=== PATIENT | male | born 1960 | race Caucasian/White ===

== ENCOUNTER 2017-10-12 16:26 | Emergency (ER) | payer MEDICAID, SELFPAY | END 2017-10-12 19:03 | disposition home or self-care (01) | PROVIDERS: Emergency Provider Emergency Medicine; Visit Provider Emergency Medicine | DX: M25.551 Pain in right hip (principal); M54.31 Sciatica, right side; F17.210 Nicotine dependence, cigarettes, uncomplicated; Z95.1 Presence of aortocoronary bypass graft; Z95.5 Presence of coronary angioplasty implant and graft; I10 Essential (primary) hypertension; E78.5 Hyperlipidemia, unspecified; J44.9 Chronic obstructive pulmonary disease, unspecified; K21.9 Gastro-esophageal reflux disease without esophagitis; Z79.82 Long term (current) use of aspirin; Z79.899 Other long term (current) drug therapy; Z88.5 Allergy status to narcotic agent | CPT/HCPCS: 71020; 72131; 72170; 94640; 96372; 99282 ==

== ENCOUNTER 2017-12-03 10:30 | Outpatient (RCR) | payer MEDICAID, SELFPAY ==
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
== END 2017-12-03 10:31 | disposition home or self-care (01) ==
LOC: PT 10:30
PROVIDERS: PCP Emergency Medicine; Visit Provider Physician Assistant
DX: M54.9 Dorsalgia, unspecified (principal)
CPT/HCPCS: 97010; 97012; 97014; 97035; 97110; G0283

== ENCOUNTER → 2017-12-09 09:47 | Outpatient (REF) | payer MEDICAID, SELFPAY ==
[2017-12-09 13:57] LABS: Alanine Aminotransferase 43 U/L (12-78); Albumin Level 3.7 gm/dL (3.4-5.0); Albumin/Globulin Ratio 1.2 (1.1-1.8); Alkaline Phosphatase 94 U/L (46-116); Anion Gap 13.1 mEq/L (5-15); Aspartate Amino Transferase 14 U/L (15-37); Bilirubin,Total 0.5 mg/dL (0.2-1.0); Blood Urea Nitrogen 13 mg/dL (7-18); Calcium 8.6 mg/dL (8.5-10.1); Carbon Dioxide 27 mmol/L (21.0-32.0); Chloride 106 mmol/L (98-107); Chol/HDL Ratio 1.9 (1-3.5); Cholesterol 111 mg/dL (140-200); Creatinine,Serum 0.64 mg/dL (0.70-1.30); Estimated Glomerular Filt Rate 129 ml/min (>60); GFR (African American) 156 ML/MIN (>60); Glucose 157 mg/dL (74-106); HDL Cholesterol 58 mg/dL (27-67); LDL Cholesterol 38 mg/dL (0-130); Potassium 4.1 mmoL/L (3.5-5.1); Sodium 142 mmol/L (136-145); T4 (Thyroxine) 7.2 ug/dl (4.7-13.3); Thyroid Stimulating Hormone 1.91 uIU/ml (0.358-3.740); Total Protein,Serum 6.7 gm/dL (6.4-8.2); Triglycerides 73 mg/dL (30-200); VLDL Cholesterol 15 mg/dL (0-40)
[2017-12-09 14:06] LABS: Basophils % 0.3 % (0.1-2.0); Eosinophils # 0.2 K/mm3 (0.0-0.4); Eosinophils % 1.8 % (0.1-12.0); Hematocrit 45.1 % (42.0-52.0); Hemoglobin 15.4 g/dL (14.1-18.0); Lymphocytes # 2.7 K/mm3 (0.7-4.5); Lymphocytes % 28.2 K/mm3 (10-50); Mean Corpuscular HGB Conc 34.2 g/dL (31.8-35.4); Mean Corpuscular Hemoglobin 29.9 pg (27.0-31.2); Mean Corpuscular Volume 87.5 fl (80-94); Mean Platelet Volume 10.3 fl (7.4-10.4); Monocytes # 0.6 K/mm3 (0.1-1.0); Monocytes % 6.4 % (1.7-9.3); Neutrophils % 63.3 % (37.0-80.0); Platelet Count 192 K/mm3 (142-424); Red Blood Count 5.15 M/mm3 (4.60-6.20); Red Cell Distribution Width 13.3 % (11.5-17.5); White Blood Count 9.5 K/mm3 (4.8-10.8)
[2017-12-11 12:08] LABS: PSA, Free 0.27 ng/mL; Vitamin D 25 Hydroxy 19.1 ng/mL (30.0-100.0)
== END ==
LOC: LAB 09:47
PROVIDERS: Visit Provider Physician Assistant
DX: I11.9 Hypertensive heart disease without heart failure (principal); E78.5 Hyperlipidemia, unspecified
CPT/HCPCS: 80053; 80061; 82652; 84153; 84154; 84436; 84443; 85025

== ENCOUNTER → 2018-06-03 09:07 | Outpatient (CLI) | payer MEDICAID, SELFPAY ==
--- NOTE | 2018-06-03 09:09 | XR_ITS ---
XR foot wt bearing LT 3V HISTORY: ITS.REASON: pain ORDERING PHYSICIAN: Magaly Jaffe DPM PATIENT AGE: 58 years COMPARISON: None FINDINGS: It appears that the patient has had a prior bunionectomy at the first metatarsophalangeal joint. Please correlate with patient's history which is not made available. There is widening of the base of the first metatarsal suggesting an old fracture with mild osteoarthritic change of the first metatarsal tarsal junction. There are mild osteoarthritic changes of the first metatarsophalangeal joint. No acute fracture or dislocation or other significant anomalies. IMPRESSION: 1. Old fracture at the base of the first metatarsal 2. Suspect prior bunionectomy at the first metatarsophalangeal junction
--- NOTE | 2018-06-03 09:09 | XR_ITS ---
XR foot wt bearing RT 3V HISTORY: ITS.REASON: pain ORDERING PHYSICIAN: Magaly Jaffe DPM PATIENT AGE: 58 years COMPARISON: None FINDINGS: There is mild hallux valgus with first metatarsophalangeal angle of 32 degrees and mild osteoarthritic change of the first metatarsophalangeal joint along with bony hypertrophy of the distal aspect of the first metatarsal. No fracture or dislocation. No other significant anomalies. IMPRESSION: Hallux valgus with bunion formation and osteoarthritis of the first MTP joint
== END ==
PROVIDERS: Visit Provider Podiatrist
DX: M79.672 Pain in left foot (principal)
CPT/HCPCS: 73630

== ENCOUNTER 2018-06-06 02:23 | Inpatient (IN) ==
[2018-06-06 02:47] LABS: Basophils # 0.1 K/mm3 (0-0.2); Basophils % 0.3 % (0.1-2.0); Eosinophils # 0.3 K/mm3 (0.0-0.4); Eosinophils % 1.5 % (0.1-12.0); Hematocrit 46.5 % (42.0-52.0); Hemoglobin 15.9 g/dL (14.1-18.0); Lymphocytes # 5.7 K/mm3 (0.7-4.5); Lymphocytes % 27.8 K/mm3 (10-50); Mean Corpuscular HGB Conc 34.1 g/dL (31.8-35.4); Mean Platelet Volume 9.8 fl (7.4-10.4); Monocytes # 1.2 K/mm3 (0.1-1.0); Monocytes % 5.7 % (1.7-9.3); Neutrophils # 13.2 K/mm3 (1.8-7.8); Neutrophils % 64.8 % (37.0-80.0); Platelet Count 206 K/mm3 (142-424); Red Blood Count 5.29 M/mm3 (4.60-6.20); Red Cell Distribution Width 13.5 % (11.5-17.5)
[2018-06-06 02:48] LABS: White Blood Count 20.4 K/mm3 (4.8-10.8)
[2018-06-06 03:03] LABS: Anion Gap 19.7 mEq/L (5-15); Blood Urea Nitrogen 15 mg/dL (7-18); Calcium 9.3 mg/dL (8.5-10.1); Carbon Dioxide 24 mmol/L (21.0-32.0); Chloride 104 mmol/L (98-107); Glucose 162 mg/dL (74-106); Potassium 3.7 mmoL/L (3.5-5.1); Sodium 144 mmol/L (136-145)
[2018-06-06 03:08] LABS: ABG Base Excess -2.4 mmol/L (-2.4-2.3); ABG HCO3 22.7 mmhg (22.0-26.0); ABG Oxygen Saturation 89 % (90-100); ABG PCO2 39.6 mmhg (35.0-45.0); ABG PH 7.38 mmol/L (7.35-7.45); ABG PO2 56.7 mmhg (80-100)
[2018-06-06 03:09] LABS: Allen's Test Y; Oxygen 6 %
[2018-06-06 03:15] LABS: Eosinophils % 2 % (0-3); Lymphocytes % 19 % (10-50); Monocytes % 5 % (2-9); Neutrophils % 67 % (42-76); RBC Morphology Normal; Total Cells Counted 100
--- NOTE | 2018-06-06 03:42 | Emergency Department Note ---
ED Disposition Clinical Impression: Non-STEMI (non-ST elevated myocardial infarction), Tobacco dependence syndrome CHF (congestive heart failure) Qualifiers: Heart failure type: unspecified Heart failure chronicity: acute on chronic Qualified Code(s): I50.9 - Heart failure, unspecified COPD (chronic obstructive pulmonary disease) Qualifiers: COPD type: COPD with acute exacerbation Qualified Code(s): J44.1 - Chronic obstructive pulmonary disease with (acute) exacerbation CAP (community acquired pneumonia) Qualifiers: Laterality: unspecified laterality Qualified Code(s): J18.9 - Pneumonia, unspecified organism Disposition: Admitted As Inpatient Condition on Discharge: Serious Referrals: Alcides Oakley MD [Primary Care Provider] - - Critical Care Critical Care Time: No Attestation: On 06/06/18, the high probability of a clinically significant, sudden or life threatening deterioration of the following system(s) required my full and direct attention, intervention and personal management. The time I documented below is in addition to time spent performing reported procedures but includes the following listed in this critical care notation. Medical Decision Making - Medical Records Medical records reviewed: Yes: I reviewed the patient's medical records. - Denys Inquiry Pt receiving controlled substance: No Vital Signs: 06/06/18 02:23 06/06/18 02:28 06/06/18 02:35 Temperature 97.5 F L Temperature Source Temporal Artery Scan Pulse Rate [Right Radial] 113 H 112 H 109 H Respiratory Rate 26 H 22 22 Blood Pressure [Right Arm] 202/138 194/118 173/105 Blood Pressure Mean [Right Arm] 159 143 127 Blood Pressure Source [Right Arm] Automatic Cuff Automatic Cuff Automatic Cuff Blood Pressure Position [Right Arm] Sitting Sitting Sitting 02 Sat by Pulse Oximetry 75 L 95 95 Oxygen Delivery Method Room Air Non-Rebreather Non-Rebreather Oxygen Flow Rate (LPM) 15 15 06/06/18 02:42 06/06/18 02:56 06/06/18 03:01 Temperature Temperature Source Pulse Rate [Right Radial] 102 H 98 H 97 H Respiratory Rate 20 20 22 Blood Pressure [Right Arm] 173/105 172/111 162/73 Blood Pressure Mean [Right Arm] 127 131 102 Blood Pressure Source [Right Arm] Automatic Cuff Automatic Cuff Automatic Cuff Blood Pressure Position [Right Arm] Sitting Sitting Sitting 02 Sat by Pulse Oximetry 90 L 92 L 93 L Oxygen Delivery Method Nasal Cannula Nasal Cannula Oxygen Flow Rate (LPM) 6 5 06/06/18 03:23 06/06/18 04:07 06/06/18 04:28 Temperature Temperature Source Pulse Rate [Right Radial] 89 86 80 Respiratory Rate 22 15 15 Blood Pressure [Right Arm] 158/97 146/87 130/84 Blood Pressure Mean [Right Arm] 117 106 99 Blood Pressure Source [Right Arm] Automatic Cuff Automatic Cuff Automatic Cuff Blood Pressure Position [Right Arm] Sitting Sitting Sitting 02 Sat by Pulse Oximetry 93 L 93 L 95 Oxygen Delivery Method Nasal Cannula Nasal Cannula Nasal Cannula Oxygen Flow Rate (LPM) 4 4 4 - Lab Data Lab results reviewed: Yes: I reviewed the patient's lab results. Lab Results 06/06/18 02:30: WBC 20.4 H*, RBC 5.29, Hgb 15.9, Hct 46.5, MCV 88.0, MCH 30.0, MCHC 34.1, RDW 13.5, Plt Count 206, MPV 9.8, Neut % (Auto) 64.8, Lymph % (Auto) 27.8, Elbert % (Auto) 5.7, Eos % (Auto) 1.5, Baso % (Auto) 0.3, Neut # (Auto) 13.2 H, Lymph # (Auto) 5.7 H, Elbert # (Auto) 1.2 H, Eos # (Auto) 0.3, Baso # ( Auto) 0.1, Total Counted 100, Neutrophils % (Manual) 67, Band Neutrophils % 7.0 , Lymphocytes % (Manual) 19, Monocytes % (Manual) 5, Eosinophils % (Manual) 2, Platelet Estimate Normal, RBC Morphology Normal 06/06/18 02:30: Sodium 144, Potassium 3.7, Chloride 104, Carbon Dioxide 24, Anion Gap 19.7 H, BUN 15, Creatinine 1.03, Estimated Creat Clear 98, Estimated GFR 74, Est GFR ( Amer) 90, Glucose 162 H, Calcium 9.3, Troponin I < 0.02 06/06/18 03:07: Specimen Source R/r, O2 % 6, ABG pH 7.38, ABG pCO2 39.6, ABG pO2 56.7 L, ABG HCO3 22.7, ABG Total CO2 24.0, ABG O2 Saturation 89 L, ABG Base Excess -2.4, Samy Test Y 06/06/18 03:15: Lactate 1.3 06/06/18 03:15: B-Natriuretic Peptide 724 H 06/06/18 04:00: Troponin I 0.15 H Result diagrams: 06/06/18 02:30 06/06/18 02:30 Orders (Tests/Meds): ED MEDICATIONS Generic Name Dose Route Start Last Admin Trade Name María PRN Reason Stop Dose Admin Sodium Chloride 1,000 mls @ 125 mls/hr 06/06/18 03:15 06/06/18 03:07 Sod Chlor 0.9% 1000ml Bag IV 06/06/18 11:14 125 mls/hr .Q8H CHARLES Administration Azithromycin 500 mg/ Sodium 250 mls @ 250 mls/hr 06/06/18 04:00 06/06/18 04: 22 Chloride IV 06/20/18 03:59 250 mls/hr Q24H CHARLES Administration Protocol Ceftriaxone Sodium 1 gm/ 50 mls @ 100 mls/hr 06/06/18 04:00 06/06/18 03:49 Sodium Chloride IV 06/20/18 03:59 100 mls/hr Q24H CHARLES Administration Protocol Nitroglycerin 0.4 mg 06/06/18 02:23 06/06/18 02:30 Nitrostat 0.4mg Sl Tablet SL 07/06/18 02:22 0.4 mg Q5MINP PRN Administration Chest Pain Discontinued Medications Generic Name Dose Route Start Last Admin Trade Name María PRN Reason Stop Dose Admin Albuterol/Ipratropium 3 ml 06/06/18 02:52 06/06/18 03:02 Duoneb 3ml Neb IH 06/06/18 02:53 3 ml ONCE ONE Administration Aspirin 324 mg 06/06/18 02:23 06/06/18 02:23 Aspirin 81mg Chewable Tablet PO 06/06/18 02:24 324 mg ONCE ONE Administration Furosemide 40 mg 06/06/18 03:34 06/06/18 03:36 Lasix 40mg/4ml Vial IV 06/06/18 03:35 40 mg ONCE ONE Administration Methylprednisolone Sodium Succinate 125 mg 06/06/18 02:52 06/06/18 03:02 Solu-Medrol 125mg/2ml Vial IV 06/06/18 02:53 125 mg ONCE ONE Administration Nitroglycerin 1 gm 06/06/18 02:50 06/06/18 02:51 Nitroglycerin 1 Inch Oint Udp TD 06/06/18 02:51 1 gm ONCE ONE Administration ORDERS Category Date Time Status XR chest portable Stat Exams 06/06/18 02:35 Taken Blood Culture Stat Micro 06/06/18 03:15 Received ABG [Arterial Blood Gas] Stat RT 06/06/18 02:52 Ordered ECG Request by /Alon Stat Y 06/06/18 02:35 Ordered - Radiology Data #1 Image(s): Chest Image Reviewed: Yes I reviewed the patient's radiology image Preliminary Findings: Abnormal (bilat inflitrates ) - ECG Data Tracing #1 I reviewed this ECG and interpreted as documented below: Arrhythmias present: sinus tach Ischemic changes: non-specific ST-T wave changes Tracing #2 I reviewed this ECG and interpreted as documented below: Normal Sinus Rhythm: Yes Ischemic changes: non-specific ST-T wave changes Chest Pain HPI - General Chief Complaint: Chest Pain Stated Complaint: chest pain Time Seen by Provider: 06/06/18 02:40 Mode of Arrival: Ambulatory Source of Information: Patient, Medical Record Limitations: No Limitations Description of Symptoms (Recalled from ER Triage Doc. by RN): Pt reports difficulty breathing that started at 11pm tonight. She reports pt woke up in a sweat with trouble breathing complaining of chest pain and left arm pain. 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 with lt arm pain - has hx of cad and copd complaint: chest pain indicative of cardiac Onset (ago): day(s) Duration: now resolved Activity at onset: during rest Pain location: substernal Severity: moderate Quality: tightness Pain radiation: LUE Associated symptoms: diaphoresis, dyspnea Risk Factors for CAD: Hypertension, Family Hx of CAD, Smoking Treatments prior to or on arrival for Cardiac Chest Pain: none - TREY Score Non-Stemi Age of patient: Less than 65 yrs Number of risk factors for CAD: Presence of 3 or more Prior coronary artery stenosis(seen in coronary angiography): Less than 50% ST-Segment deviation on ECG (more than 1 min): Absent Prior aspirin intake: ASA intake in the last 7 days Severe anginal chest pain: Two or more episodes in last 24 hours Elevated cardiac markers(CK-MB or troponin): Absent Non-Stemi Risk Score: 3 - Related Data Prior Cardiac Testing/Procedures: CABG Home Medications Medication Instructions Recorded Confirmed aspirin 325 mg tablet,delayed 325 mg PO QDAY 11/03/17 06/06/18 release lisinopril 20 mg tablet 20 mg PO BID tab 11/03/17 06/06/18 nitroglycerin 0.4 mg sublingual 0.4 mg SUBLINGUAL Q5M PRN 11/03/17 06/06/18 tablet buprenorphine 8 mg-naloxone 2 mg 1 tab SUBLINGUAL BID tab 11/04/17 06/06/18 sublingual tablet Albuterol Sulfate [Proventil-HFA 2 puff INHALATION Q4H 06/06/18 06/06/18 90mcg/puff Inh] Amlodipine Besylate [Norvasc 5mg 5 mg PO QDAY 06/06/18 06/06/18 tablet] Atorvastatin Calcium [Lipitor 80mg 80 mg PO QHS 06/06/18 06/06/18 Tablet] Carvedilol [Carvedilol 12.5mg Tab] 12.5 mg PO BID 06/06/18 06/06/18 Cyclobenzaprine HCl 10 mg PO TID 06/06/18 06/06/18 [Cyclobenzaprine 10mg Tab] Ergocalciferol (Vitamin D2) 50,000 unit PO QWEEK 06/06/18 06/06/18 [Vitamin D2] Escitalopram Oxalate 10 mg PO DAILY 06/06/18 06/06/18 Gabapentin [Neurontin 600mg 600 mg PO TID 06/06/18 06/06/18 tablet] Isosorbide Dinitrate 30 mg PO DAILY 06/06/18 06/06/18 Omeprazole [Omeprazole 20mg 20 mg PO DAILY 06/06/18 06/06/18 Capsule] Ticagrelor [Brilinta 90mg Tablet] 90 mg PO BID 06/06/18 06/06/18 Previous Rx's Medication Instructions Recorded hydroxyzine pamoate 25 mg capsule 25 mg PO Q8H PRN #90 cap 04/21/18 ibuprofen 800 mg tablet 800 mg PO BID #60 tab 06/03/18 Allergies Allergy/AdvReac Type Severity Reaction Status Date / Time codeine [CODEINE] Allergy Mild Verified 06/06/18 02:33 [facility] History I have reviewed the patient's past medical history: Yes Medical History: Reports:: Chronic Obstructive Pulmonary Disease (COPD), Coronary Artery Disease, Hyperlipidemia, Hypertension Other Surgeries: Yes: Angioplasty Amputation: No Fractures: Yes Comment: lft foot,lft wrist - Social History Smoking Status: Current some day smoker Tobacco Type: cigarettes # Packs/Day (cigarettes): 1 Alcohol Intake: never Alcohol Intake Frequency:: other Substance Use Type: denies use - Psychiatric History Expresses thoughts of harming self/others: None Suicide Plan Description: No Plan Family Hx:: Heart Attack, Coronary Artery Disease, Hypertension ROS Obtained: Yes All systems reviewed & no additional complaints - Constitutional Constitutional: Denies fever(s) - Eyes Eyes: Denies change in vision - ENT Ears, Nose, Mouth, and Throat: Denies sore throat - Cardiovascular Cardiovascular: Reports chest pain, Reports dyspnea - Respiratory Respiratory: Yes cough, Yes dyspnea, No coughing up blood - Gastrointestinal Gastrointestingal: Denies: abdominal pain - Genitourinary Male Genitourinary: Denies hematuria - Musculoskeletal Musculoskeletal: Denies joint pain, Denies joint swelling - Integumentary/Breasts Skin/Breast: Denies rash - Neurologic Neurologic: Denies seizure-like activity Physical Exam - General General appearance: in no apparent distress - Head Head exam: normocephalic - Eye Eye exam: Present: PERRL, EOMI - ENT ENT exam: Present: mucous membranes dry - Neck Neck exam: Present: trachea midline - Respiratory Respiratory exam: Present: other (bilat rales ). Absent: respiratory distress - Cardiovascular Cardiovascular exam: Present: regular rate, systolic murmur, +S3 - Abdominal Exam Abdominal exam: Present: soft - Extremities Exam Extremities exam: Absent: pedal edema, calf tenderness - Neurological Exam Neurological exam: Present: alert, oriented X3, CN II-XII intact - Psychiatric Psychiatric exam: Present: normal affect - Skin Skin exam: Absent: rash
[2018-06-06 07:15] LABS: Eosinophils % 0.1 % (0.1-12.0); Hematocrit 40.4 % (42.0-52.0); Lymphocytes # 0.8 K/mm3 (0.7-4.5); Lymphocytes % 6.2 K/mm3 (10-50); Mean Corpuscular Hemoglobin 29.2 pg (27.0-31.2); Mean Corpuscular Volume 85.9 fl (80-94); Mean Platelet Volume 10.5 fl (7.4-10.4); Monocytes # 0.4 K/mm3 (0.1-1.0); Monocytes % 2.7 % (1.7-9.3); Neutrophils # 12.3 K/mm3 (1.8-7.8); Neutrophils % 90.9 % (37.0-80.0); Platelet Count 139 K/mm3 (142-424); Red Cell Distribution Width 13.4 % (11.5-17.5); White Blood Count 13.6 K/mm3 (4.8-10.8)
[2018-06-06 07:18] LABS: Hemoglobin 13.7 g/dL (14.1-18.0)
[2018-06-06 07:31] LABS: Calcium 8.8 mg/dL (8.5-10.1); Chol/HDL Ratio 2.1 (1-3.5)
--- NOTE | 2018-06-06 10:29 | History & Physical Report ---
*Admission Date: 06/05/18 *Chief complaint: chest pain *History of present illness: this wm with known heart disease with prev stents presents to ed with progressive sx and assoc sob - he has karina of 3-4 and has last stent about 18 months ago- he was sen in the ed with chf and possible pneummonia and abn ekg and card enz and was admitted for treatment and eval - has chronic pain issues - feels sl better this am and no pain at this time [facility] History I have reviewed the patient's past medical history: Yes Medical History: Reports:: Chronic Obstructive Pulmonary Disease (COPD), Coronary Artery Disease, Hyperlipidemia, Hypertension Denies:: Cancer, Diabetes Mellitus Type 1, Diabetes Mellitus Type 2, MRSA Other Medical History: Reports: Arthritis Other Surgeries: Yes: Angioplasty Amputation: No Fractures: Yes - *Social History Educational Level: Completed High School Smoking Status: Current every day smoker Tobacco Type: cigarettes # Packs/Day (cigarettes): 1 #Yrs smoked (if former smoker): 42 Alcohol Intake: never Alcohol Intake Frequency:: other Substance Use Type: denies use Occupational Status: retired, disabled Housing: house Household Members: spouse, family, children - Psychiatric History Expresses thoughts of harming self/others: None Suicide Plan Description: No Plan *Family Hx:: Heart Attack, Coronary Artery Disease, Hypertension Review of Systems - Review of Systems Review of systems:: pertinent systems reviewed and negative unless documented below - Constitutional Denies fever(s) - Eyes Denies change in vision - ENT Denies sore throat - *Cardiovascular Reports chest pain, Reports chest pain at rest, Reports shortness of breath - *Respiratory Reports cough, Denies coughing up blood - *Gastrointestinal Denies abdominal pain - *Genitourinary Denies blood in urine - *Musculoskeletal Denies joint pain, Denies joint swelling - Integumentary/Breasts Denies rash - *Neurologic Denies seizure-like activity - Psychiatric Reports other (chronic pain) Meds Home Medications Medication Instructions Recorded Confirmed Type aspirin 325 mg tablet,delayed 325 mg PO QDAY 11/03/17 06/06/18 History release lisinopril 20 mg tablet 20 mg PO BID tab 11/03/17 06/06/18 History nitroglycerin 0.4 mg sublingual 0.4 mg SUBLINGUAL Q5M PRN 11/03/17 06/06/18 History tablet buprenorphine 8 mg-naloxone 2 mg 1 tab SUBLINGUAL BID tab 11/04/17 06/06/18 History sublingual tablet Albuterol Sulfate [Proventil-HFA 2 puff INHALATION Q4H 06/06/18 06/06/18 History 90mcg/puff Inh] Amlodipine Besylate [Norvasc 5mg 5 mg PO QDAY 06/06/18 06/06/18 History tablet] Atorvastatin Calcium [Lipitor 80mg 80 mg PO QHS 06/06/18 06/06/18 History Tablet] Carvedilol [Carvedilol 12.5mg Tab] 12.5 mg PO BID 06/06/18 06/06/18 History Cyclobenzaprine HCl 10 mg PO TID 06/06/18 06/06/18 History [Cyclobenzaprine 10mg Tab] Ergocalciferol (Vitamin D2) 50,000 unit PO QWEEK 06/06/18 06/06/18 History [Vitamin D2] Escitalopram Oxalate 10 mg PO DAILY 06/06/18 06/06/18 History Gabapentin [Neurontin 600mg 600 mg PO TID 06/06/18 06/06/18 History tablet] Isosorbide Dinitrate 30 mg PO DAILY 06/06/18 06/06/18 History Omeprazole [Omeprazole 20mg 20 mg PO DAILY 06/06/18 06/06/18 History Capsule] Ticagrelor [Brilinta 90mg Tablet] 90 mg PO BID 06/06/18 06/06/18 History Allergies Allergy/AdvReac Type Severity Reaction Status Date / Time codeine [CODEINE] Allergy Mild Verified 06/06/18 02:33 Exam Vital signs and Labs for Last 24 Hours: Temp Pulse Resp BP Pulse Ox 98 F 73 16 130/91 95 06/06/18 10:00 06/06/18 10:00 06/06/18 10:00 06/06/18 10:00 06/06/18 10:00 Laboratory Results - last 24 hr 06/06/18 02:30: WBC 20.4 H*, RBC 5.29, Hgb 15.9, Hct 46.5, MCV 88.0, MCH 30.0, MCHC 34.1, RDW 13.5, Plt Count 206, MPV 9.8, Neut % (Auto) 64.8, Lymph % (Auto) 27.8, [place] % (Auto) 5.7, Eos % (Auto) 1.5, Baso % (Auto) 0.3, Neut # (Auto) 13.2 H, Lymph # (Auto) 5.7 H, [place] # (Auto) 1.2 H, Eos # (Auto) 0.3, Baso # ( Auto) 0.1, Total Counted 100, Neutrophils % (Manual) 67, Band Neutrophils % 7.0 , Lymphocytes % (Manual) 19, Monocytes % (Manual) 5, Eosinophils % (Manual) 2, Platelet Estimate Normal, RBC Morphology Normal 06/06/18 02:30: Sodium 144, Potassium 3.7, Chloride 104, Carbon Dioxide 24, Anion Gap 19.7 H, BUN 15, Creatinine 1.03, Estimated Creat Clear 98, Estimated GFR 74, Est GFR ( Amer) 90, Glucose 162 H, Calcium 9.3, Troponin I < 0.02 06/06/18 03:07: Specimen Source R/r, O2 % 6, ABG pH 7.38, ABG pCO2 39.6, ABG pO2 56.7 L, ABG HCO3 22.7, ABG Total CO2 24.0, ABG O2 Saturation 89 L, ABG Base Excess -2.4, Samy Test Y 06/06/18 03:15: Lactate 1.3 06/06/18 03:15: B-Natriuretic Peptide 724 H 06/06/18 04:00: Troponin I 0.15 H 06/06/18 07:05: WBC 13.6 H D, RBC 4.70, Hgb 13.7 L D, Hct 40.4 L, MCV 85.9, MCH 29.2, MCHC 34.0, RDW 13.4, Plt Count 139 L D, MPV 10.5 H, Neut % (Auto) 90.9 H, Lymph % (Auto) 6.2 L, [place] % (Auto) 2.7, Eos % (Auto) 0.1, Baso % (Auto) 0.0 L, Neut # (Auto) 12.3 H, Lymph # (Auto) 0.8, [place] # (Auto) 0.4, Eos # (Auto) 0.0, Baso # (Auto) 0.0 06/06/18 07:05: Sodium 142, Potassium 4.0, Chloride 103, Carbon Dioxide 33 H D, Anion Gap 10.0, BUN 15, Creatinine 0.93, Estimated Creat Clear 116, Estimated GFR 83, Est GFR ( Amer) 101, Glucose 139 H, Calcium 8.8, Troponin I 0.57 H, Triglycerides 55, Cholesterol 111 L, LDL Cholesterol 46, VLDL Cholesterol 11 , HDL Cholesterol 54, Cholesterol/HDL Ratio 2.1 I & O for Last 24 hours: Intake & Output 06/03/18 06/04/18 06/05/18 06/06/18 11:59 11:59 11:59 11:59 Output Total 1550 / 1550 Balance -1550 / -1550 Weight 208 lb 4 oz - Constitutional no acute distress - *Routine HEENT Exam Head: Present: normocephalic Eye: Present: EOMI, PERRL. Absent: conjunctival icterus ENT: Present: mucous membranes dry - *Routine Neck Exam Absent: JVD - *Routine Respiratory Exam Present: decreased breath sounds, rales, crackles - *Routine Cardiovascular Exam Present: RRR, murmur, S4 - *Routine Abdominal Exam Present: soft - *Routine Extremities Exam Absent: calf tenderness - *Routine Skin Exam Present: intact - *Routine Neurological Exam Present: alert, oriented X3, CN II-XII intact - Routine Psychiatric Exam Present: normal affect H&P: Result - Labs Labs: Short CBC 06/06/18 06/06/18 Range/Units 02:30 07:05 WBC 20.4 H* 13.6 H D (4.8-10.8) K/mm3 Hgb 15.9 13.7 L D (14.1-18.0) g/dL Hct 46.5 40.4 L (42.0-52.0) % Plt Count 206 139 L D (142-424) K/mm3 BMP 06/06/18 06/06/18 02:30 07:05 Sodium 144 142 Potassium 3.7 4.0 Chloride 104 103 Carbon Dioxide 24 33 H D BUN 15 15 Creatinine 1.03 0.93 Glucose 162 H 139 H Calcium 9.3 8.8 Cardiac Enzymes 06/06/18 06/06/18 06/06/18 Range/Units 02:30 04:00 07:05 Troponin I < 0.02 0.15 H 0.57 H (0.00-0.06) ng/ml Assessment and Plan (1) Non-STEMI (non-ST elevated myocardial infarction) Current visit: Yes Status: Acute Category: Medical Code(s): I21.4 - Non- ST elevation (NSTEMI) myocardial infarction (2) CHF (congestive heart failure) Current visit: Yes Status: Acute Qualifiers: Heart failure type: unspecified Heart failure chronicity: acute on chronic Qualified Code(s): I50.9 - Heart failure, unspecified Category: Medical Code(s): I50.9 - Heart failure, unspecified (3) CAP (community acquired pneumonia) Current visit: Yes Status: Acute Qualifiers: Laterality: unspecified laterality Qualified Code(s): J18.9 - Pneumonia, unspecified organism Category: Medical Code(s): J18.9 - Pneumonia, unspecified organism (4) COPD (chronic obstructive pulmonary disease) Current visit: Yes Status: Chronic Qualifiers: COPD type: COPD with acute exacerbation Qualified Code(s): J44.1 - Chronic obstructive pulmonary disease with (acute) exacerbation Category: Medical Code(s): J44.9 - Chronic obstructive pulmonary disease, unspecified (5) Lumbar disc disease with radiculopathy Current visit: No Status: Chronic Category: Medical
--- NOTE | 2018-06-06 13:25 | Pharmacy Consult Notes ---
[facility] Pharmacy VTE Monitoring - Patient Demographics Admission date: 06/06/18 Report Date: 06/06/18 Time: 13:25 Allergies/Adverse Reactions: Patient Allergies codeine [CODEINE] Allergy (Mild, Verified 06/06/18 02:33) Height: 1.78 m Weight: 94.461 kg Patient Problems: Current Active Problems (Last Updated 12/14/17 @ 10:15 by ALEK Aguirre) Non-STEMI (non-ST elevated myocardial infarction) (Acute) CHF (congestive heart failure) (Acute) CAP (community acquired pneumonia) (Acute) COPD (chronic obstructive pulmonary disease) (Chronic) Tobacco dependence syndrome (Chronic) - VTE Risk Labs: VTE Related Lab Results Hgb 13.7 g/dL (14.1-18.0) L D 06/06/18 07:05 Hct 40.4 % (42.0-52.0) L 06/06/18 07:05 Plt Count 139 K/mm3 (142-424) L D 06/06/18 07:05 BUN 15 mg/dL (7-18) 06/06/18 07:05 Creatinine 0.93 mg/dL (0.70-1.30) 06/06/18 07:05 Estimated Creat Clear 116 mL/min (0-300) 06/06/18 07:05 Was VTE Risk Assessment Performed: Yes VTE Score: 10 VTE Risk Level: Moderate Risk - Prophylaxis VTE Prophylaxis Ordered?: Yes Types of VTE Prophylaxis: TEDS Knee High Location of Applied Device: Bilateral Lower Extremeties
[2018-06-07 04:16] LABS: Basophils % 0.1 % (0.1-2.0); Eosinophils # 0.1 K/mm3 (0.0-0.4); Eosinophils % 0.5 % (0.1-12.0); Hematocrit 36.2 % (42.0-52.0); Lymphocytes # 1.9 K/mm3 (0.7-4.5); Lymphocytes % 11.9 K/mm3 (10-50); Mean Corpuscular HGB Conc 34.1 g/dL (31.8-35.4); Mean Corpuscular Hemoglobin 29.6 pg (27.0-31.2); Mean Corpuscular Volume 86.8 fl (80-94); Mean Platelet Volume 10.2 fl (7.4-10.4); Monocytes % 6.4 % (1.7-9.3); Neutrophils # 12.8 K/mm3 (1.8-7.8); Neutrophils % 81.1 % (37.0-80.0); Platelet Count 137 K/mm3 (142-424); Red Blood Count 4.17 M/mm3 (4.60-6.20); Red Cell Distribution Width 13.5 % (11.5-17.5); White Blood Count 15.8 K/mm3 (4.8-10.8)
[2018-06-07 04:20] LABS: Hemoglobin 12.3 g/dL (14.1-18.0)
[2018-06-07 04:34] LABS: Anion Gap 11.8 mEq/L (5-15); Calcium 8.8 mg/dL (8.5-10.1); Potassium 3.8 mmoL/L (3.5-5.1)
[2018-06-07 04:56] LABS: Lymphocytes % 12 % (10-50); Monocytes % 5 % (2-9); Neutrophils % 74 % (42-76); RBC Morphology Normal; Total Cells Counted 100
--- NOTE | 2018-06-07 07:33 | Consult Report ---
History of Present Illness Consult date: 06/07/18 Requesting physician: Alcides Oakley Consult reason: chest pain Chief complaint: NSTEMI Additional Medical History:: 1. Tobacco use since age 16, 1 pack per day A. COPD 2. Hypertension 3. Hyperlipidemia 4. Coronary artery disease A. Four-vessel coronary artery bypass grafting in 2006 B. Coronary artery stenting, January/2017, [place], dual antiplatelet therapy continued with aspirin and Brilinta History of present illness: 58-year-old white male with known coronary artery disease and previous bypass surgery in 2006 with recent coronary artery stenting in January 2017 in [place] presented to the hospital for chest discomfort and significant shortness of breath. Patient relates 3-4 day history of increasing shortness of breath despite use of nebulizer therapy. Patient used a nebulizer treatment prior to going bed Thursday night but was awakened shortly thereafter with significant shortness of breath and air hunger. He proceeded to come to the emergency department for further evaluation. In route patient did vomit twice. He does note some diaphoresis as well. Patient was treated with sublingual nitroglycerin and nitroglycerin paste along with IV Lasix due to elevated BNP and chest x-ray evidence of congestive heart failure. Initial troponins returned elevated with serial cardiac enzymes continuing to be elevated consistent with NV. EKG showed some ST segment depression with T-wave abnormalities in the inferior and lateral leads. There were no ST elevations noted. Patient was admitted for non-ST elevation NV with cardiology consult. Symptoms improved quickly and patient has felt better since admission yesterday. [facility] History Medical History: Reports:: Chronic Obstructive Pulmonary Disease (COPD), Coronary Artery Disease, Hyperlipidemia, Hypertension Denies:: Cancer, Diabetes Mellitus Type 1, Diabetes Mellitus Type 2, MRSA Other Medical History: Reports: Arthritis Other Surgeries: Yes: Angioplasty Amputation: No Fractures: Yes - *Social History Educational Level: Completed High School Smoking Status: Current every day smoker Tobacco Type: cigarettes # Packs/Day (cigarettes): 1 #Yrs smoked (if former smoker): 42 Alcohol Intake: never Alcohol Intake Frequency:: other Substance Use Type: denies use Occupational Status: retired, disabled Housing: house Household Members: spouse, family, children - Psychiatric History Expresses thoughts of harming self/others: None Suicide Plan Description: No Plan *Family Hx:: Heart Attack, Coronary Artery Disease, Hypertension Meds Home Medications Medication Instructions Recorded Confirmed Type aspirin 325 mg tablet,delayed 325 mg PO QDAY 11/03/17 06/06/18 History release lisinopril 20 mg tablet 20 mg PO BID tab 11/03/17 06/06/18 History nitroglycerin 0.4 mg sublingual 0.4 mg SUBLINGUAL Q5M PRN 11/03/17 06/06/18 History tablet buprenorphine 8 mg-naloxone 2 mg 1 tab SUBLINGUAL BID tab 11/04/17 06/06/18 History sublingual tablet Albuterol Sulfate [Proventil-HFA 2 puff INHALATION Q4H 06/06/18 06/06/18 History 90mcg/puff Inh] Amlodipine Besylate [Norvasc 5mg 5 mg PO DAILY 06/06/18 06/06/18 History tablet] Atorvastatin Calcium [Lipitor 80mg 80 mg PO QHS 06/06/18 06/06/18 History Tablet] Carvedilol [Carvedilol 12.5mg Tab] 12.5 mg PO BID 06/06/18 06/06/18 History Cyclobenzaprine HCl 10 mg PO TID 06/06/18 06/06/18 History [Cyclobenzaprine 10mg Tab] Ergocalciferol (Vitamin D2) 400 unit PO DAILY 06/06/18 06/06/18 History [Vitamin D] Escitalopram Oxalate 10 mg PO DAILY 06/06/18 06/06/18 History Fluticasone/Vilanterol [Breo 1 puff IH DAILY 06/06/18 06/06/18 History Ellipta 200-25 Mcg INH] Gabapentin [Neurontin 600mg 600 mg PO TID 06/06/18 06/06/18 History tablet] Isosorbide Dinitrate 30 mg PO DAILY 06/06/18 06/06/18 History Omeprazole [Omeprazole 20mg 20 mg PO DAILY 06/06/18 06/06/18 History Capsule] Ticagrelor [Brilinta 90mg Tablet] 90 mg PO BID 06/06/18 06/06/18 History Allergies Allergy/AdvReac Type Severity Reaction Status Date / Time codeine [CODEINE] Allergy Mild Verified 06/06/18 02:33 Review of Systems - *Cardiovascular Reports chest pain, Reports shortness of breath with activity - *Respiratory Reports shortness of breath with activity - *Gastrointestinal Denies abdominal pain - *Neurologic Denies behavioral changes, Denies seizure-like activity Exam Vital signs and Labs for Last 24 Hours: Temp Pulse Resp BP Pulse Ox 97.5 F L 71 17 113/77 96 06/07/18 06:00 06/07/18 06:00 06/07/18 06:00 06/07/18 06:00 06/07/18 06:00 Laboratory Results - last 24 hr 06/06/18 07:05: Sodium 142, Potassium 4.0, Chloride 103, Carbon Dioxide 33 H D, Anion Gap 10.0, BUN 15, Creatinine 0.93, Estimated Creat Clear 116, Estimated GFR 83, Est GFR ( Amer) 101, Glucose 139 H, Calcium 8.8, Troponin I 0.57 H, Triglycerides 55, Cholesterol 111 L, LDL Cholesterol 46, VLDL Cholesterol 11 , HDL Cholesterol 54, Cholesterol/HDL Ratio 2.1 06/06/18 09:55: Troponin I 0.58 H 06/06/18 13:15: Troponin I 0.57 H 06/07/18 04:00: WBC 15.8 H, RBC 4.17 L, Hgb 12.3 L D, Hct 36.2 L, MCV 86.8, MCH 29.6, MCHC 34.1, RDW 13.5, Plt Count 137 L, MPV 10.2, Neut % (Auto) 81.1 H, Lymph % (Auto) 11.9, [place] % (Auto) 6.4, Eos % (Auto) 0.5, Baso % (Auto) 0.1, Neut # (Auto) 12.8 H, Lymph # (Auto) 1.9, [place] # (Auto) 1.0, Eos # (Auto) 0.1, Baso # (Auto) 0.0, Total Counted 100, Neutrophils % (Manual) 74, Band Neutrophils % 9.0 H, Lymphocytes % (Manual) 12, Monocytes % (Manual) 5, Platelet Estimate Normal, RBC Morphology Normal 06/07/18 04:00: Sodium 139, Potassium 3.8, Chloride 104, Carbon Dioxide 27, Anion Gap 11.8, BUN 16, Creatinine 0.72 D, Estimated Creat Clear 149, Estimated GFR 112, Est GFR ( Amer) 136 D, Glucose 137 H, Calcium 8.8 I & O for Last 24 hours: Intake & Output 06/04/18 06/05/18 06/06/18 06/07/18 11:59 11:59 11:59 11:59 Intake Total 3157 / 3157 Output Total 1550 / 1550 1950 / 1950 Balance -1550 / -1550 1207 / 1207 Weight 208 lb 4 oz 209 lb 6 oz - *Routine Neck Exam Absent: JVD, carotid bruit - *Routine Respiratory Exam Present: decreased breath sounds, wheezes. Absent: rhonchi - *Routine Cardiovascular Exam Present: RRR. Absent: murmur, gallop, rubs - *Routine Abdominal Exam Present: soft. Absent: tenderness - *Routine Extremities Exam Absent: edema - *Routine Neurological Exam Present: alert, oriented X3, moving all extremities Assessment and Plan (1) Non-STEMI (non-ST elevated myocardial infarction) Current visit: Yes Status: Acute Category: Medical Code(s): I21.4 - Non- ST elevation (NSTEMI) myocardial infarction (2) CHF (congestive heart failure) Current visit: Yes Status: Acute Qualifiers: Heart failure type: unspecified Heart failure chronicity: acute on chronic Qualified Code(s): I50.9 - Heart failure, unspecified Category: Medical Code(s): I50.9 - Heart failure, unspecified (3) CAP (community acquired pneumonia) Current visit: Yes Status: Acute Qualifiers: Laterality: unspecified laterality Qualified Code(s): J18.9 - Pneumonia, unspecified organism Category: Medical Code(s): J18.9 - Pneumonia, unspecified organism (4) COPD (chronic obstructive pulmonary disease) Current visit: Yes Status: Chronic Qualifiers: COPD type: COPD with acute exacerbation Qualified Code(s): J44.1 - Chronic obstructive pulmonary disease with (acute) exacerbation Category: Medical Code(s): J44.9 - Chronic obstructive pulmonary disease, unspecified (5) Lumbar disc disease with radiculopathy Current visit: No Status: Chronic Category: Medical - Assessment and plan all Dx Assessment and Plan for all problems:: 1. In light of known coronary artery disease, continued tobacco use with risk factors of hypertension hyperlipidemia in setting of non-ST elevation NV, will proceed with left heart catheterization today. Risks, benefits and procedure discussed with patient and his . They agree to proceed. 2. Will obtain an echocardiogram if not already ordered.
--- NOTE | 2018-06-07 12:56 | Progress Note ---
Internal Medicine - PN: Subj *Date: 06/07/18 *Time: 12:53 Interval history: doing better and will be seen by card today and will have cath Exam Vital signs and Labs for Last 24 Hours: Temp Pulse Resp BP Pulse Ox 98.2 F 60 18 170/111 97 06/07/18 07:46 06/07/18 12:47 06/07/18 12:47 06/07/18 12:47 06/07/18 12:47 Laboratory Results - last 24 hr 06/06/18 13:15: Troponin I 0.57 H 06/07/18 04:00: WBC 15.8 H, RBC 4.17 L, Hgb 12.3 L D, Hct 36.2 L, MCV 86.8, MCH 29.6, MCHC 34.1, RDW 13.5, Plt Count 137 L, MPV 10.2, Neut % (Auto) 81.1 H, Lymph % (Auto) 11.9, [place] % (Auto) 6.4, Eos % (Auto) 0.5, Baso % (Auto) 0.1, Neut # (Auto) 12.8 H, Lymph # (Auto) 1.9, Major # (Auto) 1.0, Eos # (Auto) 0.1, Baso # (Auto) 0.0, Total Counted 100, Neutrophils % (Manual) 74, Band Neutrophils % 9.0 H, Lymphocytes % (Manual) 12, Monocytes % (Manual) 5, Platelet Estimate Normal, RBC Morphology Normal 06/07/18 04:00: Sodium 139, Potassium 3.8, Chloride 104, Carbon Dioxide 27, Anion Gap 11.8, BUN 16, Creatinine 0.72 D, Estimated Creat Clear 149, Estimated GFR 112, Est GFR ( Amer) 136 D, Glucose 137 H, Calcium 8.8 I & O for Last 24 hours: Intake & Output 06/05/18 06/06/18 06/07/18 06/08/18 11:59 11:59 11:59 11:59 Intake Total 3157 / 3157 Output Total 1550 / 1550 1950 / 1950 Balance -1550 / -1550 1207 / 1207 Weight 208 lb 4 oz 209 lb 6 oz - Constitutional no acute distress - *Routine HEENT Exam Head: Present: normocephalic Eye: Present: EOMI, PERRL ENT: Present: mucous membranes dry - *Routine Neck Exam Present: supple - *Routine Respiratory Exam Present: CTA bilaterally - *Routine Cardiovascular Exam Present: RRR, murmur - *Routine Abdominal Exam Present: soft - *Routine Extremities Exam Absent: calf tenderness - *Routine Skin Exam Present: intact - *Routine Neurological Exam Present: alert, oriented X3, CN II-XII intact - Routine Psychiatric Exam Present: normal affect Assessment and Plan (1) Non-STEMI (non-ST elevated myocardial infarction) Current visit: Yes Status: Acute Category: Medical Code(s): I21.4 - Non- ST elevation (NSTEMI) myocardial infarction (2) CHF (congestive heart failure) Current visit: Yes Status: Acute Qualifiers: Heart failure type: unspecified Heart failure chronicity: acute on chronic Qualified Code(s): I50.9 - Heart failure, unspecified Category: Medical Code(s): I50.9 - Heart failure, unspecified (3) CAP (community acquired pneumonia) Current visit: Yes Status: Acute Qualifiers: Laterality: unspecified laterality Qualified Code(s): J18.9 - Pneumonia, unspecified organism Category: Medical Code(s): J18.9 - Pneumonia, unspecified organism (4) COPD (chronic obstructive pulmonary disease) Current visit: Yes Status: Chronic Qualifiers: COPD type: COPD with acute exacerbation Qualified Code(s): J44.1 - Chronic obstructive pulmonary disease with (acute) exacerbation Category: Medical Code(s): J44.9 - Chronic obstructive pulmonary disease, unspecified (5) Lumbar disc disease with radiculopathy Current visit: No Status: Chronic Category: Medical
--- NOTE | 2018-06-07 21:37 | Cardiology Report ---
PROCEDURE: 2-D M-mode and color Doppler study INDICATIONS FOR THE TEST: Chest pain + COPD+ Heart Murmur Tobacco Smoking+ Palpitations Fatigue Syncope Edema Hypertension+Diabetes Mellitus Rheumatic Fever SOB+WILL Obesity Hyperlipidemia+ Family History HD Additional History PATIENT INFORMATION HEIGHT: 70 WEIGHT:195 GENDER: Male B/P:130/91 2-D/M-MODE INTERPRETATION: 2-D MEASUREMENTS OBSERVED VALUES IN CMS Right Ventricular Dimension (RVDd) 2.8 Interventricular Septum (Thickness)(IVsd) 1.6 Left Ventricular Internal Dimensions(LVIDd) 5.8 Left Ventricular Posterior Wall (Thickness)(LVPWd) 1.3 Aortic Root 3.9 Aortic Cusp Separation 2.2 Left Atrial Dimensions (LAD) 5.1 2D 1. Left atrium is moderately enlarged, left ventricle is normal size, mild concentric left ventricular hypertrophy, visually ejection fraction approximately 45%, with marked hypokinesis involving the inferolateral and inferobasal wall. 2. The right atrium and right ventricle are mildly enlarged with normal contractility. 3. The aortic valve is minimally thickened and fibrosed. 4. The mitral and tricuspid valve leaflets are minimally thickened. 5. The pulmonic valve is poorly visualized. 6. No significant pericardial effusion noted. DOPPLER INTERROGATION: Doppler interrogation of the aortic, mitral and tricuspid valvular presence of moderate to severe mitral and mild tricuspid regurgitation, tricuspid and jet velocity insufficient for calculation of the right ventricular systolic pressure. Diastolic parameters are inconclusive. CONCLUSION: 1. Moderately enlarged atrium, normal left ventricular size, mild concentric left ventricular hypertrophy, visually estimated ejection fraction approximately 45% with segmental wall motion abnormality described above, diastolic parameters are inconclusive. 2. Moderate to severe mitral and mild tricuspid regurgitation 3. No significant pericardial effusion noted.
--- NOTE | 2018-06-08 10:04 | Discharge Summary ---
General - General Admission date:: 06/06/18 Discharge date: 06/08/18 HPI HPI: this wm with known heart disease with prev stents presents to ed with progressive sx and assoc sob - he has karina of 3-4 and has last stent about 18 months ago- he was sen in the ed with chf and possible pneummonia and abn ekg and card enz and was admitted for treatment and eval - has chronic pain issues - feels sl better this am and no pain at this time Hospital Course Hospital Course: pt did better in hospital with no fever but had elevated card enz and was seen by card for nonstemi- 1. Tobacco use since age 16, 1 pack per day A. COPD 2. Hypertension 3. Hyperlipidemia 4. Coronary artery disease A. Four-vessel coronary artery bypass grafting in 2006 B. Coronary artery stenting, January/2017, [place], dual antiplatelet therapy continued with aspirin and Brilinta History of present illness: 58-year-old white male with known coronary artery disease and previous bypass surgery in 2006 with recent coronary artery stenting in January 2017 in [place] presented to the hospital for chest discomfort and significant shortness of breath. Patient relates 3-4 day history of increasing shortness of breath despite use of nebulizer therapy. Patient used a nebulizer treatment prior to going bed Thursday night but was awakened shortly thereafter with significant shortness of breath and air hunger. He proceeded to come to the emergency department for further evaluation. In route patient did vomit twice. He does note some diaphoresis as well. Patient was treated with sublingual nitroglycerin and nitroglycerin paste along with IV Lasix due to elevated BNP and chest x-ray evidence of congestive heart failure. Initial troponins returned elevated with serial cardiac enzymes continuing to be elevated consistent with MD. EKG showed some ST segment depression with T-wave abnormalities in the inferior and lateral leads. There were no ST elevations noted. Patient was admitted for non-ST elevation MD with cardiology consult. Symptoms improved quickly and patient has felt better since admission yesterday. In light of known coronary artery disease, continued tobacco use with risk factors of hypertension hyperlipidemia in setting of non-ST elevation MD, will proceed with left heart catheterization today. Risks, benefits and procedure discussed with patient and his . They agree to proceed. 2. Will obtain an echocardiogram if not already ordered. pt will be d/c and asked to see pcp and card and cease tob use pt had card cathAcute non-ST elevation myocardial infarction type B 2. Coronary artery disease 3. History of coronary bypass surgery COMPLICATIONS: None ESTIMATED BLOOD LOSS: Less than 10 ml. TECHNIQUE: One percent lidocaine was used to anesthetize the right groin. The right femoral artery was accessed via the Seldinger technique. A 4-[place]ib[place] sheath was placed in the right femoral artery. The JR-4 catheter was also used to perform left heart catheterization and left ventriculography. The JR4 catheter was used to selectively intubate the left internal mammary artery as well as the saphenous vein graft to the circumflex artery. At the end of the procedure 9000 units of heparin was administered with plans to perform intervention however after further review I decided patient had a type B myocardial infarction and intervention would be appropriate. At this point the apparatus was removed the groin is reprepped closure changed sheath was removed good hemostasis was achieved using Perclose device patient was transferred to the postop holding area in stable condition ANGIOGRAPHIC RESULTS: 1. The left main artery is ostially occluded 4. The right coronary artery is a dominant vessel and has proximal 30% stenoses mid vessel 30% stenoses. The large posterior lateral ventricular branch has a long concentric 70% stenosis. The posterior descending artery is ostially occluded and fills via left to right collaterals from the GRIJALVA graft supplying the LAD. 5. The CASON ventriculogram reveals severe left ventricular dilatation estimated ejection fraction 2025% 6. The left ventricular end-diastolic pressure 20 mmHg 7. The left internal mammary artery is a very large widely patent graft that anastomoses onto the mid LAD. Distally the LAD is a smaller caliber vessel and has 70-80% stenosis in an area probably less than 2 mm in diameter. The distal LAD supplies the distal posterior descending artery off the right coronary 8. The saphenous vein graft to the circumflex artery is ostially occluded RESSION: 1.Coronary artery disease as described above 2.Severe left ventricular dysfunction as described above PLAN: 1. Standard therapy for ischemic heart disease 2. Standard therapy for systolic congestive heart failure 3. Patient would benefit from a ICD a stent on poor ejection fraction 4. I recommend placing AICD tomorrow or prior to discharge home after echo was determined no pacemaker at this time Objective Vital signs: Temp Pulse Resp BP Pulse Ox 98.4 F 61 18 137/92 96 06/08/18 00:00 06/08/18 10:00 06/08/18 10:00 06/08/18 10:00 06/08/18 10:00 no acute distress - *Routine HEENT Exam Head: Present: normocephalic Eye: Present: EOMI, PERRL ENT: Present: mucous membranes dry - *Routine Neck Exam Present: supple - *Routine Respiratory Exam Present: CTA bilaterally - *Routine Cardiovascular Exam Present: RRR, murmur - *Routine Abdominal Exam Present: soft - *Routine Extremities Exam Absent: edema - *Routine Skin Exam Present: intact - *Routine Neurological Exam Present: alert, oriented X3, CN II-XII intact - Routine Psychiatric Exam Present: normal affect Results Labs on day of discharge: Preliminary micro results at discharge 06/06/18 03:15 Blood Culture - Preliminary Blood NO GROWTH AFTER 48 HOURS 06/06/18 03:15 Blood Culture - Preliminary Blood NO GROWTH AFTER 48 HOURS DS: Diagnosis - Discharge Diagnosis (1) Non-STEMI (non-ST elevated myocardial infarction) Status: Acute (2) CAP (community acquired pneumonia) Status: Acute (3) COPD (chronic obstructive pulmonary disease) Status: Chronic (4) Lumbar disc disease with radiculopathy Status: Chronic Discharge Plan - Patient Discharge Instructions ACTIVITY: Continue current activity DIET: continue same diet Patient Instructions: Pneumonia-Adult, Heart Attack, Chronic Obstructive Pulmonary Disease, Heart Failure, Cardiac Catheterization, Heart-Healthy Diet, Surgical Site Infection - Follow up Plan Disposition: Home, Self-[facility] Medications: Home Medications Medication Instructions Recorded Confirmed Type aspirin 325 mg tablet,delayed 325 mg PO QDAY 11/03/17 06/06/18 History release lisinopril 20 mg tablet 20 mg PO BID tab 11/03/17 06/06/18 History nitroglycerin 0.4 mg sublingual 0.4 mg SUBLINGUAL Q5M PRN 11/03/17 06/06/18 History tablet buprenorphine 8 mg-naloxone 2 mg 1 tab SUBLINGUAL BID tab 11/04/17 06/06/18 History sublingual tablet Albuterol Sulfate [Proventil-HFA 2 puff INHALATION Q4H 06/06/18 06/06/18 History 90mcg/puff Inh] Amlodipine Besylate [Norvasc 5mg 5 mg PO DAILY 06/06/18 06/06/18 History tablet] Atorvastatin Calcium [Lipitor 80mg 80 mg PO QHS 06/06/18 06/06/18 History Tablet] Carvedilol [Carvedilol 12.5mg Tab] 12.5 mg PO BID 06/06/18 06/06/18 History Cyclobenzaprine HCl 10 mg PO TID 06/06/18 06/06/18 History [Cyclobenzaprine 10mg Tab] Ergocalciferol (Vitamin D2) 400 unit PO DAILY 06/06/18 06/06/18 History [Vitamin D] Escitalopram Oxalate 10 mg PO DAILY 06/06/18 06/06/18 History Fluticasone/Vilanterol [Breo 1 puff IH DAILY 06/06/18 06/06/18 History Ellipta 200-25 Mcg INH] Gabapentin [Neurontin 600mg 600 mg PO TID 06/06/18 06/06/18 History tablet] Isosorbide Dinitrate 30 mg PO DAILY 06/06/18 06/06/18 History Omeprazole [Omeprazole 20mg 20 mg PO DAILY 06/06/18 06/06/18 History Capsule] Ticagrelor [Brilinta 90mg Tablet] 90 mg PO BID 06/06/18 06/06/18 History Prescriptions/Medication Reconciliation: New Nicotine [Nicoderm 21mg/24hr patch] 21 mg TD DAILYP PRN #30 patch.td24 PRN Reason: Nicotine Cravings Cyclobenzaprine HCl [Flexeril 10mg tablet] 10 mg PO TID tablet Azithromycin [Zithromax 250mg tab] 250 mg PO DIRECTED #6 tab Continue aspirin 325 mg tablet,delayed release 325 mg PO QDAY lisinopril 20 mg tablet 20 mg PO BID tab hydroxyzine pamoate 25 mg capsule 25 mg PO Q8H PRN #90 cap PRN Reason: anxiety nitroglycerin 0.4 mg sublingual tablet 0.4 mg SUBLINGUAL Q5M PRN PRN Reason: Chest Pain buprenorphine 8 mg-naloxone 2 mg sublingual tablet 1 tab SUBLINGUAL BID tab Ticagrelor [Brilinta 90mg Tablet] 90 mg PO BID Gabapentin [Neurontin 600mg tablet] 600 mg PO TID Escitalopram Oxalate 10 mg PO DAILY Cyclobenzaprine HCl [Cyclobenzaprine 10mg Tab] 10 mg PO TID Carvedilol [Carvedilol 12.5mg Tab] 12.5 mg PO BID Atorvastatin Calcium [Lipitor 80mg Tablet] 80 mg PO QHS Amlodipine Besylate [Norvasc 5mg tablet] 5 mg PO DAILY Albuterol Sulfate [Proventil-HFA 90mcg/puff Inh] 2 puff INHALATION Q4H Ergocalciferol (Vitamin D2) [Vitamin D] 400 unit PO DAILY Fluticasone/Vilanterol [Breo Ellipta 200-25 Mcg INH] 1 puff IH DAILY Isosorbide Dinitrate 30 mg PO DAILY Discontinued ibuprofen 800 mg tablet 800 mg PO BID #60 tab No Action Omeprazole [Omeprazole 20mg Capsule] 20 mg PO DAILY
--- NOTE | 2018-06-08 11:16 | Progress Note ---
Subjective Date: 06/08/18 Time: 09:00 Principal diagnosis: NSTEMI Interval history: 58 yo WM in bed in NAD. No chest pains and is breathing better. Results of echo reviewed and patient does not meet criteria for AICD at this time. LVEF 45% and no arrhythmias on telemetry. Exam Vital signs and Labs for Last 24 Hours: Temp Pulse Resp BP Pulse Ox 98.4 F 61 18 137/92 96 06/08/18 00:00 06/08/18 10:00 06/08/18 10:00 06/08/18 10:00 06/08/18 10:00 I & O for Last 24 hours: Intake & Output 06/05/18 06/06/18 06/07/18 06/08/18 11:59 11:59 11:59 11:59 Intake Total 3157 / 3157 1070 / 1070 Output Total 1550 / 1550 1950 / 1950 3250 / 3250 Balance -1550 / -1550 1207 / 1207 -2180 / -2180 Weight 208 lb 4 oz 209 lb 6 oz 207 lb 9.6 oz Microbiology Reports for the Last 24 Hours: Microbiology 06/06/18 03:15 Blood Blood Culture - Preliminary NO GROWTH AFTER 48 HOURS 06/06/18 03:15 Blood Blood Culture - Preliminary NO GROWTH AFTER 48 HOURS - *Routine Neck Exam Absent: JVD, carotid bruit - *Routine Respiratory Exam Comments: Improved breath sounds without rales or wheezing. - *Routine Cardiovascular Exam Present: RRR - *Routine Extremities Exam Absent: edema Progress Note: A&P (1) Non-STEMI (non-ST elevated myocardial infarction) Status: Acute Current Visit: Yes (2) CAP (community acquired pneumonia) Status: Acute Current Visit: Yes (3) COPD (chronic obstructive pulmonary disease) Status: Chronic Current Visit: Yes (4) Lumbar disc disease with radiculopathy Status: Chronic Current Visit: No Assessment and Plan for All Diagnoses:: OK from cardiology standpoint for discharge home on current meds including RIGO, BB, statin, diuretics. Follow up in our office in 1-2 wks.
== END 2018-06-08 11:41 | disposition home or self-care (01) ==
LOC: ER 02:23 → 2ND 02:23 → OBSVTOIN 05:40 → 2ND 05:44
PROVIDERS: ADMIT Emergency Medicine; ATTEND Emergency Medicine

== ENCOUNTER → 2018-06-14 13:27 | Outpatient (CLI) | payer MEDICAID, SELFPAY | PROVIDERS: PCP Emergency Medicine; Visit Provider Emergency Medicine | DX: R19.09 Other intra-abdominal and pelvic swelling, mass and lump (principal) | CPT/HCPCS: 93926 ==

== ENCOUNTER → 2018-06-22 10:23 | Outpatient (CLI) | payer MEDICAID, SELFPAY ==
[2018-06-22 11:11] LABS: Anion Gap 10.3 mEq/L (5-15); Blood Urea Nitrogen 14 mg/dL (7-18); Calcium 9.3 mg/dL (8.5-10.1); Carbon Dioxide 33 mmol/L (21.0-32.0); Chloride 103 mmol/L (98-107); Creatinine,Serum 0.83 mg/dL (0.70-1.30); Estimated Glomerular Filt Rate 95 ml/min (>60); GFR (African American) 115 ML/MIN (>60); Glucose 104 mg/dL (74-106); Potassium 4.3 mmoL/L (3.5-5.1); Sodium 142 mmol/L (136-145)
[2018-06-22 13:58] LABS: Amphetamine/Metha Screen,Urine Negative ng/mL (<1000); Barbiturates Screen,Urine Negative ng/mL (<200); Benzodiazepines Screen,Urine Positive ng/mL (<200); Cannabinoid Screen,Urine Negative ng/mL (<50); Cocaine Screen,Urine Negative ng/mL (<300); Methadone Screen,Urine Negative ng/mL (<300); Opiate Screen,Urine Negative ng/mL (<300); Phencyclidine Screen,Urine Negative ng/mL (<25)
== END ==
PROVIDERS: Internal Medicine; PCP Emergency Medicine; Visit Provider Physician Assistant
DX: I25.10 Atherosclerotic heart disease of native coronary artery without angina pectoris (principal); I50.22 Chronic systolic (congestive) heart failure; R06.00 Dyspnea, unspecified
CPT/HCPCS: 36415; 80048; 80305

== ENCOUNTER 2018-07-31 07:55 | Inpatient (IN) ==
[2018-07-31 08:13] LABS: Basophils % 0.1 % (0.1-2.0); Eosinophils # 0.2 K/mm3 (0.0-0.4); Eosinophils % 0.8 % (0.1-12.0); Hematocrit 48.7 % (42.0-52.0); Hemoglobin 16.1 g/dL (14.1-18.0); Lymphocytes # 2.7 K/mm3 (0.7-4.5); Lymphocytes % 12.3 K/mm3 (10-50); Mean Corpuscular HGB Conc 33.1 g/dL (31.8-35.4); Mean Corpuscular Hemoglobin 29.6 pg (27.0-31.2); Mean Corpuscular Volume 89.5 fl (80-94); Mean Platelet Volume 9.3 fl (7.4-10.4); Monocytes # 1.2 K/mm3 (0.1-1.0); Monocytes % 5.3 % (1.7-9.3); Neutrophils # 17.6 K/mm3 (1.8-7.8); Neutrophils % 81.4 % (37.0-80.0); Platelet Count 220 K/mm3 (142-424); Red Blood Count 5.45 M/mm3 (4.60-6.20); Red Cell Distribution Width 14.5 % (11.5-17.5); White Blood Count 21.6 K/mm3 (4.8-10.8)
[2018-07-31 08:19] LABS: Anion Gap 12.2 mEq/L (5-15); Calcium 9.3 mg/dL (8.5-10.1); Potassium 4.2 mmoL/L (3.5-5.1)
[2018-07-31 08:21] LABS: INR 0.99 (0.9-1.1); Prothrombin Time 10.2 seconds (9.4-11.8)
[2018-07-31 08:26] LABS: ABG Base Excess 1.9 mmol/L (-2.4-2.3); ABG HCO3 26.8 mmhg (22.0-26.0); ABG Oxygen Saturation 99 % (90-100); ABG PCO2 44.6 mmhg (35.0-45.0); ABG PO2 247.2 mmhg (80-100); ABG TCO2 28.1 mmhg (23-27)
[2018-07-31 08:28] LABS: Allen's Test Non Applicable
[2018-07-31 08:30] LABS: Lymphocytes % 10 % (10-50); Neutrophils % 85 % (42-76); Total Cells Counted 100
[2018-07-31 08:31] LABS: RBC Morphology Normal
--- NOTE | 2018-07-31 08:48 | Emergency Department Note ---
ED Disposition Clinical Impression: COPD exacerbation, Tobacco use disorder, CAD (coronary artery disease) of artery bypass graft, CHF (congestive heart failure), Non-STEMI (non-ST elevated myocardial infarction) Disposition: Still a Patient Condition on Discharge: Fair Referrals: Alcides Oakley MD [Primary Care Provider] - - Critical Care Critical Care Time: No Attestation: On 07/31/18, the high probability of a clinically significant, sudden or life threatening deterioration of the following system(s) required my full and direct attention, intervention and personal management. The time I documented below is in addition to time spent performing reported procedures but includes the following listed in this critical care notation. Vital system(s) involved:: Circulatory Failure, Respiratory Failure My critical care processes included: Assessment & monitoring of V/S, Initial and Re-exams, Data Review/Interpretation, Coordinating Care, Medication Orders and management, Documentation Medical Decision Making - Medical Records Medical records reviewed: Yes: I reviewed the patient's medical records. - Denys Inquiry Pt receiving controlled substance: No Denys was queried for this patient: No Vital Signs: 07/31/18 07:59 07/31/18 08:07 07/31/18 08:10 Temperature 99.0 F Temperature Source Temporal Artery Scan Pulse Rate [Right Brachial] 102 H 102 H 97 H Respiratory Rate 28 H 24 24 Blood Pressure Blood Pressure [Right Arm] 188/123 H 162/103 H 161/77 H Blood Pressure Mean [Right Arm] 144 122 105 Blood Pressure Source [Right Arm] Automatic Cuff Automatic Cuff Automatic Cuff Blood Pressure Position [Right Arm] Sitting Supine Sitting 02 Sat by Pulse Oximetry 100 98 98 Oxygen Delivery Method Non-Rebreather Nasal Cannula Non-Rebreather Oxygen Flow Rate (LPM) 3 07/31/18 08:19 07/31/18 08:22 07/31/18 08:26 Temperature Temperature Source Pulse Rate [Right Brachial] 95 H 94 H 95 H Respiratory Rate 22 16 Blood Pressure Blood Pressure [Right Arm] 148/93 H 148/93 H 144/95 H Blood Pressure Mean [Right Arm] 111 111 111 Blood Pressure Source [Right Arm] Automatic Cuff Automatic Cuff Automatic Cuff Blood Pressure Position [Right Arm] Sitting Sitting Sitting 02 Sat by Pulse Oximetry 96 Oxygen Delivery Method Non-Rebreather Oxygen Flow Rate (LPM) 07/31/18 08:29 07/31/18 08:34 07/31/18 08:38 Temperature 99.9 F H Temperature Source Temporal Artery Scan Pulse Rate [Right Brachial] 86 86 109 H Respiratory Rate 36 H Blood Pressure Blood Pressure [Right Arm] 144/95 H 121/71 206/127 H Blood Pressure Mean [Right Arm] 111 87 153 Blood Pressure Source [Right Arm] Automatic Cuff Automatic Cuff Automatic Cuff Blood Pressure Position [Right Arm] Sitting Sitting 02 Sat by Pulse Oximetry 100 95 84 L Oxygen Delivery Method Room Air Oxygen Flow Rate (LPM) 07/31/18 08:58 07/31/18 09:15 07/31/18 09:21 Temperature Temperature Source Pulse Rate [Right Brachial] 80 75 Respiratory Rate 22 Blood Pressure 121/77 Blood Pressure [Right Arm] 128/76 106/72 L Blood Pressure Mean [Right Arm] 93 83 Blood Pressure Source [Right Arm] Automatic Cuff Automatic Cuff Blood Pressure Position [Right Arm] Sitting Supine 02 Sat by Pulse Oximetry 98 97 Oxygen Delivery Method Nasal Cannula Nasal Cannula Oxygen Flow Rate (LPM) 07/31/18 09:34 Temperature Temperature Source Pulse Rate [Right Brachial] 73 Respiratory Rate Blood Pressure Blood Pressure [Right Arm] 108/66 L Blood Pressure Mean [Right Arm] 80 Blood Pressure Source [Right Arm] Automatic Cuff Blood Pressure Position [Right Arm] Supine 02 Sat by Pulse Oximetry 98 Oxygen Delivery Method Nasal Cannula Oxygen Flow Rate (LPM) - Lab Data Lab Results 07/31/18 07:58: Troponin I 0.12 H 07/31/18 07:58: WBC 21.6 H*, RBC 5.45, Hgb 16.1, Hct 48.7, MCV 89.5, MCH 29.6, MCHC 33.1, RDW 14.5, Plt Count 220, MPV 9.3, Neut % (Auto) 81.4 H, Lymph % (Auto) 12.3, [place] % (Auto) 5.3, Eos % (Auto) 0.8, Baso % (Auto) 0.1, Neut # (Auto) 17.6 H, Lymph # (Auto) 2.7, [place] # (Auto) 1.2 H, Eos # (Auto) 0.2, Baso # (Auto) 0.0, Total Counted 100, Neutrophils % (Manual) 85 H, Band Neutrophils % 1.0, Lymphocytes % (Manual) 10, Atypical Lymphs % 4.0, Platelet Estimate Normal, RBC Morphology Normal 07/31/18 07:58: PT 10.2, INR 0.99, APTT 26.0 07/31/18 07:58: Sodium 142, Potassium 4.2, Chloride 105, Carbon Dioxide 29, Anion Gap 12.2, BUN 18, Creatinine 0.96, Estimated Creat Clear 113, Estimated GFR 80, Est GFR ( Amer) 97, Glucose 155 H, Calcium 9.3 07/31/18 08:01: Specimen Source Right brachial, O2 % 100% nrb, ABG pH 7.40, ABG pCO2 44.6, ABG pO2 247.2 H, ABG HCO3 26.8 H, ABG Total CO2 28.1 H, ABG O2 Saturation 99, ABG Base Excess 1.9, Samy Test Non applicable 07/31/18 08:45: Lactate 1.3 Result diagrams: 07/31/18 07:58 07/31/18 07:58 Orders (Tests/Meds): ED MEDICATIONS Generic Name Dose Route Start Last Admin Trade Name Freq PRN Reason Stop Dose Admin Nitroglycerin/Dextrose 250 mls @ 1.5 mls/hr 07/31/18 09:15 07/31/18 09:06 Nitroglycerin 50mg/250ml D5w IV 08/30/18 09:14 5 mcg/min .Q24H CHARLES 1.5 mls/hr Administration Protocol 5 MCG/MIN Nitroglycerin 0.4 mg 07/31/18 08:07 07/31/18 09:05 Nitrostat 0.4mg Sl Tablet SL 08/30/18 08:06 1 tab Q5MINP PRN Administration Chest Pain Discontinued Medications Generic Name Dose Route Start Last Admin Trade Name Freq PRN Reason Stop Dose Admin Aspirin 324 mg 07/31/18 08:07 07/31/18 09:05 Aspirin 81mg Chewable Tablet PO 07/31/18 08:08 324 mg ONCE ONE Administration Enoxaparin Sodium 100 mg 07/31/18 09:01 07/31/18 09:07 Lovenox 100mg/Ml Syringe SQ 07/31/18 09:02 100 mg ONCE ONE Administration Sodium Chloride 500 mls @ 999 mls/hr 07/31/18 09:15 07/31/18 09:06 Sod Chlor 0.9% 1000ml Bag IV 07/31/18 09:45 999 mls/hr .Q31M CHARLES Administration Labetalol HCl 5 mg 07/31/18 09:14 07/31/18 09:15 Labetalol 5mg/Ml 20ml Mdv IV 07/31/18 09:15 5 mg ONCE ONE Administration Lorazepam 1 mg 07/31/18 09:01 07/31/18 09:07 Ativan 2mg/Ml Vial IV 07/31/18 09:02 1 mg ONCE ONE Administration Morphine Sulfate 4 mg 07/31/18 09:01 07/31/18 09:06 Morphine 4mg/Ml Syringe IV 07/31/18 09:02 4 mg ONCE ONE Administration Ondansetron HCl 4 mg 07/31/18 09:01 07/31/18 09:07 Zofran 4mg/2ml Vial IV 07/31/18 09:02 4 mg ONCE ONE Administration Pantoprazole Sodium 40 mg 07/31/18 08:59 07/31/18 09:05 Protonix 40mg Vial IV 07/31/18 09:00 40 mg ONCE ONE Administration Sodium Chloride 8 ml 07/31/18 08:59 07/31/18 09:05 Saline Flush 10ml Syringe IV 07/31/18 09:00 8 ml ONCE ONE Administration ORDERS Category Date Time Status Blood Culture Stat Micro 07/31/18 09:00 Received ABG [Arterial Blood Gas] Stat RT 07/31/18 08:01 Ordered - Radiology Data #1 Image(s): Chest Image Reviewed: Yes I have reviewed radiologist's interpretation Preliminary Findings: Normal/NAD, Abnormal MPRESSION: Congestive heart failure with interstitial edema - ECG Data Tracing #1 An EKG after Lopressor IV nitroglycerin IV Lovenox normal sinus rhythm 75/min left atrial enlargement T wave inversions in the lateral leads with correction of the ST segment. ECG initial impression date: 07/31/18 ECG initial impression time: 09:12 Tracing #2 An EKG after Lopressor IV nitroglycerin IV Lovenox normal sinus rhythm 75/min left atrial enlargement T wave inversions in the lateral leads with correction of the ST segment. ECG initial impression date: 07/31/18 ECG initial impression time: 09:12 Medical Decision Narrative: Patient was assessed initially by his primary care physician Dr. Oakley. I discussed with him Dr. Rand's initial impression and recommendation. IMPRESSION: Congestive heart failure with interstitial edema I found that the patient's INR 0.99. (His son told me that he has dementia), his white count was elevated 21K and he denied denies use of a steroids. His chest x-ray was positive for congestive heart failure. He has no fever no productive yellow sputum. His troponin was elevated. 0853 I reported clinical changes and troponin level to Dr. Lyons the ardiologist accreditation specialist. 0950 I discussed his most recent updates with Dr. Oakley who accepted him for admission for medical management. Chest Pain HPI - General Chief Complaint: Chest Pain Stated Complaint: chest pain,soa Time Seen by Provider: 07/31/18 08:00 - History of Present Illness HPI narrative: 58 years old white male smoker with past medical history of congestive heart failure COPD and extensive coronary artery disease history and the most recent cardiac catheterization on June 06, 2018 (please see the report for more details). For the past 2 days has been experiencing chest tightness wheezes and difficulty breathing. He has been using his inhaler and nitroglycerin with some relief. This morning he had worse chest tightness and was brought to the ED with shortness of breath diaphoresis and chest pain. His systolic blood pressure was 206/127 mmhg heart rate is 10/min and oxygen saturation of 84%. He received oxygen nitroglycerin sublingual with some relief of the pain from 8/10- 4/10. But he continued to be symptomatic and tachycardia. He was normal saline 500 mL bolus, started IV nitroglycerin and Lopressor 5 mg IV over 5 minutes. His hemodynamics improved to 121/70mmhg rate of 83/min, 98% oxygen saturation on 3 L nasal canual. He feels more comfortable and was able to provide me with the detailed history above. I obtained an initial 12-lead EKG with baseline artifact which was sinus tachycardia 111/min left atrial enlargement accentuated ST segment depression in the lateral leads. I compared to his prior EKG from May 2018. 08:[address] Blanco was accreditation specialist for STEMI lab who did not see an indication to go to the [employer] emergently recommended medical managment as it previously recommended by Dr. Leos is television program director on his June 06, 2018 catheterization report. Patient to be compliant with medication including Coumadin later on I found that his INR is 0.99. MD complaint: chest pain indicative of cardiac Onset (ago): day(s) (Intermittently for 2 days.) Duration: intermittent Activity at onset: during rest Pain location: substernal Severity: moderate Severity scale (1-10): 8 Quality: tightness Relieving factors: nitroglycerin, medication-other, remaining still Exacerbating factors: exertion Associated symptoms: diaphoresis, dyspnea Risk Factors for CAD: Hypertension, Hypercholesterolemia, Smoking Treatments prior to or on arrival for Cardiac Chest Pain: aspirin - Related Data Home Medications Medication Instructions Recorded Confirmed lisinopril 20 mg tablet 20 mg PO BID tab 11/03/17 07/31/18 Atorvastatin Calcium [Lipitor 80mg 80 mg PO QHS 06/06/18 07/31/18 Tablet] Cyclobenzaprine HCl 10 mg PO TID 06/06/18 07/31/18 [Cyclobenzaprine 10mg Tab] Ergocalciferol (Vitamin D2) 400 unit PO DAILY 06/06/18 07/31/18 [Vitamin D] Escitalopram Oxalate 10 mg PO DAILY 06/06/18 07/31/18 Fluticasone/Vilanterol [Breo 1 puff IH DAILY 06/06/18 07/31/18 Ellipta 200-25 Mcg INH] Isosorbide Dinitrate 30 mg PO DAILY 06/06/18 07/31/18 Omeprazole [Omeprazole 20mg 20 mg PO DAILY 06/06/18 07/31/18 Capsule] Ticagrelor [Brilinta 90mg Tablet] 90 mg PO BID 06/06/18 07/31/18 Amlodipine Besylate [Norvasc 2.5mg 2.5 mg PO DAILY 07/31/18 07/31/18 Tab] Aspirin [Low Dose Aspirin EC] 81 mg PO DAILY 07/31/18 07/31/18 Azithromycin [Z-Norm 250mg Tab] 250 mg PO UD DOSE PK 07/31/18 07/31/18 Fluticasone Propionate [Flonase 2 spr NS DAILY 07/31/18 07/31/18 50mcg nasal spray 16gm] Furosemide [Furosemide 20mg Tab] 20 mg PO DAILY 07/31/18 07/31/18 Spironolactone 25 mg PO DAILY 07/31/18 07/31/18 clonazePAM [Clonazepam] 0.5 mg PO BID 07/31/18 07/31/18 Previous Rx's Medication Instructions Recorded ibuprofen 800 mg tablet 800 mg PO BID #60 tab 06/03/18 Nicotine [Nicoderm 21mg/24hr 21 mg TD DAILYP PRN #30 patch.td24 06/08/18 patch] Albuterol Sulfate [Albuterol HFA 2 puffs IH Q6HP PRN #1 inh 07/09/18 Inhaler] gabapentin 600 mg tablet 600 mg PO TID #90 tab 07/12/18 carvedilol 12.5 mg tablet 12.5 mg PO BID #60 tab 07/14/18 nitroglycerin 0.4 mg sublingual 0.4 mg SUBLINGUAL Q5M PRN #30 tab 07/14/18 tablet hydroxyzine pamoate 25 mg capsule 25 mg PO Q8H PRN #90 cap 07/29/18 Allergies Allergy/AdvReac Type Severity Reaction Status Date / Time codeine [CODEINE] Allergy Mild Verified 07/12/18 15:07 [facility] History I have reviewed the patient's past medical history: Yes (I reviewed his cardiac cath report from June 06, 2018 and his cardiology ) Medical History: Reports:: Chronic Obstructive Pulmonary Disease (COPD), Coronary Artery Disease, Hyperlipidemia, Hypertension, Myocardial Infarction Denies:: Cancer, Diabetes Mellitus Type 1, Diabetes Mellitus Type 2, MRSA Other Medical History: Reports: Arthritis Other Surgeries: Yes: Angioplasty, Cardiac Catheterization Amputation: No Fractures: Yes Comment: lft foot,lft wrist - Social History Smoking Status: Current some day smoker Tobacco Type: cigarettes # Packs/Day (cigarettes): 1 #Yrs smoked (if former smoker): 42 Alcohol Intake: never Alcohol Intake Frequency:: other Substance Use Type: denies use Occupational Status: retired, disabled Housing: house Household Members: spouse, family, children Family Hx:: Heart Attack, Coronary Artery Disease, Hypertension ROS Obtained: Yes All systems reviewed & no additional complaints Physical Exam - General General appearance: alert, anxious, in distress, obese - Head Head exam: atraumatic, normocephalic, normal inspection - Eye Eye exam: Present: normal appearance, PERRL, EOMI. Absent: scleral icterus, nystagmus - ENT ENT exam: Present: normal exam, normal oropharynx, mucous membranes moist, TM's normal bilaterally, normal external ear exam - Neck Neck exam: Present: normal inspection, full ROM, trachea midline. Absent: tenderness, meningismus, lymphadenopathy - Chest Chest inspection: Present: normal inspection, symmetric chest wall rise. Absent: tenderness - Respiratory Respiratory exam: Present: respiratory distress, other (Decreased air entry bilaterally.) - Cardiovascular Cardiovascular exam: Present: normal rhythm, tachycardia. Absent: JVD - Abdominal Exam Abdominal exam: Present: soft, normal bowel sounds. Absent: distention, tenderness, guarding, rebound, rigidity - Extremities Exam Extremities exam: Present: normal inspection, full ROM, normal capillary refill, pedal edema, other (Trace edema of the lower extreme). Absent: tenderness, joint swelling, calf tenderness - Back Exam Back exam: Present: normal inspection. Absent: tenderness, CVA tenderness (R), CVA tenderness (L), paraspinal tenderness, vertebral tenderness - Neurological Exam Neurological exam: Present: alert, oriented X3, CN II-XII intact, motor sensory deficit, reflexes normal - Psychiatric Psychiatric exam: Present: normal mood, anxious - Skin Skin exam: Present: warm, dry, intact, normal color - Lymphatic Lymphatic Findings: no adenopathy
--- NOTE | 2018-07-31 10:07 | History & Physical Report ---
*Admission Date: 07/31/18 *Chief complaint: chest pain *History of present illness: wm with ongoing chest pain for the last 3 days with progressive sob - pt has known cad with cabg 2006 and stent last month - he has continued to smoke and some element of noncompliance -8 years old white male smoker with past medical history of congestive heart failure COPD and extensive coronary artery disease history and the most recent cardiac catheterization on June 06, 2018 (please see the report for more details). For the past 2 days has been experiencing chest tightness wheezes and difficulty breathing. He has been using his inhaler and nitroglycerin with some relief. This morning he had worse chest tightness and was brought to the ED with shortness of breath diaphoresis and chest pain. His systolic blood pressure was 206/127 mmhg heart rate is 10/min and oxygen saturation of 84%. He received oxygen nitroglycerin sublingual with some relief of the pain from 06/04-02/02. But he continued to be symptomatic and tachycardia. He was normal saline 500 mL bolus, started IV nitroglycerin and Lopressor 5 mg IV over 5 minutes. His hemodynamics improved to 121/70mmhg rate of 83/min, 98% oxygen saturation on 3 L nasal canual. He feels more comfortable and was able to provide me with the detailed history above. I obtained an initial 12-lead EKG with baseline artifact which was sinus tachycardia 111/min left atrial enlargement accentuated ST segment depression in the lateral leads. I compared to his prior EKG from May 2018. 08:[address] Blanco was communication clerk for STEMI lab who did not see an indication to go to the [employer] emergently recommended medical managment as it previously recommended by Dr. Leos is business analyst sales operations on his June 06, 2018 catheterization report. Patient to be compliant with medication including Coumadin later on I found that his INR is 0.99. pt will be admitted for eval and treatment [facility] History I have reviewed the patient's past medical history: Yes Medical History: Reports:: Chronic Obstructive Pulmonary Disease (COPD), Coronary Artery Disease, Hyperlipidemia, Hypertension, Myocardial Infarction Denies:: Cancer, Diabetes Mellitus Type 1, Diabetes Mellitus Type 2, Internal Pacemaker, MRSA Other Medical History: Reports: Arthritis Other Surgeries: Yes: Angioplasty, Cardiac Catheterization. No: Pacemaker Amputation: No Fractures: Yes - *Social History Educational Level: Completed High School Smoking Status: Current some day smoker Tobacco Type: cigarettes # Packs/Day (cigarettes): 1 #Yrs smoked (if former smoker): 42 Alcohol Intake: never Alcohol Intake Frequency:: other Substance Use Type: denies use Occupational Status: retired, disabled Housing: house Household Members: spouse, family, children - Psychiatric History Expresses thoughts of harming self/others: None Suicide Plan Description: No Plan *Family Hx:: Heart Attack, Coronary Artery Disease, Hypertension Review of Systems - Review of Systems Review of systems:: pertinent systems reviewed and negative unless documented below - Constitutional Denies fever(s) - Eyes Denies change in vision - ENT Denies sore throat - *Cardiovascular Reports chest pain, Reports shortness of breath - *Respiratory Reports cough, Reports shortness of breath - *Gastrointestinal Denies abdominal pain - *Genitourinary Denies blood in urine - *Musculoskeletal Denies joint pain - Integumentary/Breasts Denies rash - *Neurologic Denies headache(s) - Psychiatric Reports anxiety Meds Home Medications Medication Instructions Recorded Confirmed Type lisinopril 20 mg tablet 20 mg PO BID tab 11/03/17 07/31/18 History Atorvastatin Calcium [Lipitor 80mg 80 mg PO QHS 06/06/18 07/31/18 History Tablet] Cyclobenzaprine HCl 10 mg PO TID 06/06/18 07/31/18 History [Cyclobenzaprine 10mg Tab] Ergocalciferol (Vitamin D2) 400 unit PO DAILY 06/06/18 07/31/18 History [Vitamin D] Escitalopram Oxalate 10 mg PO DAILY 06/06/18 07/31/18 History Fluticasone/Vilanterol [Breo 1 puff IH DAILY 06/06/18 07/31/18 History Ellipta 200-25 Mcg INH] Isosorbide Dinitrate 30 mg PO DAILY 06/06/18 07/31/18 History Omeprazole [Omeprazole 20mg 20 mg PO DAILY 06/06/18 07/31/18 History Capsule] Ticagrelor [Brilinta 90mg Tablet] 90 mg PO BID 06/06/18 07/31/18 History Amlodipine Besylate [Norvasc 2.5mg 2.5 mg PO DAILY 07/31/18 07/31/18 History Tab] Aspirin [Low Dose Aspirin EC] 81 mg PO DAILY 07/31/18 07/31/18 History Azithromycin [Z-Norm 250mg Tab] 250 mg PO UD DOSE PK 07/31/18 07/31/18 History Fluticasone Propionate [Flonase 2 spr NS DAILY 07/31/18 07/31/18 History 50mcg nasal spray 16gm] Furosemide [Furosemide 20mg Tab] 20 mg PO DAILY 07/31/18 07/31/18 History Spironolactone 25 mg PO DAILY 07/31/18 07/31/18 History clonazePAM [Clonazepam] 0.5 mg PO BID 07/31/18 07/31/18 History Allergies Allergy/AdvReac Type Severity Reaction Status Date / Time codeine [CODEINE] Allergy Mild Verified 07/12/18 15:07 Exam Vital signs and Labs for Last 24 Hours: Temp Pulse Resp BP Pulse Ox 99.9 F H 73 22 108/66 L 98 07/31/18 08:38 07/31/18 09:34 07/31/18 08:58 07/31/18 09:34 07/31/18 09:34 Laboratory Results - last 24 hr 07/31/18 07:58: Troponin I 0.12 H 07/31/18 07:58: WBC 21.6 H*, RBC 5.45, Hgb 16.1, Hct 48.7, MCV 89.5, MCH 29.6, MCHC 33.1, RDW 14.5, Plt Count 220, MPV 9.3, Neut % (Auto) 81.4 H, Lymph % (Auto) 12.3, [place] % (Auto) 5.3, Eos % (Auto) 0.8, Baso % (Auto) 0.1, Neut # (Auto) 17.6 H, Lymph # (Auto) 2.7, [place] # (Auto) 1.2 H, Eos # (Auto) 0.2, Baso # (Auto) 0.0, Total Counted 100, Neutrophils % (Manual) 85 H, Band Neutrophils % 1.0, Lymphocytes % (Manual) 10, Atypical Lymphs % 4.0, Platelet Estimate Normal, RBC Morphology Normal 07/31/18 07:58: PT 10.2, INR 0.99, APTT 26.0 07/31/18 07:58: Sodium 142, Potassium 4.2, Chloride 105, Carbon Dioxide 29, Anion Gap 12.2, BUN 18, Creatinine 0.96, Estimated Creat Clear 113, Estimated GFR 80, Est GFR ( Amer) 97, Glucose 155 H, Calcium 9.3 07/31/18 08:01: Specimen Source Right brachial, O2 % 100% nrb, ABG pH 7.40, ABG pCO2 44.6, ABG pO2 247.2 H, ABG HCO3 26.8 H, ABG Total CO2 28.1 H, ABG O2 Sa turation 99, ABG Base Excess 1.9, Samy Test Non applicable 07/31/18 08:45: Lactate 1.3 I & O for Last 24 hours: Intake & Output 07/28/18 07/29/18 07/30/18 07/31/18 11:59 11:59 11:59 11:59 Weight 210 lb - Constitutional no acute distress - *Routine HEENT Exam Head: Present: normocephalic Eye: Present: EOMI, PERRL ENT: Present: mucous membranes dry - *Routine Neck Exam Absent: JVD - *Routine Respiratory Exam Present: rales - *Routine Cardiovascular Exam Present: murmur, S3 - *Routine Extremities Exam Absent: calf tenderness - *Routine Skin Exam Present: intact - *Routine Neurological Exam Present: alert, oriented X3, CN II-XII intact - Routine Psychiatric Exam Present: normal affect Assessment and Plan (1) CHF (congestive heart failure) Current visit: Yes Status: Acute Category: Medical Code(s): I50.9 - Heart failure, unspecified (2) Tobacco use disorder Current visit: Yes Status: Acute Category: Medical Code(s): F17.200 - Nicotine dependence, unspecified, uncomplicated (3) Angina pectoris Current visit: No Status: Acute Category: Medical Code(s): I20.9 - Angina pectoris, unspecified
--- NOTE | 2018-07-31 10:45 | Pharmacy Consult Notes ---
[facility] Pharmacy VTE Monitoring - Patient Demographics Admission date: 07/31/18 Report Date: 07/31/18 Time: 10:45 Allergies/Adverse Reactions: Patient Allergies codeine [CODEINE] Allergy (Mild, Verified 07/12/18 15:07) Height: 1.83 m Weight: 95.254 kg Patient Problems: Current Active Problems (Last Updated 12/14/17 @ 10:15 by ALEK Aguirre) Non-STEMI (non-ST elevated myocardial infarction) (Acute) COPD exacerbation (Acute) Tobacco use disorder (Acute) CAD (coronary artery disease) of artery bypass graft (Acute) CHF (congestive heart failure) (Acute) - VTE Risk Labs: VTE Related Lab Results Hgb 16.1 g/dL (14.1-18.0) 07/31/18 07:58 Hct 48.7 % (42.0-52.0) 07/31/18 07:58 Plt Count 220 K/mm3 (142-424) 07/31/18 07:58 PT 10.2 seconds (9.4-11.8) 07/31/18 07:58 INR 0.99 (0.9-1.1) 07/31/18 07:58 APTT 26.0 seconds (23.6-34.0) 07/31/18 07:58 BUN 18 mg/dL (7-18) 07/31/18 07:58 Creatinine 0.96 mg/dL (0.70-1.30) 07/31/18 07:58 Estimated Creat Clear 113 mL/min (0-300) 07/31/18 07:58 - Prophylaxis VTE Prophylaxis Ordered?: Yes Types of VTE Prophylaxis: Pharmacological Pharmacologic Type: Enoxaparin - VTE Diagnosis Confirmed Treatment or plan recommended: Continue Current Treatment
[2018-08-01 06:17] LABS: Basophils % 0.2 % (0.1-2.0); Eosinophils # 0.1 K/mm3 (0.0-0.4); Eosinophils % 0.9 % (0.1-12.0); Hematocrit 39.3 % (42.0-52.0); Lymphocytes # 2.3 K/mm3 (0.7-4.5); Lymphocytes % 21.9 K/mm3 (10-50); Mean Corpuscular HGB Conc 34.3 g/dL (31.8-35.4); Mean Corpuscular Hemoglobin 30.4 pg (27.0-31.2); Mean Corpuscular Volume 88.8 fl (80-94); Mean Platelet Volume 9.3 fl (7.4-10.4); Monocytes # 0.6 K/mm3 (0.1-1.0); Monocytes % 5.8 % (1.7-9.3); Neutrophils # 7.6 K/mm3 (1.8-7.8); Neutrophils % 71.2 % (37.0-80.0); Platelet Count 122 K/mm3 (142-424); Red Blood Count 4.43 M/mm3 (4.60-6.20); Red Cell Distribution Width 14.3 % (11.5-17.5); White Blood Count 10.7 K/mm3 (4.8-10.8)
[2018-08-01 06:23] LABS: INR 1.06 (0.9-1.1); Prothrombin Time 10.9 seconds (9.4-11.8)
[2018-08-01 06:31] LABS: Anion Gap 7.6 mEq/L (5-15); Chol/HDL Ratio 1.8 (1-3.5); Potassium 3.6 mmoL/L (3.5-5.1)
[2018-08-01 06:42] LABS: Calcium 8.3 mg/dL (8.5-10.1)
[2018-08-01 06:45] LABS: Hemoglobin 13.5 g/dL (14.1-18.0)
--- NOTE | 2018-08-01 19:51 | Progress Note ---
Internal Medicine - PN: Subj *Date: 08/01/18 *Time: 12:00 Interval history: pt doing better with no chest pain but has sob Exam Vital signs and Labs for Last 24 Hours: Temp Pulse Resp BP Pulse Ox 99.3 F 70 18 156/89 H 93 L 08/01/18 15:39 08/01/18 16:00 08/01/18 15:39 08/01/18 15:39 08/01/18 15:39 Laboratory Results - last 24 hr 08/01/18 05:55: WBC 10.7 D, RBC 4.43 L, Hgb 13.5 L D, Hct 39.3 L, MCV 88.8, MCH 30.4, MCHC 34.3, RDW 14.3, Plt Count 122 L D, MPV 9.3, Neut % (Auto) 71.2, Lymph % (Auto) 21.9, [place] % (Auto) 5.8, Eos % (Auto) 0.9, Baso % (Auto) 0.2, Neut # (Auto) 7.6, Lymph # (Auto) 2.3, [place] # (Auto) 0.6, Eos # (Auto) 0.1, Baso # (Auto) 0.0 08/01/18 05:55: PT 10.9, INR 1.06 08/01/18 05:55: Sodium 141, Potassium 3.6, Chloride 107, Carbon Dioxide 30, Anion Gap 7.6, BUN 13 D, Creatinine 0.65 L D, Estimated Creat Clear 175, Estimated GFR 126, Est GFR ( Amer) 153 D, Glucose 103 D, Calcium 8.3 L D, Magnesium 1.8, Triglycerides 75, Cholesterol 110 L, LDL Cholesterol 35, VLDL Cholesterol 15, HDL Cholesterol 60, Cholesterol/HDL Ratio 1.8 I & O for Last 24 hours: Intake & Output 07/30/18 07/31/18 08/01/18 08/02/18 11:59 11:59 11:59 11:59 Intake Total 1200 / 1200 2313 / 2313 600 / 600 Output Total 1850 / 1850 400 / 400 Balance 1200 / 1200 463 / 463 200 / 200 Weight 220 lb 5 oz 220 lb 9 oz - Constitutional no acute distress - *Routine HEENT Exam Head: Present: normocephalic Eye: Present: EOMI, PERRL ENT: Present: mucous membranes dry - *Routine Neck Exam Absent: JVD - *Routine Respiratory Exam Present: CTA bilaterally - *Routine Cardiovascular Exam Present: RRR, murmur. Absent: rubs - *Routine Abdominal Exam Present: soft - *Routine Extremities Exam Absent: Ascencion's sign - *Routine Skin Exam Present: intact - *Routine Neurological Exam Present: alert, oriented X3, CN II-XII intact - Routine Psychiatric Exam Present: normal affect Assessment and Plan (1) CHF (congestive heart failure) Current visit: Yes Status: Acute Category: Medical Code(s): I50.9 - Heart failure, unspecified (2) Tobacco use disorder Current visit: Yes Status: Acute Category: Medical Code(s): F17.200 - Nicotine dependence, unspecified, uncomplicated (3) Angina pectoris Current visit: No Status: Acute Category: Medical Code(s): I20.9 - Angina pectoris, unspecified
--- NOTE | 2018-08-02 08:56 | Progress Note ---
Internal Medicine - PN: Subj Interval history: feels some better and chest pain Exam Vital signs and Labs for Last 24 Hours: Temp Pulse Resp BP Pulse Ox 98.2 F 66 18 152/76 H 93 L 08/02/18 08:00 08/02/18 08:00 08/02/18 08:00 08/02/18 08:00 08/02/18 08:00 I & O for Last 24 hours: Intake & Output 07/30/18 07/31/18 08/01/18 08/02/18 11:59 11:59 11:59 11:59 Intake Total 1200 / 1200 2313 / 2313 1022 / 1022 Output Total 1850 / 1850 1250 / 1250 Balance 1200 / 1200 463 / 463 -228 / -228 Weight 220 lb 5 oz 220 lb 9 oz 214 lb 2 oz - Constitutional no acute distress - *Routine HEENT Exam Head: Present: normocephalic Eye: Present: EOMI, PERRL ENT: Present: mucous membranes dry - *Routine Neck Exam Present: supple - *Routine Respiratory Exam Present: CTA bilaterally - *Routine Cardiovascular Exam Present: RRR, murmur - *Routine Abdominal Exam Present: soft - *Routine Extremities Exam Absent: Ascencion's sign - *Routine Skin Exam Present: intact - *Routine Neurological Exam Present: alert, oriented X3, CN II-XII intact - Routine Psychiatric Exam Present: normal affect Assessment and Plan (1) CHF (congestive heart failure) Current visit: Yes Status: Acute Category: Medical Code(s): I50.9 - Heart failure, unspecified (2) Tobacco use disorder Current visit: Yes Status: Acute Category: Medical Code(s): F17.200 - Nicotine dependence, unspecified, uncomplicated (3) Angina pectoris Current visit: No Status: Acute Category: Medical Code(s): I20.9 - Angina pectoris, unspecified
--- NOTE | 2018-08-02 08:58 | Consult Report ---
History of Present Illness Consult date: 08/02/18 Requesting physician: Alcides Oakley Consult reason: chest pain Chief complaint: chest pain, SOA Additional Medical History:: 1. Tobacco use since age 16, 1 pack per day A. COPD 2. Hypertension A. Echo, 05/2018, 1. Left atrium is moderately enlarged, left ventricle is normal size, mild concentric left ventricular hypertrophy, visually ejection fraction approximately 45%, with marked hypokinesis involving the inferolateral and inferobasal wall. 2. The right atrium and right ventricle are mildly enlarged with normal contractility. 3. The aortic valve is minimally thickened and fibrosed. 4. The mitral and tricuspid valve leaflets are minimally thickened. 5. The pulmonic valve is poorly visualized. 6. No significant pericardial effusion noted. DOPPLER INTERROGATION: Doppler interrogation of the aortic, mitral and tricuspid valvular presence of moderate to severe mitral and mild tricuspid regurgitation, tricuspid and jet velocity insufficient for calculation of the right ventricular systolic pressure. Diastolic parameters are inconclusive. CONCLUSION: 1. Moderately enlarged atrium, normal left ventricular size, mild concentric left ventricular hypertrophy, visually estimated ejection fraction approximately 45% with segmental wall motion abnormality described above, diastolic parameters are inconclusive. 2. Moderate to severe mitral and mild tricuspid regurgitation 3. No significant pericardial effusion noted. 3. Hyperlipidemia 4. Coronary artery disease A. Four-vessel coronary artery bypass grafting in 2006 B. Coronary artery stenting, January/2017, [place], dual antiplatelet therapy continued with aspirin and Brilinta C. Cardiac cath, 06/07/2018, ANGIOGRAPHIC RESULTS: 1. The left main artery is ostially occluded 4. The right coronary artery is a dominant vessel and has proximal 30% stenoses mid vessel 30% stenoses. The large posterior lateral ventricular branch has a long concentric 70% stenosis. The posterior descending artery is ostially occluded and fills via left to right collaterals from the GRIJALVA graft supplying the LAD. 5. The CASON ventriculogram reveals severe left ventricular dilatation estimated ejection fraction 2025% 6. The left ventricular end-diastolic pressure 20 mmHg 7. The left internal mammary artery is a very large widely patent graft that anastomoses onto the mid LAD. Distally the LAD is a smaller caliber vessel and has 70-80% stenosis in an area probably less than 2 mm in diameter. The distal LAD supplies the distal posterior descending artery off the right coronary 8. The saphenous vein graft to the circumflex artery is ostially occluded 5. Cardiomyopathy, ischemic 6. Mitral Regurgitation, moderate to severe by echo, 05/2018 History of present illness: wm with ongoing chest pain for the last 3 days with progressive sob - pt has known cad with cabg 2006 and stent last month - he has continued to smoke and some element of noncompliance -58 years old white male smoker with past medical history of congestive heart failure, COPD and extensive coronary artery disease history and the most recent cardiac catheterization on June 06, 2018 (please see the report for more details). For the past 2 days has been experiencing chest tightness wheezes and difficulty breathing. He has been using his inhaler and nitroglycerin with some relief. This morning he had worse chest tightness and was brought to the ED with shortness of breath diaphoresis and chest pain. His systolic blood pressure was 206/127 mmhg heart rate is 10/min and oxygen saturation of 84%. He received oxygen nitroglycerin sublingual with some relief of the pain from 06/04-02/02. But he continued to be symptomatic and tachycardia. He was normal saline 500 mL bolus, started IV nitroglycerin and Lopressor 5 mg IV over 5 minutes. His hemodynamics improved to 121/70mmhg rate of 83/min, 98% oxygen saturation on 3 L nasal canual. He feels more comfortable and was able to provide me with the detailed history above. I obtained an initial 12-lead EKG with baseline artifact which was sinus tachycardia 111/min left atrial enlargement accentuated ST segment depression in the lateral leads. I compared to his prior EKG from May 2018. 08:[address] 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 Leos is pinsetter mechanic automatic on his June 06, 2018 catheterization report. Patient to be compliant with medication including Coumadin later on I found that his INR is 0.99. The above per ER MD. Pt is seen on the morning of 08/02/2018 and is back to his baseline without chest pain and breathing much better. He relates a lot of stress at home and states he has a tough time dealing with it. He drinks at least 6 Mtn Dew daily and is not compliant with diet but is aware that he needs to cut back on salt. He has chronic pain syndrome and admits he does not tolerate pain well. [facility] History Medical History: Reports:: Congestive Heart Failure, Chronic Obstructive Pulmonary Disease (COPD), Coronary Artery Disease, Hyperlipidemia, Hypertension, Myocardial Infarction Denies:: Cancer, Diabetes Mellitus Type 1, Diabetes Mellitus Type 2, Internal Pacemaker, MRSA Other Medical History: Reports: Arthritis Other Surgeries: Yes: Angioplasty, CABG, Cardiac Catheterization, Colonoscopy. No: Pacemaker Amputation: No Fractures: Yes ((L) foot,) - *Social History Educational Level: Attended High School Smoking Status: Current every day smoker Tobacco Type: cigarettes # Packs/Day (cigarettes): 1 #Yrs smoked (if former smoker): 42 Smoking End Date: 07/26/2018 Alcohol Intake: never Alcohol Intake Frequency:: other Substance Use Type: denies use Occupational Status: retired, disabled Housing: house Household Members: spouse, family, children - Psychiatric History Expresses thoughts of harming self/others: None Suicide Plan Description: No Plan *Family Hx:: Heart Attack, Coronary Artery Disease, Hypertension Meds Home Medications Medication Instructions Recorded Confirmed Type lisinopril 20 mg tablet 20 mg PO BID tab 11/03/17 07/31/18 History Atorvastatin Calcium [Lipitor 80mg 80 mg PO QHS 06/06/18 07/31/18 History Tablet] Cyclobenzaprine HCl 10 mg PO TID PRN 06/06/18 07/31/18 History [Cyclobenzaprine 10mg Tab] Escitalopram Oxalate 10 mg PO DAILY 06/06/18 07/31/18 History Fluticasone/Vilanterol [Breo 1 puff IH DAILY 06/06/18 07/31/18 History Ellipta 200-25 Mcg INH] Isosorbide Dinitrate 30 mg PO DAILY 06/06/18 07/31/18 History Omeprazole [Omeprazole 20mg 20 mg PO DAILY 06/06/18 07/31/18 History Capsule] Ticagrelor [Brilinta 90mg Tablet] 90 mg PO BID 06/06/18 07/31/18 History Albuterol Sulfate [Albuterol HFA 2 puffs INHALATION DAILY 07/31/18 07/31/18 History Inhaler] Aspirin [Low Dose Aspirin EC] 81 mg PO DAILY 07/31/18 07/31/18 History Furosemide [Furosemide 20mg Tab] 20 mg PO DAILY 07/31/18 07/31/18 History Spironolactone 25 mg PO DAILY 07/31/18 07/31/18 History clonazePAM [Clonazepam] 0.5 mg PO BID 07/31/18 07/31/18 History Allergies Allergy/AdvReac Type Severity Reaction Status Date / Time codeine [CODEINE] Allergy Mild Verified 07/12/18 15:07 Review of Systems - *Cardiovascular Reports chest pain, Reports shortness of breath, Reports shortness of breath with activity - *Respiratory Reports shortness of breath, Reports shortness of breath with activity - *Gastrointestinal Denies abdominal pain, Denies loose stools - *Genitourinary Denies blood in urine - *Musculoskeletal Reports joint pain, Reports back pain - *Neurologic Denies headache(s) Exam Vital signs and Labs for Last 24 Hours: Temp Pulse Resp BP Pulse Ox 98.2 F 66 18 152/76 H 93 L 08/02/18 08:00 08/02/18 08:00 08/02/18 08:00 08/02/18 08:00 08/02/18 08:00 I & O for Last 24 hours: Intake & Output 07/30/18 07/31/18 08/01/18 08/02/18 11:59 11:59 11:59 11:59 Intake Total 1200 / 1200 2313 / 2313 1022 / 1022 Output Total 1850 / 1850 1250 / 1250 Balance 1200 / 1200 463 / 463 -228 / -228 Weight 220 lb 5 oz 220 lb 9 oz 214 lb 2 oz - *Routine Neck Exam Present: supple. Absent: JVD, carotid bruit - *Routine Respiratory Exam Present: CTA bilaterally. Absent: accessory muscle use, rales, rhonchi, wheezes - *Routine Cardiovascular Exam Present: RRR, murmur. Absent: gallop, rubs - *Routine Abdominal Exam Present: soft. Absent: tenderness, distended, guarding - *Routine Extremities Exam Absent: edema, calf tenderness - *Routine Neurological Exam Present: alert, oriented X3, moving all extremities Assessment and Plan (1) CHF (congestive heart failure) Current visit: Yes Status: Acute Category: Medical Code(s): I50.9 - Heart failure, unspecified (2) Tobacco use disorder Current visit: Yes Status: Acute Category: Medical Code(s): F17.200 - Nicotine dependence, unspecified, uncomplicated (3) Angina pectoris Current visit: No Status: Acute Category: Medical Code(s): I20.9 - Angina pectoris, unspecified (4) Type [address] elevation Current visit: Yes Status: Acute Category: Medical Code(s): I21.A1 - Myocardial infarction type 2 (5) CAD (coronary artery disease) of artery bypass graft Current visit: Yes Status: Acute Category: Medical Code(s): I25.810 - Atherosclerosis of coronary artery bypass graft(s) without angina pectoris (6) COPD exacerbation Current visit: Yes Status: Acute Category: Medical Code(s): J44.1 - Chronic obstructive pulmonary disease with (acute) exacerbation - Assessment and plan all Dx Assessment and Plan for all problems:: 1. Myocardial infarction type II secondary to blood pressure and supply demand mismatch. Clinically stable at this time on current medical therapy. No plans to repeat cardiac catheterization at this time. 2. Congestive heart failure,secondary to combination of systolic and diastolic dysfunction, improved with diuretic therapy. 3. Cardiomyopathy with ejection fraction in the 35-40% range on preliminary echo this admission. With recent echocardiogram, in 05/2018, showing ejection fraction of 40-45%. 4. Mitral regurgitation, moderate to severe. Continue diuretic therapy. Will consider further evaluation at outpatient visit in 1-2 weeks. 5. Okay to discharge from cardiology standpoint. Recommend BMP and BNP in 1 week with follow-up in 1-2 weeks. 6. Recommend home medications to include; Coreg 12.5 mg twice daily Lisinopril 20 mg twice daily Aspirin 81 mg daily Brilinta 90 mg twice daily Spironolactone 25 mg daily Furosemide 40 mg twice daily Atorvastatin 80 mg daily Norvasc 2.5 mg daily
--- NOTE | 2018-08-02 12:54 | Discharge Summary ---
General - General Admission date:: 07/31/18 Discharge date: 08/02/18 HPI HPI: wm with ongoing chest pain for the last 3 days with progressive sob - pt has known cad with cabg 2006 and stent last month - he has continued to smoke and some element of noncompliance -8 years old white male smoker with past medical history of congestive heart failure COPD and extensive coronary artery disease history and the most recent cardiac catheterization on June 06, 2018 (please see the report for more details). For the past 2 days has been experiencing chest tightness wheezes and difficulty breathing. He has been using his inhaler and nitroglycerin with some relief. This morning he had worse chest tightness and was brought to the ED with shortness of breath diaphoresis and chest pain. His systolic blood pressure was 206/127 mmhg heart rate is 10/min and oxygen saturation of 84%. He received oxygen nitroglycerin sublingual with some relief of the pain from 8/10-10. But he continued to be symptomatic and tachycardia. He was normal saline 500 mL bolus, started IV nitroglycerin and Lopressor 5 mg IV over 5 minutes. His hemodynamics improved to 121/70mmhg rate of 83/min, 98% oxygen saturation on 3 L nasal canual. He feels more comfortable and was able to provide me with the detailed history above. I obtained an initial 12-lead EKG with baseline artifact which was sinus tachycardia 111/min left atrial enlargement accentuated ST segment depression in the lateral leads. I compared to his prior EKG from May 2018. 08:[address] Blanco was economic historian for [facility] lab who did not see an indication to go to the [employer] emergently recommended medical managment as it previously recommended by Dr. Leos is polisher implant on his June 06, 2018 catheterization report. Patient to be compliant with medication including Coumadin later on I found that his INR is 0.99. pt will be admitted for eval and treatment Hospital Course Hospital Course: pt with good response with iv diuretics and had stabilize chest pain - pt with card consult-bacco use since age 16, 1 pack per day A. COPD 2. Hypertension A. Echo, 05/2018, 1. Left atrium is moderately enlarged, left ventricle is normal size, mild concentric left ventricular hypertrophy, visually ejection fraction approximately 45%, with marked hypokinesis involving the inferolateral and inferobasal wall. 2. The right atrium and right ventricle are mildly enlarged with normal contractility. 3. The aortic valve is minimally thickened and fibrosed. 4. The mitral and tricuspid valve leaflets are minimally thickened. 5. The pulmonic valve is poorly visualized. 6. No significant pericardial effusion noted. DOPPLER INTERROGATION: Doppler interrogation of the aortic, mitral and tricuspid valvular presence of moderate to severe mitral and mild tricuspid regurgitation, tricuspid and jet velocity insufficient for calculation of the right ventricular systolic pressure. Diastolic parameters are inconclusive. CONCLUSION: 1. Moderately enlarged atrium, normal left ventricular size, mild concentric left ventricular hypertrophy, visually estimated ejection fraction approximately 45% with segmental wall motion abnormality described above, diastolic parameters are inconclusive. 2. Moderate to severe mitral and mild tricuspid regurgitation 3. No significant pericardial effusion noted. 3. Hyperlipidemia 4. Coronary artery disease A. Four-vessel coronary artery bypass grafting in 2006 with ongoing chest pain for the last 3 days with progressive sob - pt has known cad with cabg 2006 and stent last month - he has continued to smoke and some element of noncompliance -58 years old white male smoker with past medical history of congestive heart failure, COPD and extensive coronary artery disease history and the most recent cardiac catheterization on June 06, 2018 (please see the report for more details). For the past 2 days has been experiencing chest tightness wheezes and difficulty breathing. He has been using his inhaler and nitroglycerin with some relief. This morning he had worse chest tightness and was brought to the ED with shortness of breath diaphoresis and chest pain. His systolic blood pressure was 206/127 mmhg heart rate is 10/min and oxygen saturation of 84%. He received oxygen nitroglycerin sublingual with some relief of the pain from 06/04-02/02. But he continued to be symptomatic and tachycardia. He was normal saline 500 mL bolus, started IV nitroglycerin and Lopressor 5 mg IV over 5 minutes. His hemodynamics improved to 121/70mmhg rate of 83/min, 98% oxygen saturation on 3 L nasal canual. He feels more comfortable and was able to provide me with the detailed history above. I obtained an initial 12-lead EKG with baseline artifact which was sinus tachycardia 111/min left atrial enlargement accentuated ST segment depression in the lateral leads. I compared to his prior EKG from May 2018. 08:[address] Blanco was economic historian for [facility] lab who did not see an indication to go to the [employer] emergently recommended medical managment as it previously recommended by Dr. Leos is polisher implant on his June 06, 2018 catheterization report. Patient to be compliant with medication including Coumadin later on I found that his INR is 0.99. The above per ER MD. Pt is seen on the morning of 08/02/2018 and is back to his baseline without chest pain and breathing much better. He relates a lot of stress at home and states he has a tough time dealing with it. He drinks at least 6 Mtn Dew daily and is not compliant with diet but is aware that he needs to cut back on salt. He has chronic pain syndrome and admits he does not tolerate pain well. Myocardial infarction type II secondary to blood pressure and supply demand mismatch. Clinically stable at this time on current medical therapy. No plans to repeat cardiac catheterization at this time. 2. Congestive heart failure,secondary to combination of systolic and diastolic dysfunction, improved with diuretic therapy. 3. Cardiomyopathy with ejection fraction in the 35-40% range on preliminary echo this admission. With recent echocardiogram, in 05/2018, showing ejection fraction of 40-45%. 4. Mitral regurgitation, moderate to severe. Continue diuretic therapy. Will consider further evaluation at outpatient visit in 1-2 weeks. 5. Okay to discharge from cardiology standpoint. Recommend BMP and BNP in 1 week with follow-up in 1-2 weeks. 6. Recommend home medications to include; Coreg 12.5 mg twice daily Lisinopril 20 mg twice daily Aspirin 81 mg daily Brilinta 90 mg twice daily Spironolactone 25 mg daily Furosemide 40 mg twice daily Atorvastatin 80 mg daily Norvasc 2.5 mg daily pt seen by dietary prior to d/c Objective Vital signs: Temp Pulse Resp BP Pulse Ox 98.3 F 66 20 110/65 94 L 08/02/18 12:00 08/02/18 12:00 08/02/18 12:00 08/02/18 12:00 08/02/18 12:00 no acute distress - *Routine HEENT Exam Head: Present: normocephalic Eye: Present: EOMI, PERRL ENT: Present: mucous membranes dry - *Routine Neck Exam Present: supple. Absent: JVD - *Routine Respiratory Exam Present: CTA bilaterally - *Routine Cardiovascular Exam Present: RRR, murmur - *Routine Abdominal Exam Present: soft - *Routine Extremities Exam Absent: Ascencion's sign - *Routine Skin Exam Present: intact - *Routine Neurological Exam Present: alert, oriented X3, CN II-XII intact - Routine Psychiatric Exam Present: normal affect Results Labs on day of discharge: Preliminary micro results at discharge 07/31/18 08:45 Blood Culture - Preliminary Blood NO GROWTH AFTER 48 HOURS 07/31/18 09:00 Blood Culture - Preliminary Blood NO GROWTH AFTER 48 HOURS DS: Diagnosis - Discharge Diagnosis (1) CHF (congestive heart failure) Status: Acute (2) Tobacco use disorder Status: Acute (3) Angina pectoris Status: Acute Discharge Plan - Patient Discharge Instructions ACTIVITY: Continue current activity DIET: continue same diet Patient Instructions: Heart Failure, Heart-Healthy Diet, Two Gram Sodium Diet - Follow up Plan Disposition: Home, Self-Custodial Medications: Home Medications Medication Instructions Recorded Confirmed Type lisinopril 20 mg tablet 20 mg PO BID tab 11/03/17 07/31/18 History Atorvastatin Calcium [Lipitor 80mg 80 mg PO QHS 06/06/18 07/31/18 History Tablet] Cyclobenzaprine HCl 10 mg PO TID PRN 06/06/18 07/31/18 History [Cyclobenzaprine 10mg Tab] Escitalopram Oxalate 10 mg PO DAILY 06/06/18 07/31/18 History Fluticasone/Vilanterol [Breo 1 puff IH DAILY 06/06/18 07/31/18 History Ellipta 200-25 Mcg INH] Isosorbide Dinitrate 30 mg PO DAILY 06/06/18 07/31/18 History Omeprazole [Omeprazole 20mg 20 mg PO DAILY 06/06/18 07/31/18 History Capsule] Ticagrelor [Brilinta 90mg Tablet] 90 mg PO BID 06/06/18 07/31/18 History Albuterol Sulfate [Albuterol HFA 2 puffs INHALATION DAILY 07/31/18 07/31/18 History Inhaler] Aspirin [Low Dose Aspirin EC] 81 mg PO DAILY 07/31/18 07/31/18 History Furosemide [Furosemide 20mg Tab] 20 mg PO DAILY 07/31/18 07/31/18 History Spironolactone 25 mg PO DAILY 07/31/18 07/31/18 History clonazePAM [Clonazepam] 0.5 mg PO BID 07/31/18 07/31/18 History Prescriptions/Medication Reconciliation: New Furosemide [Lasix 40mg tablet] 40 mg PO BIDL #60 tablet Nicotine [Nicoderm 14mg/24hrs patch] 14 mg TD DAILYP PRN #30 patch.td24 PRN Reason: Nicotine Cravings Amlodipine Besylate [Norvasc 2.5mg tablet] 2.5 mg PO DAILY #30 tablet Continue lisinopril 20 mg tablet 20 mg PO BID tab gabapentin 600 mg tablet 600 mg PO TID #90 tab carvedilol 12.5 mg tablet 12.5 mg PO BID #60 tab nitroglycerin 0.4 mg sublingual tablet 0.4 mg SUBLINGUAL Q5M PRN #30 tab PRN Reason: Chest Pain hydroxyzine pamoate 25 mg capsule 25 mg PO Q8H PRN #90 cap PRN Reason: anxiety Ticagrelor [Brilinta 90mg Tablet] 90 mg PO BID Escitalopram Oxalate 10 mg PO DAILY Cyclobenzaprine HCl [Cyclobenzaprine 10mg Tab] 10 mg PO TID PRN PRN Reason: Moderate To Severe Pain Atorvastatin Calcium [Lipitor 80mg Tablet] 80 mg PO QHS Fluticasone/Vilanterol [Breo Ellipta 200-25 Mcg INH] 1 puff IH DAILY Nicotine [Nicoderm 21mg/24hr patch] 21 mg TD DAILYP PRN #30 patch.td24 PRN Reason: Nicotine Cravings clonazePAM [Clonazepam] 0.5 mg PO BID Aspirin [Low Dose Aspirin EC] 81 mg PO DAILY Omeprazole [Omeprazole 20mg Capsule] 20 mg PO DAILY Isosorbide Dinitrate 30 mg PO DAILY Spironolactone 25 mg PO DAILY Albuterol Sulfate [Albuterol HFA Inhaler] 2 puffs INHALATION DAILY Discontinued ibuprofen 800 mg tablet 800 mg PO BID #60 tab Furosemide [Furosemide 20mg Tab] 20 mg PO DAILY
--- NOTE | 2018-08-02 20:21 | Cardiology Report ---
PROCEDURE: 2-D M-mode and color Doppler study INDICATIONS FOR THE TEST: Chest pain+ COPD+ Heart Murmur Tobacco Smoking+ Palpitations Fatigue Syncope Edema Hypertension+Diabetes Mellitus Rheumatic Fever SOB+WILL Obesity Hyperlipidemia+ Family History HD Additional History CABG, STENT, NM PATIENT INFORMATION HEIGHT: 70 WEIGHT:220 GENDER: Male B/P:108/66 2-D/M-MODE INTERPRETATION: 2-D MEASUREMENTS OBSERVED VALUES IN CMS Right Ventricular Dimension (RVDd) 2.3 Interventricular Septum (Thickness)(IVsd) 1.4 Left Ventricular Internal Dimensions(LVIDd) 5.6 Left Ventricular Posterior Wall (Thickness)(LVPWd) 1.2 Aortic Root 3.9 Aortic Cusp Separation 2.1 Left Atrial Dimensions (LAD) 4.5 2D 1. Left atrium is moderately enlarged, left ventricle is normal size, mild concentric left ventricular hypertrophy, visually estimated ejection fraction approximately 40-45%, there is marked hypokinesis involving the inferior, and inferobasal wall. 2. The right atrium and right ventricle are normal size and contractility. 3. The aortic valve is minimally thickened and fibrosed. 4. The mitral and tricuspid valve leaflets are minimally thickened. 5. The pulmonic valve is poorly visualized. 6. No significant pericardial effusion noted. DOPPLER INTERROGATION: Doppler interrogation of the aortic, mitral and tricuspid valvular presence of moderate to severe mitral and mild tricuspid regurgitation, tricuspid regurgitation jet velocity insufficient for acquisition of the right ventricular systolic pressure, grade 2 diastolic dysfunction seen with tissue Doppler evidence of raised left atrial pressure. CONCLUSION: 1. Moderately enlarged left atrium, normal left ventricular size, mild concentric left ventricular hypertrophy, visually estimated ejection fraction of 40-45% with segmental wall motion abnormality described above, grade 2 diastolic dysfunction seen with tissue Doppler evidence of raised left atrial pressure. 2. Moderate to severe mitral and mild tricuspid regurgitation 3. No significant pericardial effusion noted.
== END 2018-08-02 13:45 | disposition home or self-care (01) ==
LOC: ER 07:55 → 2ND 09:56
PROVIDERS: ADMIT Emergency Medicine; ATTEND Emergency Medicine
CPT/HCPCS: J2405

== ENCOUNTER → 2018-08-09 15:50 | Outpatient (REF) | payer MEDICAID, SELFPAY ==
[2018-08-09 19:06] LABS: Amphetamine/Metha Screen,Urine Negative ng/mL (<1000); Barbiturates Screen,Urine Negative ng/mL (<200); Benzodiazepines Screen,Urine Negative ng/mL (<200); Cannabinoid Screen,Urine Negative ng/mL (<50); Cocaine Screen,Urine Negative ng/mL (<300); Methadone Screen,Urine Negative ng/mL (<300); Opiate Screen,Urine Negative ng/mL (<300); Phencyclidine Screen,Urine Negative ng/mL (<25)
== END ==
LOC: LAB 15:50
PROVIDERS: Visit Provider Emergency Medicine
DX: Z79.899 Other long term (current) drug therapy (principal)
CPT/HCPCS: 80305

== ENCOUNTER → 2018-08-23 13:58 | Outpatient (POV) | payer MEDICAID, SELFPAY ==
[2018-08-23 14:08] VITALS: BP 106/63; PULSE 60; RESP 18; O2SAT 97
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
== END ==
PROVIDERS: PCP Emergency Medicine; Visit Provider Clinical Nurse Specialist Family Health
DX: M51.16 Intervertebral disc disorders with radiculopathy, lumbar region (principal)
CPT/HCPCS: 99202

== ENCOUNTER → 2018-10-08 17:36 | Outpatient (CLI) | payer MEDICAID, SELFPAY ==
[2018-10-08 20:29] LABS: Amphetamine/Metha Screen,Urine Negative ng/mL (<1000); Barbiturates Screen,Urine Negative ng/mL (<200); Benzodiazepines Screen,Urine Positive ng/mL (<200); Cannabinoid Screen,Urine Negative ng/mL (<50); Cocaine Screen,Urine Negative ng/mL (<300); Methadone Screen,Urine Negative ng/mL (<300); Opiate Screen,Urine Positive ng/mL (<300); Phencyclidine Screen,Urine Negative ng/mL (<25)
== END ==
PROVIDERS: Visit Provider Emergency Medicine
DX: Z79.899 Other long term (current) drug therapy (principal)
CPT/HCPCS: 80305

== ENCOUNTER → 2018-11-02 14:19 | Outpatient (POV) | payer MEDICAID, SELFPAY | PROVIDERS: Visit Provider Internal Medicine | DX: Z00.00 Encounter for general adult medical examination without abnormal findings (principal) ==

== ENCOUNTER → 2018-11-03 15:29 | Outpatient (POV) | payer BC, SELFPAY | PROVIDERS: Visit Provider Podiatrist | DX: Z00.00 Encounter for general adult medical examination without abnormal findings (principal) ==

== ENCOUNTER → 2018-11-22 13:11 | Outpatient (CLI) | payer BC, SELFPAY ==
--- NOTE | 2018-11-22 13:14 | MR_ITS ---
MR lumbar spine wo con, MR 3-d myelogram/MRCP HISTORY: PT states low back pain [id number]. RT leg weakness and pain. RT leg numbness and tingling. ITS.REASON: LUMBAR RADICULOPATHY ORDERING PHYSICIAN: Carlos Tsai MD PATIENT AGE: 58 years Comparison: CT lumbar 10/12/17 TECHNIQUE: Standard multiplanar multiecho sequences are performed without contrast. 3-D MIP and myelographic images are also rendered and reviewed FINDINGS: The spinal cord ends at the L1 level. T12-L1, L1-L2 have an unremarkable appearance. L2-L3: Mild facet and ligamentum flavum hypertrophy. L3-L4: Sahv-dj-xowiceit facet ligamentous hypertrophy with mild bilateral lateral recess and foraminal narrowing. L4-5: Mild anterolisthesis of L4 of approximately 5 mm with bulging disc and small central disc extrusion slightly eccentric toward the right with minimal superior extrusion. This disc abuts the anteromedial aspect of the right L5 nerve root. There is moderate facet and ligamentum flavum hypertrophy. There is narrowing of the canal at 8 mm with moderate bilateral lateral recess and foraminal narrowing greater on the right. L5-S1: Bulging disc slightly eccentric toward the left and abuts the left S1 nerve root. There is facet ligamentum flavum hypertrophy with mild left-sided foraminal narrowing. IMPRESSION: 1. Multilevel lumbar spondylosis with bulging discs and facet and ligamentum hypertrophy with foraminal and lateral recess narrowing. Please see above for detailed description at each level 2. L4-5: Mild anterolisthesis of L4 on L5 of approximately 5 mm with bulging disc and small central disc extrusion slightly eccentric toward the right with minimal superior extrusion. This disc abuts the anteromedial aspect of the right L5 nerve root. There is moderate facet and ligamentum flavum hypertrophy. There is narrowing of the canal at 8 mm with moderate bilateral lateral recess and foraminal narrowing greater on the right. 3. L5-S1: Bulging disc slightly eccentric toward the left and abuts the left S1 nerve root. There is facet ligamentum flavum hypertrophy with mild left-sided foraminal narrowing
== END ==
PROVIDERS: PCP Emergency Medicine; Visit Provider Anesthesiology Pain Medicine
DX: M54.16 Radiculopathy, lumbar region (principal)
CPT/HCPCS: 72148; 76376

== ENCOUNTER → 2019-04-08 13:07 | Outpatient (CLI) | payer BC, SELFPAY ==
--- NOTE | 2019-04-08 14:56 | CT_ITS ---
CT lung screening EXAM: CT LUNG LOW DOSE WO CONTRAST HISTORY: 40+ pack year smoking history, asymptomatic for lung cancer ITS.REASON: NICOTINE DEPENDENCE ORDERING PHYSICIAN: Vipul Frederick MD PATIENT AGE: 59 years COMPARISON: None TECHNIQUE: The exam was performed on a GE Light Speed [address] scanner using 2.90 mGy CTDI. A low dose helical CT CHEST was performed on a multi-detector scanner. All CT scans at the time use one or more dose reduction, viz: automated exposure control, ma/kV adjustment per patient size (including targeted exams where dose is matched to indication, i.e. head), or iterative reconstruction technique. The LDCT was performed in a facility that meets the criteria for the screening program. Data regarding this exam was submitted to ACR which is an approved registry. The order for this exam indicates that it came as a result of a lung cancer screening counseling shard decision-making visit that included all the elements required of such a visit including smoking cessation. The radiologist interpreting this exam meets the [facility] criteria for the LDCT lung cancer screening program. The exam is reported using the Lung-RADS classification scale and reported to the ACR registry. NOTE: This study was performed for the specific purposes of lung cancer screening and is not an alternative to diagnostic chest CT. RADIATION DOSE: CTDI vol(CT dose Index-volume) = 2.90mG DLP (Dose Length Product) = 111.25 mGcm FINDINGS: Hyperinflation with attenuation of the peripheral pulmonary vessels and bronchial thickening consistent with COPD Prior CABG with coronary artery calcification. Atelectatic fibrotic change right upper lobe There are a few faint small nodular opacities including a 4 mm noncalcified nodule right upper lobe image #19, 4 mm nodular opacity right upper lobe image #22, 3 mm nodule left upper lobe laterally image #13. Patchy groundglass density noted in the superior aspect of the right lower lobe and in the superior segment of the left lower lobe as well as left upper lobe laterally. Upper abdominal images show a 2 cm left adrenal nodule with some central density measuring -10 Hounsfield units consistent with an adenoma IMPRESSION: 1. Lung RADS Category: 2, benign 2. Other findings: Patchy areas of infiltrate in both lower lobes, COPD RECOMMENDATIONS: 12 month LDCT follow-up
== END ==
PROVIDERS: PCP Emergency Medicine; Visit Provider Internal Medicine
DX: Z12.2 Encounter for screening for malignant neoplasm of respiratory organs (principal); Z87.891 Personal history of nicotine dependence; R06.02 Shortness of breath
CPT/HCPCS: 94060; 94618; 94640; 94726; 94729

== ENCOUNTER → 2019-04-26 08:51 | Outpatient (POV) | payer BC, SELFPAY | PROVIDERS: Visit Provider Dermatology | DX: Z00.00 Encounter for general adult medical examination without abnormal findings (principal) ==

== ENCOUNTER → 2019-05-04 11:34 | Outpatient (CLI) | payer BC, SELFPAY ==
--- NOTE | 2019-05-04 11:27 | CA_ITS ---
PROCEDURE: 2-D M-mode and color Doppler study INDICATIONS FOR THE TEST: Chest pain COPD+ Heart Murmur Tobacco Smoking+ Palpitations Fatigue Syncope Edema Hypertension+Diabetes Mellitus Rheumatic Fever SOB+WILL Obesity Hyperlipidemia+ Family History HD Additional History FL, CAD, CABG, STENT, REFUSED REECE Nov PATIENT INFORMATION HEIGHT: 73 WEIGHT:227 GENDER: Male B/P:162/87 2-D/M-MODE INTERPRETATION: 2-D MEASUREMENTS OBSERVED VALUES IN CMS Right Ventricular Dimension (RVDd) 2.3 Interventricular Septum (Thickness)(IVsd) 1.1 Left Ventricular Internal Dimensions(LVIDd) 5.7 Left Ventricular Posterior Wall (Thickness)(LVPWd) 0.7 Aortic Root 3.5 Aortic Cusp Separation 2.1 Left Atrial Dimensions (LAD) 4.5 2D 1. Left atrium is mildly enlarged, left ventricle is normal size, there is mild qualitative concentric left ventricular hypertrophy, visually estimated ejection fraction approximately 45-50%, there is moderate hypokinesis involving the basal septum, inferior basal and posterobasal wall. 2. The right atrium and right ventricle are normal size and contractility. 3. The aortic valve is thickened and calcified leaflet continue to display good mobility. 4. The mitral and tricuspid valve leaflets are grossly normal. 5. The pulmonic valve is poorly visualized. 6. No significant pericardial effusion noted. DOPPLER INTERROGATION: Doppler interrogation of the aortic, mitral and tricuspid valvular presence of moderate mitral and mild tricuspid regurgitation, tricuspid regurgitation jet velocity is inadequate for calculation of the right ventricular systolic pressure, grade 1 diastolic dysfunction seen with tissue Doppler evidence of raised left atrial pressure. CONCLUSION: 1. Mildly enlarged left atrium, normal left ventricular size, mild concentric left ventricular hypertrophy, visually estimated ejection fraction 45-50% with segmental wall motion abnormality described above, grade 1 diastolic dysfunction seen with tissue Doppler evidence of raised left atrial pressure. 2. Moderate mitral and mild tricuspid regurgitation 3. No significant pericardial effusion noted.
== END ==
PROVIDERS: PCP Emergency Medicine; Visit Provider Internal Medicine
DX: I25.10 Atherosclerotic heart disease of native coronary artery without angina pectoris (principal); I34.0 Nonrheumatic mitral (valve) insufficiency; E66.9 Obesity, unspecified; E78.2 Mixed hyperlipidemia; F17.200 Nicotine dependence, unspecified, uncomplicated; I11.0 Hypertensive heart disease with heart failure; I21.4 Non-ST elevation (NSTEMI) myocardial infarction; I25.5 Ischemic cardiomyopathy; I50.20 Unspecified systolic (congestive) heart failure; I50.22 Chronic systolic (congestive) heart failure; I95.9 Hypotension, unspecified; R06.09 Other forms of dyspnea; Z87.898 Personal history of other specified conditions; Z95.1 Presence of aortocoronary bypass graft
CPT/HCPCS: 93306

== ENCOUNTER → 2019-06-03 17:31 | Outpatient (CLI) | payer BC, SELFPAY ==
[2019-06-03 19:33] LABS: Amphetamine/Metha Screen,Urine Negative ng/mL (<1000); Barbiturates Screen,Urine Negative ng/mL (<200); Benzodiazepines Screen,Urine Positive ng/mL (<200); Cannabinoid Screen,Urine Positive ng/mL (<50); Cocaine Screen,Urine Negative ng/mL (<300); Methadone Screen,Urine Negative ng/mL (<300); Opiate Screen,Urine Negative ng/mL (<300); Phencyclidine Screen,Urine Negative ng/mL (<25)
== END ==
PROVIDERS: Visit Provider Emergency Medicine
DX: M99.83 Other biomechanical lesions of lumbar region (principal)
CPT/HCPCS: 80305

== ENCOUNTER → 2019-10-07 09:21 | Outpatient (CLI) | payer BC, SELFPAY ==
--- NOTE | 2019-10-07 09:22 | CA_ITS ---
APPROVED REPORT EXAM: Limited 2D Echocardiogram Laborer Heading: Ruth Ann Cancino CRT Ht: 5 ft 10 in Wt: 226lbs BSA: 2.20 BP: 129/64 mmHg Indications: COPD, HTN, HLD, MR, ANUPAM, CHF, EF CHECK FOR AICD PLACEMENT M-Mode Dimensions RVDd 2.51 cm (0.9-2.6) LVDd 6.72 cm (3.5-5.7) LVDs 5.34 cm (3.5-5.7) IVSd 1.52 cm (0.6-1.1) PWd 0.92 cm (0.6-1.1) EF (Teich) 40.90% FS 20.50% EDV (Teich) 232.90 mL ESV (Teich) 137.70 mL Left Ventricle Left atrium is mildly enlarged, the ventricle is normal size, mild concentric left ventricular hypertrophy, visually estimated ejection fraction 40 to 45%, there is marked hypokinesis involving the inferior basal, posterior basal, and posterolateral wall. Right Ventricle Right atrium and right ventricular normal size and contractility. Aortic Valve Aortic valve is thickened and calcified leaflet chordae display good mobility. Mitral Valve Mitral valve leaflets are minimally thickened, there is no mitral stenosis. Tricuspid Valve Tricuspid valve is grossly normal. Pulmonic Valve Pulmonic valve is poorly visualized. Great Vessels Aortic root is normal size. Pericardium No significant pericardial effusion noted. Conclusion 1. Limited 2D echo performed. 2. Normal left ventricular size, mild concentric left ventricular hypertrophy, visually estimated ejection fraction 40 to 45% with multiple segmental wall motion abnormality described above. 3. No significant pericardial effusion noted. Electronically signed by : Jamie Servin, 10/07/2019 13:47:21
== END ==
PROVIDERS: PCP Emergency Medicine; Visit Provider Urology
DX: I27.20 Pulmonary hypertension, unspecified (principal); I34.0 Nonrheumatic mitral (valve) insufficiency; R06.00 Dyspnea, unspecified
CPT/HCPCS: 93308

== ENCOUNTER → 2019-12-20 20:14 | Outpatient (CLI) | payer BC, SELFPAY | PROVIDERS: PCP Emergency Medicine; Visit Provider Nurse Practitioner Family | DX: G47.33 Obstructive sleep apnea (adult) (pediatric) (principal); I10 Essential (primary) hypertension; R40.0 Somnolence; R06.83 Snoring | CPT/HCPCS: 95810 ==

== ENCOUNTER → 2020-02-27 17:15 | Outpatient (CLI) | payer MEDICAID, SELFPAY ==
[2020-02-27 17:54] LABS: Chloride 103 mmol/L (98-107); Potassium 4.6 mmoL/L (3.5-5.1); Sodium 138 mmol/L (136-145)
[2020-02-27 17:56] LABS: Alanine Aminotransferase 41 U/L (12-78); Aspartate Amino Transferase 34 U/L (17-59); Blood Urea Nitrogen 17 mg/dl (9-20); Estimated Glomerular Filt Rate 99 ml/min (>60); GFR (African American) 119 ML/MIN (>60)
[2020-02-27 17:57] LABS: Albumin Level 4.3 g/dl (3.5-5.0); Albumin/Globulin Ratio 1.8 (1.1-1.8); Alkaline Phosphatase 43 U/L (38-126); Anion Gap 15.6 mEq/L (5-15); Bilirubin,Total 0.6 mg/dl (0.2-1.3); Calcium 9.2 mg/dl (8.4-10.2); Carbon Dioxide 24 mmol/L (22.0-30.0); Globulin 2.4 g/dL (1.3-3.2); Glucose 160 mg/dl (74-100); Total Protein,Serum 6.7 g/dl (6.3-8.2)
== END ==
PROVIDERS: Visit Provider Emergency Medicine
DX: I10 Essential (primary) hypertension (principal)
CPT/HCPCS: 80053

== ENCOUNTER 2020-03-06 20:01 | Inpatient (IN) | payer MEDICAID, SELFPAY ==
[2020-03-06] VITALS (12 sets, daily range): BP systolic 120–168; BP diastolic 70–117; PULSE 28–136; RESP 16–28; TEMP 36.6–37.1; O2SAT 96–100; BMI 36.1; BMI 34.4
--- NOTE | 2020-03-06 20:02 | XR_ITS ---
PROCEDURE: XR CHEST PORTABLE CLINICAL HISTORY: chest pain Chest pain with shortness of breath, heart disease COMPARISON: CXR2V XR chest 2V from 12/04/2018 XR CHEST 2V from 10/12/2019 XR CHEST 2V from 01/13/2020 FINDINGS: Mild cardiomegaly with mild prominence of the interstitial markings and some pulmonary venous congestion suggesting mild CHF. There has been a prior median sternotomy. No lobar consolidation or collapse. There is some hyperlucency in the right upper lobe which may be due to underlying COPD. IMPRESSION: Mild CHF Dictated by: Samy Rivero MD 03/07/2020 07:35 Electronically signed by Samy Rivero MD in [place] 03/07/2020 07:35
--- NOTE | 2020-03-06 20:02 | ECG_ITS ---
APPROVED REPORT Exam: Resting ECG HR:121 bpm ECG Measurements Heart Rate 121 AXES QRSd 90 QRS 33 QT 348 T 133 QTc 494 <Conclusion> Atrial fibrillation with rapid ventricular response ST & T wave abnormality, consider lateral ischemia or digitalis effect Abnormal ECG Electronically signed by : Yonas Barber, 03/07/2020 06:32:29
[2020-03-06 20:13] LABS: ABG Base Excess -3.4 mmol/L (-2.4-2.3); ABG HCO3 23.2 mmhg (22.0-26.0); ABG Oxygen Saturation 99 % (90-100); ABG PCO2 49.6 mmhg (35.0-45.0); ABG PH 7.29 mmol/L (7.35-7.45); ABG PO2 122.4 mmhg (80-100); ABG TCO2 24.7 mmhg (23-27); Allen's Test Y; Oxygen 100 %; Source R/R
--- NOTE | 2020-03-06 20:29 | HMH.EDCP ---
ED Disposition Clinical Impression: Unstable angina pectoris, Obesity (BMI 30-39.9) A-fib Qualifiers: Atrial fibrillation type: unspecified Qualified Code(s): I48.91 - Unspecified atrial fibrillation Disposition: Admitted As Inpatient Condition on Discharge: Serious - Critical Care Critical Care Time: Yes Attestation: On 03/06/20, the high probability of a clinically significant, sudden or life threatening deterioration of the following system(s) required my full and direct attention, intervention and personal management. The time I documented below is in addition to time spent performing reported procedures but includes the following listed in this critical care notation. Total Critical Care Time: 45 Vital system(s) involved:: Circulatory Failure My critical care processes included: Assessment & monitoring of V/S, Initial and Re-exams, Coordinating Care, Medication Orders and management Medical Decision Making - Medical Records Medical records reviewed: Yes: I reviewed the patient's medical records. - Denys Inquiry Pt receiving controlled substance: No Vital Signs: 03/06/20 20:06 03/06/20 20:16 03/06/20 20:40 Temperature 98.7 F Temperature Source Oral Pulse Rate [Right Brachial] 124 H 120 H 122 H Respiratory Rate 28 H 24 22 Blood Pressure [Right Arm] 168/117 H 159/110 H 144/95 H Blood Pressure Mean [Right Arm] 134 126 111 Blood Pressure Source [Right Arm] Automatic Cuff Blood Pressure Position [Right Arm] Sitting 02 Sat by Pulse Oximetry 100 100 96 Oxygen Delivery Method Non-Rebreather Non-Rebreather Nasal Cannula Oxygen Flow Rate (LPM) 10 6 4 03/06/20 21:04 03/06/20 21:21 Temperature Temperature Source Pulse Rate [Right Brachial] 131 H 136 H Respiratory Rate 16 18 Blood Pressure [Right Arm] 131/70 139/83 Blood Pressure Mean [Right Arm] 90 101 Blood Pressure Source [Right Arm] Blood Pressure Position [Right Arm] 02 Sat by Pulse Oximetry 99 98 Oxygen Delivery Method Nasal Cannula Nasal Cannula Oxygen Flow Rate (LPM) 3 3 - Lab Data Lab results reviewed: Yes: I reviewed the patient's lab results. Lab Results 03/06/20 20:05: WBC 11.6 H, RBC 5.08, Hgb 15.0, Hct 45.8, MCV 90.2, MCH 29.5, MCHC 32.8, RDW 15.0, Plt Count 214, MPV 10.1, Neut % (Auto) 63.7, Lymph % (Auto) 27.3, [place] % (Auto) 6.7, Eos % (Auto) 1.7, Baso % (Auto) 0.6, Neut # (Auto) 7.4, Lymph # (Auto) 3.2, Ventura # (Auto) 0.8, Eos # (Auto) 0.2, Baso # (Auto) 0.1 03/06/20 20:05: Sodium 136, Potassium 4.7, Chloride 106, Carbon Dioxide 26, Anion Gap 8.7, BUN 17, Creatinine 0.90, Estimated Creat Clear 137, Estimated GFR 86, Est GFR ( Amer) 104, Glucose 130 H, Calcium 9.1, Troponin I 0.02 03/06/20 20:05: NT-Pro-B Natriuret Pep 2260 H, TSH 0.86 03/06/20 20:05: Lactate 1.4 03/06/20 20:05: Free T4 0.90 03/06/20 20:12: Specimen Source R/r, O2 % 100, ABG pH 7.29 L, ABG pCO2 49.6 H, ABG pO2 122.4 H, ABG HCO3 23.2, ABG Total CO2 24.7, ABG O2 Saturation 99, ABG Base Excess -3.4 L, Samy Test Y Result diagrams: 03/06/20 20:05 03/06/20 20:05 Orders (Tests/Meds): ED MEDICATIONS Generic Name Dose Route Start Last Admin Trade Name Freq PRN Reason Stop Dose Admin Nitroglycerin/Dextrose 250 mls @ 3 mls/hr 03/06/20 20:45 03/06/20 20:42 Nitroglycerin 50mg/250ml D5w IV 04/05/20 20:44 10 mcg/min .Q24H CHARLES 3 mls/hr Administration Protocol 10 MCG/MIN Discontinued Medications Generic Name Dose Route Start Last Admin Trade Name Freq PRN Reason Stop Dose Admin Furosemide 60 mg 03/06/20 20:39 03/06/20 20:25 Lasix 100mg/10ml Vial IV 03/06/20 20:40 60 mg ONCE ONE Administration Metoprolol Tartrate 5 mg 03/06/20 20:49 03/06/20 20:52 Metoprolol Tartrate 5mg/5ml Vial IV 03/06/20 20:50 5 mg ONCE ONE Administration Morphine Sulfate 4 mg 03/06/20 20:39 03/06/20 20:25 Morphine 4mg/Ml Syringe IV 03/06/20 20:40 4 mg ONCE ONE Administration Morphine Sulfate 4 mg 03/06/20 21:32 05
[2020-03-06 20:33] LABS: Chloride 106 mmol/L (98-107); Potassium 4.7 mmoL/L (3.5-5.1); Sodium 136 mmol/L (136-145)
[2020-03-06 20:34] LABS: Basophils # 0.1 K/mm3 (0-0.2); Basophils % 0.6 % (0.1-2.0); Eosinophils # 0.2 K/mm3 (0.0-0.4); Eosinophils % 1.7 % (0.1-12.0); Hematocrit 45.8 % (42.0-52.0); Lymphocytes # 3.2 K/mm3 (0.7-4.5); Lymphocytes % 27.3 % (10-50); Mean Corpuscular HGB Conc 32.8 g/dL (31.8-35.4); Mean Corpuscular Hemoglobin 29.5 pg (27.0-31.2); Mean Corpuscular Volume 90.2 fl (80-94); Mean Platelet Volume 10.1 fl (7.4-10.4); Monocytes # 0.8 K/mm3 (0.1-1.0); Monocytes % 6.7 % (1.7-9.3); Neutrophils # 7.4 K/mm3 (1.8-7.8); Neutrophils % 63.7 % (37.0-80.0); Platelet Count 214 K/mm3 (142-424); Red Blood Count 5.08 M/mm3 (4.60-6.20); White Blood Count 11.6 K/mm3 (4.8-10.8)
[2020-03-06 20:36] LABS: Anion Gap 8.7 mEq/L (5-15); Blood Urea Nitrogen 17 mg/dl (9-20); Carbon Dioxide 26 mmol/L (22.0-30.0); Creatinine Clearance Estimated 137 mL/min (50-200); Estimated Glomerular Filt Rate 86 ml/min (>60); GFR (African American) 104 ML/MIN (>60)
[2020-03-06 20:37] LABS: Calcium 9.1 mg/dl (8.4-10.2); Glucose 130 mg/dl (74-100); Lactic Acid 1.4 mmol/L (0.7-2.1)
--- NOTE | 2020-03-06 20:43 | PC.NURSE ---
increased med to 20 mcg
[2020-03-06 20:47] LABS: NT Pro Brain Natriuretic Pep. 2260 pg/mL (0-125)
[2020-03-06 20:49] LABS: Troponin I 0.02 ng/ml (0.00-0.034)
--- NOTE | 2020-03-06 20:50 | PC.NURSE ---
Addendum entered by Tata Edward RN 03/06/20 20:51: Increased nitro to 30mcg Original Note: Increased nitro to 20mcg
--- NOTE | 2020-03-06 21:07 | PC.NURSE ---
pt alert,interactive. discussed updating family re: his continued care. states to allow them to know whatever they want. requesting more pain meds at this time.
[2020-03-06 21:08] LABS: Thyroid Stimulating Hormone 0.86 uIU/mL (0.465-4.68)
--- NOTE | 2020-03-06 21:27 | PC.NURSE ---
900 ML urine output
--- NOTE | 2020-03-06 21:29 | PC.NURSE ---
increased to 40mcg/hr
--- NOTE | 2020-03-06 21:34 | PC.NURSE ---
paged dr willard
--- NOTE | 2020-03-06 21:40 | PC.NURSE ---
pt to be admitted to [facility]
--- NOTE | 2020-03-06 22:51 | PC.NURSE ---
patient arrived to floor via stretcher kody cedeño RN.
[2020-03-06 23:28] LABS: Troponin I 0.09 ng/ml (0.00-0.034)
--- NOTE | 2020-03-06 23:37 | PC.NURSE ---
CARDIZEM TITRATED TO 5MG AT THIS TIME. HR 107. BP 126/86.
--- NOTE | 2020-03-06 23:39 | ECG_ITS ---
APPROVED REPORT Exam: Resting ECG HR:63 bpm ECG Measurements Heart Rate 63 AXES NV 172 P 40 QRSd 96 QRS 8 QT 422 T 162 QTc 431 <Conclusion> Normal sinus rhythm Left atrial abnormality ST & T wave changes unchanged from prior Abnormal ECG Electronically signed by : Yonas Barber, 03/08/2020 05:56:27
--- NOTE | 2020-03-06 23:40 | PC.NURSE ---
CARDIZEM GTT TURNED OFF AT THIS TIME, WILL NOTIFY MD CONVERTING FROM AFIB/AFLUTTER TO NSR.
[2020-03-07] VITALS (18 sets, daily range): BP systolic 116–162; BP diastolic 67–103; PULSE 60–80; RESP 16–20; TEMP 36.8; O2SAT 92–98; BMI 34.4
--- NOTE | 2020-03-07 03:45 | PC.NURSE ---
NITRO GTT TITRATED TO 20 MCG. NO C/O PAIN AT THIS TIME, BP 117/78, HR 64.
--- NOTE | 2020-03-07 05:00 | PC.NURSE ---
NITRO GTT TITRATE TO 10MCG AT THIS TIME, PT STATED I HAVE NO PAIN RIGHT NOW. BP 135/73, HR 72.
--- NOTE | 2020-03-07 05:20 | PC.NURSE ---
A&OX3. PERRLA, HUMANITIES INSTRUCTOR EQUAL BILAT AND STRONG. LUNGS NOTED CLEAR T/O AUSCULTATION. 2LNC TOLERATED WELL. WEANED TO RA AND TOLERATING WELL AT THIS TIME. RADIAL AND PEDAL PULSES +2, CAP REFILL <3SEC. +1 PITTING EDEMA NOTED TO RLE. UPON ARRIVAL TO STEP DOWN UNIT AFIB/AFLUTTER NOTED PER ESTHETICIAN/SKIN THERAPIST. BRADYCARDIA NOTED PER ESTHETICIAN/SKIN THERAPIST, THEN RHYTHM CONVERTED TO NSR WITH ST DEPRESSION. EKG WAS OBTAINED TO CONFIRM CONVERSION, CARDIZEM GTT TURNED OFF, MD DECONTAMINATION TECHNICIAN NOTIFIED. NITRO GTT HAS BEEN TITRATED AND PT HAS TOLERATED NITRO GTT WELL. ABDOMEN NOTED NONDISTENDED, ACTIVE BOWEL SOUNDS IN ALL QUADS, SOFT AND NONTENDER PER PALPATION. ADEQUATE UO NOTED. URINE NOTED CLEAR AND PALE YELLOW THIS SHIFT. RECEIVED A BED BATH AND CLIPPED FOR ANTICIPATION OF CARDIOLOGY CONSULT. VSS. WILL CONTINUE TO MONITOR.
[2020-03-07 06:12] LABS: Chloride 103 mmol/L (98-107); Potassium 3.9 mmoL/L (3.5-5.1); Sodium 137 mmol/L (136-145)
[2020-03-07 06:15] LABS: Anion Gap 6.9 mEq/L (5-15); Blood Urea Nitrogen 19 mg/dl (9-20); Calcium 9.6 mg/dl (8.4-10.2); Carbon Dioxide 31 mmol/L (22.0-30.0); Creatinine Clearance Estimated 121 mL/min (50-200); Estimated Glomerular Filt Rate 76 ml/min (>60); GFR (African American) 92 ML/MIN (>60); Glucose 113 mg/dl (74-100); Magnesium 1.9 mg/dl (1.6-2.3)
[2020-03-07 06:27] LABS: Troponin I 0.22 ng/ml (0.00-0.034)
[2020-03-07 06:41] LABS: Basophils % 0.4 % (0.1-2.0); Eosinophils # 0.2 K/mm3 (0.0-0.4); Hematocrit 42.8 % (42.0-52.0); Lymphocytes # 3.2 K/mm3 (0.7-4.5); Lymphocytes % 30.3 % (10-50); Mean Corpuscular HGB Conc 32.7 g/dL (31.8-35.4); Mean Corpuscular Hemoglobin 29.6 pg (27.0-31.2); Mean Corpuscular Volume 90.6 fl (80-94); Mean Platelet Volume 10.1 fl (7.4-10.4); Monocytes # 0.8 K/mm3 (0.1-1.0); Monocytes % 7.1 % (1.7-9.3); Neutrophils # 6.4 K/mm3 (1.8-7.8); Neutrophils % 60.2 % (37.0-80.0); Platelet Count 205 K/mm3 (142-424); Red Blood Count 4.73 M/mm3 (4.60-6.20); Red Cell Distribution Width 15.3 % (11.5-17.5); White Blood Count 10.6 K/mm3 (4.8-10.8)
--- NOTE | 2020-03-07 07:00 | PC.NURSE ---
PT REPORTS CP AT THIS TIME. BP 134/99. HR 72. NITRO TITRATED TO 20 MCG.
--- NOTE | 2020-03-07 07:30 | PC.NURSE ---
REASSESSED PT'S CP LEVEL FOLLOWING TITRATION OF NITRO 20 MCG, PT REPORTED I DO NOT HURT ANYMORE.
--- NOTE | 2020-03-07 07:40 | HMH.PHAVTE ---
[facility] Pharmacy VTE Monitoring - Patient Demographics Admission date: 03/06/20 Report Date: 03/07/20 Time: 07:40 Allergies/Adverse Reactions: Patient Allergies codeine [CODEINE] Allergy (Mild, Verified 02/27/20 15:38) Height: 1.78 m Weight: 108.862 kg Patient Problems: Current Active Problems (Last Updated 12/14/17 @ 10:15 by ALEK Aguirre) Unstable angina pectoris (Acute) A-fib (Acute) Obesity (BMI 30-39.9) (Acute) - VTE Risk Labs: VTE Related Lab Results Hgb 14.0 g/dL (14.1-18.0) L 03/07/20 05:50 Hct 42.8 % (42.0-52.0) 03/07/20 05:50 Plt Count 205 K/mm3 (142-424) 03/07/20 05:50 BUN 19 mg/dl (9-20) 03/07/20 05:50 Creatinine 1.00 mg/dl (0.66-1.25) 03/07/20 05:50 Estimated Creat Clear 121 mL/min (50-200) 03/07/20 05:50 Was VTE Risk Assessment Performed: Yes VTE Score: 8 VTE Risk Level: Moderate Risk Clinical Trial Participant: No - Prophylaxis VTE Prophylaxis Ordered?: Yes Types of VTE Prophylaxis: TEDS Knee High
--- NOTE | 2020-03-07 08:00 | CA_ITS ---
APPROVED REPORT EXAM: Comprehensive 2D, Doppler, and color-flow Echocardiogram Labor Relations Teacher: Ruth Ann Cancino CRT Ht: 5 ft 9 in Wt: 245lbs BSA: 2.25 BP: 139/83 mmHg Indications: CP, COPD, SMOKER, PALP, HTN, HLD, CHF, CAD, GERD, OLD MA, CABG, STENT, ECHO 40-45% 2D Dimensions LVOT 1.98 cm (M/F) 1.5-2.5 M-Mode Dimensions RVDd 2.28 cm (0.9-2.6) LVDd 5.77 cm (3.5-5.7) LVDs 4.48 cm (3.5-5.7) IVSd 2.35 cm (0.6-1.1) PWd 1.18 cm (0.6-1.1) EF (Teich) 44.40% FS 22.40% EDV (Teich) 164.60 mL ESV (Teich) 91.50 mL LV Diastology E/A Ratio 1.44 Mitral Valve MV A Velocity 76.00 (40-130 cm/s) Left Ventricle Left atrium is a mildly enlarged, left ventricle is normal size, mild concentric left ventricular hypertrophy, visually estimated ejection fraction approximately 40 to 45%, there is marked hypokinesis involving the basal septum, inferior basal, inferior and posterior lateral wall. Grade 2 diastolic dysfunction seen with tissue Doppler evidence of raise left atrial pressure. Right Ventricle Right atrium and right ventricle are mildly enlarged with normal contractility. Aortic Valve Aortic valve is minimally fibrosed, there is no aortic stenosis or aortic insufficiency. Mitral Valve Mitral valve leaflets are minimally thickened, there is moderate to severe mitral regurgitation, mitral regurgitation jet is eccentric early directed towards the posterior wall of the left atrium. Tricuspid Valve Tricuspid valve is grossly normal, there is mild tricuspid regurgitation. Pulmonic Valve Pulmonic valve is poorly visualized. Great Vessels Aortic root is normal size. Pericardium No significant pericardial effusion noted Conclusion 1. Biatrial enlargement, normal left ventricular size, mild concentric left ventricular hypertrophy, visually estimated ejection fraction 40 to 45% with multiple segmental wall motion abnormality described above, grade 2 diastolic dysfunction seen with tissue Doppler evidence of raise left atrial pressure, inferior vena cava is mildly dilated with normal inspiratory collapse. 2. Mildly enlarged right ventricle with normal contractility. 3. Moderate to severe mitral and mild tricuspid regurgitation. 4. No significant pericardial effusion noted. Electronically signed by : Jamie Servin, 03/08/2020 10:58:37
--- NOTE | 2020-03-07 09:35 | HMH.CNCARD ---
History of Present Illness Consult date: 03/07/20 Requesting physician: Alcides Oakley Consult reason: chest pain Chief complaint: chest pain Additional Medical History:: 1. Coronary artery disease status post stenting and coronary artery bypass grafting 2. Biventricular congestive heart failure 3. COPD 4. GERD 5. Hypertension 6. Hyperlipidemia 7. Myocardial infarction 8. Atrial fibrillation with RVR echo 09/2019 shows: 1. Limited 2D echo performed. 2. Normal left ventricular size, mild concentric left ventricular hypertrophy, visually estimated ejection fraction 40 to 45% with multiple segmental wall motion abnormality described above. 3. No significant pericardial effusion noted. [facility] 08/2019 shows: The left main artery Ostially occluded The right coronary artery Is a large dominant vessel and has proximal 20% stenosis mid vessel 30% stenosis distal 20% stenoses. A very large posterior descending artery reaches to the apex and has mid vessel long to centimeter 50% stenosis The [place] ventriculogram reveals Left ventricular dilatation with reduced ejection fraction estimated at 30-35% The left ventricular end-diastolic pressure 18 to 20 mmHg Left internal mammary artery is widely patent to the LAD The saphenous vein graft to the left coronary artery is ostially occluded Right atrial pressure 18 mmHg Right ventricular pressure 48/18 mmHg Pulmonary artery occlusion pressure 18 mmHg Right atrial saturation 77% Pulmonary artery saturation 77% IMPRESSION Coronary artery disease as described above Moderate pulmonary hypertension Biventricular congestive heart failure as described above with reduced ejection fraction Restrictive physiology hemodynamics PLAN 1. Patient requires additional diuretics. 2. Patient should also be evaluated for AICD placement due to LV dysfunction 3. Standard therapy for systolic congestive heart failure 4. Standard therapy for ischemic heart disease History of present illness: This is a 60-year-old gentleman who presented to the emergency department with complaints of chest pain. He states that yesterday he started having chest pain in the substernal aspect of his chest. He states that it is a heavy pressure sensation and describes it as someone standing on my chest . The patient reports that he took 2 nitroglycerin without improvement in his chest pain. He states that it lasted for a few hours and then resolved. He states a few hours later the chest pain recurred. He states that he took 2 additional nitroglycerin at that time without any improvement in his chest pain. He states that he is short of breath with the chest pain. He rates this an 8 out of 10 in intensity. He states that it radiates across to his bilateral shoulders. He denies any nausea or diaphoresis or clamminess. The patient states that he just did not feel well because the chest pain would not go away and decided to come into the emergency department. Once here at the emergency department the patient was found to be in atrial fibrillation with RVR. He did have an elevated troponin as well. The patient is currently on a diltiazem drip and has converted to normal sinus rhythm. He remains on a nitro drip and denies any chest pain or chest pressure at this time. He denies any fever, chills, nausea, vomiting, diarrhea. He does report having some orthopnea associated with his shortness of breath. He states that he just feels like he cannot get a good breath. The patient did undergo left cardiac catheterization in August. He had some moderate nonocclusive coronary artery disease with a patent GRIJALVA to his LAD. He did have biventricular congestive heart failure at that time. His ejection fraction was around 30 to 35%. His EF did improve to 40 to 45% following this in September. His echocardiogram is currently pending. The patient's BNP is 2260. The patient needs aggressive diuresis for his congestive heart failure.
--- NOTE | 2020-03-07 10:24 | HMH.PHAINT ---
HOME MEDICATION RECONICLIATION COMPLETED USING LIST FROM [facility], LISTS FROM PHYSICIAN OFFICE VISITS AND TALKING WITH PT'S .
--- NOTE | 2020-03-07 11:02 | HMH.HP ---
*Admission Date: 03/06/20 *Chief complaint: chest pain *History of present illness: 60-year-old male who presented to the emergency department with complaints of chest pain since the am. He states that yesterday he started having chest pain in the substernal aspect of his chest. He states that it is a heavy pressure sensation and describes it as someone standing on my chest . The patient reports that he took 2 nitroglycerin without improvement in his chest pain and the pain lasted for a few hours and then resolved on its own. He states a few hours later the chest pain recurred and he took 2 additional nitroglycerin at that time without any improvement in his chest pain. He states that he is short of breath with the chest pain. Patient states that the chest pain would not go away and decided to come into the emergency department later that day. In the emergency department the patient was found to be in atrial fibrillation with RVR and elevated troponin. The patient was placed on a diltiazem drip and has converted to normal sinus rhythm then converted to po diltiazem. Placed on nitro drip and states pain 3 out of 10. He denies any fever, chills, nausea, vomiting, diarrhea. Patient admitted for afib with RVR and cardiology consult obtained. [facility] History I have reviewed the patient's past medical history: Yes Medical History: Reports:: Anxiety, Congestive Heart Failure, Chronic Obstructive Pulmonary Disease (COPD), Coronary Artery Disease, Depression, Gastroesophageal Reflux Disease(GERD), Hyperlipidemia, Hypertension, Lung Disease, Myocardial Infarction, Palpitations Denies:: Cancer, Diabetes Mellitus Type 1, Diabetes Mellitus Type 2, Internal Pacemaker, MRSA, Seizures *Have you ever received a pneumonia vaccine?: No *Have you received a flu vaccine this season?: No Other Medical History: Reports: Arthritis, Sinus Problems. Denies: Blood Transfusion Reaction Other Surgeries: Yes: Angioplasty, CABG, Cardiac Catheterization, Cardiac Surgery, Colonoscopy, Coronary Stent, Open Heart Surgery (quadruple bypass 2006), Other (C-STENTS, CABG). No: Pacemaker Amputation: No Fractures: Yes ((L) WRIST/FINGERS) - *Social History Educational Level: Attended College Smoking Status: Current every day smoker Tobacco Type: cigarettes # Packs/Day (cigarettes): 1 #Yrs smoked (if former smoker): 42 Alcohol Intake: former Alcohol Intake Frequency:: holidays/special occasions only Substance Use Type: denies use, crack/cocaine, marijuana, prescription drug, painkillers *Occupational Status:: disabled Housing: house Household Members: spouse *Travel in the last 8 weeks: Inside the [place] - Psychiatric History Pschychiatric History:: Reports:: Anxiety, Depression Family Hx:: Asthma, Cancer, Coronary Artery Disease, Diabetes, Heart Attack, Hyperlipidemia, Hypertension, Stroke, Substance abuse, Alcoholism, Mental illness Review of Systems - Review of Systems Review of systems:: pertinent systems reviewed and negative unless documented below - Constitutional Reports fatigue, Reports weakness - Eyes Denies blurry vision - ENT Denies bleeding gums - *Cardiovascular Reports chest pain, Reports chest pain at rest, Reports chest pain with activity, Reports shortness of breath, Reports irregular heart rhythm - *Respiratory Reports shortness of breath - *Gastrointestinal Denies nausea, Denies vomiting - *Genitourinary Denies urinary frequency - *Musculoskeletal Denies muscle weakness - Integumentary/Breasts Denies stretch pugh - *Neurologic Denies localized weakness, Denies headache(s) - Psychiatric Denies lack of enjoyment - Endocrine Reports rapid, pounding, or irregular heartbeat, Denies excessive sweating - Hematologic/Lymphatic Denies easy bruising - Allergic/Immunologic Denies itchy eyes Meds Home Medications Medication Instructions Recorded Confirmed Type albuterol sulfate 90 mcg/actuation 2 puff INHALATION Q6H
--- NOTE | 2020-03-07 19:13 | PC.NURSE ---
report given to faustina
--- NOTE | 2020-03-07 20:39 | PC.NURSE ---
BP just given for elevated BP. Will continue to monitor.
[2020-03-08] VITALS (8 sets, daily range): BP systolic 123–179; BP diastolic 86–101; PULSE 60–70; RESP 16–17; TEMP 36.5–36.7; O2SAT 93–97; BMI 33.2
--- NOTE | 2020-03-08 03:08 | PC.NURSE ---
He is A&OX4. Has taylor resting in bed. Voiding per urinal. Urine is yellow, clear. Denies pain. Reported SOA, weakness, and dizziness. Reported his last BM was on 03/06/20. He wore his CPAP for a short period of time. Respiratory turned on his CPAP for him. Respiratory reported that the pt stated he had never worn his CPAP before. Lung sounds with scattered wheezes anteriorly. NSR on telemetry with inverted T waves.
[2020-03-08 06:04] LABS: Basophils % 0.4 % (0.1-2.0); Eosinophils # 0.3 K/mm3 (0.0-0.4); Eosinophils % 2.7 % (0.1-12.0); Hematocrit 42.7 % (42.0-52.0); Hemoglobin 14.3 g/dL (14.1-18.0); Lymphocytes # 3.2 K/mm3 (0.7-4.5); Lymphocytes % 32.6 % (10-50); Mean Corpuscular HGB Conc 33.5 g/dL (31.8-35.4); Mean Corpuscular Hemoglobin 29.6 pg (27.0-31.2); Mean Corpuscular Volume 88.4 fl (80-94); Mean Platelet Volume 9.6 fl (7.4-10.4); Monocytes # 0.8 K/mm3 (0.1-1.0); Monocytes % 8.4 % (1.7-9.3); Neutrophils # 5.4 K/mm3 (1.8-7.8); Neutrophils % 55.9 % (37.0-80.0); Platelet Count 186 K/mm3 (142-424); Red Blood Count 4.83 M/mm3 (4.60-6.20); Red Cell Distribution Width 15.1 % (11.5-17.5); White Blood Count 9.7 K/mm3 (4.8-10.8)
[2020-03-08 06:06] LABS: Chloride 98 mmol/L (98-107); Potassium 3.7 mmoL/L (3.5-5.1); Sodium 136 mmol/L (136-145)
[2020-03-08 06:09] LABS: Anion Gap 10.7 mEq/L (5-15); Blood Urea Nitrogen 25 mg/dl (9-20); Calcium 9.4 mg/dl (8.4-10.2); Carbon Dioxide 31 mmol/L (22.0-30.0); Cholesterol 186 mg/dl (140-200); Creatinine Clearance Estimated 121 mL/min (50-200); Estimated Glomerular Filt Rate 76 ml/min (>60); GFR (African American) 92 ML/MIN (>60); Glucose 127 mg/dl (74-100); HDL Cholesterol 47 mg/dl (40-60)
[2020-03-08 06:11] LABS: Bilirubin,Unconjugated 0.6 mg/dL (0.0-1.1)
[2020-03-08 06:12] LABS: Alanine Aminotransferase 48 U/L (12-78); Albumin Level 4.1 g/dl (3.5-5.0); Alkaline Phosphatase 44 U/L (38-126); Aspartate Amino Transferase 35 U/L (17-59); Bilirubin,Indirect 0.5 mg/dL (0.0-0.9); Bilirubin,Total 0.5 mg/dl (0.2-1.3); Total Protein,Serum 6.8 g/dl (6.3-8.2)
[2020-03-08 06:20] LABS: Direct LDL Cholesterol 103.83 mg/dL (100-129)
[2020-03-08 06:41] LABS: Triglycerides 408 mg/dl (30-150)
--- NOTE | 2020-03-08 07:41 | HMH.PNCARD ---
Subjective Date: 03/08/20 Time: 07:41 Principal diagnosis: A. jia with RVR, CHF, CM Interval history: 60-year-old white male in bed eating breakfast in no acute distress. States he is breathing much better. Upon discussion of his medical history patient relates he has been off of his lisinopril and both diuretics for about a month. Overnight patient was discontinued on diltiazem drip. He remains on IV nitroglycerin which is being weaned off at this time. Blood pressure is controlled. Patient diuresed 5 L overnight. Echocardiogram is pending Patient continues to smoke and states he has tried Chantix (had suicidal ideations) and has tried Nicorette gum and patches without success. He does take Wellbutrin daily. Exam Vital signs and Labs for Last 24 Hours: Temp Pulse Resp BP Pulse Ox 97.8 F 65 16 123/89 94 L 03/08/20 07:40 03/08/20 06:24 03/08/20 04:00 03/08/20 06:24 03/08/20 06:24 Laboratory Results - last 24 hr 03/08/20 05:35: WBC 9.7, RBC 4.83, Hgb 14.3, Hct 42.7, MCV 88.4, MCH 29.6, MCHC 33.5, RDW 15.1, Plt Count 186, MPV 9.6, Neut % (Auto) 55.9, Lymph % (Auto) 32.6, Mcminn % (Auto) 8.4, Eos % (Auto) 2.7, Baso % (Auto) 0.4, Neut # (Auto) 5.4, Lymph # (Auto) 3.2, Mcminn # (Auto) 0.8, Eos # (Auto) 0.3, Baso # (Auto) 0.0 03/08/20 05:35: Sodium 136, Potassium 3.7, Chloride 98, Carbon Dioxide 31 H, Anion Gap 10.7, BUN 25 H D, Creatinine 1.00, Estimated Creat Clear 121, Estimated GFR 76, Est GFR ( Amer) 92, Glucose 127 H, Calcium 9.4, Triglycerides 408 H, Cholesterol 186, LDL Cholesterol Direct 103.83, HDL Cholesterol 47, Cholesterol/HDL Ratio 4.0 H 03/08/20 05:35: Total Bilirubin 0.5, Direct Bilirubin 0.0, Conjugated Bilirubin 0.0, Indirect Bilirubin 0.5, Unconjugated Bilirubin 0.6, AST 35, ALT 48, Alkaline Phosphatase 44, Total Protein 6.8, Albumin 4.1 I & O for Last 24 hours: Intake & Output 03/05/20 03/06/20 03/07/20 03/08/20 11:59 11:59 11:59 11:59 Intake Total 1759 / 1759 1232 / 1232 Output Total 2975 / 3975 4480 / 4480 Balance -1216 / -2216 -3248 / -3248 Weight 240 lb 4.862 oz 238 lb 2 oz - *Routine HEENT Exam Head: Present: normocephalic Eye: Present: EOMI, PERRL ENT: Present: mucous membranes moist - *Routine Respiratory Exam Present: CTA bilaterally, wheezes. Absent: accessory muscle use, rales, rhonchi - *Routine Cardiovascular Exam Present: RRR. Absent: murmur, gallop, rubs - *Routine Extremities Exam Absent: edema, calf tenderness - *Routine Neurological Exam Present: alert, oriented X3, moving all extremities Progress Note: A&P (1) Elevated troponin Status: Acute Current Visit: Yes (2) Atrial fibrillation with RVR Status: Resolved Current Visit: Yes (3) Angina pectoris Status: Acute Current Visit: Yes (4) Cardiomyopathy Status: Chronic Current Visit: Yes (5) Non-STEMI (non-ST elevated myocardial infarction) Status: Acute Current Visit: No (6) CAD (coronary artery disease) Status: Chronic Current Visit: No (7) CHF (congestive heart failure) Status: Chronic Current Visit: No (8) COPD (chronic obstructive pulmonary disease) Status: Chronic Current Visit: No (9) Hyperlipidemia Status: Chronic Current Visit: No (10) Hypertension Status: Chronic Current Visit: No (11) Nicotine dependence Status: Acute Current Visit: Yes Assessment and Plan for All Diagnoses:: 1. Atrial fibrillation with a rapid ventricular response, converted to sinus rhythm with IV diltiazem. Now discontinued. Patient was given Lovenox yesterday but refused it last evening. With no plans to proceed with cardiac catheterization would recommend starting oral anticoagulation today. 2. Congestive heart failure secondary to medication noncompliance, improved on IV Lasix therapy. 3. Cardiomyopathy, patient is on carvedilol therapy with his lisinopril and diuretic therapy restarted this admission. Echocardiogram is pending. Patient ma
--- NOTE | 2020-03-08 08:44 | PC.NURSE ---
okayed with md to remove from stepdown
--- NOTE | 2020-03-08 08:54 | HMH.DCSUM ---
General - General Admission date:: 03/06/20 Discharge date: 03/08/20 HPI HPI: 60-year-old male who presented to the emergency department with complaints of chest pain since the am. He states that yesterday he started having chest pain in the substernal aspect of his chest. He states that it is a heavy pressure sensation and describes it as someone standing on my chest . The patient reports that he took 2 nitroglycerin without improvement in his chest pain and the pain lasted for a few hours and then resolved on its own. He states a few hours later the chest pain recurred and he took 2 additional nitroglycerin at that time without any improvement in his chest pain. He states that he is short of breath with the chest pain. Patient states that the chest pain would not go away and decided to come into the emergency department later that day. In the emergency department the patient was found to be in atrial fibrillation with RVR and elevated troponin. The patient was placed on a diltiazem drip and has converted to normal sinus rhythm then converted to po diltiazem. Placed on nitro drip and states pain 3 out of 10. He denies any fever, chills, nausea, vomiting, diarrhea. Patient admitted for afib with RVR and cardiology consult obtained. Hospital Course Hospital Course: pt has improved with dec chest pain and now in nsr with improvement in chf -. Coronary artery disease status post stenting and coronary artery bypass grafting 2. Biventricular congestive heart failure 3. COPD 4. GERD 5. Hypertension 6. Hyperlipidemia 7. Myocardial infarction 8. Atrial fibrillation with RVR echo 09/2019 shows: 1. Limited 2D echo performed. 2. Normal left ventricular size, mild concentric left ventricular hypertrophy, visually estimated ejection fraction 40 to 45% with multiple segmental wall motion abnormality described above. 3. No significant pericardial effusion noted. [facility] 08/2019 shows: The left main artery Ostially occluded The right coronary artery Is a large dominant vessel and has proximal 20% stenosis mid vessel 30% stenosis distal 20% stenoses. A very large posterior descending artery reaches to the apex and has mid vessel long to centimeter 50% stenosis The [place] ventriculogram reveals Left ventricular dilatation with reduced ejection fraction estimated at 30-35% The left ventricular end-diastolic pressure 18 to 20 mmHg Left internal mammary artery is widely patent to the LAD The saphenous vein graft to the left coronary artery is ostially occluded Right atrial pressure 18 mmHg Right ventricular pressure 48/18 mmHg Pulmonary artery occlusion pressure 18 mmHg Right atrial saturation 77% Pulmonary artery saturation 77% IMPRESSION Coronary artery disease as described above Moderate pulmonary hypertension Biventricular congestive heart failure as described above with reduced ejection fraction Restrictive physiology hemodynamics PLAN. Atrial fibrillation with a rapid ventricular response, converted to sinus rhythm with IV diltiazem. Now discontinued. Patient was given Lovenox yesterday but refused it last evening. With no plans to proceed with cardiac catheterization would recommend starting oral anticoagulation today. 2. Congestive heart failure secondary to medication noncompliance, improved on IV Lasix therapy. 3. Cardiomyopathy, patient is on carvedilol therapy with his lisinopril and diuretic therapy restarted this admission. Echocardiogram is pending. Patient may be a candidate for a biventricular pacemaker or defibrillator depending on echocardiogram results. 4. Type II non-ST elevation IA related to atrial fibrillation with RVR and congestive heart failure on top of cardiomyopathy with mild to moderate coronary artery disease. No plans for cardiac catheterization this admission. Continue aspirin and Brilinta for 30 days and then discontinue aspirin since patient will be starting Xarelto therapy. 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
--- NOTE | 2020-03-08 11:26 | PC.NURSE ---
patient education of meds done. patient state salready on brilinta. educated to stop aspirin after 30 days. samples of xarelto 10mg obtained from cardiology clinic. educated to take 2 to make 20mg every evening
== END 2020-03-08 11:24 | disposition home or self-care (01) | DRG 281 ==
LOC: ER 20:44 → 2ND 21:48
PROVIDERS: Nurse Practitioner Family; Admitting Provider Emergency Medicine; Emergency Provider Emergency Medicine; PCP Emergency Medicine; Visit Provider Emergency Medicine
DX: I48.91 Unspecified atrial fibrillation (principal); I21.A1 Myocardial infarction type 2; I50.42 Chronic combined systolic (congestive) and diastolic (congestive) heart failure; I25.118 Atherosclerotic heart disease of native coronary artery with other forms of angina pectoris; I27.20 Pulmonary hypertension, unspecified; I11.0 Hypertensive heart disease with heart failure; J44.9 Chronic obstructive pulmonary disease, unspecified; Z95.5 Presence of coronary angioplasty implant and graft; Z95.1 Presence of aortocoronary bypass graft; Z72.0 Tobacco use; Z88.5 Allergy status to narcotic agent; Z79.01 Long term (current) use of anticoagulants; Z79.51 Long term (current) use of inhaled steroids; Z79.82 Long term (current) use of aspirin; Z79.899 Other long term (current) drug therapy
CPT/HCPCS: 36415; 71045; 80048; 80061; 80076; 82803; 83605; 83735; 83880; 84439; 84443; 84484; 85025; 87040; 93005; 93306; 94760; 94761; 96365; 96366; 96367; 96375; 96376; 99285

== ENCOUNTER → 2020-04-06 11:25 | Outpatient (CLI) | payer MEDICAID, SELFPAY ==
[2020-04-06 11:43] LABS: Basophils % 0.2 % (0.1-2.0); Eosinophils # 0.3 K/mm3 (0.0-0.4); Hematocrit 40.2 % (42.0-52.0); Hemoglobin 13.9 g/dL (14.1-18.0); Lymphocytes # 2.3 K/mm3 (0.7-4.5); Lymphocytes % 26.1 % (10-50); Mean Corpuscular HGB Conc 34.5 g/dL (31.8-35.4); Mean Corpuscular Hemoglobin 31.1 pg (27.0-31.2); Mean Corpuscular Volume 90.1 fl (80-94); Mean Platelet Volume 10.5 fl (7.4-10.4); Monocytes # 0.4 K/mm3 (0.1-1.0); Monocytes % 4.8 % (1.7-9.3); Neutrophils # 5.8 K/mm3 (1.8-7.8); Platelet Count 178 K/mm3 (142-424); Red Blood Count 4.46 M/mm3 (4.60-6.20); Red Cell Distribution Width 14.3 % (11.5-17.5); White Blood Count 8.8 K/mm3 (4.8-10.8)
[2020-04-06 14:11] LABS: Anion Gap 11.6 mEq/L (5-15); Blood Urea Nitrogen 27 mg/dl (9-20); Calcium 9.8 mg/dl (8.4-10.2); Carbon Dioxide 34 mmol/L (22.0-30.0); Chloride 96 mmol/L (98-107); Estimated Glomerular Filt Rate 62 ml/min (>60); GFR (African American) 75 ML/MIN (>60); Glucose 150 mg/dl (74-100); Potassium 4.6 mmoL/L (3.5-5.1); Sodium 137 mmol/L (136-145)
[2020-04-06 14:19] LABS: NT Pro Brain Natriuretic Pep. 538 pg/mL (0-125)
== END ==
PROVIDERS: Visit Provider Internal Medicine Cardiovascular Disease
DX: I50.9 Heart failure, unspecified (principal); I25.10 Atherosclerotic heart disease of native coronary artery without angina pectoris; I25.2 Old myocardial infarction; I34.0 Nonrheumatic mitral (valve) insufficiency; I51.9 Heart disease, unspecified; J44.9 Chronic obstructive pulmonary disease, unspecified; G47.33 Obstructive sleep apnea (adult) (pediatric); Z95.1 Presence of aortocoronary bypass graft
CPT/HCPCS: 36415; 80048; 83880; 85025

== ENCOUNTER → 2020-04-12 11:10 | Outpatient (CLI) | payer MEDICAID, SELFPAY ==
[2020-04-12 13:34] LABS: Coronavirus 19 IgG Antibody Negative (Negative); Coronavirus 19 IgM Antibody Negative (Negative)
== END ==
PROVIDERS: Visit Provider Internal Medicine Gastroenterology
DX: Z01.818 Encounter for other preprocedural examination (principal)
CPT/HCPCS: 36415; 86328

== ENCOUNTER 2020-04-13 10:48 | Day surgery (SDC) | payer MEDICAID, SELFPAY ==
--- NOTE | 2020-04-11 10:34 | SUR.PREOP ---
04/11/2020 @ 1030--PHONE CALL MADE TO PATIENT. PATIENT UNDERSTANDS THAT LAB WORK AND COVID TESTING NEEDS TO BE COMPLETED @ 1100 ON 04/12/2020. PATIENT UNDERSTANDS IF LAB WORK AND COVID-19 TESTS ARE NOT COMPLETED BY 12PM ON THAT DATE, THE SURGERY SCHEDULED WILL BE CANCELLED AND RESCHEDULED FOR ANOTHER TIME.
[2020-04-11 13:48] VITALS: BMI 35.9
[2020-04-13 11:11] VITALS: BP 116/77; PULSE 76; RESP 18; TEMP 36.4; O2SAT 97
[2020-04-13 11:51] VITALS: O2SAT 97
--- NOTE | 2020-04-13 12:22 | HMH.PROC ---
[facility] Procedure Note Procedure Note:: Colonoscopy Procedure Report: Colonoscopy with cold snare polypectomy and monopolar ablation to destruction of internal hemorrhoids Endoscopist: Claude Avendaño II, MD Referring physician: Alcides Oakley MD/Jassi Leos MD Date of Procedure: April 13, 2020 Equipment: Olympus 180 variable stiffness pediatric colonoscope Sedation: MAC sedation Indication: Mr. nevarez is a 60-year-old gentleman with bright red rectal bleeding both on the toilet tissue but also in the toilet bowl. This is often mixed with his bowel movement. He is on Brilinta. He had a colonoscopy 6 years ago (in [place]) and he had a couple of benign colon polyps removed at that time. The patient sometimes will go back to the bathroom 1 hour after a bowel movement and have some itching/pruritus in the anal area and he will wipe again and there will be more blood. This has improved recently. He reports no abdominal pain, weight loss, change in his bowel habits or family history of colon cancer. Procedure: Prior to the procedure, a history and physical exam was performed, and patient's medications and allergies were reviewed. The risks, benefits and alternatives of the sedation and procedure were discussed with the patient. All questions were answered and informed consent was obtained. The patient was brought to the procedure room. Patient identification and proposed procedure were verified by the physician and the nurse. The patient was placed in a left lateral decubitus position and the scope was passed under direct vision. Throughout the procedure, the patient's blood pressure, pulse, and oxygen saturations were monitored continuously. The colonoscopy was accomplished without difficulty. The patient tolerated the procedure well. Findings: On digital rectal examination there was normal rectal tone. There were no external hemorrhoids. The colonoscope was introduced through the anal canal to the rectum and advanced to the cecum. The ileocecal valve and appendiceal orifice were identified. The scope was advanced a short distance into the ileum which appeared grossly normal. The scope was then withdrawn into the colon. The cecum was normal. There was 3 colon polyps (ascending x1 (5 mm), transverse x1 (4 mm) and descending colon (5 mm)) that were all removed via cold snare polypectomy. The remainder of the colonic mucosa was normal. Upon retroflexion within the rectum there were grade 2 internal hemorrhoids.These hemorrhoids were ablated using monopolar ablation to destruction. The preparation was excellent throughout with [place] Preparation Score of 9. The cecal time was 12 minutes. Impression: 1. Diminutive colonic polyps x3 2. Grade 2 internal hemorrhoids status post monopolar ablation to destruction Plan: I will discuss the findings with patient and family. I will recommend bulk fiber supplementation on a maintenance basis. I will follow-up the polyp histology and recommend repeat screening/surveillance colonoscopy again in 5 years if the polyps are adenomatous.
[2020-04-13 12:25] VITALS: BP 115/61; PULSE 72; RESP 18; TEMP 36.6; O2SAT 94
[2020-04-13 12:35] VITALS: BP 108/65; PULSE 67; RESP 18; O2SAT 95
[2020-04-13 12:45] VITALS: BP 127/78; PULSE 71; RESP 18; O2SAT 95
[2020-04-13 13:15] VITALS: BP 149/78; PULSE 70; RESP 18; O2SAT 95
== END 2020-04-13 13:15 | disposition home or self-care (01) ==
LOC: OUTP 10:50
PROVIDERS: PCP Emergency Medicine; Visit Provider Internal Medicine Gastroenterology
PROC: 0DJD8ZZ Inspection of Lower Intestinal Tract, Via Natural or Artificial Opening Endoscopic (ICD-10-PCS; CPT 45378; principal; 2020-04-13 12:00)
DX: K63.5 Polyp of colon; Z79.02 Long term (current) use of antithrombotics/antiplatelets; Z79.51 Long term (current) use of inhaled steroids; Z79.899 Other long term (current) drug therapy; Z86.010 Personal history of colon polyps; I25.10 Atherosclerotic heart disease of native coronary artery without angina pectoris; I10 Essential (primary) hypertension; E78.5 Hyperlipidemia, unspecified; G47.33 Obstructive sleep apnea (adult) (pediatric); F41.9 Anxiety disorder, unspecified; F32.9 Major depressive disorder, single episode, unspecified; K21.9 Gastro-esophageal reflux disease without esophagitis
CPT/HCPCS: 45385; 46930; J2704

== ENCOUNTER 2023-05-03 12:46 | Emergency (ER) | payer MEDICAID, SELFPAY ==
[2023-05-03 12:54] VITALS: BP 138/87; PULSE 65; RESP 18; TEMP 36.7; O2SAT 95; BMI 30.1
[2023-05-03 13:00] VITALS: BP 121/79; PULSE 66; O2SAT 98
--- NOTE | 2023-05-03 13:03 | ECG_ITS ---
APPROVED REPORT Exam: Resting ECG HR:65 bpm ECG Measurements Heart Rate 65 AXES MA 159 P 55 QRSd 114 QRS 53 QT 430 T 120 QTc 442 Conclusion SINUS RHYTHM POSSIBLE LEFT ATRIAL ENLARGEMENT [-0.1mV P-WAVE IN V1/V2] MODERATE INTRAVENTRICULAR CONDUCTION DELAY [110+ ms QRS DURATION] ST DEVIATION AND MODERATE T-WAVE ABNORMALITY, CONSIDER LATERAL ISCHEMIA [-0.1+ mV T-WAVE IN I/aVL/V5/V6] ABNORMAL ECG UNCONFIRMED REPORT Electronically signed by : Yonas Barber MD 05/04/2023 14:03:24
--- NOTE | 2023-05-03 13:06 | HMH.EDGENADL ---
Discharge Plan Disposition Patient Disposition: Home, Self-Care Condition: Fair Prescriptions Prescriptions: New prednisone 20 mg tablet 60 mg PO DAILY 5 Days Qty: 15 0RF No Action isosorbide mononitrate 30 mg tablet extended release 24 hr 30 mg PO DAILY aripiprazole 10 mg tablet 10 mg PO PM hydroxyzine HCl 50 mg tablet 50 mg PO DAILYP PRN (Reason: Anxiety) albuterol sulfate 90 mcg/actuation HFA aerosol inhaler 2 puff inhalation Q6H PRN (Reason: COPD) 90 Days Qty: 18 1RF nitroglycerin [Nitrostat] 0.4 mg tablet, sublingual 0.4 mg SUBLINGUAL Q5M PRN (Reason: Chest Pain) Qty: 30 5RF clopidogrel [Plavix] 75 mg tablet 75 mg PO DAILY Qty: 30 2RF furosemide 40 mg tablet 40 mg PO DIRECTED Qty: 30 2RF lisinopril 20 mg tablet 20 mg PO BID Qty: 60 2RF Xarelto 20 mg tablet 20 mg PO DAILY Qty: 30 2RF Rx Instructions: must administer with evening meal spironolactone 50 mg tablet 50 mg PO BID Qty: 60 2RF omeprazole 40 mg capsule,delayed release(DR/EC) 40 mg PO BID Qty: 60 2RF alprazolam 1 MG tablet 1 mg PO BID PRN (Reason: Anxiety) fluticasone furoate-vilanterol 1 EACH blister with device 1 puff IH DAILY atorvastatin 40 MG tablet See Rx Instructions .Route .COMPLEX Rx Instructions: TAKE 2 TABLETS BY MOUTH AT BEDTIME bupropion HCl 150 MG tablet 300 mg PO DAILY potassium chloride 10 MEQ capsule, extended release 10 meq PO DAILY bisoprolol fumarate 5 MG tablet See Rx Instructions .Route .COMPLEX Rx Instructions: Take 2 tablets by mouth once daily Referrals Follow up/Referrals: Alcides Oakley MD [Staff Physician] - 7-14 days Provider,MD Lisa [Primary Care Provider] - See instructions Clinical Impressions Clinical Impression: COPD exacerbation Instructions Patient Instructions: DI for Chronic Obstructive Pulmonary Disease Print Language Print Language: Kiswahili Discharge ED Provider: Nasir Hart Adult HPI General Chief complaint: Chest Pain Stated complaint: cough Time Seen by Provider: 05/03/23 13:06 Mode of Arrival: EMS Source of Information: Patient Limitations: No Limitations Description of Symptoms (Recalled from ER Triage Doc. by RN): Patient reports he developed a cough yesterday along with some chest tightness that persisted all night and he was unable to sleep. Patient reports he does not currently have any chest tightness but still feels short of breath. Patient report he does have hx of CHF and sees Dr. Leos for Cardiology. History of Present Illness HPI narrative: the patient reports difficulty breathing that started yesterday and became worse overnight. The patient reports chest tightness and non-productive cough MD complaint: dyspnea Onset (ago): day(s) (1) Location: chest Radiation: non-radiation Severity: mild Severity scale (1-10): 2 Quality: other (tightness) Consistency: constant Relieving factors: none Exacerbating factors: none Related Data Home Medications Medication Instructions Recorded Confirmed aripiprazole 10 mg tablet 10 mg PO PM mood 01/09/20 04/11/20 hydroxyzine HCl 50 mg tablet 50 mg PO DAILYP PRN Anxiety 01/09/20 04/11/20 isosorbide mononitrate 30 mg 30 mg PO DAILY HEART 01/09/20 04/11/20 tablet,extended release 24 hr alprazolam 1 mg tablet 1 mg PO BID PRN Anxiety 03/06/20 04/11/20 fluticasone furoate 200 1 puff IH DAILY COPD 03/06/20 04/11/20 mcg-vilanterol 25 mcg/dose inhalation powder atorvastatin 40 mg tablet See Rx Instructions .Route 04/11/20 04/11/20 .COMPLEX Cholesterol bisoprolol fumarate 5 mg tablet See Rx Instructions .Route 04/11/20 04/11/20 .COMPLEX High blood pressure bupropion HCl 150 mg tablet,12 hr 300 mg PO DAILY Depression 04/11/20 04/11/20 sustained-release potassium chloride 10 mEq 10 meq PO DAILY Supplement 04/11/20 04/11/20 capsule,extended release Previous Rx's Medication
--- NOTE | 2023-05-03 13:17 | XR_ITS ---
PROCEDURE INFORMATION: Exam: XR Chest Exam date and time: 05/03/2023 1:19 PM Age: 63 years old Clinical indication: Dyspnea TECHNIQUE: Imaging protocol: Radiologic exam of the chest. Views: 2 views. COMPARISON: CR XR CHEST PORTABLE 03/06/2020 8:31 PM FINDINGS: Lungs: Unremarkable. No consolidation. Pleural spaces: Unremarkable. No pleural effusion. No pneumothorax. Heart/Mediastinum: Unremarkable. No cardiomegaly. Bones/joints: Median sternotomy wires. IMPRESSION: No acute findings.
[2023-05-03 13:34] LABS: Basophils % 0.1 % (0.1-2.0); Eosinophils # 0.1 K/mm3 (0.0-0.4); Eosinophils % 0.4 % (0.1-12.0); Hematocrit 44.6 % (42.0-52.0); Hemoglobin 14.7 g/dL (14.1-18.0); Lymphocytes # 0.9 K/mm3 (0.7-4.5); Lymphocytes % 6.5 % (10-50); Mean Corpuscular Hemoglobin 29.1 pg (27.0-31.2); Mean Platelet Volume 10.4 fl (7.4-10.4); Monocytes # 0.6 K/mm3 (0.1-1.0); Monocytes % 4.6 % (1.7-9.3); Neutrophils # 11.8 K/mm3 (1.8-7.8); Neutrophils % 88.3 % (37.0-80.0); Platelet Count 125 K/mm3 (142-424); Red Blood Count 5.07 M/mm3 (4.60-6.20); Red Cell Distribution Width 14.1 % (11.5-17.5); White Blood Count 13.4 K/mm3 (4.8-10.8)
[2023-05-03 13:40] LABS: Blood Urea Nitrogen 13 mg/dl (9-20); Calcium 8.7 mg/dl (8.4-10.2); Carbon Dioxide 23 mmol/L (22.0-30.0); Chloride 105 mmol/L (98-107); Creatinine Clearance Estimated 102 mL/min (50-200); Estimated Glomerular Filt Rate 136 ml/min (>60); GFR (African American) 165 ML/MIN (>60); Glucose 137 mg/dl (74-100); Sodium 136 mmol/L (136-145)
[2023-05-03 13:49] LABS: NT Pro Brain Natriuretic Pep. 4360 pg/mL (0-125)
[2023-05-03 13:53] LABS: Troponin I 0.02 ng/ml (0.00-0.034)
[2023-05-03 13:57] VITALS: BP 115/77; PULSE 64; RESP 20; O2SAT 96
[2023-05-03 13:58] LABS: MANUAL DIFFERENTIAL MANUAL DIFFERENTIAL (MANUAL DIFF)
[2023-05-03 14:00] VITALS: BP 116/78; PULSE 58; RESP 18; O2SAT 92
[2023-05-03 14:23] LABS: Lymphocytes % 11 % (10-50); Monocytes % 4 % (2-9); Neutrophils % 85 % (42-76); Platelet Estimate Slight Decrease; RBC Morphology Normal; Total Cells Counted 100
[2023-05-03 14:31] VITALS: BP 122/91; PULSE 61; O2SAT 97
--- NOTE | 2023-05-03 14:33 | PC.NURSE ---
PLACED PT ON 2 LITERS OF OXYGEN JUST FOR PT TO FEEL COMFORTABLE, FAMILY AT BS
[2023-05-03 15:44] VITALS: BP 124/78; PULSE 64; RESP 18; TEMP 36.7; O2SAT 95
== END 2023-05-03 15:46 | disposition home or self-care (01) ==
PROVIDERS: Emergency Provider Emergency Medicine
DX: J44.1 Chronic obstructive pulmonary disease with (acute) exacerbation (principal); R07.9 Chest pain, unspecified; I20.9 Angina pectoris, unspecified; F41.9 Anxiety disorder, unspecified; F32.A Depression, unspecified; M51.16 Intervertebral disc disorders with radiculopathy, lumbar region; F17.210 Nicotine dependence, cigarettes, uncomplicated
CPT/HCPCS: 71046; 80048; 83880; 84484; 85007; 85025; 93005; 96374; 96375; 99285

== ENCOUNTER 2023-05-13 14:30 | Inpatient (IN) | payer MEDICAID, SELFPAY ==
[2023-05-13] VITALS (9 sets, daily range): BP systolic 131–183; BP diastolic 73–123; PULSE 82–101; RESP 18–27; TEMP 36.8; O2SAT 90–97; BMI 29.4
--- NOTE | 2023-05-13 14:34 | ECG_ITS ---
APPROVED REPORT Exam: Resting ECG HR:102 bpm ECG Measurements Heart Rate 102 AXES OH 150 P 61 QRSd 110 QRS 39 QT 371 T 121 QTc 430 Conclusion SINUS TACHYCARDIA LEFT ATRIAL ENLARGEMENT [-0.15mV P-WAVE IN V1/V2] PROBABLE LATERAL MYOCARDIAL INFARCTION , OF INDETERMINATE AGE [35 ms Q WAVE IN I/aVL/V5/V6] ABNORMAL ECG UNCONFIRMED REPORT Electronically signed by : Yonas Barber MD 05/13/2023 21:00:31
--- NOTE | 2023-05-13 15:00 | XR_ITS ---
FINAL REPORT CLINICAL HISTORY: SOA, hx of open heart, 4 bypasses, stents smoker FINDINGS: A portable view of the chest was obtained. The heart is enlarged. The patient is status post median sternotomy. There are new bilateral interstitial opacities most consistent with pulmonary edema.. There is no pleural effusion or pneumothorax. IMPRESSION: Cardiomegaly with new interstitial opacities, favor pulmonary edema. Reviewed, Interpreted and Dictated by Carolyn Sterling MD Transcribed by Scooter Yarbrough Authenticated and [facility]
--- NOTE | 2023-05-13 15:29 | CT_ITS ---
PROCEDURE INFORMATION: Exam: CTA Chest With Contrast Exam date and time: 05/13/2023 4:25 PM Age: 63 years old Clinical indication: Chest wall pain; Additional info: Chest pain, SOA TECHNIQUE: Imaging protocol: Computed tomographic angiography of the chest with contrast. Exam focused on the arteries. 3D rendering (Not supervised by radiologist): MIP and/or 3D reconstructed images were created by the technologist. Radiation optimization: All CT scans at this facility use at least one of these dose optimization techniques: automated exposure control; mA and/or kV adjustment per patient size (includes targeted exams where dose is matched to clinical indication); or iterative reconstruction. Contrast material: ISOVUE 370; Contrast volume: 70 ml; Contrast route: INTRAVENOUS (IV); REPORTING DATA: Count of CT and Cardiac NM exams in prior 12 months: This patient has received 0 known CTs and 0 known cardiac nuclear medicine studies in the 12 months prior to the current study. COMPARISON: CR XR CHEST PORTABLE 05/13/2023 3:02 PM FINDINGS: Pulmonary arteries: Normal. No pulmonary emboli. Aorta: Unremarkable. No aortic aneurysm. No aortic dissection. Lungs: Interseptal thickening with centrilobular ground-glass opacities and low volume bibasilar pleural effusions can be seen with cardiogenic versus noncardiogenic pulmonary edema, also multifocal pneumonia in the clinical presentation of infection. Right upper lobe 5.2 mm pulmonary nodule, unchanged from 2019. Pleural spaces: See Lungs finding. Heart: Unremarkable. No cardiomegaly. No pericardial effusion. Coronary arteries: Postsurgical changes compatible with CABG procedure. Lymph nodes: Prominent mediastinal and hilar lymph nodes are likely reactive. Bones/joints: Unremarkable. No acute fracture. Soft tissues: Unremarkable. Other findings: Moderate three-vessel calcific atherosclerotic disease of the coronary arteries. IMPRESSION: Interseptal thickening with centrilobular ground-glass opacities and low volume bibasilar pleural effusions can be seen with cardiogenic versus noncardiogenic pulmonary edema, also multifocal pneumonia in the clinical presentation of infection. No CT angiography evidence of pulmonary embolism.
--- NOTE | 2023-05-13 15:34 | PC.NURSE ---
Labs delayed due to several mis-attempts of starting an IV
--- NOTE | 2023-05-13 15:57 | PC.NURSE ---
Spoke with Paloma regarding VBG that was collected
[2023-05-13 16:05] LABS: Basophils % 0.1 % (0.1-2.0); Eosinophils % 0.2 % (0.1-12.0); Hematocrit 40.7 % (42.0-52.0); Hemoglobin 13.5 g/dL (14.1-18.0); Lymphocytes # 1.1 K/mm3 (0.7-4.5); Lymphocytes % 6.4 % (10-50); Mean Corpuscular HGB Conc 33.1 g/dL (31.8-35.4); Mean Corpuscular Volume 87.6 fl (80-94); Monocytes % 5.7 % (1.7-9.3); Neutrophils # 15.1 K/mm3 (1.8-7.8); Neutrophils % 87.6 % (37.0-80.0); Platelet Count 126 K/mm3 (142-424); Red Blood Count 4.65 M/mm3 (4.60-6.20); Red Cell Distribution Width 14.1 % (11.5-17.5); White Blood Count 17.3 K/mm3 (4.8-10.8)
[2023-05-13 16:07] LABS: VBG Base Excess 3.7 mmol/L (-2.4-2.3); VBG HCO3 27.6 mmol/L (23-30); VBG Oxygen Saturation 84.4 % (50-70); VBG PCO2 40.1 mmol/L (35-51); VBG PH 7.46 mmol/L (7.31-7.41); VBG PO2 44.9 mmol/L (28-40); VBG Total CO2 28.9 mmol/L (23-27)
[2023-05-13 16:07] LABS: MANUAL DIFFERENTIAL MANUAL DIFFERENTIAL (MANUAL DIFF)
--- NOTE | 2023-05-13 16:10 | HMH.EDGENADL ---
Discharge Plan Disposition Patient Disposition: Admitted Clinical Impressions Clinical Impression: Acute hypoxemic respiratory failure, Acute exacerbation of CHF (congestive heart failure), Bilateral pleural effusion, Pneumonia Discharge ED Provider: Marcella White General Adult HPI General Chief complaint: Shortness of Breath/Dyspnea Stated complaint: CP Time Seen by Provider: 05/13/23 15:21 Mode of Arrival: Ambulatory Source of Information: Patient Limitations: No Limitations Description of Symptoms (Recalled from ER Triage Doc. by RN): pt to ed c/o shortness of breath. 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 pt denies any chest pain or pressure. pt states his SOA is worse with exertion. pt reports an extensive cardiac hx. History of Present Illness HPI narrative: This patient is a 63-year-old male who reports past medical history of CAD with multiple MIs, type 2 diabetes, VARUN, obesity, atrial fibrillation, COPD, CHF, ANUPAM, and tobacco use disorder presented to the emergency department for evaluation with concern for shortness of breath. He states that this has been going on for over a week now but has progressively worsened. He states that he has also had cough with sputum production. On medical record review, he was evaluated here 05/03 for similar symptoms and diagnosed with a COPD exacerbation. He states that he was previously on home oxygen, around 2-1/2 L nasal cannula, but he has not been on it for a while because he moved here and has not been seeing a physician. He also states that he uses inhalers and breathing treatments at home with minimal improvement. He states that he is on a fluid pill because of CHF, which she has been hospitalized multiple times for in the past, and he has doubled up his fluid pill with no improvement. He denies fevers but notes chills. He also notes chest pressure earlier that he took nitro for with some improvement. He denies any leg swelling, abdominal pain, nausea, vomiting, changes in bowel movements, or other concerns. Related Data Home Medications Medication Instructions Recorded Confirmed aripiprazole 10 mg tablet 10 mg PO PM mood 01/09/20 04/11/20 hydroxyzine HCl 50 mg tablet 50 mg PO DAILYP PRN Anxiety 01/09/20 04/11/20 isosorbide mononitrate 30 mg 30 mg PO DAILY HEART 01/09/20 04/11/20 tablet,extended release 24 hr alprazolam 1 mg tablet 1 mg PO BID PRN Anxiety 03/06/20 04/11/20 fluticasone furoate 200 1 puff IH DAILY COPD 03/06/20 04/11/20 mcg-vilanterol 25 mcg/dose inhalation powder atorvastatin 40 mg tablet See Rx Instructions .Route 04/11/20 04/11/20 .COMPLEX Cholesterol bisoprolol fumarate 5 mg tablet See Rx Instructions .Route 04/11/20 04/11/20 .COMPLEX High blood pressure bupropion HCl 150 mg tablet,12 hr 300 mg PO DAILY Depression 04/11/20 04/11/20 sustained-release potassium chloride 10 mEq 10 meq PO DAILY Supplement 04/11/20 04/11/20 capsule,extended release Previous Rx's Medication Instructions Recorded albuterol sulfate 90 mcg/actuation 2 puff inhalation Q6H PRN COPD 90 10/11/18 aerosol inhaler days #18 grams nitroglycerin 0.4 mg sublingual 0.4 mg sublingual Q5M PRN Chest 08/01/19 tablet (Nitrostat) Pain #30 tabs clopidogrel 75 mg tablet (Plavix) 75 mg PO DAILY #30 tabs 08/16/20 furosemide 40 mg tablet 40 mg PO DIRECTED diuretic #30 08/16/20 tabs lisinopril 20 mg tablet 20 mg PO BID Hypertension #60 tabs 08/16/20 omeprazole 40 mg capsule,delayed 40 mg PO BID Heartburn #60 caps 08/16/20 release rivaroxaban 20 mg tablet (Xarelto) 20 mg PO DAILY #30 tabs 08/16/20 spironolactone 50 mg tablet 50 mg PO BID Edema #60 tabs 08/16/20 prednisone 20 mg tablet 60 mg PO DAILY 5 days #15 tabs 05/03/23 Allergies Allergy/AdvReac Type Severity Reaction Status Date / Time codeine [CODEINE] AdvReac Mild Headache Verified 05/03/23 13:33 [facility] Disclaimer: The information contained in this section may have b
[2023-05-13 16:12] LABS: Alanine Aminotransferase 33 U/L (12-78); Albumin Level 4.1 g/dl (3.5-5.0); Albumin/Globulin Ratio 1.6 (1.1-1.8); Alkaline Phosphatase 66 U/L (38-126); Anion Gap 7.4 mEq/L (5-15); Aspartate Amino Transferase 37 U/L (17-59); Bilirubin,Total 1.9 mg/dl (0.2-1.3); Blood Urea Nitrogen 19 mg/dl (9-20); Calcium 8.5 mg/dl (8.4-10.2); Carbon Dioxide 35 mmol/L (22.0-30.0); Chloride 100 mmol/L (98-107); Creatinine Clearance Estimated 99 mL/min (50-200); Estimated Glomerular Filt Rate 85 ml/min (>60); GFR (African American) 103 ML/MIN (>60); Globulin 2.6 g/dL (1.3-3.2); Glucose 203 mg/dl (74-100); Potassium 3.4 mmoL/L (3.5-5.1); Sodium 139 mmol/L (136-145); Total Protein,Serum 6.7 g/dl (6.3-8.2)
[2023-05-13 16:21] LABS: Lymphocytes % 6 % (10-50); Monocytes % 1 % (2-9); Neutrophils % 93 % (42-76); Platelet Estimate Slight Decrease; RBC Morphology Normal; Total Cells Counted 100
[2023-05-13 16:22] LABS: NT Pro Brain Natriuretic Pep. 4450 pg/mL (0-125)
[2023-05-13 16:24] LABS: Troponin I 0.09 ng/ml (0.00-0.034)
[2023-05-13 16:28] LABS: Lactic Acid 1.4 mmol/L (0.7-2.1)
--- NOTE | 2023-05-13 16:29 | PC.NURSE ---
CT came and took pt to radiology
--- NOTE | 2023-05-13 17:04 | ECG_ITS ---
APPROVED REPORT Exam: Resting ECG HR:92 bpm ECG Measurements Heart Rate 92 AXES MT 150 P 57 QRSd 115 QRS 53 QT 388 T 106 QTc 438 Conclusion SINUS RHYTHM POSSIBLE LEFT ATRIAL ENLARGEMENT [-0.1mV P-WAVE IN V1/V2] LATERAL MYOCARDIAL INFARCTION , OF INDETERMINATE AGE [40+ ms Q WAVE AND/OR ST/T ABNORMALITY IN I/aVL/V5/V6] ST DEPRESSION, CONSIDER SUBENDOCARDIAL INJURY [0.1+ mV ST DEPRESSION] ABNORMAL ECG UNCONFIRMED REPORT Electronically signed by : Yonas Barber MD 05/14/2023 21:26:22
--- NOTE | 2023-05-13 18:20 | PC.NURSE ---
Rounded on patient; patient requesting food. notified. Minal from dietary notified of cardiac diet.
--- NOTE | 2023-05-13 18:59 | PC.NURSE ---
Patient refusing additional lab draw to collect 2nd set of blood cultures. Established PIV utilized for 2nd set of Blood Cultures; aseptic technique maintained with chlorahexadine prep.
--- NOTE | 2023-05-13 19:07 | PC.NURSE ---
Gave report to operation shift supervisor.
--- NOTE | 2023-05-13 19:22 | PC.NURSE ---
notified hardboard supervisor of admission
--- NOTE | 2023-05-13 19:23 | PC.NURSE ---
OBSERVATION ADMISSION TO 200 WITH ADMITTING DX OF CHF TO SERVICE OF HOSPITALIST.
--- NOTE | 2023-05-13 19:59 | EXP.HP ---
History of Present Illness *Admission Date: 05/13/23 *Reason for visit:: SOB *History of present illness: This is a 63-year-old male with extensive past medical history of CAD with multiple MIs, type 2 diabetes, VARUN, obesity, atrial fibrillation, COPD, CHF, ANUPAM, and tobacco use disorder presented to the emergency department for evaluation with concern for shortness of breath. He states that this has been going on for over a week now but has progressively worsened. He states that he has also had cough with sputum production. On medical record review, he was evaluated here 05/03 for similar symptoms and diagnosed with a COPD exacerbation. He states that he was previously on home oxygen, around 2-1/2 L nasal cannula, but he has not been on it for a while because he moved here and has not been seeing a physician. He also states that he uses inhalers and breathing treatments at home with minimal improvement, also reported for chest pain at home. Patient admitted for treatment. [facility] Disclaimer: The information contained in this section may have been updated after the patient was seen, as this information can be updated by other users. Medical History (Updated 05/13/23 @ 23:46 by Jean Pierre Edward APRN) Angina pectoris Anxiety COPD (chronic obstructive pulmonary disease) Depression Diastolic dysfunction History of cardioversion Injury of left foot Left foot pain Lumbar disc disease with radiculopathy Lumbar disc disease with radiculopathy Lumbar disc disease with radiculopathy Myocardial infarct Vitamin D deficiency Surgical History (Updated 05/13/23 @ 21:02 by Inocencia Cortez RN) History of quadruple bypass Hx of heart artery stent Social History (Updated 05/13/23 @ 21:03 by Inocencia Cortez RN) Smoking Status: Current some day smoker tobacco type: cigarettes packs per day: 1 pack-years: 50 second hand exposure: No alcohol intake: never substance use type: marijuana, crack/cocaine, painkillers and prescription drug current occupational status: disabled Travel in the last 8 weeks: None household members: spouse housing: house number of children: 7 current occupational exposures/hazards: No caffeine: Yes Review of Systems Review of Systems Review of systems:: pertinent systems reviewed and negative unless documented below Meds Home Medications and Allergies Home Medications Medication Instructions Recorded Confirmed Type albuterol sulfate 90 mcg/actuation 2 puff inhalation Q6H PRN COPD 90 10/11/18 05/13/23 Rx aerosol inhaler days #18 grams nitroglycerin 0.4 mg sublingual 0.4 mg sublingual Q5M PRN Chest 08/01/19 05/13/23 Rx tablet (Nitrostat) Pain #30 tabs hydroxyzine HCl 50 mg tablet 50 mg PO DAILY PRN Anxiety 01/09/20 05/13/23 History isosorbide mononitrate 30 mg 30 mg PO DAILY Blood Pressure 01/09/20 05/13/23 History tablet,extended release 24 hr alprazolam 1 mg tablet 1 mg PO QID PRN Anxiety 03/06/20 05/13/23 History atorvastatin 40 mg tablet 40 mg PO HS Cholesterol 04/11/20 05/13/23 History carvedilol 25 mg tablet 25 mg PO BID Blood Pressure 05/13/23 05/13/23 History rivaroxaban 20 mg tablet (Xarelto) 20 mg PO DAILY Antiplatelet/CAD 05/13/23 05/13/23 History sacubitril 97 mg-valsartan 103 mg 1 tab PO BID Blood Pressure 05/13/23 05/13/23 History tablet (Entresto) ticagrelor 90 mg tablet (Brilinta) 90 mg PO BID Antiplatelet/CAD 05/13/23 05/13/23 History bupropion HCl 300 mg 24 hr tablet, 300 mg PO DAILY Mood 05/14/23 05/14/23 History extended release furosemide 20 mg tablet 20 mg PO BID PRN Diuretic 05/14/23 05/14/23 History gabapentin 800 mg tablet 800 mg PO Q6H Pain 05/14/23 05/14/23 History omeprazole 40 mg capsule,delayed 40 mg PO BID Nausea 05/14/23 05/14/23 History release New Prescriptions to Start Prescriptions: Allergies Allergy/AdvReac Type Severity Reaction Status Date / Time codeine [CODEINE] AdvReac Mild Headache Verified 05/03/23 13:33
--- NOTE | 2023-05-13 20:54 | PC.NURSE ---
pt arrived to the floor at 2051
--- NOTE | 2023-05-13 21:21 | PC.NURSE ---
home medications brought in to hospital sent home with at this time.
--- NOTE | 2023-05-13 21:46 | PC.NURSE ---
Pt notified of need for sputum sample, specimen cup left at bedside. Pt encouraged to call out when able to provide a sample. Pt verbalized understanding.
[2023-05-13 21:48] LABS: Troponin I 0.09 ng/ml (0.00-0.034)
[2023-05-14] VITALS (11 sets, daily range): BP systolic 101–145; BP diastolic 54–88; PULSE 45–137; RESP 18–20; TEMP 36.4–37.3; O2SAT 91–96; BMI 29.0
[2023-05-14 06:27] LABS: Alanine Aminotransferase 31 U/L (12-78); Albumin/Globulin Ratio 1.5 (1.1-1.8); Alkaline Phosphatase 61 U/L (38-126); Anion Gap 7.6 mEq/L (5-15); Aspartate Amino Transferase 29 U/L (17-59); Bilirubin,Total 1.3 mg/dl (0.2-1.3); Blood Urea Nitrogen 23 mg/dl (9-20); Calcium 9.1 mg/dl (8.4-10.2); Carbon Dioxide 34 mmol/L (22.0-30.0); Chloride 101 mmol/L (98-107); Chol/HDL Ratio 2.7 (1-3.5); Cholesterol 128 mg/dl (140-200); Creatinine Clearance Estimated 98 mL/min (50-200); Estimated Glomerular Filt Rate 114 ml/min (>60); GFR (African American) 138 ML/MIN (>60); Globulin 2.6 g/dL (1.3-3.2); Glucose 230 mg/dl (74-100); HDL Cholesterol 47 mg/dl (40-60); Magnesium 1.9 mg/dl (1.6-2.3); Potassium 3.6 mmoL/L (3.5-5.1); Sodium 139 mmol/L (136-145); Total Protein,Serum 6.6 g/dl (6.3-8.2); Triglycerides 61 mg/dl (30-150); VLDL Cholesterol 12 mg/dL (0-40)
--- NOTE | 2023-05-14 09:05 | HMH.PHAINT1 ---
Pharmacy Intervention Comments: Patient's home medications reviewed and verified with external pharmacy and patient's . -Howie Rosado, Pharm Student
[2023-05-14 09:10] LABS: Hemoglobin 13.7 g/dL (14.1-18.0); Red Blood Count 4.69 M/mm3 (4.60-6.20)
[2023-05-14 09:11] LABS: Basophils % 0.1 % (0.1-2.0); Hematocrit 39.3 % (42.0-52.0); Lymphocytes # 0.8 K/mm3 (0.7-4.5); Lymphocytes % 5.2 % (10-50); Mean Corpuscular HGB Conc 34.9 g/dL (31.8-35.4); Mean Corpuscular Hemoglobin 29.2 pg (27.0-31.2); Mean Corpuscular Volume 83.8 fl (80-94); Mean Platelet Volume 13.2 fl (7.4-10.4); Monocytes # 0.2 K/mm3 (0.1-1.0); Monocytes % 1.2 % (1.7-9.3); Neutrophils # 13.5 K/mm3 (1.8-7.8); Platelet Count 132 K/mm3 (142-424); Red Cell Distribution Width 13.2 % (11.5-17.5)
[2023-05-14 09:13] LABS: MANUAL DIFFERENTIAL MANUAL DIFFERENTIAL (MANUAL DIFF)
[2023-05-14 09:43] LABS: Lymphocytes % 4 % (10-50); Neutrophils % 96 % (42-76); Platelet Estimate Slight Decrease; RBC Morphology Normal; Total Cells Counted 100
--- NOTE | 2023-05-14 09:53 | EXP.PN ---
Subjective *Date: 05/14/23 *Time: 22:12 Interval history: WBC count decreased from 17K to 14K cr is 0.7, decreased from 0.9 troponin levels trended 0.09 - 0.1 - 0.09 bnp 4450 procal 0.07 Exam Data for Last 24 hours Vital signs and Labs for Last 24 Hours: Temp Pulse Resp BP Pulse Ox O2 Del Method O2 Flow Rate 98.1 F 79 18 145/76 H 96 Nasal Cannula 2 05/14/23 08:00 05/14/23 08:00 05/14/23 08:00 05/14/23 08:00 05/14/23 08:00 05/14/23 08:35 05/14/23 08:35 Laboratory Results - last 24 hr 05/13/23 15:45: WBC 17.3 H, RBC 4.65, Hgb 13.5 L, Hct 40.7 L, MCV 87.6, MCH 29.0, MCHC 33.1, RDW 14.1, Plt Count 126 L, MPV 10.0, Neut % (Auto) 87.6 H, Lymph % (Auto) 6.4 L, Carroll % (Auto) 5.7, Eos % (Auto) 0.2, Baso % (Auto) 0.1, Neut # (Auto) 15.1 H, Lymph # (Auto) 1.1, Carroll # (Auto) 1.0, Eos # (Auto) 0.0, Baso # (Auto) 0.0, Total Counted 100, Neutrophils % (Manual) 93 H, Lymphocytes % (Manual) 6 L, Monocytes % (Manual) 1 L, Platelet Estimate Slight decrease, RBC Morphology Normal, Sodium 139, Potassium 3.4 L, Chloride 100, Carbon Dioxide 35 H, Anion Gap 7.4, BUN 19, Creatinine 0.90, Estimated Creat Clear 99, Estimated GFR 85, Est GFR ( Amer) 103, Glucose 203 H, Calcium 8.5, Total Bilirubin 1.9 H, AST 37, ALT 33, Alkaline Phosphatase 66, Troponin I 0.09 H, NT-Pro-B Natriuret Pep 4450 H, Total Protein 6.7, Albumin 4.1, Globulin 2.6, Albumin/Globulin Ratio 1.6, Procalcitonin 0.070 05/13/23 16:06: VBG pH 7.46 H, VBG pCO2 40.1, VBG pO2 44.9 H, VBG HCO3 27.6, VBG Total CO2 28.9 H, VBG O2 Saturation 84.4 H, VBG Base Excess 3.7 H 05/13/23 16:12: Lactate 1.4 05/13/23 18:11: Troponin I 0.10 H 05/13/23 21:15: Troponin I 0.09 H 05/14/23 05:55: WBC 14.5 H, RBC 4.69, Hgb 13.7 L, Hct 39.3 L, MCV 83.8, MCH 29.2, MCHC 34.9, RDW 13.2, Plt Count 132 L, MPV 13.2 H, Neut % (Auto) 93.0 H, Lymph % (Auto) 5.2 L, Carroll % (Auto) 1.2 L, Eos % (Auto) 0.0 L, Baso % (Auto) 0.1, Neut # (Auto) 13.5 H, Lymph # (Auto) 0.8, Carroll # (Auto) 0.2, Eos # (Auto) 0.0, Baso # (Auto) 0.0, Total Counted 100, Neutrophils % (Manual) 96 H, Lymphocytes % (Manual) 4 L, Platelet Estimate Slight decrease, RBC Morphology Normal, Sodium 139, Potassium 3.6, Chloride 101, Carbon Dioxide 34 H, Anion Gap 7.6, BUN 23 H, Creatinine 0.70 D, Estimated Creat Clear 98, Estimated GFR 114, Est GFR ( Amer) 138 D, Glucose 230 H, Calcium 9.1, Magnesium 1.9, Total Bilirubin 1.3, AST 29, ALT 31, Alkaline Phosphatase 61, Total Protein 6.6, Albumin 4.0, Globulin 2.6, Albumin/Globulin Ratio 1.5, Triglycerides 61, Cholesterol 128 L, LDL Cholesterol Direct 62.60 L, VLDL Cholesterol 12, HDL Cholesterol 47, Cholesterol/HDL Ratio 2.7 I & O for Last 24 hours: Intake & Output 05/11/23 05/12/23 05/13/23 05/14/23 23:59 23:59 23:59 23:59 Intake Total 480 / 480 480 / 480 Output Total 2720 / 2920 400 / 400 Balance -2240 / -2440 80 / 80 Weight 92.986 kg 91.807 kg Constitutional Constitutional: no acute distress *Routine HEENT Exam Head: Present normocephalic Eye: Present EOMI and PERRL ENT: Present mucous membranes moist *Routine Neck Exam Neck: Present supple; Absent lymphadenopathy *Routine Respiratory Exam Respiratory: Present CTA bilaterally *Routine Cardiovascular Exam Cardiovascular: Present Normal S1 and Normal S2 *Routine Abdominal Exam Abdominal: Present soft and normoactive bowel sounds; Absent tenderness *Routine Extremities Exam Extremities: Absent cyanosis, clubbing or edema *Routine Skin Exam Skin: Present warm; Absent rash *Routine Neurological Exam Neurological: Present alert and oriented X3 Assessment and Plan *Assessment and plan (1) Dyspnea: Status: Chronic Qualifiers: Dyspnea type: dyspnea on exertion Qualified Code(s): R06.09 - Other forms of dyspnea Category: Medical Code(s): R06.00 - Dyspnea, unspecified (2) CAP (community acquired pneumonia): Status: Acute Qualifiers: Laterality: unspecified laterality Qu
--- NOTE | 2023-05-14 10:21 | PC.NURSE ---
Courtesy Round Patient awake laying in bed with visitor at bedside.Trash and linens emptied. Ice water refused at this time . patient voiced no other needs at this time.
[2023-05-14 10:41] LABS: White Blood Count 14.5 K/mm3 (4.8-10.8)
--- NOTE | 2023-05-14 11:40 | PC.NURSE ---
RESP CARE NOTE: Pt found with 1.5 lpm nc oxygen, SpO2 at 88%. Oxygen increased to 3 lpm, to keep SpO2 at 91%. Will continue to continuously monitor SPO2.
--- NOTE | 2023-05-14 13:29 | EXP.CARD.CON ---
History of Present Illness History of Present Illness Consult date: 05/14/23 Requesting physician: Dickson Hook Consult reason: congestive heart failure Chief complaint: CP, SOA Additional Medical History:: 1. Tobacco use since age 16, 1 pack per day A. COPD 2. Hypertension A. Echo, 05/2018, EF 45%, with marked hypokinesis involving the inferolateral and inferobasal wall. Mod to Severe MR 3. Hyperlipidemia A. Statin therapy 4. Coronary artery disease A. Four-vessel coronary artery bypass grafting in 2006 B. Coronary artery stenting, January/2017, [place] Cardiac cath, 06/07/2018, GRIJALVA to LAD patent, SVG to circumflex occluded, EF 20-25%, LVEDP 20 mmHg. No intervention. D. [facility], 09/21/2019, GRIJALVA to LAD patent, SVG to circumflex ostially occluded, EF 30-35%, LVEDP 18 to 20 mmHg. RA pressure 18 mmHg, PAOP 18 mmHg. RA and pulmonary artery saturation 77%. Moderate pulmonary hypertension with biventricular CHF with restrictive physiology hemodynamics. 5. Cardiomyopathy, ischemic A. Echocardiogram, 05/14/2023, EF 37% with grade 2 diastolic dysfunction. Moderate MR with restricted motion of the posterior leaflet 6. Mitral Regurgitation, moderate to severe by echo, 05/2018 A. Echocardiogram, 05/14/2023, EF 37% with grade 2 diastolic dysfunction. Moderate MR with restricted motion of the posterior leaflet 7. HFrEF History of present illness: 63-year-old white male previously seen in our office with last visit in 2019. Admitted this time for congestive heart failure. Patient relates increasing shortness of breath along with chest pain requiring sublingual nitroglycerin at times. He was recently seen in the ER on 05/03/2023 for similar symptoms and treated for upper respiratory infection with steroids and antibiotics. He states while taking the steroids symptoms seem to not getting any worse but as soon as the steroids stopped his symptoms became worse. He was admitted last evening for CHF requiring supplemental oxygen as well as IV diuretic therapy with significant improvement in his shortness of breath overnight. Patient normally lives in [place] but has been down to visit a sick sister in this area. He maintains compliance with his medications. Echocardiogram today shows ejection fraction of 37% with moderate mitral regurgitation. EKG is sinus rhythm with frequent PVCs. No acute ST segment changes. Troponins are mildly elevated this admission at 0.09-0.10 BNP elevated at 4450 with Chest x-ray showing evidence of pulmonary edema. CTA of the chest was negative for pulmonary embolus but did confirm pulmonary edema and possible pneumonia. Patient and his significant other confirm multiple admissions for congestive heart failure over the last couple years in [place]. He has even had to have cardioversion for atrial fibrillation. He has been taking Brilinta and Xarelto [facility] Disclaimer: The information contained in this section may have been updated after the patient was seen, as this information can be updated by other users. Medical History (Updated 05/14/23 @ 13:46 by ALEK Arboleda) Angina pectoris Anxiety COPD (chronic obstructive pulmonary disease) Depression Diastolic dysfunction History of cardioversion Injury of left foot Left foot pain Lumbar disc disease with radiculopathy Lumbar disc disease with radiculopathy Lumbar disc disease with radiculopathy Myocardial infarct Vitamin D deficiency Surgical History (Updated 05/13/23 @ 21:02 by Inocencia Cortez RN) History of quadruple bypass Hx of heart artery stent Social History (Updated 05/13/23 @ 21:03 by Inocencia Cortez RN) Smoking Status: Current some day smoker tobacco type: cigarettes packs per day: 1 pack-years: 50 second hand exposure: No alcohol intake: never substance use type: marijuana, crack/cocaine, painkillers and prescription drug current occupational status: disabled Travel in the last 8 weeks: None household members: spouse bhavana
--- NOTE | 2023-05-14 17:18 | ECG_ITS ---
APPROVED REPORT Exam: Resting ECG HR:129 bpm ECG Measurements Heart Rate 129 AXES QRSd 126 QRS 51 QT 287 T 119 QTc 363 Conclusion Sinus tachycardia with delta waves noted LEFT VENTRICULAR HYPERTROPHY AND ST-T CHANGE [VOLTAGE CRITERIA PLUS ST/T ABNORMALITY] ABNORMAL ECG UNCONFIRMED REPORT Electronically signed by : Yonas Barber MD 05/14/2023 21:19:54
--- NOTE | 2023-05-14 17:44 | PC.NURSE ---
Patient noted to have heart rate in the 130's. Assessed patient who was lying in bed with no signs of acute distress. Notified patient that we would obtain an ekg and patient stated he was having pain in his left shoulder that radiated down left arm. VS stable. Dr. Hook notified of ekg reading of atrial flutter/tachycardia with rvr. Dr. Hook requested to page cardiology. Dr. Leos paged and notified of ekg reading and patient status. Dr. Leos ordered diltiazem 15 mg iv push then initiate amiodarone bolus and drip as well as lovenox subq. Patient notified of Dr. Leos's orders and patient moved to stepdown.
--- NOTE | 2023-05-14 18:43 | PC.NURSE ---
pt moving to 218 from 213 for afib, pt to be placed on amio drip upon arrival, report taken from Leslie LUCERO
--- NOTE | 2023-05-14 18:45 | PC.NURSE ---
lovenox ordered by Dr. Leos. 1mg/kg subq. Order read back to Dr. Leos and verified verbally. Lovenox medication verified with Abena Valerio and given to patient in abdomen.
--- NOTE | 2023-05-14 19:02 | PC.NURSE ---
giving amio bolus, 150mg in 100mL D5 over 10 minutes
[2023-05-15] VITALS (24 sets, daily range): BP systolic 78–126; BP diastolic 44–83; PULSE 55–144; RESP 14–20; TEMP 35.8–36.9; O2SAT 93–98; BMI 30.3
[2023-05-15 06:23] LABS: Anion Gap 8.5 mEq/L (5-15); Blood Urea Nitrogen 23 mg/dl (9-20); Calcium 8.4 mg/dl (8.4-10.2); Carbon Dioxide 31 mmol/L (22.0-30.0); Chloride 101 mmol/L (98-107); Creatinine Clearance Estimated 103 mL/min (50-200); Estimated Glomerular Filt Rate 114 ml/min (>60); GFR (African American) 138 ML/MIN (>60); Glucose 322 mg/dl (74-100); Potassium 3.5 mmoL/L (3.5-5.1); Sodium 137 mmol/L (136-145)
--- NOTE | 2023-05-15 07:11 | IR_ITS ---
APPROVED REPORT Patient Location: Outpatient PROCEDURES Left heart catheterization Left ventriculogram Selective coronary angiogram Selective engage the left internal mammary artery Drug-eluting stent deployment to the ostial proximal dominant right coronary Drug-eluting stent deployment to the distal right coronary which extended into the proximal mid and distal posterior descending artery INDICATION Elevated troponin, New onset atrial fibrillation, Unstable angina, Known coronary artery disease, History of coronary bypass surgery Informed consent was obtained prior to the procedure. COMPLICATIONS None Estimated Blood Loss: Less than 10 mls TECHNIQUE One percent lidocaine used to anesthetize the right groin. The right femoral artery was accessed via the Seldinger technique and a 5 [place] sheath was placed in the right femoral artery. A JL 4, JR4 catheter were used to perform left heart catheterization, left ventriculogram selective coronary angiography as well as selective engagement of the left internal mammary artery. At the end of the procedure the patient was transferred to the postop holding area in stable condition for sheath removal. Patient spontaneously converted to sinus rhythm with catheter manipulation within the left ventricle. At this point the procedure was felt to be over therefore the apparatus was removed the sheath was removed and hemostasis was achieved using manual pressure. Upon review of the angiogram it was apparently missed a severe stenosis and a large posterior descending artery. Because the sheath was already removed 1% lidocaine was used to anesthetize the right anterior aspect of the right wrist after sterile prepping. A 6 [place] sheath was placed in the right radial artery and 9600 units of heparin was administered intra-arterially along with an arterial cocktail. A Poppa guide catheter was placed in the right coronary artery and a Choice PT extra-support wire was placed distally in the right coronary. Predilatation with a 2 mm balloon was used after primary stenting could not be performed. A 3 mm x 38 mm Antonio frontier stent was deployed at 18 stephen reducing the stenosis. 2 additional 3.5 x 38 mm Antonio frontier stents were placed proximal to this stent in overlapping manner as. An additional 3.5 x 38 mm Antonio frontier stent was placed in the ostial proximal segment reducing a catheter induced dissection. TREY-3 flow was present before and after the procedure. Intracoronary nitroglycerin was administered as well as 0.2 mg of intravenous epinephrine. After achieving excellent angiograph results TREY-3 flow was present in the right coronary artery therefore the apparatus was removed the sheath was removed and hemostasis achieved and TR banding patient was transferred to the postop putting in stable addition ANGIOGRAPHIC RESULTS The left main artery Distally occluded The circumflex artery The distal vessel fills scantly via right to left collaterals The right coronary artery Is a large dominant vessel which has proximal diffuse 40% stenoses with mid vessel 40% stenosis. A large posterior descending artery has proximal 80 and 90% stenosis. The CASON ventriculogram reveals Severe left ventricular dilatation global hypokinesis estimate ejection fraction 20% The left ventricular end-diastolic pressure 20 mmHg GRIJALVA to LAD is widely patent IMPRESSION Coronary disease as described above most notably severe disease in the posterior descending artery Severe left ventricular dilatation with severely reduced ejection fraction Patent GRIJALVA to LAD Chronically occluded circumflex artery Successful stenting of the ostial proximal right coronary catheter induced dissection reduced to 0% with 1 drug-eluting stent Successful reconstruction of the distal right
--- NOTE | 2023-05-15 07:31 | PC.NURSE ---
Amio dose decreased to 0.5mg/hr @0120.
[2023-05-15 08:03] LABS: Hematocrit 35.5 % (42.0-52.0); Hemoglobin 12.4 g/dL (14.1-18.0); Lymphocytes # 1.8 K/mm3 (0.7-4.5); Lymphocytes % 7.3 % (10-50); Mean Corpuscular HGB Conc 34.9 g/dL (31.8-35.4); Mean Corpuscular Hemoglobin 29.6 pg (27.0-31.2); Mean Corpuscular Volume 84.7 fl (80-94); Mean Platelet Volume 13.2 fl (7.4-10.4); Neutrophils # 21.4 K/mm3 (1.8-7.8); Neutrophils % 87.3 % (37.0-80.0); Platelet Count 143 K/mm3 (142-424); Red Blood Count 4.19 M/mm3 (4.60-6.20); Red Cell Distribution Width 13.6 % (11.5-17.5); White Blood Count 25.4 K/mm3 (4.8-10.8)
[2023-05-15 08:05] LABS: Lymphocytes % 7 % (10-50); MANUAL DIFFERENTIAL MANUAL DIFFERENTIAL (MANUAL DIFF); Monocytes % 4 % (2-9); Neutrophils % 89 % (42-76); Platelet Estimate Normal; RBC Morphology Normal; Total Cells Counted 100
--- NOTE | 2023-05-15 08:25 | PC.NURSE ---
Pt was ordered for NPO after 0800 this am. pt did not receive breakfast tray, npo order was clarified with Abdirashid Cabrales in cardiology, ok to give pt light breakfast at 0800. pt was offered eggs and toast for a light breakfast, pt cursed at staff to voice displeasure at the options offered. pt was again offered a breakfast tray, pt stated that he did not want anything anymore . 0815
--- NOTE | 2023-05-15 08:48 | PC.NURSE ---
Home Medications Onesimo Hinojosa Home Medications Medication Instructions Recorded Confirmed Type albuterol sulfate 90 mcg/actuation 2 puff inhalation Q6H PRN COPD 90 10/11/18 05/13/23 Rx aerosol inhaler days #18 grams nitroglycerin 0.4 mg sublingual 0.4 mg sublingual Q5M PRN Chest 08/01/19 05/13/23 Rx tablet (Nitrostat) Pain #30 tabs hydroxyzine HCl 50 mg tablet 50 mg PO DAILY PRN Anxiety 01/09/20 05/13/23 History isosorbide mononitrate 30 mg 30 mg PO DAILY Blood Pressure 01/09/20 05/13/23 History tablet,extended release 24 hr alprazolam 1 mg tablet 1 mg PO QID PRN Anxiety 03/06/20 05/13/23 History atorvastatin 40 mg tablet 40 mg PO HS Cholesterol 04/11/20 05/13/23 History carvedilol 25 mg tablet 25 mg PO BID Blood Pressure 05/13/23 05/13/23 History rivaroxaban 20 mg tablet (Xarelto) 20 mg PO DAILY Antiplatelet/CAD 05/13/23 05/13/23 History sacubitril 97 mg-valsartan 103 mg 1 tab PO BID Blood Pressure 05/13/23 05/13/23 History tablet (Entresto) ticagrelor 90 mg tablet (Brilinta) 90 mg PO BID Antiplatelet/CAD 05/13/23 05/13/23 History bupropion HCl 300 mg 24 hr tablet, 300 mg PO DAILY Mood 05/14/23 05/14/23 History extended release furosemide 20 mg tablet 20 mg PO BID PRN Diuretic 05/14/23 05/14/23 History gabapentin 800 mg tablet 800 mg PO Q6H Pain 05/14/23 05/14/23 History omeprazole 40 mg capsule,delayed 40 mg PO BID Nausea 05/14/23 05/14/23 History release New Prescriptions to Start Prescriptions: Medication Instructions Recorded Confirmed hydroxyzine HCl 50 mg tablet 50 mg PO DAILY PRN Anxiety 01/09/20 05/13/23 isosorbide mononitrate 30 mg 30 mg PO DAILY Blood Pressure 01/09/20 05/13/23 tablet,extended release 24 hr alprazolam 1 mg tablet 1 mg PO QID PRN Anxiety 03/06/20 05/13/23 atorvastatin 40 mg tablet 40 mg PO HS Cholesterol 04/11/20 05/13/23 carvedilol 25 mg tablet 25 mg PO BID Blood Pressure 05/13/23 05/13/23 rivaroxaban 20 mg tablet (Xarelto) 20 mg PO DAILY Antiplatelet/CAD 05/13/23 05/13/23 sacubitril 97 mg-valsartan 103 mg 1 tab PO BID Blood Pressure 05/13/23 05/13/23 tablet (Entresto) ticagrelor 90 mg tablet (Brilinta) 90 mg PO BID Antiplatelet/CAD 05/13/23 05/13/23 bupropion HCl 300 mg 24 hr tablet, 300 mg PO DAILY Mood 05/14/23 05/14/23 extended release furosemide 20 mg tablet 20 mg PO BID PRN Diuretic 05/14/23 05/14/23 gabapentin 800 mg tablet 800 mg PO Q6H Pain 05/14/23 05/14/23 omeprazole 40 mg capsule,delayed 40 mg PO BID Nausea 05/14/23 05/14/23 release Previous Rx's Medication Instructions Recorded albuterol sulfate 90 mcg/actuation 2 puff inhalation Q6H PRN COPD 90 10/11/18 aerosol inhaler days #18 grams nitroglycerin 0.4 mg sublingual 0.4 mg sublingual Q5M PRN Chest 08/01/19 tablet (Nitrostat) Pain #30 tabs
--- NOTE | 2023-05-15 10:47 | PC.NURSE ---
patient refused to let me shave his wrist for his heart cath.
--- NOTE | 2023-05-15 14:34 | EXP.CARD.PN ---
Subjective Subjective Date: 05/15/23 Time: 14:34 Interval history: 63-year-old white male in bed in no acute distress. Patient did go into atrial flutter with rapid ventricular response yesterday afternoon at which time he was started on amiodarone IV. He continues to be in atrial flutter with variable response. Patient has been compliant with his Xarelto up to the time of admission at which time it was held yesterday in anticipation of cardiac catheterization today but he did receive a dose of Lovenox yesterday. Exam Data for Last 24 hours Vital signs and Labs for Last 24 Hours: Temp Pulse Resp BP Pulse Ox O2 Del Method O2 Flow Rate 97.6 F 77 16 118/83 93 L Nasal Cannula 2 05/15/23 11:24 05/15/23 11:52 05/15/23 06:00 05/15/23 06:00 05/15/23 11:52 05/15/23 11:52 05/15/23 11:52 Laboratory Results - last 24 hr 05/15/23 05:14: WBC 25.4 H* D, RBC 4.19 L, Hgb 12.4 L, Hct 35.5 L, MCV 84.7, MCH 29.6, MCHC 34.9, RDW 13.6, Plt Count 143, MPV 13.2 H, Neut % (Auto) 87.3 H, Lymph % (Auto) 7.3 L, [place] % (Auto) 4.0, Eos % (Auto) 0.0 L, Baso % (Auto) 0.0 L, Neut # (Auto) 21.4 H, Lymph # (Auto) 1.8, [place] # (Auto) 1.0, Eos # (Auto) 0.0, Baso # (Auto) 0.0, Total Counted 100, Neutrophils % (Manual) 89 H, Lymphocytes % (Manual) 7 L, Monocytes % (Manual) 4, Platelet Estimate Normal, RBC Morphology Normal, Sodium 137, Potassium 3.5, Chloride 101, Carbon Dioxide 31 H, Anion Gap 8.5, BUN 23 H, Creatinine 0.70, Estimated Creat Clear 103, Estimated GFR 114, Est GFR ( Amer) 138, Glucose 322 H D, Calcium 8.4 I & O for Last 24 hours: Intake & Output 05/13/23 05/14/23 05/15/2305/16/23 11:59 11:59 11:59 11:59 Intake Total 960 / 960 1440 / 1440 Output Total 3120 / 3120 1400 / 1400 0 / 0 Balance -2160 / -2160 40 / 40 0 / 0 Weight 202 lb 6.4 oz 212 lb Microbiology Reports for the Last 24 Hours: Microbiology 05/14/23 07:04 Sputum - Expectorated Sputum Gram Stain - Final Constitutional Constitutional: no acute distress *Routine Respiratory Exam Respiratory: Present CTA bilaterally *Routine Cardiovascular Exam Cardiovascular: Present tachycardia *Routine Extremities Exam Extremities: Absent edema Progress Note: A&P Assessment and plan (1) Dyspnea: Status: Chronic (2) CAP (community acquired pneumonia): Status: Acute (3) Elevated troponin: Status: Acute (4) NYHA class 3 heart failure with reduced ejection fraction: Status: Chronic (5) History of coronary artery bypass graft: Status: Chronic (6) Mitral regurgitation: Status: Chronic (7) Hypertension: Status: Chronic (8) Nicotine dependence: Status: Acute (9) Obesity (BMI 30-39.9): Status: Acute (10) Atrial flutter with rapid ventricular response: Status: Acute Assessment and Plan Assessment and Plan for All Diagnoses:: 1. CAP on antibiotics per Dr. Hook 2. HFrEF Acute on chronic exacerbation of biventricular dysfunction possibly related to recent steroid use elevated troponins in known CAD/CABG patient with mod MR, [facility] for further evaluation. Continue IV lasix and spironolactone continue coreg and entresto 3. CAD/CABG continue brilinta, isosorbide and statin elevated troponins this admit [facility] today 4. Moderate mitral vegetation Consider outpatient REECE next week 5. History of atrial fibrillation A. flutter with RVR started 05/14/2023 Amiodarone loading with IV and will start oral (400 mg BID) Xarelto on hold for left heart cath Lovenox given last night 6. Tobacco use Cessation recommended Nicotine patch if needed 7. Hyperlipidemia Continue statin therapy LDL 62 this admission [facility] today Possible cardioversion at time of cath if needed. Pt has been anticoagulated.
--- NOTE | 2023-05-15 17:59 | EXP.PN ---
Subjective *Date: 05/15/23 *Time: 22:07 Interval history: The patient went into afib/flutter with RVR yesterday evening and was given a dose of diltiazem and was started on an amiodarone drip. Exam Data for Last 24 hours Vital signs and Labs for Last 24 Hours: Temp Pulse Resp BP Pulse Ox O2 Del Method O2 Flow Rate 98.5 F 90 16 118/83 95 Nasal Cannula 2 05/15/23 15:40 05/15/23 17:53 05/15/23 06:00 05/15/23 06:00 05/15/23 17:53 05/15/23 17:53 05/15/23 17:53 Laboratory Results - last 24 hr 05/15/23 05:14: WBC 25.4 H* D, RBC 4.19 L, Hgb 12.4 L, Hct 35.5 L, MCV 84.7, MCH 29.6, MCHC 34.9, RDW 13.6, Plt Count 143, MPV 13.2 H, Neut % (Auto) 87.3 H, Lymph % (Auto) 7.3 L, [place] % (Auto) 4.0, Eos % (Auto) 0.0 L, Baso % (Auto) 0.0 L, Neut # (Auto) 21.4 H, Lymph # (Auto) 1.8, [place] # (Auto) 1.0, Eos # (Auto) 0.0, Baso # (Auto) 0.0, Total Counted 100, Neutrophils % (Manual) 89 H, Lymphocytes % (Manual) 7 L, Monocytes % (Manual) 4, Platelet Estimate Normal, RBC Morphology Normal, Sodium 137, Potassium 3.5, Chloride 101, Carbon Dioxide 31 H, Anion Gap 8.5, BUN 23 H, Creatinine 0.70, Estimated Creat Clear 103, Estimated GFR 114, Est GFR ( Amer) 138, Glucose 322 H D, Calcium 8.4 I & O for Last 24 hours: Intake & Output 05/12/23 05/13/23 05/14/23 05/15/23 23:59 23:59 23:59 23:59 Intake Total 480 / 480 1920 / 1920 0 / 0 Output Total 2720 / 2920 1375 / 1700 825 / 825 Balance -2240 / -2440 545 / 220 -825 / -825 Weight 92.986 kg 91.807 kg 96.162 kg Constitutional Constitutional: no acute distress *Routine HEENT Exam Head: Present normocephalic Eye: Present EOMI and PERRL ENT: Present mucous membranes moist *Routine Neck Exam Neck: Present supple; Absent lymphadenopathy *Routine Respiratory Exam Respiratory: Present CTA bilaterally *Routine Cardiovascular Exam Cardiovascular: Present Normal S1 and Normal S2 *Routine Abdominal Exam Abdominal: Present soft and normoactive bowel sounds; Absent tenderness *Routine Extremities Exam Extremities: Absent cyanosis, clubbing or edema *Routine Skin Exam Skin: Present warm; Absent rash *Routine Neurological Exam Neurological: Present alert and oriented X3 Assessment and Plan *Assessment and plan (1) Dyspnea: Status: Chronic Qualifiers: Dyspnea type: dyspnea on exertion Qualified Code(s): R06.09 - Other forms of dyspnea Category: Medical Code(s): R06.00 - Dyspnea, unspecified (2) CAP (community acquired pneumonia): Status: Acute Qualifiers: Laterality: unspecified laterality Qualified Code(s): J18.9 - Pneumonia, unspecified organism Category: Medical Code(s): J18.9 - Pneumonia, unspecified organism (3) Elevated troponin: Status: Acute Category: Medical Code(s): R79.89 - Other specified abnormal findings of blood chemistry (4) NYHA class 3 heart failure with reduced ejection fraction: Status: Chronic Category: Medical Code(s): I50.20 - Unspecified systolic (congestive) heart failure (5) History of coronary artery bypass graft: Status: Chronic Category: Surgical Code(s): Z95.1 - Presence of aortocoronary bypass graft (6) Mitral regurgitation: Status: Chronic Qualifiers: Cardiac valve disease etiology: nonrheumatic Qualified Code(s): I34.0 - Nonrheumatic mitral (valve) insufficiency Category: Medical Code(s): I34.0 - Nonrheumatic mitral (valve) insufficiency (7) Hypertension: Status: Chronic Qualifiers: Hypertension type: essential hypertension Qualified Code(s): I10 - Essential (primary) hypertension Category: Medical Code(s): I10 - Essential (primary) hypertension (8) Nicotine dependence: Status: Acute Qualifiers: Nicotine product type: cigarettes Substance use status: uncomplicated Qualified Code(s): F17.210 - Nicotine dependence, cigarettes, unc
--- NOTE | 2023-05-15 18:49 | PC.NURSE ---
1805 pt due for Azithromycin at this time. pt has 20 in l fa that is ultrasound guided. no blood retun noted, unable to palpate instillation of ns when line flushed. asked pt if new iv can be started r/t concern for iv having infiltrated. pt adamantly refused to have new line started. pt wishes to wait until amiodarone infusion is completed then use that iv to infuse azithromycin.
[2023-05-15 20:40] LABS: CATHL Activated Clotting Time > 400 SEC (74-125)
--- NOTE | 2023-05-15 20:47 | PC.NURSE ---
Pt arrived to floor from medical laboratory assistant at this time
[2023-05-16] VITALS (20 sets, daily range): BP systolic 91–130; BP diastolic 54–91; PULSE 60–96; RESP 16–22; TEMP 36.2–36.8; O2SAT 93–97; BMI 22.4
--- NOTE | 2023-05-16 09:16 | EXP.PHA.PN ---
Subjective *Date: 05/16/23 *Time: 09:16 Medical Exam Vital signs and Labs for Last 24 Hours: Vital Signs Temp Pulse Pulse Resp BP Pulse Ox O2 Del Method 05/16/23 06:15 97 Room Air 05/16/23 06:15 67 05/16/23 06:15 66 05/16/23 07:47 98.0 F 05/16/23 07:00 Room Air 05/16/23 04:00 70 05/16/23 06:00 60 16 116/80 93 L Room Air 05/16/23 05:00 Room Air 05/16/23 04:00 70 22 99/67 L 94 L Room Air 05/16/23 03:45 64 16 101/66 L 93 L Room Air 05/16/23 03:00 Room Air 05/16/23 00:00 70 05/16/23 02:45 97.8 F 64 18 93/54 L 97 Room Air 05/16/23 02:00 96 H 18 100/63 L 95 Room Air 05/16/23 01:45 97.5 F L 72 16 109/74 L 95 Room Air 05/16/23 01:00 Room Air 05/16/23 00:45 68 18 91/57 L 97 Room Air 05/16/23 00:00 97.2 F L 70 16 96/59 L 96 Room Air 05/15/23 23:45 97.2 F L 75 16 96/67 L 97 Room Air 05/15/23 23:41 72 05/15/23 23:41 70 05/15/23 23:15 79 18 92/57 L 97 Room Air 05/15/23 23:00 Nasal Cannula 05/15/23 22:45 73 18 90/68 L 96 Room Air 05/15/23 22:00 68 16 126/72 95 Room Air 05/15/23 22:15 97 F L 75 14 99/71 L 98 Room Air 05/15/23 21:45 62 16 119/58 L 97 Room Air 05/15/23 21:30 55 L 16 86/55 L 95 Room Air 05/15/23 21:15 60 16 102/50 L 96 Room Air 05/15/23 21:00 96.5 F L 67 14 80/54 L 97 Room Air 05/15/23 21:00 Room Air 05/15/23 21:00 96.5 F L 59 L 14 80/54 L 97 Room Air 05/15/23 21:00 97 Room Air 05/15/23 12:00 128 H 18 106/76 L 97 Nasal Cannula 05/15/23 18:00 76 20 84/49 L 97 Nasal Cannula 05/15/23 16:00 92 H 18 84/47 L 96 Nasal Cannula 05/15/23 14:00 75 20 78/47 L 95 Nasal Cannula 05/15/23 10:00 144 H 20 82/44 L 97 Nasal Cannula 05/15/23 16:00 92 H 96 Nasal Cannula 05/15/23 19:00 Nasal Cannula 05/15/23 17:00 Nasal Cannula 05/15/23 17:53 95 Nasal Cannula 05/15/23 17:53 90 05/15/23 17:53 95 H 05/15/23 16:00 90 05/15/23 12:00 110 H 05/15/23 15:00 Nasal Cannula 05/15/23 13:00 Nasal Cannula 05/15/23 11:00 Nasal Cannula 05/15/23 15:40 98.5 F 05/15/23 11:52 77 05/15/23 11:52 80 05/15/23 11:52 93 L Nasal Cannula 05/15/23 11:24 97.6 F O2 Flow Rate 05/16/23 06:15 05/16/23 06:15 05/16/23 06:15 05/16/23 07:47 05/16/23 07:00 05/16/23 04:00 05/16/23 06:00 05/16/23 05:00 05/16/23 04:00 05/16/23 03:45 05/16/23 03:00 05/16/23 00:00 05/16/23 02:45 05/16/23 02:00 05/16/23 01:45 05/16/23 01:00 05/16/23 00:45 05/16/23 00:00 05/15/23 23:45 05/15/23 23:41 05/15/23 23:41 05/15/23 23:15 05/15/23 23:00 2 05/15/23 22:45 05/15/23 22:00 05/15/23 22:15 05/15/23 21:45 05/15/23 21:30 05/15/23 21:15 05/15/23 21:00 05/15/23 21:00 05/15/23 21:00 05/15/23 21:00 05/15/23 12:00 05/15/23 18:00 05/15/23 16:00 05/15/23 14:00 05/15/23 10:00 05/15/23 16:00 05/15/23 19:00 05/15/23 17:00 05/15/23 17:53 2 05/15/23 17:53 05/15/23 17:53 05/15/23 16:00 05/15/23 12:00 05/15/23 15:00 2 05/15/23 13:00 2 05/15/23 11:00 2 05/15/23 15:40 05/15/23 11:52 05/15/23 11:52 05/15/23 11:52 2 05/15/23 11:24 Intake and Output 05/15/23 05/16/23 05/16/23 23:59 07:59 15:59 Intake Total 200 / 200 360 / 360 Output Total 400 / 1225 250 / 250 Balance -200 / -1025 360 / 110 -250 / 110 Intake: Intake, Oral Amount 360 / 360 Intake, Total IV Amount 200 / 200 Amiodarone HCl 900 mg In 200 / 200 Dextrose 5 % in Water 500 ml @ 33.3 mls/hr IV .[id number] [facility] Rx# :[id number] Output: Output, Urine Amount 400 / 1225 250 / 250 Other: Number of Unmeasured Voids 1 Weight 70.896 kg Patient Weight 05/16/23 23:59 Weight 70.896 kg
--- NOTE | 2023-05-16 12:16 | PC.NURSE ---
courtesy tech note: pt is sitting up in bed with family at BS
--- NOTE | 2023-05-16 13:50 | PC.NURSE ---
[address] Blakely, pt will not be dc today but is ok to transfer out of stepdown to med surg status. pt to potentially remain patient until thursday for zaire carver.
--- NOTE | 2023-05-16 16:39 | XR_ITS ---
PROCEDURE INFORMATION: Exam: XR Chest Exam date and time: 05/16/2023 5:06 PM Age: 63 years old Clinical indication: Wheezing TECHNIQUE: Imaging protocol: Radiologic exam of the chest. Views: 1 view. COMPARISON: CR XR CHEST PORTABLE 05/13/2023 3:02 PM FINDINGS: Lungs: Slightly improved aeration of the bilateral lungs compared with 05/13/2023 chest radiograph. Some areas of patchy ground-glass airspace opacities remain. Pleural spaces: No large pleural effusion. No pneumothorax. Heart/Mediastinum: Cardiomediastinal silhouette is unchanged from prior exam. Bones/joints: No evidence of acute osseous abnormality. IMPRESSION: Slightly improved aeration of the bilateral lungs compared with 05/13/2023 chest radiograph. Some areas of patchy ground-glass airspace opacities remain.
--- NOTE | 2023-05-16 19:44 | PC.NURSE ---
pt refused bath this shift, states he will take bath in am. 184
--- NOTE | 2023-05-16 19:47 | EXP.ACUTE.PN ---
Subjective *Date: 05/16/23 *Time: 19:47 Interval history: SOb improving No chest pain havnt started ambulating fatigue+ Medical Exam Vital signs and Labs for Last 24 Hours: Vital Signs Temp Pulse Pulse Resp BP Pulse Ox O2 Del Method 05/16/23 19:00 Room Air 05/16/23 17:00 Room Air 05/16/23 19:09 70 05/16/23 19:08 67 05/16/23 16:00 69 05/16/23 16:20 130/91 H 05/16/23 12:00 60 05/16/23 08:00 70 05/16/23 15:00 Room Air 05/16/23 13:00 Room Air 05/16/23 15:24 97.7 F 66 19 111/68 97 Room Air 05/16/23 12:50 64 05/16/23 12:50 64 05/16/23 08:00 71 96 Room Air 05/16/23 11:00 Nasal Cannula 05/16/23 09:00 Nasal Cannula 05/16/23 11:13 97.8 F 05/16/23 06:15 97 Room Air 05/16/23 06:15 67 05/16/23 06:15 66 05/16/23 07:47 98.0 F 05/16/23 07:00 Room Air 05/16/23 04:00 70 05/16/23 06:00 60 16 116/80 93 L Room Air 05/16/23 05:00 Room Air 05/16/23 04:00 70 22 99/67 L 94 L Room Air 05/16/23 03:45 64 16 101/66 L 93 L Room Air 05/16/23 03:00 Room Air 05/16/23 00:00 70 05/16/23 02:45 97.8 F 64 18 93/54 L 97 Room Air 05/16/23 02:00 96 H 18 100/63 L 95 Room Air 05/16/23 01:45 97.5 F L 72 16 109/74 L 95 Room Air 05/16/23 01:00 Room Air 05/16/23 00:45 68 18 91/57 L 97 Room Air 05/16/23 00:00 97.2 F L 70 16 96/59 L 96 Room Air 05/15/23 23:45 97.2 F L 75 16 96/67 L 97 Room Air 05/15/23 23:41 72 05/15/23 23:41 70 05/15/23 23:15 79 18 92/57 L 97 Room Air 05/15/23 23:00 Nasal Cannula 05/15/23 22:45 73 18 90/68 L 96 Room Air 05/15/23 22:00 68 16 126/72 95 Room Air 05/15/23 22:15 97 F L 75 14 99/71 L 98 Room Air 05/15/23 21:45 62 16 119/58 L 97 Room Air 05/15/23 21:30 55 L 16 86/55 L 95 Room Air 05/15/23 21:15 60 16 102/50 L 96 Room Air 05/15/23 21:00 96.5 F L 67 14 80/54 L 97 Room Air 05/15/23 21:00 Room Air 05/15/23 21:00 96.5 F L 59 L 14 80/54 L 97 Room Air 05/15/23 21:00 97 Room Air O2 Flow Rate 05/16/23 19:00 05/16/23 17:00 05/16/23 19:09 05/16/23 19:08 05/16/23 16:00 05/16/23 16:20 05/16/23 12:00 05/16/23 08:00 05/16/23 15:00 05/16/23 13:00 05/16/23 15:24 05/16/23 12:50 05/16/23 12:50 05/16/23 08:00 05/16/23 11:00 05/16/23 09:00 05/16/23 11:13 05/16/23 06:15 05/16/23 06:15 05/16/23 06:15 05/16/23 07:47 05/16/23 07:00 05/16/23 04:00 05/16/23 06:00 05/16/23 05:00 05/16/23 04:00 05/16/23 03:45 05/16/23 03:00 05/16/23 00:00 05/16/23 02:45 05/16/23 02:00 05/16/23 01:45 05/16/23 01:00 05/16/23 00:45 05/16/23 00:00 05/15/23 23:45 05/15/23 23:41 05/15/23 23:41 05/15/23 23:15 05/15/23 23:00 2 05/15/23 22:45 05/15/23 22:00 05/15/23 22:15 05/15/23 21:45 05/15/23 21:30 05/15/23 21:15 05/15/23 21:00 05/15/23 21:00 05/15/23 21:00 05/15/23 21:00 Intake and Output 05/16/23 05/16/23 05/16/23 07:59 15:59 23:59 Intake Total 360 / 960 240 / 960 360 / 960 Output Total 1750 / 2250 500 / 2250 Balance 360 / -1290 -1510 / -1290 -140 / -1290 Intake: Intake, Oral Amount 360 / 960 240 / 960 360 / 960 Output: Output, Urine Amount 1750 / 2250 500 / 2250 Other: Number of Unmeasured Voids 0 Weight 70.896 kg 95.283 kg Patient Weight 05/16/23 23:59 Weight 95.283 kg Laboratory Results - last 24 hr 05/15/23 19:50: Activated Clotting Time > 400 H* I & O for Labs for Last 24 Hours: Intake & Output 05/13/23 05/14/23 05/15/23 05/16/23 23:59 23:59 23:59 23:59 Intake Total 480 / 480 1920 / 1920 200 / 200 960 / 960 Output Total 2720 / 2920 1375 / 1700 1225 / 1225 2250 / 2250 Balance -2240 / -2440 545 / 220 -1025 / -1025 -1290 / -1290 Weight 92.986
[2023-05-17] VITALS (10 sets, daily range): BP systolic 113–141; BP diastolic 73–93; PULSE 59–72; RESP 16–18; TEMP 36.6–36.7; O2SAT 97–99; BMI 31.1
[2023-05-17 06:58] LABS: Basophils % 0.1 % (0.1-2.0); Eosinophils # 0.2 K/mm3 (0.0-0.4); Eosinophils % 1.3 % (0.1-12.0); Hemoglobin 13.2 g/dL (14.1-18.0); Lymphocytes # 1.8 K/mm3 (0.7-4.5); Lymphocytes % 17.1 % (10-50); Mean Corpuscular Volume 87.7 fl (80-94); Mean Platelet Volume 10.9 fl (7.4-10.4); Monocytes # 0.8 K/mm3 (0.1-1.0); Monocytes % 7.1 % (1.7-9.3); Neutrophils # 8.1 K/mm3 (1.8-7.8); Neutrophils % 74.4 % (37.0-80.0); Platelet Count 127 K/mm3 (142-424); Red Blood Count 4.56 M/mm3 (4.60-6.20); Red Cell Distribution Width 14.6 % (11.5-17.5); White Blood Count 10.8 K/mm3 (4.8-10.8)
[2023-05-17 07:14] LABS: Anion Gap 7.4 mEq/L (5-15); Blood Urea Nitrogen 15 mg/dl (9-20); Calcium 8.4 mg/dl (8.4-10.2); Carbon Dioxide 34 mmol/L (22.0-30.0); Chloride 101 mmol/L (98-107); Creatinine Clearance Estimated 105 mL/min (50-200); Estimated Glomerular Filt Rate 98 ml/min (>60); GFR (African American) 118 ML/MIN (>60); Glucose 107 mg/dl (74-100); Potassium 3.4 mmoL/L (3.5-5.1); Sodium 139 mmol/L (136-145)
--- NOTE | 2023-05-17 10:57 | PC.NURSE ---
pt rang out requesting for the nurse to bring me my medicine at 1055, upon entering the room at 1057 pt was noted to be sleeping soundly. Medication not brought at this time, pt also not awakened. for the previous 2 day shifts following admin of both percocet and xanax, this nurse has noted that the pt becomes extremely drowsy and slightly hypotensive.
--- NOTE | 2023-05-17 12:32 | PC.NURSE ---
pt currently sitting up on side of bed eating lunch following a shower. pt was able to shave pierre during shower as well.
--- NOTE | 2023-05-17 16:34 | PC.NURSE ---
Pt has rested in bed this shift. he was able to get up and take a shower prior to lunch. pt was also able to shave. pt was encouraged to sit up to the chair and eat supper. pt refused at this time. lungs are clear throughout with scattered occ. wheeze. bowel sounds are active. pt reports bm on 05/16. pt stated that he wished he had enough energy to get up and do stretches and exercise . pt was offered help to ambulate around the unit, he stated that he did not have enough energy to do that. pt was encouraged to at least get up and sit in the chair for supper. nad noted. present at bedside.
--- NOTE | 2023-05-17 17:25 | EXP.ACUTE.PN ---
Subjective *Date: 05/17/23 *Time: 17:25 Interval history: Shortness of breath improving. No new chest pain. Medical Exam Vital signs and Labs for Last 24 Hours: Vital Signs Temp Pulse Pulse Resp BP Pulse Ox O2 Del Method 05/17/23 17:22 Room Air 05/17/23 16:00 60 05/17/23 15:16 98.1 F 59 L 18 120/80 99 Room Air 05/17/23 15:00 Room Air 05/17/23 12:00 69 05/17/23 13:00 Room Air 05/17/23 11:00 Room Air 05/17/23 11:15 98.1 F 71 18 141/92 H 97 Room Air 05/17/23 09:00 Room Air 05/17/23 08:00 60 05/17/23 08:00 60 98 Room Air 05/17/23 06:40 97 Room Air 05/17/23 06:40 68 05/17/23 06:40 68 05/17/23 07:32 98.0 F 72 18 130/88 98 Room Air 05/17/23 07:00 Nasal Cannula 05/17/23 04:00 65 05/17/23 05:00 Room Air 05/17/23 04:00 97.9 F 67 16 120/93 H 98 Room Air 05/17/23 03:00 Nasal Cannula 05/17/23 01:00 Nasal Cannula 05/17/23 00:00 70 05/17/23 00:00 97.8 F 70 16 113/73 97 Room Air 05/16/23 23:00 Nasal Cannula 05/16/23 21:00 Nasal Cannula 05/16/23 20:00 70 05/16/23 20:00 95 Room Air 05/16/23 20:00 98.2 F 66 16 123/87 96 Room Air 05/16/23 19:00 Room Air 05/16/23 19:09 70 05/16/23 19:08 67 O2 Flow Rate 05/17/23 17:22 05/17/23 16:00 05/17/23 15:16 05/17/23 15:00 05/17/23 12:00 05/17/23 13:00 05/17/23 11:00 05/17/23 11:15 05/17/23 09:00 05/17/23 08:00 05/17/23 08:00 05/17/23 06:40 2 05/17/23 06:40 05/17/23 06:40 05/17/23 07:32 05/17/23 07:00 2 05/17/23 04:00 05/17/23 05:00 05/17/23 04:00 05/17/23 03:00 2 05/17/23 01:00 2 05/17/23 00:00 05/17/23 00:00 05/16/23 23:00 2 05/16/23 21:00 2 05/16/23 20:00 05/16/23 20:00 05/16/23 20:00 05/16/23 19:00 05/16/23 19:09 05/16/23 19:08 Intake and Output 05/17/23 05/17/23 05/17/23 07:59 15:59 23:59 Intake Total 1090 / 1690 360 / 1690 240 / 1690 Output Total 500 / 2200 800 / 2200 900 / 2200 Balance 590 / -510 -440 / -510 -660 / -510 Intake: Intake, Oral Amount 840 / 1440 360 / 1440 240 / 1440 Intake, Total IV Amount 250 / 250 Azithromycin 500 mg In 0.9 % 250 / 250 Sodium Chloride 250 ml @ 250 mls/hr IV Q24H [facility] Rx#:[id number] Output: Output, Urine Amount 500 / 2200 800 / 2200 900 / 2200 Other: Number of Unmeasured Voids 0 Weight 98.52 kg Patient Weight 05/17/23 23:59 Weight 98.52 kg Laboratory Results - last 24 hr 05/17/23 06:45: WBC 10.8 D, RBC 4.56 L, Hgb 13.2 L, Hct 40.0 L, MCV 87.7, MCH 29.0, MCHC 33.0, RDW 14.6, Plt Count 127 L, MPV 10.9 H, Neut % (Auto) 74.4, Lymph % (Auto) 17.1, Burke % (Auto) 7.1, Eos % (Auto) 1.3, Baso % (Auto) 0.1, Neut # (Auto) 8.1 H, Lymph # (Auto) 1.8, Burke # (Auto) 0.8, Eos # (Auto) 0.2, Baso # (Auto) 0.0, Sodium 139, Potassium 3.4 L, Chloride 101, Carbon Dioxide 34 H, Anion Gap 7.4, BUN 15 D, Creatinine 0.80, Estimated Creat Clear 105, Estimated GFR 98, Est GFR ( Amer) 118, Glucose 107 H, Calcium 8.4 I & O for Labs for Last 24 Hours: Intake & Output 05/14/23 05/15/23 05/16/23 05/17/23 23:59 23:59 23:59 23:59 Intake Total 1920 / 1920 200 / 200 960 / 1810 1690 / 1690 Output Total 1375 / 1700 1225 / 1225 2550 / 2850 2200 / 2200 Balance 545 / 220 -1025 / -1025 -1590 / -1040 -510 / -510 Weight 91.807 kg 96.162 kg 95.283 kg 98.52 kg Microbiology Reports for the Last 24 Hours: Microbiology 05/14/23 07:04 Sputum - Expectorated Sputum Gram Stain - Final 05/14/23 07:04 Sputum - Expectorated Sputum Sputum Culture - Preliminary Additional Findings:: Head: Present atraumatic and normocephalic ENT: Present normal exam Neck: Present full ROM Respiratory: wheezing resolved, improvement in air entry bilaterally, able to speak in complete sentences and symmetric chest movement Cardiac: Present Re
[2023-05-18] VITALS (8 sets, daily range): BP systolic 120–172; BP diastolic 64–110; PULSE 58–79; RESP 16–24; TEMP 36.5–36.7; O2SAT 94–98; BMI 30.6
--- NOTE | 2023-05-18 06:30 | PC.NURSE ---
Pt has voiced multiple c/o of chronic back pain and anxiety- see mar for prn doctor of dental medicine. Pt has been awake t/o majority of night. NSR/sinus conor on tele. at bedside. Call light within reach.
--- NOTE | 2023-05-18 08:00 | PC.NURSE ---
clarified with pharmacy that pt can tolerate 4 tablets of entresto, pt is able to have that dose and okay to give per Jonh Avila
--- NOTE | 2023-05-18 08:29 | PC.NURSE ---
SRNA NOTE: nurse notified of high blood pressure @0800 vitals
--- NOTE | 2023-05-18 09:37 | PC.NURSE ---
Courtesy Tech Note: Rounded on pt. pt needed no further assitance while sitting on sob.
--- NOTE | 2023-05-18 12:34 | EXP.CARD.PN ---
Subjective Subjective Date: 05/18/23 Time: 10:00 Principal diagnosis: atrial flutter with RVR, CAD, systolic CHF Interval history: This is a 63-year-old gentleman who went into atrial flutter with RVR and was started on IV amiodarone. He has been converted over to oral amiodarone at this time and is in sinus rhythm. The patient is on long-term anticoagulation with Xarelto. He underwent left cardiac catheterization and had stenting to the right coronary artery/PDA. The patient tolerated the procedure well and will be on Brilinta and aspirin for dual antiplatelet therapy. The patient did have severe LV dysfunction on the LV gram which showed an ejection fraction of around 20%. While his echocardiogram showed an ejection fraction of 37%. This morning the patient states that he is feeling well. He denies any chest pain or pressure. He denies any shortness of breath or edema. He denies any fever, chills, nausea, vomiting, diarrhea, PND orthopnea. The patient states that he is ready to be discharged home today. Exam Data for Last 24 hours Vital signs and Labs for Last 24 Hours: Temp Pulse Resp BP Pulse Ox O2 Del Method O2 Flow Rate 97.7 F 74 24 156/110 H 94 L Room Air 2 05/18/23 11:54 05/18/23 11:54 05/18/23 11:54 05/18/23 11:54 05/18/23 11:54 05/18/23 11:54 05/18/23 09:00 I & O for Last 24 hours: Intake & Output 05/15/23 05/16/23 05/17/23 05/18/23 23:59 23:59 23:59 23:59 Intake Total 200 / 200 960 / 1810 1690 / 1690 360 / 360 Output Total 1225 / 1225 2550 / 2850 3240 / 3340 1200 / 1200 Balance -1025 / -1025 -1590 / -1040 -1550 / -1650 -840 / -840 Weight 212 lb 210 lb 1 oz 217 lb 3.2 oz 213 lb 11.2 oz Microbiology Reports for the Last 24 Hours: Microbiology 05/14/23 07:04 Sputum - Expectorated Sputum Gram Stain - Final 05/14/23 07:04 Sputum - Expectorated Sputum Sputum Culture - Final Normal Respiratory [place] Constitutional Constitutional: no acute distress and obese *Routine HEENT Exam Head: Present normocephalic and atraumatic ENT: Present mucous membranes moist *Routine Neck Exam Neck: Present supple, full ROM and normal carotid upstroke; Absent JVD, carotid bruit or lymphadenopathy *Routine Respiratory Exam Respiratory: Present CTA bilaterally, normal respiratory effort, able to speak in complete sentences and symmetric chest movement *Routine Cardiovascular Exam Cardiovascular: Present RRR, Normal S1, Normal S2 and murmur (2/6); Absent gallop *Routine Abdominal Exam Abdominal: Present soft and normoactive bowel sounds; Absent tenderness, distended or organomegaly *Routine Extremities Exam Extremities: Present full ROM, pulses intact and normal capillary refill; Absent cyanosis, clubbing or edema *Routine Skin Exam Skin: Present intact and warm; Absent erythema *Routine Neurological Exam Neurological: Present alert, oriented X3 and CN II-XII intact; Absent sensory deficit or motor deficit Routine Psychiatric Exam Psychiatric: Present normal affect Progress Note: A&P Assessment and plan (1) Non-STEMI (non-ST elevated myocardial infarction): Status: Acute (2) Acute respiratory failure with hypoxia: Status: Acute (3) Atrial flutter with rapid ventricular response: Status: Acute (4) HFrEF (heart failure with reduced ejection fraction): Status: Acute (5) Coronary arteriosclerosis: Status: Chronic (6) Hyperlipidemia: Status: Chronic (7) Tobacco dependence syndrome: Status: Chronic (8) Hypertension: Status: Chronic (9) CAD (coronary artery disease): Status: Chronic (10) A-fib: Status: Acute (11) ANUPAM (obstructive sleep apnea): Status: Chronic (12) LV dysfunction: Status: Chronic Assessment and Plan Assessment and Plan for All Diagnoses:: Plan: 1. The patient was admitted to the hospital and had atrial flutter with RVR. The patient was started on an amiodarone drip and has conv
--- NOTE | 2023-05-18 14:20 | EXP.DC.SUM ---
General Admission date:: 05/13/23 Discharge date: 05/18/23 HPI HPI HPI: This is a 63-year-old male with extensive past medical history of CAD with multiple MIs, type 2 diabetes, VARUN, obesity, atrial fibrillation, COPD, CHF, ANUPAM, and tobacco use disorder presented to the emergency department for evaluation with concern for shortness of breath. He states that this has been going on for over a week now but has progressively worsened. He states that he has also had cough with sputum production. On medical record review, he was evaluated here 05/03 for similar symptoms and diagnosed with a COPD exacerbation. He states that he was previously on home oxygen, around 2-1/2 L nasal cannula, but he has not been on it for a while because he moved here and has not been seeing a physician. He also states that he uses inhalers and breathing treatments at home with minimal improvement, also reported for chest pain at home. Patient admitted for treatment. ss Hospital Course Hospital Course Hospital Course: Mr. Hinojosa is a 63 year old male with a past medical history of CAD, atrial fibrillation, chf, copd, anupam, t2dm, obesity and tobacco use disorder who presented to the ed with shortness of breath x 1 week associated with productive cough. He was recently diagnosed with a copd exacerbation on 05/03. In the past he was on supplemental o2 2.5L NC but discontinued it on his own after moving; he has yet to establish care with a radiologic technician in this area. CTA chest pe protocol revealed interseptal thickening with centrilobular ground glass opacities and bibasilar pleural effusions. Found to be in A-fib with RVR on admission. Cardiology was consulted. Patient taken for left heart cath, PCI with drug-eluting stent x3 to PDA on 05/15. Echo obtained showing EF greater than 35%. Did not meet criteria for LifeVest. Stable for discharge home to continue outpatient treatment. Follow-up with cardiology in the coming weeks. Problems addressed as follows: #acute respiratory failure secondary to community acquired pneumonia and chf exacerbation #NSTEMI #Acute decompensated systolic heart failure #Ischemic cardiomyopathy #Pneumonia, sputum culture with gram-positive cocci #elevated bnp #leukocytosis Status post LHC, PCI with LB x3 to PDA on 05/15. echocardiogram on 05/15: LVEF 37%, grade 2 diastolic dysfunction, MRPola Patient had an NSTEMI which prompted his left heart cath. Continue Brilinta and aspirin for dual antiplatelet therapy. Currently on Xarelto for long-term anticoagulation. Continue triple therapy for 30 days, after 30 days can discontinue aspirin and remain on Brilinta and Xarelto. Treated with Rocephin and azithromycin during admission for pneumonia. Completed antibiotic course by day of discharge. Patient was started on amiodarone for his arrhythmia. Plan to continue oral amiodarone at time of discharge. Continue Lipitor for hyperlipidemia. Was started on Entresto and carvedilol for cardiomyopathy and heart failure with reduced ejection fraction. Also continue Lasix and spironolactone for his congestive heart failure. Recommended tobacco cessation. Stable on room air. Discharged home in stable condition Exam Data for Last 24 hours Vital signs and Labs for Last 24 Hours: Temp Pulse Resp BP Pulse Ox O2 Del Method O2 Flow Rate 97.7 F 74 24 156/110 H 94 L Room Air 2 05/18/23 11:54 05/18/23 11:54 05/18/23 11:54 05/18/23 11:54 05/18/23 11:54 05/18/23 12:34 05/18/23 09:00 I & O for Last 24 hours: Intake & Output 05/15/23 05/16/23 05/17/23 05/18/23 23:59 23:59 23:59 23:59 Intake Total 200 / 200 960 / 1810 1690 / 1690 360 / 360 Output Total 1225 / 1225 2550 / 2850 3240 / 3340 1200 / 1200 Balance -1025 / -1025 -1590 / -1040 -1550 / -1650 -840 / -840 Weight 96.162 kg 95.283 kg 98.52 kg 96.933 kg Microbiology Reports for the Last 24 Hours: Microbiology 05/14/23 07:04 Sputum - Expectorated Sputum Gram Stain - Final 05/14/23
--- NOTE | 2023-05-18 14:30 | HMH.PHAINT1 ---
Pharmacy Intervention Comments: Discharge medications were reviewed with patient and patient's brother. -Aspirin (watch for bleeding) -Pantoprazole (replacing the omeprazole) -nicotine patches Amor Medeiros, PharmD student
--- NOTE | 2023-05-20 12:26 | CARE MANAGER ---
Attempted to contact patient related to hospital discharge x2. Left VM. NIC Marino
== END 2023-05-18 14:39 | disposition home or self-care (01) | DRG 280 ==
LOC: ER 19:14 → 2ND 05-14 02:17
PROVIDERS: Internal Medicine; Nurse Practitioner Family; Student in an Organized Health Care Education/Training Program; Admitting Provider Internal Medicine; Emergency Provider Emergency Medicine; Visit Provider Internal Medicine
DX: I11.0 Hypertensive heart disease with heart failure (principal); I21.4 Non-ST elevation (NSTEMI) myocardial infarction; I50.23 Acute on chronic systolic (congestive) heart failure; J18.9 Pneumonia, unspecified organism; J96.01 Acute respiratory failure with hypoxia; J44.0 Chronic obstructive pulmonary disease with (acute) lower respiratory infection; I25.10 Atherosclerotic heart disease of native coronary artery without angina pectoris; I25.2 Old myocardial infarction; E11.9 Type 2 diabetes mellitus without complications; E66.9 Obesity, unspecified; Z68.30 Body mass index [BMI] 30.0-30.9, adult; I48.91 Unspecified atrial fibrillation; G47.33 Obstructive sleep apnea (adult) (pediatric); Z95.1 Presence of aortocoronary bypass graft; I34.0 Nonrheumatic mitral (valve) insufficiency; F17.210 Nicotine dependence, cigarettes, uncomplicated; E78.5 Hyperlipidemia, unspecified; Z71.6 Tobacco abuse counseling; I25.5 Ischemic cardiomyopathy
CPT/HCPCS: 36415; 71045; 71275; 80048; 80053; 80061; 82803; 83605; 83735; 83880; 84145; 84484; 85007; 85025; 85347; 87040; 87070; 87205; 93005; 93306; 93308; 94640; 94761; 99152; 99153; 99291; C1725; C1769; C1874; C1876; C1894; J0282; J0456; J0696; J1644; J7060; Q9967

== ENCOUNTER → 2023-05-27 14:54 | Outpatient (CLI) | payer MEDICAID, SELFPAY ==
[2023-05-27 15:23] LABS: Basophils % 0.2 % (0.1-2.0); Eosinophils # 0.2 K/mm3 (0.0-0.4); Eosinophils % 1.5 % (0.1-12.0); Hematocrit 49.2 % (42.0-52.0); Hemoglobin 15.5 g/dL (14.1-18.0); Lymphocytes # 1.9 K/mm3 (0.7-4.5); Lymphocytes % 18.8 % (10-50); Mean Corpuscular HGB Conc 31.5 g/dL (31.8-35.4); Mean Corpuscular Hemoglobin 28.3 pg (27.0-31.2); Mean Corpuscular Volume 89.9 fl (80-94); Monocytes # 0.6 K/mm3 (0.1-1.0); Monocytes % 6.1 % (1.7-9.3); Neutrophils # 7.6 K/mm3 (1.8-7.8); Neutrophils % 73.4 % (37.0-80.0); Platelet Count 253 K/mm3 (142-424); Red Blood Count 5.47 M/mm3 (4.60-6.20); Red Cell Distribution Width 14.6 % (11.5-17.5); White Blood Count 10.3 K/mm3 (4.8-10.8)
[2023-05-27 15:30] LABS: Activated Partial Thrombo Time 30.8 seconds (22.8-30.6); INR 1.11 (0.9-1.1); Prothrombin Time 11.9 seconds (10.1-12.5)
[2023-05-27 15:41] LABS: Chloride 104 mmol/L (98-107); Potassium 4.7 mmoL/L (3.5-5.1); Sodium 142 mmol/L (136-145)
[2023-05-27 15:44] LABS: Anion Gap 14.7 mEq/L (5-15); Blood Urea Nitrogen 15 mg/dl (9-20); Calcium 9.6 mg/dl (8.4-10.2); Carbon Dioxide 28 mmol/L (22.0-30.0); Estimated Glomerular Filt Rate 85 ml/min (>60); GFR (African American) 103 ML/MIN (>60); Glucose 127 mg/dl (74-100)
[2023-05-27 15:45] LABS: Magnesium 1.9 mg/dl (1.6-2.3)
[2023-05-27 16:02] LABS: Free T4 (Free Thyroxine) 1.12 ng/dl (0.78-2.19)
[2023-05-27 16:16] LABS: Thyroid Stimulating Hormone 1.29 uIU/mL (0.465-4.68)
== END ==
LOC: LAB 14:55
PROVIDERS: Visit Provider Nurse Practitioner Family
DX: I50.20 Unspecified systolic (congestive) heart failure (principal); I48.92 Unspecified atrial flutter; Z51.81 Encounter for therapeutic drug level monitoring; Z79.01 Long term (current) use of anticoagulants
CPT/HCPCS: 36415; 80048; 83735; 84439; 84443; 85025; 85610; 85730

== ENCOUNTER 2023-07-01 14:14 | Emergency (ER) | payer MEDICAID, SELFPAY ==
--- NOTE | 2023-07-01 14:14 | ECG_ITS ---
APPROVED REPORT Exam: Resting ECG HR:64 bpm ECG Measurements Heart Rate 64 AXES ID 158 P 67 QRSd 108 QRS 49 QT 415 T 124 QTc 425 Conclusion SINUS RHYTHM WITH FREQUENT VENTRICULAR PREMATURE COMPLEXES LAE noted MODERATE T-WAVE ABNORMALITY, CONSIDER ANTERIOR ISCHEMIA [-0.1+ mV T-WAVE IN V3/V4] ABNORMAL ECG UNCONFIRMED REPORT Electronically signed by : Yonas Barber MD 07/02/2023 20:00:03
[2023-07-01 14:18] VITALS: BP 102/56; PULSE 61; RESP 18; TEMP 37; O2SAT 96; BMI 29.0
--- NOTE | 2023-07-01 14:23 | PC.NURSE ---
DR YOUNG AT BEDSIDE
[2023-07-01 14:30] VITALS: BP 104/65; PULSE 57; RESP 12; O2SAT 95
--- NOTE | 2023-07-01 14:37 | XR_ITS ---
FINAL REPORT CLINICAL HISTORY: gen weakness FINDINGS: SINGLE-VIEW CHEST There is cardiomegaly. The patient is status post median sternotomy. There are right lung opacities, may represent atelectasis or pneumonia. There is no pneumothorax. IMPRESSION: Right lung atelectasis or pneumonia. Reviewed, Interpreted and Dictated by Edvin Berman III, MD Transcribed by Marilyn Smith Authenticated and [facility]
--- NOTE | 2023-07-01 14:40 | PC.NURSE ---
PT RESTING WITH EYES CLOSED, CALL LIGHT WITHIN REACH
[2023-07-01 14:43] LABS: Coronavirus 19, PCR Not Detected (NotDetected); Influenza A, PCR Not Detected (NotDetected); Influenza B, PCR Not Detected (NotDetected)
[2023-07-01 14:55] LABS: VBG Base Excess 0.8 mmol/L (-2.4-2.3); VBG HCO3 27.8 mmol/L (23-30); VBG PCO2 62.7 mmol/L (35-51); VBG PH 7.27 mmol/L (7.31-7.41); VBG PO2 27.2 mmol/L (28-40); VBG Total CO2 29.7 mmol/L (23-27)
[2023-07-01 14:56] LABS: Alanine Aminotransferase 23 U/L (12-78); Albumin Level 3.9 g/dl (3.5-5.0); Albumin/Globulin Ratio 1.4 (1.1-1.8); Alkaline Phosphatase 61 U/L (38-126); Anion Gap 10.7 mEq/L (5-15); Aspartate Amino Transferase 29 U/L (17-59); Bilirubin,Total 0.9 mg/dl (0.2-1.3); Blood Urea Nitrogen 10 mg/dl (9-20); Calcium 8.3 mg/dl (8.4-10.2); Carbon Dioxide 30 mmol/L (22.0-30.0); Chloride 102 mmol/L (98-107); Creatinine Clearance Estimated 104 mL/min (50-200); Estimated Glomerular Filt Rate 75 ml/min (>60); GFR (African American) 91 ML/MIN (>60); Globulin 2.8 g/dL (1.3-3.2); Glucose 113 mg/dl (74-100); Potassium 3.7 mmoL/L (3.5-5.1); Sodium 139 mmol/L (136-145); Total Protein,Serum 6.7 g/dl (6.3-8.2)
[2023-07-01 14:58] LABS: Lipase < 10 U/L (23-300)
[2023-07-01 15:00] VITALS: BP 104/71; PULSE 65; O2SAT 93
--- NOTE | 2023-07-01 15:04 | CT_ITS ---
FINAL REPORT CLINICAL HISTORY: AMS COMPARISON: None FINDINGS: Axial images of the head were obtained without contrast. Coronal reformatted images were also obtained.This study was performed with techniques to keep radiation doses as low as reasonably achievable (ALARA). Individualized dose reduction techniques using automated exposure control or adjustment of mA and/or kV according to the patient's size were employed. There is age-appropriate atrophy. There is no evidence of intracranial hemorrhage or mass. The ventricular size is within normal limits. There is no evidence of shift of the midline structures. No abnormal extra axial fluid collection is identified. Mucosal thickening in the right maxillary sinus. No skull abnormality is seen on the bone window images. There is a probable right occipital scalp hematoma. IMPRESSION: No acute intracranial abnormality. Right occipital scalp hematoma. Reviewed, Interpreted and Dictated by Edvin Berman III, MD Transcribed by Dayanna Gonzales Authenticated and [facility]
[2023-07-01 15:05] LABS: NT Pro Brain Natriuretic Pep. 1100 pg/mL (0-125)
[2023-07-01 15:13] LABS: Procalcitonin 0.045 ng/mL (0.0-2.0)
--- NOTE | 2023-07-01 15:13 | PC.NURSE ---
PT TO CT
--- NOTE | 2023-07-01 15:15 | HMH.EDGENADL ---
Discharge Plan Disposition Patient Disposition: Home, Self-Care Prescriptions Prescriptions: New azithromycin 250 mg tablet See Rx Instructions .ROUTE .COMPLEX Qty: 6 0RF Rx Instructions: For 250 mg dose pack: take 500 mg today (day 1), then 250 mg for 4 days (days 2-5) amoxicillin-pot clavulanate 875-125 mg tablet 1 tab PO BID 10 Days Qty: 20 0RF No Action isosorbide mononitrate 30 mg tablet extended release 24 hr 30 mg PO DAILY hydroxyzine HCl 50 mg tablet 50 mg PO DAILY PRN (Reason: Anxiety) clopidogrel [Plavix] 75 mg tablet 75 mg PO DAILY Qty: 90 3RF carvedilol 25 mg tablet 25 mg PO BID 90 Days Qty: 180 2RF Rx Instructions: must administer with a meal/food albuterol sulfate 90 mcg/actuation HFA aerosol inhaler 2 puff inhalation Q6H PRN (Reason: COPD) 90 Days Qty: 18 1RF nitroglycerin [Nitrostat] 0.4 mg tablet, sublingual 0.4 mg SUBLINGUAL Q5M PRN (Reason: Chest Pain) Qty: 30 5RF alprazolam 1 MG tablet 1 mg PO QID PRN (Reason: Anxiety) atorvastatin 40 MG tablet 40 mg PO HS Rx Instructions: TAKE 1 TABLETS BY MOUTH AT BEDTIME Entresto 97-103 mg tablet 1 tab PO BID Xarelto 20 mg tablet 20 mg PO DAILY Rx Instructions: must administer with evening meal furosemide 20 mg tablet 20 mg PO BID PRN (Reason: Diuretic) Patient Comments: TAKE ONE TABLET BY MOUTH TWICE DAILY NEEDED FOR swelling, shortness of breath, weight gain gabapentin 800 mg tablet 800 mg PO Q6H Patient Comments: TAKE ONE TABLET BY MOUTH THREE TIMES DAILY bupropion HCl 300 mg Tablet Extended Release 24 Hr 300 mg PO DAILY aspirin 81 mg Tablet,Delayed Release (Dr/Ec) 81 mg PO DAILY 30 Days Qty: 30 0RF pantoprazole 40 mg Tablet,Delayed Release (Dr/Ec) 40 mg PO DAILY 30 Days Qty: 30 0RF furosemide 40 mg Tablet 40 mg PO DAILY 30 Days Qty: 30 0RF spironolactone 25 mg Tablet 50 mg PO DAILY 30 Days Qty: 60 0RF amiodarone 200 mg Tablet 400 mg PO BID 30 Days Qty: 120 0RF Referrals Follow up/Referrals: Provider,Referral, MD [Primary Care Provider] - See instructions Activity Restrictions/Add. Instructions Additional Instructions/Restrictions: Your emergency evaluation did not yield any diagnosis other than a questionable atelectasis versus pneumonia in your right lung. Given the fact that you have had a new cough we will treat this with antibiotics. There remains diagnostic uncertainty but overall you are stable for outpatient follow-up with your primary care doctor please return with any worsening symptoms. Clinical Impressions Clinical Impression: Generalized weakness, CAP (community acquired pneumonia) Instructions Patient Instructions: DI for Altered Mental Status Discharge ED Provider: Marcella White General Adult HPI <Marcella White DO - Last Filed: 07/01/23 15:43> General Chief complaint: Altered Mental Status Stated complaint: weakness Time Seen by Provider: 07/01/23 14:18 Mode of Arrival: EMS Source of Information: Patient and EMS Limitations: No Limitations Description of Symptoms (Recalled from ER Triage Doc. by RN): PT BROUGHT IN VIA EMS, FAMILY REPORTS PT WITH AMS, PT ALERT AND ORIENTED. 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 EMS reports that the family had called because the patient was altered. On my assessment, he is alert and oriented x4. Patient reports that he has had body aches, nausea, joint pain, and felt tired since yesterd
--- NOTE | 2023-07-01 15:21 | PC.NURSE ---
SPOKE WITH GALINA IN LAB ABOUT CBC RESULTS, INFORMED THIS NURSE THAT CBC ANALYZER MACHINE IS DOWN CURRENTLY
[2023-07-01 15:28] LABS: Troponin I 0.17 ng/ml (0.00-0.034)
[2023-07-01 15:31] VITALS: BP 97/61; PULSE 61; O2SAT 95
--- NOTE | 2023-07-01 15:31 | PC.NURSE ---
pt given urinal for urine specimen
[2023-07-01 16:01] VITALS: BP 108/66; PULSE 68; O2SAT 94
--- NOTE | 2023-07-01 16:01 | PC.NURSE ---
PT AND FAMILY UPDATED ON POC, CALL LIGHT WITHIN REACH. PT REQUESTING TO EAT, WILL CHECK WITH MD. PT HAS PENDING LABS AND RADIOLOGY RESULTS.
[2023-07-01 16:07] LABS: Microscopic, Urine URINE MICROSCOPIC (MICROSCOPIC)
[2023-07-01 16:12] LABS: Appearance,Urine CLEAR (Clear); Bilirubin,Urine Negative (Negative); Blood, Urine TRACE-I (Negative); Color,Urine YELLOW (Yellow); Glucose,Urine (UA) Negative (Negative); Ketones,Urine Negative (Negative); Leukocyte Esterase,Urine Negative (Negative); Nitrate,Urine Negative (Negative); PH,Urine 5.5 (5.0-8.5); Protein,Urine Negative (Negative); Specific Gravity, Urine 1.025 (1.005-1.030)
[2023-07-01 16:25] LABS: Mucus,Urine 2+ /lpf; Squamous Epithelial Cell,Urine Occasional #/hpf (0-5)
[2023-07-01 16:29] LABS: Benzodiazepines Screen,Urine Positive ng/ml (<200)
[2023-07-01 16:30] LABS: Amphetamine/Metha Screen,Urine Negative ng/ml (<1000)
--- NOTE | 2023-07-01 16:30 | PC.NURSE ---
pt setting in bed chatting with visitors asked for something to eat told him i would ask and let him know,visitor at bs
[2023-07-01 16:31] LABS: Barbiturates Screen,Urine Negative ng/ml (<200); Methadone Screen,Urine Negative ng/ml (<300)
[2023-07-01 16:32] LABS: Cannabinoid Screen,Urine Negative ng/ml (<50); Cocaine Screen,Urine Negative ng/ml (<300)
[2023-07-01 16:33] LABS: Opiate Screen,Urine Negative ng/ml (<300)
[2023-07-01 16:34] LABS: Phencyclidine Screen,Urine Negative ng/ml (<25)
[2023-07-01 16:45] LABS: Hematocrit 38.8 % (42.0-52.0); Red Blood Count 4.47 M/mm3 (4.60-6.20); White Blood Count 9.7 K/mm3 (4.8-10.8)
[2023-07-01 16:46] LABS: Basophils % 0.2 % (0.1-2.0); Eosinophils % 1.4 % (0.1-12.0); Lymphocytes # 1.5 K/mm3 (0.7-4.5); Lymphocytes % 15.2 % (10-50); Mean Corpuscular HGB Conc 33.5 g/dL (31.8-35.4); Mean Corpuscular Hemoglobin 29.1 pg (27.0-31.2); Mean Corpuscular Volume 86.8 fl (80-94); Mean Platelet Volume 12.5 fl (7.4-10.4); Monocytes % 9.8 % (1.7-9.3); Neutrophils # 7.1 K/mm3 (1.8-7.8); Neutrophils % 73.3 % (37.0-80.0); Platelet Count 162 K/mm3 (142-424); Red Cell Distribution Width 13.8 % (11.5-17.5)
[2023-07-01 16:47] LABS: Eosinophils # 0.1 K/mm3 (0.0-0.4)
[2023-07-01 17:10] VITALS: BP 111/76; PULSE 66; RESP 17; TEMP 37; O2SAT 97
== END 2023-07-01 17:00 | disposition home or self-care (01) ==
PROVIDERS: Emergency Provider Emergency Medicine
DX: J18.9 Pneumonia, unspecified organism (principal); R41.82 Altered mental status, unspecified; R53.1 Weakness; I11.0 Hypertensive heart disease with heart failure; I50.20 Unspecified systolic (congestive) heart failure; I25.118 Atherosclerotic heart disease of native coronary artery with other forms of angina pectoris; I25.2 Old myocardial infarction; I48.92 Unspecified atrial flutter; E78.5 Hyperlipidemia, unspecified; I34.81 Nonrheumatic mitral (valve) annulus calcification; J44.9 Chronic obstructive pulmonary disease, unspecified; F41.9 Anxiety disorder, unspecified; F32.A Depression, unspecified; F17.210 Nicotine dependence, cigarettes, uncomplicated; I49.3 Ventricular premature depolarization
CPT/HCPCS: 70450; 71045; 80053; 80305; 81001; 82803; 83605; 83690; 83880; 84145; 84484; 85025; 87636; 93005; 96374; 99285; J2405

== ENCOUNTER 2023-07-06 08:25 | Day surgery (SDC) | payer MEDICAID, SELFPAY ==
[2023-07-03 12:10] VITALS: BMI 28.4
[2023-07-06 08:50] VITALS: BP 153/102; PULSE 61; RESP 18; TEMP 36.1; O2SAT 97
--- NOTE | 2023-07-06 09:13 | EXP.ANES.CKL ---
[facility] Disclaimer: The information contained in this section may have been updated after the patient was seen, as this information can be updated by other users. Medical History Angina pectoris Anxiety Benzocaine adverse reaction Congestive heart failure COPD (chronic obstructive pulmonary disease) Depression Diastolic dysfunction Edema Hemorrhoid History of cardioversion History of gastroesophageal reflux (GERD) Injury of left foot Left foot pain Lumbar disc disease with radiculopathy Lumbar disc disease with radiculopathy Lumbar disc disease with radiculopathy Myocardial infarct Sleep apnea Vitamin D deficiency Surgical History (Updated 07/06/23 @ 08:50 by Analia Choi RN) History of quadruple bypass History of surgery Hx of heart artery stent Family History Other Heart attack Heart disease Social History Smoking Status: Current every day smoker tobacco type: cigarettes packs per day: 1 pack-years: 50 second hand exposure: No alcohol intake: never substance use type: marijuana, crack/cocaine, painkillers and prescription drug current occupational status: retired and disabled Travel in the last 8 weeks: None household members: spouse housing: house number of children: 7 current occupational exposures/hazards: No caffeine: Yes [facility] Anesthesia Checklist Patient Identification Patient Identification: Verbal (Name & ) Structural Data Admitted From: Home Planned Operative Procedure/s: jose r Consent for Planned Operative Procedure(s) Verified: Yes Additional verifications Anesthesia Reactions: No Hx Blood Transfusions: No Blood Transfusion Reaction: No Airway Assessment Mallampati Score:: Class I C-Spine Mobility Assessed: Yes TMJ Mobility Assessed: Yes Dentition: Poor Dentition Neurological Assessment Level of Consciousness: Awake, Alert and Appropriate Anesthesia Plan Anesthesia Risk discussed: Yes Anesthesia Plan: Verified ASA Class: III Anesthesia Type: MAC
[2023-07-06 09:17] LABS: Basophils % 0.2 % (0.1-2.0); Chloride 108 mmol/L (98-107); Eosinophils # 0.1 K/mm3 (0.0-0.4); Hematocrit 44.8 % (42.0-52.0); Hemoglobin 14.6 g/dL (14.1-18.0); Lymphocytes % 23.2 % (10-50); Mean Corpuscular HGB Conc 32.5 g/dL (31.8-35.4); Mean Corpuscular Hemoglobin 28.6 pg (27.0-31.2); Mean Corpuscular Volume 87.8 fl (80-94); Mean Platelet Volume 10.2 fl (7.4-10.4); Monocytes # 0.5 K/mm3 (0.1-1.0); Monocytes % 5.5 % (1.7-9.3); Neutrophils # 6.1 K/mm3 (1.8-7.8); Platelet Count 179 K/mm3 (142-424); Potassium 3.7 mmoL/L (3.5-5.1); Red Cell Distribution Width 14.5 % (11.5-17.5); Sodium 142 mmol/L (136-145); White Blood Count 8.7 K/mm3 (4.8-10.8)
[2023-07-06 09:20] LABS: Anion Gap 9.7 mEq/L (5-15); Blood Urea Nitrogen 15 mg/dl (9-20); Carbon Dioxide 28 mmol/L (22.0-30.0); Creatinine Clearance Estimated 99 mL/min (50-200); Estimated Glomerular Filt Rate 85 ml/min (>60); GFR (African American) 103 ML/MIN (>60)
[2023-07-06 09:21] LABS: Calcium 9.3 mg/dl (8.4-10.2); Glucose 122 mg/dl (74-100)
[2023-07-06 09:23] LABS: INR 1.43 (0.9-1.1); Prothrombin Time 15.1 seconds (10.1-12.5)
--- NOTE | 2023-07-06 10:00 | ECG_ITS ---
APPROVED REPORT Exam: Resting ECG HR:79 bpm ECG Measurements Heart Rate 79 AXES DE 168 P 63 QRSd 110 QRS 31 QT 413 T 125 QTc 448 Conclusion SINUS RHYTHM WITH OCCASIONAL VENTRICULAR PREMATURE COMPLEXES LEFT ATRIALAbnormality NONSPECIFIC ST & T-WAVE ABNORMALITY ABNORMAL ECG UNCONFIRMED REPORT Electronically signed by : Yonas Barber MD 07/07/2023 17:18:05
--- NOTE | 2023-07-06 10:26 | SUR.OPER ---
0953- patient entered the procedure room and was hooked up to data scope. time out was performed at [address] Farah checked the rhythm and determined that the patient was in normal sinus rhythm and called for an EKG. EKG performed and patient was in normal sinus rhythm. Procedure was canceled per Dr. Farah. Patient was instructed to stop Aspirin and follow up with Dr. Farah in 2 weeks. Patient stated that he would make this follow up appointment himself. Patient was then transported to post op where his IV was removed and he was dressed to leave. Instructions for aspirin and follow up appointment were discussed with his before departure from facility.
== END 2023-07-06 10:10 | disposition home or self-care (01) ==
LOC: OUTP 08:26
PROVIDERS: Visit Provider Internal Medicine
DX: I48.91 Unspecified atrial fibrillation (principal)
CPT/HCPCS: 80048; 85025; 85610; 93005

== ENCOUNTER 2023-07-22 00:36 | Inpatient (IN) | payer MEDICAID, SELFPAY ==
[2023-07-22] VITALS (21 sets, daily range): BP systolic 100–137; BP diastolic 57–88; PULSE 54–110; RESP 18–28; TEMP 36.3–36.9; O2SAT 92–99; BMI 28.7; BMI 29.7
--- NOTE | 2023-07-22 00:46 | XR_ITS ---
PROCEDURE INFORMATION: Exam: XR Chest Exam date and time: 07/22/2023 1:16 AM Age: 63 years old Clinical indication: Shortness of breath; Additional info: SOA TECHNIQUE: Imaging protocol: Radiologic exam of the chest. Views: 1 view. Total images: 1 COMPARISON: CR XR CHEST PORTABLE 07/01/2023 2:40 PM FINDINGS: Tubes, catheters and devices: EKG leads are present. Lungs: Ground-glass and interstitial opacities of both lung bases concerning for pulmonary edema versus infiltrate. Findings have progressed from prior exam. No confluent airspace consolidation. No overt vascular congestion. Pleural spaces: Unremarkable. No pleural effusion. No pneumothorax. Heart/Mediastinum: Stable mild cardiomegaly. No mediastinal widening. Bones/joints: Status post median sternotomy. IMPRESSION: 1. Mildly progressive mixed interstitial and ground-glass opacity at both lung bases concerning for pulmonary edema versus infectious or inflammatory infiltrates. 2. Stable mild cardiomegaly without overt vascular congestion.
--- NOTE | 2023-07-22 00:50 | ECG_ITS ---
APPROVED REPORT Exam: Resting ECG HR:99 bpm ECG Measurements Heart Rate 99 AXES NC 161 P 64 QRSd 112 QRS 38 QT 390 T 82 QTc 446 Conclusion SINUS RHYTHM POSSIBLE LEFT ATRIAL ENLARGEMENT [-0.1mV P-WAVE IN V1/V2] POSSIBLE LATERAL MYOCARDIAL INFARCTION , OF INDETERMINATE AGE [30 ms Q WAVE IN I/aVL/V5/V6] ABNORMAL ECG UNCONFIRMED REPORT Electronically signed by : Yonas Barber MD 07/23/2023 17:21:01
[2023-07-22 01:00] LABS: VBG Base Excess -3.8 mmol/L (-2.4-2.3); VBG HCO3 25.3 mmol/L (23-30); VBG Oxygen Saturation 89.5 % (50-70); VBG PCO2 77.1 mmol/L (35-51); VBG PO2 72.5 mmol/L (28-40); VBG Total CO2 27.7 mmol/L (23-27)
[2023-07-22 01:08] LABS: VBG PH 7.13 mmol/L (7.31-7.41)
--- NOTE | 2023-07-22 01:11 | PC.NURSE ---
Report handed off to Kathy LUCERO
[2023-07-22 01:12] LABS: Basophils # 0.1 K/mm3 (0-0.2); Basophils % 0.3 % (0.1-2.0); Eosinophils # 0.2 K/mm3 (0.0-0.4); Eosinophils % 1.2 % (0.1-12.0); Hematocrit 47.1 % (42.0-52.0); Hemoglobin 14.6 g/dL (14.1-18.0); Lymphocytes # 3.4 K/mm3 (0.7-4.5); Lymphocytes % 24.6 % (10-50); Mean Corpuscular HGB Conc 30.9 g/dL (31.8-35.4); Mean Corpuscular Hemoglobin 29.1 pg (27.0-31.2); Mean Platelet Volume 9.5 fl (7.4-10.4); Monocytes # 0.7 K/mm3 (0.1-1.0); Monocytes % 5.4 % (1.7-9.3); Neutrophils # 9.3 K/mm3 (1.8-7.8); Neutrophils % 68.4 % (37.0-80.0); Platelet Count 295 K/mm3 (142-424); Red Blood Count 5.01 M/mm3 (4.60-6.20); Red Cell Distribution Width 15.1 % (11.5-17.5); White Blood Count 13.6 K/mm3 (4.8-10.8)
[2023-07-22 01:14] LABS: Chloride 99 mmol/L (98-107); Potassium 4.3 mmoL/L (3.5-5.1); Sodium 141 mmol/L (136-145)
[2023-07-22 01:16] LABS: Alanine Aminotransferase 33 U/L (12-78); Aspartate Amino Transferase 57 U/L (17-59); Blood Urea Nitrogen 22 mg/dl (9-20); Creatinine Clearance Estimated 75 mL/min (50-200); Estimated Glomerular Filt Rate 56 ml/min (>60); GFR (African American) 67 ML/MIN (>60)
[2023-07-22 01:17] LABS: Albumin Level 4.6 g/dl (3.5-5.0); Albumin/Globulin Ratio 1.4 (1.1-1.8); Alkaline Phosphatase 79 U/L (38-126); Anion Gap 15.3 mEq/L (5-15); Calcium 8.9 mg/dl (8.4-10.2); Carbon Dioxide 31 mmol/L (22.0-30.0); Globulin 3.3 g/dL (1.3-3.2); Glucose 294 mg/dl (74-100); Total Protein,Serum 7.9 g/dl (6.3-8.2)
--- NOTE | 2023-07-22 01:26 | HMH.EDGENADL ---
Discharge Plan Disposition Patient Disposition: Admitted Condition: Fair Chief Complaint: Shortness of Breath/Dyspnea Clinical Impressions Clinical Impression: Acute exacerbation of chronic obstructive pulmonary disease, Acute respiratory acidosis CHF (congestive heart failure) Qualifiers: Heart failure type: unspecified Heart failure chronicity: acute on chronic Qualified Code(s): I50.9 - Heart failure, unspecified Pneumonia Qualifiers: Pneumonia type: due to unspecified organism Laterality: bilateral Lung location: lower lobe of lung Qualified Code(s): J18.9 - Pneumonia, unspecified organism Discharge ED Provider: Milo Márquez Adult HPI General Chief complaint: Shortness of Breath/Dyspnea Stated complaint: Short of Breath Time Seen by Provider: 07/22/23 00:46 Mode of Arrival: EMS Source of Information: Patient and EMS Limitations: No Limitations Description of Symptoms (Recalled from ER Triage Doc. by RN): Presents to ED via EMS from home. EMS reports upon arrival to the home patient was in tripod position struggling to breath with Sat's in the 80's. EMS reports giving a duoneb and Sat's were still in the 80's; EMS placed patient on C-PAP and his sat's came up to 95%. Patient reports hx of COPD and CHF. Patient states he has PRN 2L NC at home but has not used it. Patient states he has been feeling SOA for a few days with complaints of chills and fever. History of Present Illness HPI narrative: This 63-year-old male presents to the emergency department with concerns of shortness of breath. Patient has a history of CAD, NSTEMI, hypertension, CHF, COPD. Patient reportedly is poorly compliant with his home oxygen and has not been using it. EMS was called and found patient in a tripod position with saturations in the 80s. They administered DuoNeb but patient did not improve so they placed him on CPAP for transport and his oxygen saturation improved to 95%. Patient states he has been having fevers and chills and his shortness of breath has been worsening over the last few days. Related Data Home Medications Medication Instructions Recorded Confirmed hydroxyzine HCl 50 mg tablet 50 mg PO DAILY PRN Anxiety 01/09/20 07/06/23 isosorbide mononitrate 30 mg 30 mg PO DAILY Blood Pressure 01/09/20 07/06/23 tablet,extended release 24 hr alprazolam 1 mg tablet 1 mg PO QID PRN Anxiety 03/06/20 07/06/23 atorvastatin 40 mg tablet 40 mg PO HS Cholesterol 04/11/20 07/06/23 rivaroxaban 20 mg tablet (Xarelto) 20 mg PO DAILY blood 05/13/23 07/06/23 thinner/atrial fib sacubitril 97 mg-valsartan 103 mg 1 tab PO BID Blood Pressure 05/13/23 07/06/23 tablet (Entresto) bupropion HCl 300 mg 24 hr tablet, 300 mg PO DAILY Mood 05/14/23 07/06/23 extended release gabapentin 800 mg tablet 800 mg PO Q6H Pain 05/14/23 07/06/23 amoxicillin 875 mg-potassium 1 tab PO BID Infection 07/06/23 07/06/23 clavulanate 125 mg tablet aspirin 81 mg tablet,delayed 81 mg PO DAILY HEART HEALTHY 07/06/23 07/06/23 release azithromycin 250 mg tablet See Rx Instructions .Route 07/06/23 07/06/23 .COMPLEX Infection carvedilol 25 mg tablet 25 mg PO BID . 07/06/23 07/06/23 clopidogrel 75 mg tablet (Plavix) 75 mg PO DAILY Blood Thinner 07/06/23 07/06/23 furosemide 40 mg tablet 40 mg PO BID Fluid 07/06/23 07/06/23 pantoprazole 40 mg tablet,delayed 40 mg PO DAILY REFLUX 07/06/23 07/06/23 release spironolactone 25 mg tablet 50 mg PO DAILY . 07/06/23 07/06/23 Previous Rx's Medication Instructions Recorded albuterol sulfate 90 mcg/actuation 2 puff inhalation Q6H PRN COPD 90 10/11/18 aerosol inhaler days #18 grams nitroglycerin 0.4 mg sublingual 0.4 mg sublingual Q5M PRN Chest 08/01/19 tablet (Nitrostat) Pain #30 tabs Allergies Allergy/AdvReac Type Severity Reaction Status Date / Time codeine [CODEINE] AdvReac Mild Headache Verified 07/06/23 08:[address] [facility] Disclaimer: The information contained in this section may have been updated
[2023-07-22 01:27] LABS: NT Pro Brain Natriuretic Pep. 2860 pg/mL (0-125)
[2023-07-22 01:29] LABS: Troponin I 0.02 ng/ml (0.00-0.034)
--- NOTE | 2023-07-22 01:34 | PC.NURSE ---
PRIOR: 124/80, POST: 114/72
--- NOTE | 2023-07-22 01:42 | PC.NURSE ---
CALL PLACED TO PARVEZ PER ORLY
--- NOTE | 2023-07-22 02:03 | EXP.HP ---
History of Present Illness *Admission Date: 07/22/23 *Reason for visit:: SOB *History of present illness: This is a 63-year-old male with PMHx of HFrEF, COPD CAD, NSTEMI, hypertension, presented to the emergency department with concerns of shortness of breath. Patient reportedly is poorly compliant with his home oxygen and has not been using it. EMS was called and found patient in a tripod position with saturations in the 80s. They administered DuoNeb but patient did not improve so they placed him on CPAP for transport and his oxygen saturation improved to 95%. Patient states he has been having fevers and chills and his shortness of breath has been worsening over the last few days. Admitted for treatment. [facility] Disclaimer: The information contained in this section may have been updated after the patient was seen, as this information can be updated by other users. Medical History (Updated 07/22/23 @ 11:07 by Reynaldo Cruz MD) Angina pectoris Anxiety Arrhythmia Benzocaine adverse reaction Congestive heart failure COPD (chronic obstructive pulmonary disease) Depression Diastolic dysfunction Edema Hemorrhoid History of cardioversion History of gastroesophageal reflux (GERD) History of heart attack Injury of left foot Left foot pain Lumbar disc disease with radiculopathy Lumbar disc disease with radiculopathy Lumbar disc disease with radiculopathy Myocardial infarct Sleep apnea Vitamin D deficiency Surgical History History of quadruple bypass History of surgery Hx of heart artery stent Family History Other Heart attack Heart disease Social History (Updated 07/22/23 @ 03:25 by Inocencia Cortez RN) Smoking Status: Current every day smoker tobacco type: cigarettes packs per day: 1 pack-years: 50 second hand exposure: No alcohol intake: never substance use type: marijuana, crack/cocaine, painkillers and prescription drug current occupational status: retired and disabled Travel in the last 8 weeks: None household members: spouse housing: house number of children: 7 current occupational exposures/hazards: No caffeine: Yes Review of Systems Constitutional Constitutional: Denies headache(s) and Denies weakness ENT Ears, Nose, Mouth, and Throat: Denies dizziness and Denies headache(s) *Musculoskeletal Musculoskeletal: Denies numbness and Denies tingling *Neurologic Neurologic: Denies dizziness, Denies headache(s), Denies numbness, Denies tingling and Denies weakness Meds Home Medications and Allergies Home Medications Medication Instructions Recorded Confirmed Type nitroglycerin 0.4 mg sublingual 0.4 mg sublingual Q5M PRN Chest 08/01/19 07/22/23 Rx tablet (Nitrostat) Pain #30 tabs hydroxyzine HCl 50 mg tablet 50 mg PO DAILYP PRN Anxiety 01/09/20 07/22/23 History alprazolam 1 mg tablet 1 mg PO QIDP PRN Anxiety 03/06/20 07/22/23 History atorvastatin 40 mg tablet 40 mg PO HS Cholesterol 04/11/20 07/22/23 History rivaroxaban 20 mg tablet (Xarelto) 20 mg PO QPMWITHMEAL blood 05/13/23 07/22/23 History thinner/atrial fib sacubitril 97 mg-valsartan 103 mg 1 tab PO BID Heart Failure 05/13/23 07/22/23 History tablet (Entresto) gabapentin 800 mg tablet 800 mg PO TID Pain 05/14/23 07/22/23 History carvedilol 25 mg tablet 25 mg PO BID High Blood Pressure 07/06/23 07/22/23 History clopidogrel 75 mg tablet (Plavix) 75 mg PO DAILY Platelet Inhibitor 07/06/23 07/22/23 History spironolactone 25 mg tablet 50 mg PO DAILY Fluid 07/06/23 07/22/23 History furosemide 20 mg tablet 20 mg PO BIDP PRN Swelling 07/22/23 07/22/23 History isosorbide mononitrate 30 mg 30 mg PO DAILY High Blood Pressure 07/22/23 07/22/23 History tablet,extended release 24 hr omeprazole 20 mg capsule,delayed 40 mg PO DAILY Acid Reflux 07/22/23 07/22/23 History release New Prescriptions to Start Pres
[2023-07-22 04:13] LABS: Coronavirus 19, PCR Not Detected (NotDetected); Influenza A, PCR Not Detected (NotDetected); Influenza B, PCR Not Detected (NotDetected)
[2023-07-22 04:53] LABS: Alanine Aminotransferase 29 U/L (12-78); Albumin Level 4.4 g/dl (3.5-5.0); Albumin/Globulin Ratio 1.5 (1.1-1.8); Alkaline Phosphatase 65 U/L (38-126); Anion Gap 14.7 mEq/L (5-15); Aspartate Amino Transferase 40 U/L (17-59); Bilirubin,Total 0.9 mg/dl (0.2-1.3); Blood Urea Nitrogen 21 mg/dl (9-20); Calcium 8.5 mg/dl (8.4-10.2); Carbon Dioxide 31 mmol/L (22.0-30.0); Chloride 100 mmol/L (98-107); Creatinine Clearance Estimated 92 mL/min (50-200); Estimated Glomerular Filt Rate 68 ml/min (>60); GFR (African American) 82 ML/MIN (>60); Globulin 2.9 g/dL (1.3-3.2); Glucose 135 mg/dl (74-100); Potassium 3.7 mmoL/L (3.5-5.1); Sodium 142 mmol/L (136-145); Total Protein,Serum 7.3 g/dl (6.3-8.2)
[2023-07-22 04:55] LABS: Basophils % 0.1 % (0.1-2.0); Eosinophils % 0.1 % (0.1-12.0); Hematocrit 41.3 % (42.0-52.0); Hemoglobin 13.3 g/dL (14.1-18.0); Lymphocytes # 1.2 K/mm3 (0.7-4.5); Lymphocytes % 9.2 % (10-50); Mean Corpuscular HGB Conc 32.2 g/dL (31.8-35.4); Mean Corpuscular Hemoglobin 29.4 pg (27.0-31.2); Mean Corpuscular Volume 91.4 fl (80-94); Mean Platelet Volume 9.2 fl (7.4-10.4); Monocytes # 0.6 K/mm3 (0.1-1.0); Monocytes % 4.3 % (1.7-9.3); Neutrophils # 11.2 K/mm3 (1.8-7.8); Neutrophils % 86.3 % (37.0-80.0); Platelet Count 196 K/mm3 (142-424); Red Blood Count 4.52 M/mm3 (4.60-6.20); Red Cell Distribution Width 15.2 % (11.5-17.5)
[2023-07-22 04:57] LABS: MANUAL DIFFERENTIAL MANUAL DIFFERENTIAL (MANUAL DIFF)
[2023-07-22 05:05] LABS: Troponin I 0.06 ng/ml (0.00-0.034)
[2023-07-22 07:15] LABS: Lymphocytes % 9 % (10-50); Neutrophils % 90 % (42-76); Total Cells Counted 100
[2023-07-22 07:18] LABS: Giant Platelets 1+; Platelet Estimate Slight Dec; RBC Morphology Normal
[2023-07-22 07:19] LABS: Hypochromasia 1+; Macrocytosis 2+; Poikilocytosis 1+
[2023-07-22 07:35] LABS: Troponin I 0.07 ng/ml (0.00-0.034)
--- NOTE | 2023-07-22 07:44 | PC.NURSE ---
pt admitted for pna. alert and oriented on arrival to room just drowsy but arousable to speech, pt responds to verbal command. pt alejandro cardiac diet, nsr on monitor. currently on vapotherm @ 50%, sent flu/covid pcr to lab.
--- NOTE | 2023-07-22 08:52 | HMH.PHAINT1 ---
Pharmacy Intervention Comments: MEDICATION RECONCILIATION COMPLETED ON PATIENT USING EXTERNAL FILL HISTORY FROM PHARMACY AND LIST FROM CARDIOLOGY OFFICE. -RAYMOND HAIR, NAVJOTD
--- NOTE | 2023-07-22 09:16 | EXP.PULM.CON ---
History of Present Illness History of present illness: Mr. Hinojosa is a 63-year-old male with documented history of heart failure with reduced action fraction, COPD, CAD, prior history of NSTEMI and hypertension presented to the ER with worsening respiratory distress. Upon admission patient was initiated on CPAP therapy with improvement in saturations. [facility] Disclaimer: The information contained in this section may have been updated after the patient was seen, as this information can be updated by other users. Medical History (Updated 07/22/23 @ 11:07 by Reynaldo Cruz MD) Angina pectoris Anxiety Arrhythmia Benzocaine adverse reaction Congestive heart failure COPD (chronic obstructive pulmonary disease) Depression Diastolic dysfunction Edema Hemorrhoid History of cardioversion History of gastroesophageal reflux (GERD) History of heart attack Injury of left foot Left foot pain Lumbar disc disease with radiculopathy Lumbar disc disease with radiculopathy Lumbar disc disease with radiculopathy Myocardial infarct Sleep apnea Vitamin D deficiency Surgical History History of quadruple bypass History of surgery Hx of heart artery stent Family History Other Heart attack Heart disease Social History (Updated 07/22/23 @ 03:25 by Inocencia Cortez RN) Smoking Status: Current every day smoker tobacco type: cigarettes packs per day: 1 pack-years: 50 second hand exposure: No alcohol intake: never substance use type: marijuana, crack/cocaine, painkillers and prescription drug current occupational status: retired and disabled Travel in the last 8 weeks: None household members: spouse housing: house number of children: 7 current occupational exposures/hazards: No caffeine: Yes Review of Systems Review of Systems Review of systems:: unable to obtain Review of systems (narrative): Subjective patient lethargic and not responding appropriately verbal commands Constitutional Constitutional: Denies headache(s) and Denies weakness ENT Ears, Nose, Mouth, and Throat: Denies dizziness and Denies headache(s) *Musculoskeletal Musculoskeletal: Denies numbness and Denies tingling *Neurologic Neurologic: Denies dizziness, Denies headache(s), Denies numbness, Denies tingling and Denies weakness Pulmonology Exam Inpatient Vital signs and Labs for Last 24 Hours: Temp Pulse Resp BP Pulse Ox O2 Del Method O2 Flow Rate 97.4 F L 69 18 133/83 99 Vapotherm 30 07/22/23 07:56 07/22/23 07:56 07/22/23 07:56 07/22/23 07:56 07/22/23 08:00 07/22/23 08:00 07/22/23 04:00 FiO2 50 07/22/23 03:33 Laboratory Results - last 24 hr 07/22/23 00:15: WBC 13.6 H, RBC 5.01, Hgb 14.6, Hct 47.1, MCV 94.0, MCH 29.1, MCHC 30.9 L, RDW 15.1, Plt Count 295, MPV 9.5, Neut % (Auto) 68.4, Lymph % (Auto) 24.6, Scurry % (Auto) 5.4, Eos % (Auto) 1.2, Baso % (Auto) 0.3, Neut # (Auto) 9.3 H, Lymph # (Auto) 3.4, Scurry # (Auto) 0.7, Eos # (Auto) 0.2, Baso # (Auto) 0.1, Sodium 141, Potassium 4.3, Chloride 99, Carbon Dioxide 31 H, Anion Gap 15.3 H, BUN 22 H, Creatinine 1.30 H, Estimated Creat Clear 75, Estimated GFR 56 L, Est GFR ( Amer) 67, Glucose 294 H, Calcium 8.9, Total Bilirubin 1.0, AST 57, ALT 33, Alkaline Phosphatase 79, Troponin I 0.02, NT-Pro-B Natriuret Pep 2860 H, Total Protein 7.9, Albumin 4.6, Globulin 3.3 H, Albumin/Globulin Ratio 1.4 07/22/23 00:47: VBG pH 7.13 L, VBG pCO2 77.1 H, VBG pO2 72.5 H, VBG HCO3 25.3, VBG Total CO2 27.7 H, VBG O2 Saturation 89.5 H, VBG Base Excess -3.8 L 07/22/23 04:00: SARS-CoV-2 (PCR) Not detected, Influenza A Untype (PCR) Not detected, Influenza Type B (PCR) Not detected 07/22/23 04:15: WBC 13.0 H, RBC 4.52 L, Hgb 13.3 L, Hct 41.3 L, MCV 91.4, MCH 29.4, MCHC 32.2, RDW 15.2, Plt Count 196 D, MPV 9.2, Neut % (Auto) 86.3 H, Lymph % (Auto) 9.2 L, Scurry % (Auto) 4.3, Eos % (Auto) 0.1,
[2023-07-22 10:37] LABS: ABG Base Excess 4.9 mmol/L (-2.4-2.3); ABG HCO3 29.4 mmhg (22.0-26.0); ABG Oxygen Saturation 94 % (90-100); ABG PCO2 46.8 mmhg (35.0-45.0); ABG PH 7.42 mmol/L (7.35-7.45); ABG TCO2 30.8 mmhg (23-27)
[2023-07-22 10:38] LABS: Allen's Test ACCEPTABLE; Source Right Radial
--- NOTE | 2023-07-22 10:45 | EXP.PN ---
Subjective *Date: 07/22/23 *Time: 10:45 Interval history: The patient is seen and examined. I am accompanied by nursing staff. The patient is accompanied by his spouse who is at bedside. He presented to the ED with dyspnea with an identified history of COPD, ongoing tobacco dependence, HFrEF, PAF/atrial flutter on chronic factor Xa inhibitor therapy, ANUPAM and coronary artery disease with previous stent and CABG. Medical noncompliance is noted in the record. His ED chest x-ray was concerning for pulmonary edema and his BNP was elevated. Nursing staff report that he remains afebrile with improved blood pressures, stable heart rates and requiring Vapotherm 30 L via nasal cannula to maintain appropriate oxygen saturations. Pulmonology is due to see the patient. Exam Data for Last 24 hours Vital signs and Labs for Last 24 Hours: Temp Pulse Resp BP Pulse Ox O2 Del Method O2 Flow Rate 97.4 F L 69 18 133/83 99 Vapotherm 30 07/22/23 07:56 07/22/23 07:56 07/22/23 07:56 07/22/23 07:56 07/22/23 08:00 07/22/23 08:00 07/22/23 04:00 FiO2 50 07/22/23 03:33 Laboratory Results - last 24 hr 07/22/23 00:15: WBC 13.6 H, RBC 5.01, Hgb 14.6, Hct 47.1, MCV 94.0, MCH 29.1, MCHC 30.9 L, RDW 15.1, Plt Count 295, MPV 9.5, Neut % (Auto) 68.4, Lymph % (Auto) 24.6, Miner % (Auto) 5.4, Eos % (Auto) 1.2, Baso % (Auto) 0.3, Neut # (Auto) 9.3 H, Lymph # (Auto) 3.4, Miner # (Auto) 0.7, Eos # (Auto) 0.2, Baso # (Auto) 0.1, Sodium 141, Potassium 4.3, Chloride 99, Carbon Dioxide 31 H, Anion Gap 15.3 H, BUN 22 H, Creatinine 1.30 H, Estimated Creat Clear 75, Estimated GFR 56 L, Est GFR ( Amer) 67, Glucose 294 H, Calcium 8.9, Total Bilirubin 1.0, AST 57, ALT 33, Alkaline Phosphatase 79, Troponin I 0.02, NT-Pro-B Natriuret Pep 2860 H, Total Protein 7.9, Albumin 4.6, Globulin 3.3 H, Albumin/Globulin Ratio 1.4 07/22/23 00:47: VBG pH 7.13 L, VBG pCO2 77.1 H, VBG pO2 72.5 H, VBG HCO3 25.3, VBG Total CO2 27.7 H, VBG O2 Saturation 89.5 H, VBG Base Excess -3.8 L 07/22/23 04:00: SARS-CoV-2 (PCR) Not detected, Influenza A Untype (PCR) Not detected, Influenza Type B (PCR) Not detected 07/22/23 04:15: WBC 13.0 H, RBC 4.52 L, Hgb 13.3 L, Hct 41.3 L, MCV 91.4, MCH 29.4, MCHC 32.2, RDW 15.2, Plt Count 196 D, MPV 9.2, Neut % (Auto) 86.3 H, Lymph % (Auto) 9.2 L, Miner % (Auto) 4.3, Eos % (Auto) 0.1, Baso % (Auto) 0.1, Neut # (Auto) 11.2 H, Lymph # (Auto) 1.2, Miner # (Auto) 0.6, Eos # (Auto) 0.0, Baso # (Auto) 0.0, Total Counted 100, Neutrophils % (Manual) 90 H, Band Neutrophils % 1.0, Lymphocytes % (Manual) 9 L, Platelet Estimate Slight dec, Giant Platelets 1+, RBC Morphology Normal, Hypochromasia 1+, Poikilocytosis 1+, Macrocytosis 2+, Sodium 142, Potassium 3.7, Chloride 100, Carbon Dioxide 31 H, Anion Gap 14.7, BUN 21 H, Creatinine 1.10, Estimated Creat Clear 92, Estimated GFR 68, Est GFR ( Amer) 82 D, Glucose 135 H D, Calcium 8.5, Magnesium 2.0, Total Bilirubin 0.9, AST 40 D, ALT 29, Alkaline Phosphatase 65, Troponin I 0.06 H, Total Protein 7.3, Albumin 4.4, Globulin 2.9, Albumin/Globulin Ratio 1.5 07/22/23 07:00: Troponin I 0.07 H 07/22/23 10:34: Specimen Source Right radial, O2 % 20l/40%, ABG pH 7.42, ABG pCO2 46.8 H, ABG pO2 67.0 L, ABG HCO3 29.4 H, ABG Total CO2 30.8 H, ABG O2 Saturation 94, ABG Base Excess 4.9 H, Samy Test Acceptable I & O for Last 24 hours: Intake & Output 07/19/23 07/20/23 07/21/23 07/22/23 23:59 23:59 23:59 23:59 Intake Total 60 / 60 Output Total 600 / 600 Balance -540 / -540 Weight 94.302 kg Constitutional Constitutional: no acute distress, obese, chronically ill appearing and cooperative *Routine HEENT Exam Head: Present normocephalic and atraumatic Eye: Present EOMI and PERRL ENT: Present mucous membranes moist *Routine Neck Exam Neck: Present supple, full ROM and trachea midline; Absent lymphadenopathy *Routine Respiratory Exam Respiratory: Present rhonchi, wheezes, diminished air movement, normal respiratory effort
--- NOTE | 2023-07-22 11:30 | PC.NURSE ---
urine sent to lab
[2023-07-22 11:49] LABS: Benzodiazepines Screen,Urine Positive ng/ml (<200)
[2023-07-22 11:50] LABS: Amphetamine/Metha Screen,Urine Negative ng/ml (<1000)
[2023-07-22 11:51] LABS: Barbiturates Screen,Urine Negative ng/ml (<200); Methadone Screen,Urine Negative ng/ml (<300)
[2023-07-22 11:52] LABS: Cannabinoid Screen,Urine Negative ng/ml (<50)
[2023-07-22 11:53] LABS: Cocaine Screen,Urine Negative ng/ml (<300); Opiate Screen,Urine Negative ng/ml (<300)
[2023-07-22 11:54] LABS: Phencyclidine Screen,Urine Negative ng/ml (<25)
--- NOTE | 2023-07-22 16:50 | PC.NURSE ---
pt has sleep intermittently this shift. pt ls scattered rhonci. pt on vapotherm 30 L 40%. pt confused at times. abdomen soft, nontender. pt voiding per urinal. pt has been more awake towards the end of shift and asked for a snack (pudding and ice cream) pt has had a visitor at bedside. bed alarm on, call light w/i reach.
--- NOTE | 2023-07-22 18:46 | PC.NURSE ---
pt has asked for Percocet x 3 times t/o this shift. notified.
[2023-07-23] VITALS (26 sets, daily range): BP systolic 89–135; BP diastolic 59–91; PULSE 83–141; RESP 15–28; TEMP 36.4–36.9; O2SAT 91–96; BMI 29.9
--- NOTE | 2023-07-23 00:30 | PC.NURSE ---
RN notified Jean Pierre, hospitalist that patient has had a rhythm change from NSR to A-Fib with RVR. EKG completed. Patient states he does have history. New orders received for Ativan 0.5mg PO at 01:04 and metoprolol 2.5mg IV at 01:50. Both administered per DEC. Patient is having no symptoms of distress at this time.
--- NOTE | 2023-07-23 01:41 | ECG_ITS ---
APPROVED REPORT Exam: Resting ECG HR:142 bpm ECG Measurements Heart Rate 142 AXES QRSd 112 QRS 5 QT 320 T 129 QTc 402 Conclusion ATRIAL FLUTTER/TACHYCARDIA WITH RAPID VENTRICULAR RESPONSE ST DEVIATION AND MODERATE T-WAVE ABNORMALITY, CONSIDER LATERAL ISCHEMIA [-0.1+ mV T-WAVE IN I/aVL/V5/V6] ABNORMAL ECG UNCONFIRMED REPORT Electronically signed by : Yonas Barber MD 07/23/2023 17:17:58
--- NOTE | 2023-07-23 02:30 | PC.NURSE ---
Jean Pierre, hospitalist aware of patient's HR remaining at 130-140's after medication. No new orders at this time.
--- NOTE | 2023-07-23 04:07 | PC.NURSE ---
Cardizem drip started at 04:05 at 5mls/hr per MAR. Patient remains asymptomatic. Patient will be Step-down and moved to room 219.
--- NOTE | 2023-07-23 04:24 | PC.NURSE ---
Report given to NIC Pro at this time.
--- NOTE | 2023-07-23 04:30 | PC.NURSE ---
Dilt titrated to 10 mg/hr
--- NOTE | 2023-07-23 05:16 | PC.NURSE ---
Dilt titrated to 15mg/hr
[2023-07-23 06:41] LABS: Anion Gap 13.1 mEq/L (5-15); Basophils % 0.1 % (0.1-2.0); Blood Urea Nitrogen 17 mg/dl (9-20); Calcium 9.2 mg/dl (8.4-10.2); Carbon Dioxide 26 mmol/L (22.0-30.0); Chloride 103 mmol/L (98-107); Creatinine Clearance Estimated 102 mL/min (50-200); Eosinophils % 0.2 % (0.1-12.0); Estimated Glomerular Filt Rate 98 ml/min (>60); GFR (African American) 118 ML/MIN (>60); Glucose 192 mg/dl (74-100); Hematocrit 41.8 % (42.0-52.0); Hemoglobin 13.8 g/dL (14.1-18.0); Lymphocytes # 1.1 K/mm3 (0.7-4.5); Lymphocytes % 9.3 % (10-50); Mean Corpuscular Hemoglobin 29.4 pg (27.0-31.2); Mean Corpuscular Volume 88.9 fl (80-94); Mean Platelet Volume 10.3 fl (7.4-10.4); Monocytes # 0.6 K/mm3 (0.1-1.0); Neutrophils # 10.3 K/mm3 (1.8-7.8); Neutrophils % 85.4 % (37.0-80.0); Platelet Count 202 K/mm3 (142-424); Potassium 4.1 mmoL/L (3.5-5.1); Sodium 138 mmol/L (136-145)
[2023-07-23 06:46] LABS: MANUAL DIFFERENTIAL MANUAL DIFFERENTIAL (MANUAL DIFF)
[2023-07-23 06:49] LABS: NT Pro Brain Natriuretic Pep. 2310 pg/mL (0-125)
--- NOTE | 2023-07-23 06:49 | PC.NURSE ---
dilt put on standby at this time due to hr dropping into 60s. pt continues to be afib on monitor.
[2023-07-23 08:29] LABS: Lymphocytes % 9 % (10-50); Monocytes % 3 % (2-9); Neutrophils % 88 % (42-76); Platelet Estimate Normal; RBC Morphology Normal; Total Cells Counted 100
--- NOTE | 2023-07-23 09:05 | CA_ITS ---
APPROVED REPORT EXAM: Comprehensive 2D, Doppler, and color-flow Echocardiogram Automatic Pattern Edger: SERG Mckeon, RVS Ht: 5 ft 10 in Wt: 209lbs BSA: 2.13 BP: 132/82 mmHg Rhythm: Atrial Fibrillation Indications: CHF, CAD, CM, CAD, COPD, HFrEF 2D Dimensions IVSd 1.09 cm M: 0.6-1.2 LVEF (Visual) 29.30 % PWd 1.02 cm M: 0.6 - 1.2 LA Volume 132.80 mL LVDd 7.06 cm M: 4.2 - 5.9 LA Volume Index 62.35 mL/m2 (M/F) 16-34 LVDs 6.06 cm M: 2.5 - 4.0 Aortic Root 3.30 cm M: 3.1 - 3.7 Left Atrium 5.83 cm M: 3.0 - 4.0 LVOT 2.01 cm (M/F) 1.5-2.5 M-Mode Dimensions RVDd 1.52 cm (0.9-2.6) LA Diam 5.34 cm (1.9-4.0) LVDd 7.64 cm (3.5-5.7) Ao Diam 3.45 cm (2.0-3.7) LVDs 5.77 cm (3.5-5.7) IVSd 1.12 cm (0.6-1.1) PWd 0.94 cm (0.6-1.1) EF (Teich) 47.10% EPSs 1.35 cm FS 24.50% EDV (Teich) 310.90 mL TAPSE 1.13 (<1.7) ESV (Teich) 164.60 mL LV Diastology E Decel Time 217.00 (160-240 msec) E/A Ratio 3.84 MED E' 5.80 (< 7 cm/sec) MED A' 5.40 cm/s E'/MED E' Ratio 22.66 (>14) LAT E' 8.60 (<10 cm/sec) LAT A' 3.10 cm/s E/LAT E' Ratio 15.28 (>14) Aortic Valve LVOT Max 89.00 (70-110 cm/s) LVOT VTI 14.06 cm AoV Peak Jeramy. 144.00 (50-130 cm/s) AO Peak GR. 8.30 mmHg AO Mean GR. 4.30 (<5 mmHg) AO VTI 24.52 (18-25 cm) AURELIO (VTI) 1.82 (2.5-4.5 cm2) Mitral Valve MV A Velocity 34.00 (40-130 cm/s) E/A Ratio 3.84 MV Decel. Time 217.00 (160-240 ms) MV Mean Gr. 2.30 (<2mmHg) Pulmonary Valve PV Peak Velocity 88.00 (50-150 cm/s) Tricuspid Valve TR P. Velocity 269.00 cm/s RAP Estimate 10.00 mmHg RVSP 38.90 mmHg Left Ventricle Left ventricle is moderately dilated (LVEDVi=94 ml/m2). There is moderate reduction in LV systolic function. There is increased LV wall thickness. There is severe hypokinesis of the inferior and inferolateral LV renae. Diastolic function is indeterminate due to atrial fibrillation. LVEF is 35-40%. Right Ventricle The right ventricle is normal size. The right ventricular systolic function is normal. Atria The left atrium is moderately dilated. The right atrium is mildly dilated. There is no Doppler evidence of interatrial shunt. Aortic Valve The aortic valve opens well. There is no aortic valvular stenosis. Trace aortic regurgitation. Mitral Valve The posterior MV leaflet appears tethered with restricted leaflet motion. No evidence of mitral valve stenosis. There is moderate mitral regurgitation. The MR jet is eccentric and is posteriorly directed. The most likely mechanism of MR is due to tethering of the posterior MV leaflet in the setting of LV dilation/dysfunction and inferior LV wall motion, i.e. 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 Tricuspid Valve The tricuspid valve leaflets are thin and pliable. Mild tricuspid regurgitation. RVSP is normal. Pulmonic Valve The pulmonary valve is normal in structure. Trace pulmonic regurgitation. Great Vessels The aortic root is normal in size. The ascending aorta is normal in size. IVC is normal in size and collapses >50% with inspiration. Pericardium There is no pericardial effusion. Other Information Study Quality: Fair Conclusion Moderate reduction moderately dilated LV with moderate reduction in LV systolic function. Severe hypokinesis of the inferior and inferolateral LV renae. Moderate mitral regurgitation due to tethering of posterior MV leaflet in the setting of LV dysfunction and inferior wall motion abnormalities (i.e ischemic MR). Mild tri
--- NOTE | 2023-07-23 09:14 | EXP.PULM.PN ---
Subjective *Date: 07/23/23 *Time: 11:27 Interval history: No acute respiratory vents overnight. Patient admits significant improvement in his respiratory status. Pulmonology Exam Inpatient Vital signs and Labs for Last 24 Hours: Temp Pulse Resp BP Pulse Ox O2 Del Method O2 Flow Rate 97.5 F L 92 H 18 93/63 L 94 L Nasal Cannula 2.5 07/23/23 08:27 07/23/23 08:00 07/23/23 08:00 07/23/23 08:00 07/23/23 08:00 07/23/23 08:00 07/23/23 08:00 FiO2 40 07/23/23 05:04 Laboratory Results - last 24 hr 07/22/23 10:34: Specimen Source Right radial, O2 % 20l/40%, ABG pH 7.42, ABG pCO2 46.8 H, ABG pO2 67.0 L, ABG HCO3 29.4 H, ABG Total CO2 30.8 H, ABG O2 Saturation 94, ABG Base Excess 4.9 H, Samy Test Acceptable 07/22/23 11:30: Urine Opiates Screen Negative, Urine Methadone Screen Negative, Ur Barbituates Screen Negative, Ur Phencyclidine Scrn Negative, Ur Amphetamines Screen Negative, U Benzodiazepines Scrn Positive H, Urine Cocaine Screen Negative, U Marijuana (THC) Screen Negative 07/23/23 06:03: WBC 12.0 H, RBC 4.70, Hgb 13.8 L, Hct 41.8 L, MCV 88.9, MCH 29.4, MCHC 33.0, RDW 15.0, Plt Count 202, MPV 10.3, Neut % (Auto) 85.4 H, Lymph % (Auto) 9.3 L, [place] % (Auto) 5.0, Eos % (Auto) 0.2, Baso % (Auto) 0.1, Neut # (Auto) 10.3 H, Lymph # (Auto) 1.1, [place] # (Auto) 0.6, Eos # (Auto) 0.0, Baso # (Auto) 0.0, Total Counted 100, Neutrophils % (Manual) 88 H, Lymphocytes % (Manual) 9 L, Monocytes % (Manual) 3, Platelet Estimate Normal, RBC Morphology Normal, Sodium 138, Potassium 4.1, Chloride 103, Carbon Dioxide 26, Anion Gap 13.1, BUN 17, Creatinine 0.80 D, Estimated Creat Clear 102, Estimated GFR 98, Est GFR ( Amer) 118 D, Glucose 192 H, Calcium 9.2, NT-Pro-B Natriuret Pep 2310 H I & O for Labs for Last 24 Hours: Intake & Output 07/20/23 07/21/23 07/22/23 07/23/23 23:59 23:59 23:59 23:59 Intake Total 690 / 690 680 / 680 Output Total 2950 / 3450 1300 / 1300 Balance -2260 / -2760 -620 / -620 Weight 207 lb 14.4 oz 209 lb 11.2 oz Constitutional: Present moderate distress Head: Present normocephalic and atraumatic ENT: Present normal exam, normal oropharynx and mucous membranes moist Neck: Present normal inspection and full ROM Respiratory: Present able to speak in complete sentences; Absent prolonged expiratory phase, respiratory distress or wheezes Cardiac: Present S1/S2, Tachycardia and radial pulses present GI: Present soft and distention; Absent tenderness or guarding Skin: Present intact; Absent cyanosis or jaundice Neuro: Present alert, awake and oriented x 3 Extremities: Present normal inspection; Absent clubbing or cyanosis Psychiatric: Present normal affect and cooperative Assessment and Plan *Assessment and plan (1) Acute respiratory failure with hypoxia: Status: Resolved Category: Medical Code(s): J96.01 - Acute respiratory failure with hypoxia (2) Pneumonia: Status: Acute Qualifiers: Laterality: bilateral Lung location: lower lobe of lung Pneumonia type: due to unspecified organism Qualified Code(s): J18.9 - Pneumonia, unspecified organism Category: Medical Code(s): J18.9 - Pneumonia, unspecified organism Plan Mr. Hinojosa is a 63-year-old male > 30 PPD with documented history of heart failure with reduced action fraction, COPD, CAD, prior history of NSTEMI and hypertension presented to the ER with worsening respiratory distress. Upon admission patient was initiated on CPAP therapy with improvement in saturations. Much of the history is obtained from patient's family. Patient not arousable and not responding appropriately verbal commands. Echo from April 2023 heart failure with reduced ejection fraction EF of 35 to 40%. BNP elevated at 2860. CTA from April 2023, no significant emphysematous change in bilateral diffuse groundglass opacities and interstitial septal thickening. No evidence of pulmonary embolism. Chest x-ray upon admission, bilateral lower lobe air
--- NOTE | 2023-07-23 10:44 | IR_ITS ---
APPROVED REPORT Patient Location: Inpatient Sales Record Clerk: TERESA Gillespie RT (R) PROCEDURES Selective coronary angiogram Selective engagement of the left internal mammary artery to the LAD Selective engagement of the saphenous vein graft to the circumflex artery Left heart catheterization Left ventriculogram Right heart catheterization INDICATION Acute non-ST elevation myocardial infarction, Coronary artery disease, History of coronary bypass surgery Informed consent was obtained prior to the procedure. COMPLICATIONS None Estimated Blood Loss: Less than 10 ml TECHNIQUE One percent lidocaine used to anesthetize the right groin. The right femoral artery was accessed via the Seldinger technique and a 5 [place] sheath was placed in the right femoral artery. A JR4 catheter were used to perform left heart catheterization, left ventriculogram selective coronary angiography as well as selective engagement of the saphenous vein graft to the circumflex artery as well as selective engagement of the left internal mammary artery graft to the LAD 1% lidocaine used anesthetize right groin the right femoral vein was accessed via the center technique and a 7 [place] sheath was placed in the right femoral vein. Under fluoroscopic and hemodynamic guidance a [place] catheter was floated to the pulmonary artery where right heart catheterization was performed. At the end the procedure the apparatus was removed the groin is reprepped closure change sheath was removed and hemostasis was achieved in the femoral artery out of the site using Perclose device patient was transferred to the postop holding in stable condition with plans to pull the right femoral venous sheath. ANGIOGRAPHIC RESULTS The left main artery Known to be ostially occluded The right coronary artery Massively large dominant vessel which has stents in the proximal segment which are widely patent free of in-stent restenosis. The mid right coronary artery then has diffuse 30% stenoses. Distally there are widely patent stents which extend into a large posterior descending artery. The stents are widely patent. Distal to the stent there is a 60 to 70% stenosis in a vessel less than 2 mm in diameter which then supplies the inferior portion of the apex The CASON ventriculogram reveals Dilated ventricle ejection fraction 25 to 30% The left ventricular end-diastolic pressure 25 mmHg Left internal mammary artery is a massively large graft widely patent to the proximal LAD Saphenous vein graft circumflex artery ostially occluded Right atrial pressure 8 mmHg Pulmonary artery pressure 40/25 mmHg Pulmonary artery occlusion pressure 22 mmHg Hemoglobin 13.8 Right atrial saturation 68% Pulmonary artery saturation 65% Aortic saturation 89% Cardiac output 6 L/min per Gabi formula Cardiac index 2.8 IMPRESSION Widely patent GRIJALVA to a large LAD Widely patent [place] dominant right coronary artery as described above Stenosis in a large posterior descending artery which is best treated medically given the small caliber of the vessel Atrial fibrillation with persistent rapid ventricular response Cardiomyopathy likely worsened by atrial fibrillation and poorly controlled ventricular response Moderate pulmonary hypertension with moderately elevated left-sided filling pressures PLAN 1. Standard medical management for systolic heart failure 2. Better rate control for atrial fibrillation rapid response 3. Restart Xarelto for atrial fibrillation 4. LDL less than 55 to be achieved with high intensity statin 5. Consideration for LifeVest 6. Diuresis 7. Continue with Plavix for fresh stents with discontinuation of aspirin Electronically signed by : Jassi Leos MD 07/23/2023 17:03:28
--- NOTE | 2023-07-23 12:16 | EXP.CARD.CON ---
History of Present Illness History of Present Illness Consult date: 07/23/23 Requesting physician: Reynaldo Cruz Consult reason: shortness of breath Chief complaint: SOA History of present illness: This is a 63-year-old white gentleman who presented to the emergency department complaints of shortness of breath. He has a known past medical history of HFrEF, coronary artery disease, hypertension, hyperlipidemia, paroxysmal atrial fibrillation and COPD. The patient states that he has not been feeling well for quite some time. He states that he had progressively worsening shortness of breath. He states that he was unable to lie flat. His shortness of breath was worse with exertion. It did improve with rest. He denies any chest pain or pressure. He denies any lower extremity edema. He was also having fever and chills at times. No documented fever here at our facility. The patient was found to have an acute exacerbation of his chronic HFrEF breath and was admitted to the hospital. Overnight last night the patient did go into atrial fibrillation/flutter with RVR. He was treated with a diltiazem drip and IV metoprolol. The patient has rate controlled. He this was not new onset atrial fibrillation/flutter as he has a history of paroxysmal atrial fibrillation on Xarelto. However, the patient does report that he has not been taking his Xarelto for the last several weeks because he thought he was supposed to stop taking the medication. [facility] Disclaimer: The information contained in this section may have been updated after the patient was seen, as this information can be updated by other users. Medical History (Updated 07/23/23 @ 12:47 by Irene Haas APRN) Angina pectoris Anxiety Arrhythmia Atypical angina Benzocaine adverse reaction Congestive heart failure COPD (chronic obstructive pulmonary disease) Depression Diastolic dysfunction Dyspnea on exertion Edema Hemorrhoid History of cardioversion History of gastroesophageal reflux (GERD) History of heart attack Injury of left foot Left foot pain Lumbar disc disease with radiculopathy Lumbar disc disease with radiculopathy Lumbar disc disease with radiculopathy Myocardial infarct Paroxysmal atrial fibrillation Sleep apnea Smoking greater than 30 pack years Vitamin D deficiency Surgical History History of quadruple bypass History of surgery Hx of heart artery stent Family History Other Heart attack Heart disease Social History (Updated 07/22/23 @ 03:25 by Inocencia Cortez RN) Smoking Status: Current every day smoker tobacco type: cigarettes packs per day: 1 pack-years: 50 second hand exposure: No alcohol intake: never substance use type: marijuana, crack/cocaine, painkillers and prescription drug current occupational status: retired and disabled Travel in the last 8 weeks: None household members: spouse housing: house number of children: 7 current occupational exposures/hazards: No caffeine: Yes Review of Systems Review of Systems Review of systems:: pertinent systems reviewed and negative unless documented below Constitutional Constitutional: Reports system reviewed and no additional complaints, except as documented, Reports fatigue, Denies headache(s), Reports lethargy and Denies weakness Eyes Eyes: Reports system reviewed and no additional complaints, except as documented ENT Ears, Nose, Mouth, and Throat: Reports system reviewed and no additional complaints, except as documented, Denies dizziness and Denies headache(s) *Cardiovascular Cardiovascular: Reports system reviewed and no additional complaints, except as documented, Denies chest pain, Reports dyspnea, Reports dyspnea on exertion, Reports orthopnea and Reports paroxysmal nocturnal dyspnea *Respiratory Respiratory: Reports system reviewed and no additional complaints, e
--- NOTE | 2023-07-23 15:50 | PC.NURSE ---
pt to laborer brush clearing at this time via stretcher
[2023-07-23 16:28] LABS: CATHL Activated Clotting Time 395 SEC (74-125)
[2023-07-23 17:01] LABS: CATHL Arterial O2 SAT 65.3 % (90-100)
[2023-07-23 17:02] LABS: CATHL Venous O2 SAT 68.6 % (75-80)
--- NOTE | 2023-07-23 17:15 | PC.NURSE ---
pt back from laboratory equipment cleaner, MD Leos went through right fenoral vein and artery and he perclosed the artery at 1655 so pt can sit up at 1855, no stents were placed, pt was given 7mg versed, 100mcg fentanyl, and 50mg benadryl for the procedure, pt's family back to room, call light within reach
--- NOTE | 2023-07-23 17:31 | EXP.PN ---
Subjective *Date: 07/23/23 *Time: 17:31 Interval history: Patient is seen and examined today. Patient reports improved dyspnea and is in better spirits today. I am accompanied by nursing staff. They report that he is afebrile with stable heart rates and improved blood pressures. He is saturating appropriately on 2 L of oxygen via nasal cannula. He is currently undergoing echocardiogram. He is due for heart cath today. Pulmonology continues to follow. Exam Data for Last 24 hours Vital signs and Labs for Last 24 Hours: Temp Pulse Resp BP Pulse Ox O2 Del Method O2 Flow Rate 98.2 F 99 H 16 110/85 94 L Room Air 2.5 07/23/23 17:15 07/23/23 17:15 07/23/23 17:15 07/23/23 17:15 07/23/23 17:15 07/23/23 17:15 07/23/23 10:00 FiO2 40 07/23/23 05:04 Laboratory Results - last 24 hr 07/23/23 06:03: WBC 12.0 H, RBC 4.70, Hgb 13.8 L, Hct 41.8 L, MCV 88.9, MCH 29.4, MCHC 33.0, RDW 15.0, Plt Count 202, MPV 10.3, Neut % (Auto) 85.4 H, Lymph % (Auto) 9.3 L, [place] % (Auto) 5.0, Eos % (Auto) 0.2, Baso % (Auto) 0.1, Neut # (Auto) 10.3 H, Lymph # (Auto) 1.1, [place] # (Auto) 0.6, Eos # (Auto) 0.0, Baso # (Auto) 0.0, Total Counted 100, Neutrophils % (Manual) 88 H, Lymphocytes % (Manual) 9 L, Monocytes % (Manual) 3, Platelet Estimate Normal, RBC Morphology Normal, Sodium 138, Potassium 4.1, Chloride 103, Carbon Dioxide 26, Anion Gap 13.1, BUN 17, Creatinine 0.80 D, Estimated Creat Clear 102, Estimated GFR 98, Est GFR ( Amer) 118 D, Glucose 192 H, Calcium 9.2, NT-Pro-B Natriuret Pep 2310 H 07/23/23 14:52: Activated Clotting Time 395 H* 07/23/23 16:55: ABG O2 Sat (Measured) 65.3 L, POC VBG O2 Sat (Juan Diego) 68.6 L I & O for Last 24 hours: Intake & Output 07/20/23 07/21/23 07/22/23 07/23/23 23:59 23:59 23:59 23:59 Intake Total 690 / 690 680 / 680 Output Total 2950 / 3450 1300 / 1300 Balance -2260 / -2760 -620 / -620 Weight 94.302 kg 95.118 kg Constitutional Constitutional: no acute distress, obese, chronically ill appearing and cooperative *Routine HEENT Exam Head: Present normocephalic and atraumatic Eye: Present EOMI and PERRL ENT: Present mucous membranes moist *Routine Neck Exam Neck: Present supple, full ROM and trachea midline; Absent lymphadenopathy *Routine Respiratory Exam Respiratory: Present rhonchi, wheezes, diminished air movement, normal respiratory effort and symmetric chest movement *Routine Cardiovascular Exam Cardiovascular: Present RRR, Normal S1 and Normal S2 *Routine Abdominal Exam Abdominal: Present soft and normoactive bowel sounds; Absent tenderness *Routine Extremities Exam Extremities: Present full ROM, pulses intact and normal capillary refill; Absent edema *Routine Skin Exam Skin: Present warm; Absent rash *Routine Neurological Exam Neurological: Present alert, oriented X3, moving all extremities, vision grossly intact, hearing grossly intact and normal speech; Absent sensory deficit or motor deficit Routine Psychiatric Exam Psychiatric: Present normal affect, normal thought process, cooperative, good insight and good judgment Assessment and Plan *Assessment and plan (1) Acute on chronic respiratory failure with hypoxia: Status: Acute Category: Medical Code(s): J96.21 - Acute and chronic respiratory failure with hypoxia (2) Tobacco dependence syndrome: Status: Chronic Category: Medical Code(s): F17.200 - Nicotine dependence, unspecified, uncomplicated (3) Acute on chronic HFrEF (heart failure with reduced ejection fraction): Status: Acute Category: Medical Code(s): I50.23 - Acute on chronic systolic (congestive) heart failure (4) Coronary arteriosclerosis: Status: Chronic Category: Medical Code(s): I25.10 - Atherosclerotic heart disease of [place] coronary artery without angina pectoris (5) CAP (community acquired pneumonia): Status: Acute Qualifiers: Laterality: unspecified laterality
[2023-07-24] VITALS (13 sets, daily range): BP systolic 96–149; BP diastolic 48–103; PULSE 76–119; RESP 13–20; TEMP 36.4–36.9; O2SAT 91–96; BMI 29.9
[2023-07-24 06:42] LABS: Basophils % 0.2 % (0.1-2.0); Eosinophils % 0.1 % (0.1-12.0); Hematocrit 46.7 % (42.0-52.0); Hemoglobin 14.9 g/dL (14.1-18.0); Lymphocytes # 2.3 K/mm3 (0.7-4.5); Lymphocytes % 14.7 % (10-50); Mean Corpuscular HGB Conc 31.8 g/dL (31.8-35.4); Mean Corpuscular Hemoglobin 28.8 pg (27.0-31.2); Mean Corpuscular Volume 90.7 fl (80-94); Mean Platelet Volume 9.9 fl (7.4-10.4); Monocytes # 0.9 K/mm3 (0.1-1.0); Monocytes % 5.5 % (1.7-9.3); Neutrophils # 12.7 K/mm3 (1.8-7.8); Neutrophils % 79.6 % (37.0-80.0); Platelet Count 227 K/mm3 (142-424); Red Blood Count 5.16 M/mm3 (4.60-6.20); Red Cell Distribution Width 15.2 % (11.5-17.5)
[2023-07-24 06:44] LABS: MANUAL DIFFERENTIAL MANUAL DIFFERENTIAL (MANUAL DIFF)
[2023-07-24 06:56] LABS: Anion Gap 12.5 mEq/L (5-15); Blood Urea Nitrogen 27 mg/dl (9-20); Calcium 9.7 mg/dl (8.4-10.2); Carbon Dioxide 35 mmol/L (22.0-30.0); Chloride 99 mmol/L (98-107); Creatinine Clearance Estimated 92 mL/min (50-200); Estimated Glomerular Filt Rate 68 ml/min (>60); GFR (African American) 82 ML/MIN (>60); Glucose 116 mg/dl (74-100); Potassium 4.5 mmoL/L (3.5-5.1); Sodium 142 mmol/L (136-145)
[2023-07-24 08:53] LABS: Chol/HDL Ratio 2.2 (1-3.5); Cholesterol 185 mg/dl (140-200); HDL Cholesterol 85 mg/dl (40-60); Triglycerides 114 mg/dl (30-150); VLDL Cholesterol 23 mg/dL (0-40)
[2023-07-24 09:04] LABS: Direct LDL Cholesterol 83.13 mg/dL (100-129)
[2023-07-24 10:47] LABS: Eosinophils % 1 % (0-3); Lymphocytes % 13 % (10-50); Monocytes % 4 % (2-9); Neutrophils % 82 % (42-76); Platelet Estimate Normal; RBC Morphology Normal; Total Cells Counted 100
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
--- NOTE | 2023-07-24 11:31 | EXP.PULM.PN ---
Subjective *Date: 07/24/23 *Time: 11:31 Interval history: No acute respiratory events overnight. Patient admits continued improvement in respiratory symptoms. Pulmonology Exam Inpatient Vital signs and Labs for Last 24 Hours: Temp Pulse Resp BP Pulse Ox O2 Del Method O2 Flow Rate 97.9 F 93 H 16 147/103 H 94 L Room Air 40 07/24/23 08:00 07/24/23 11:20 07/24/23 06:00 07/24/23 06:00 07/24/23 06:00 07/24/23 06:54 07/24/23 06:00 FiO2 100 07/24/23 06:00 Laboratory Results - last 24 hr 07/23/23 14:52: Activated Clotting Time 395 H* 07/23/23 16:55: ABG O2 Sat (Measured) 65.3 L, POC VBG O2 Sat (Juan Diego) 68.6 L 07/24/23 06:00: WBC 16.0 H D, RBC 5.16, Hgb 14.9, Hct 46.7, MCV 90.7, MCH 28.8, MCHC 31.8, RDW 15.2, Plt Count 227, MPV 9.9, Neut % (Auto) 79.6, Lymph % (Auto) 14.7, George % (Auto) 5.5, Eos % (Auto) 0.1, Baso % (Auto) 0.2, Neut # (Auto) 12.7 H, Lymph # (Auto) 2.3, George # (Auto) 0.9, Eos # (Auto) 0.0, Baso # (Auto) 0.0, Total Counted 100, Neutrophils % (Manual) 82 H, Lymphocytes % (Manual) 13, Monocytes % (Manual) 4, Eosinophils % (Manual) 1, Platelet Estimate Normal, RBC Morphology Normal, Sodium 142, Potassium 4.5, Chloride 99, Carbon Dioxide 35 H, Anion Gap 12.5, BUN 27 H D, Creatinine 1.10 D, Estimated Creat Clear 92, Estimated GFR 68, Est GFR ( Amer) 82 D, Glucose 116 H D, Calcium 9.7, Triglycerides 114, Cholesterol 185, LDL Cholesterol Direct 83.13 L, VLDL Cholesterol 23, HDL Cholesterol 85 H, Cholesterol/HDL Ratio 2.2 I & O for Labs for Last 24 Hours: Intake & Output 07/21/23 07/22/23 07/23/23 07/24/23 23:59 23:59 23:59 23:59 Intake Total 690 / 690 680 / 1040 360 / 360 Output Total 2950 / 3450 2300 / 2500 1875 / 1875 Balance -2260 / -2760 -1620 / -1460 -1515 / -1515 Weight 207 lb 14.4 oz 209 lb 11.2 oz 209 lb 10.906 oz Microbiology Reports for the Last 24 Hours: Microbiology 07/22/23 13:24 Nose - Nasal MRSA Culture - Final Negative Constitutional: Present moderate distress Head: Present normocephalic and atraumatic ENT: Present normal exam, normal oropharynx and mucous membranes moist Neck: Present normal inspection and full ROM Respiratory: Present able to speak in complete sentences; Absent prolonged expiratory phase, respiratory distress or wheezes Cardiac: Present S1/S2, Tachycardia and radial pulses present GI: Present soft and distention; Absent tenderness or guarding Skin: Present intact; Absent cyanosis or jaundice Neuro: Present alert, awake and oriented x 3 Extremities: Present normal inspection; Absent clubbing or cyanosis Psychiatric: Present normal affect and cooperative Assessment and Plan *Assessment and plan (1) Pneumonia: Status: Acute Qualifiers: Laterality: bilateral Lung location: lower lobe of lung Pneumonia type: due to unspecified organism Qualified Code(s): J18.9 - Pneumonia, unspecified organism Category: Medical Code(s): J18.9 - Pneumonia, unspecified organism Plan Mr. Hinojosa is a 63-year-old male > 30 PPD with documented history of heart failure with reduced action fraction, COPD, CAD, prior history of NSTEMI and hypertension presented to the ER with worsening respiratory distress. Upon admission patient was initiated on CPAP therapy with improvement in saturations. Much of the history is obtained from patient's family. Patient not arousable and not responding appropriately verbal commands. Echo from April 2023 heart failure with reduced ejection fraction EF of 35 to 40%. BNP elevated at 2860. CTA from April 2023, no significant emphysematous change in bilateral diffuse groundglass opacities and interstitial septal thickening. No evidence of pulmonary embolism. Chest x-ray upon admission, bilateral lower lobe airspace disease right greater than left. No effusions noted. Prior history of sternotomy. Interval update: No acute events overnight. Continue to remain on RA. Tolerating as needed nebs well
--- NOTE | 2023-07-24 13:35 | EXP.PN ---
Subjective *Date: 07/24/23 *Time: 13:35 Interval history: Patient is seen and examined at bedside. I am accompanied by nursing staff. The patient reports he is ready to leave the hospital. Nursing staff report that he remains afebrile and that he is back in A-fib with RVR. He is saturating appropriately on room air. Exam Data for Last 24 hours Vital signs and Labs for Last 24 Hours: Temp Pulse Resp BP Pulse Ox O2 Del Method O2 Flow Rate 97.9 F 94 H 20 142/86 H 95 Room Air 40 07/24/23 08:00 07/24/23 12:00 07/24/23 12:00 07/24/23 12:00 07/24/23 12:00 07/24/23 12:00 07/24/23 06:00 FiO2 100 07/24/23 06:00 Laboratory Results - last 24 hr 07/23/23 14:52: Activated Clotting Time 395 H* 07/23/23 16:55: ABG O2 Sat (Measured) 65.3 L, POC VBG O2 Sat (Juan Diego) 68.6 L 07/24/23 06:00: WBC 16.0 H D, RBC 5.16, Hgb 14.9, Hct 46.7, MCV 90.7, MCH 28.8, MCHC 31.8, RDW 15.2, Plt Count 227, MPV 9.9, Neut % (Auto) 79.6, Lymph % (Auto) 14.7, Moody % (Auto) 5.5, Eos % (Auto) 0.1, Baso % (Auto) 0.2, Neut # (Auto) 12.7 H, Lymph # (Auto) 2.3, Moody # (Auto) 0.9, Eos # (Auto) 0.0, Baso # (Auto) 0.0, Total Counted 100, Neutrophils % (Manual) 82 H, Lymphocytes % (Manual) 13, Monocytes % (Manual) 4, Eosinophils % (Manual) 1, Platelet Estimate Normal, RBC Morphology Normal, Sodium 142, Potassium 4.5, Chloride 99, Carbon Dioxide 35 H, Anion Gap 12.5, BUN 27 H D, Creatinine 1.10 D, Estimated Creat Clear 92, Estimated GFR 68, Est GFR ( Amer) 82 D, Glucose 116 H D, Calcium 9.7, Triglycerides 114, Cholesterol 185, LDL Cholesterol Direct 83.13 L, VLDL Cholesterol 23, HDL Cholesterol 85 H, Cholesterol/HDL Ratio 2.2 I & O for Last 24 hours: Intake & Output 07/21/23 07/22/23 07/23/23 07/24/23 23:59 23:59 23:59 23:59 Intake Total 690 / 690 680 / 1040 360 / 360 Output Total 2950 / 3450 2300 / 2500 1875 / 1875 Balance -2260 / -2760 -1620 / -1460 -1515 / -1515 Weight 94.302 kg 95.118 kg 95.11 kg Microbiology Reports for the Last 24 Hours: Microbiology 07/22/23 13:24 Nose - Nasal MRSA Culture - Final Negative Constitutional Constitutional: no acute distress, obese, chronically ill appearing and cooperative *Routine HEENT Exam Head: Present normocephalic and atraumatic Eye: Present EOMI and PERRL ENT: Present mucous membranes moist *Routine Neck Exam Neck: Present supple, full ROM and trachea midline; Absent lymphadenopathy *Routine Respiratory Exam Respiratory: Present rhonchi, wheezes, diminished air movement, normal respiratory effort and symmetric chest movement *Routine Cardiovascular Exam Cardiovascular: Present tachycardia and irregular rhythm *Routine Abdominal Exam Abdominal: Present soft and normoactive bowel sounds; Absent tenderness *Routine Extremities Exam Extremities: Present full ROM, pulses intact and normal capillary refill; Absent edema *Routine Skin Exam Skin: Present warm; Absent rash *Routine Neurological Exam Neurological: Present alert, oriented X3, moving all extremities, vision grossly intact, hearing grossly intact and normal speech; Absent sensory deficit or motor deficit Routine Psychiatric Exam Psychiatric: Present normal affect, normal thought process, cooperative, good insight and good judgment Assessment and Plan *Assessment and plan (1) Acute on chronic respiratory failure with hypoxia: Status: Acute Category: Medical Code(s): J96.21 - Acute and chronic respiratory failure with hypoxia (2) Tobacco dependence syndrome: Status: Chronic Category: Medical Code(s): F17.200 - Nicotine dependence, unspecified, uncomplicated (3) Acute on chronic HFrEF (heart failure with reduced ejection fraction): Status: Acute Category: Medical Code(s): I50.23 - Acute on chronic systolic (congestive) heart failure (4) Coronary arteriosclerosis: Status: Chronic Category: Medical Code(s): I25.10 - Ath
[2023-07-25] VITALS (7 sets, daily range): BP systolic 89–126; BP diastolic 61–85; PULSE 45–100; RESP 16–18; TEMP 36.4–36.9; O2SAT 93–96; BMI 29.6
[2023-07-25 06:54] LABS: Basophils # 0.1 K/mm3 (0-0.2); Basophils % 0.5 % (0.1-2.0); Eosinophils # 0.1 K/mm3 (0.0-0.4); Eosinophils % 1.3 % (0.1-12.0); Hemoglobin 15.4 g/dL (14.1-18.0); Lymphocytes # 3.3 K/mm3 (0.7-4.5); Lymphocytes % 31.6 % (10-50); Mean Corpuscular Hemoglobin 28.8 pg (27.0-31.2); Mean Platelet Volume 9.7 fl (7.4-10.4); Monocytes # 0.8 K/mm3 (0.1-1.0); Monocytes % 7.3 % (1.7-9.3); Neutrophils # 6.2 K/mm3 (1.8-7.8); Neutrophils % 59.3 % (37.0-80.0); Platelet Count 207 K/mm3 (142-424); Red Blood Count 5.33 M/mm3 (4.60-6.20); Red Cell Distribution Width 15.1 % (11.5-17.5); White Blood Count 10.4 K/mm3 (4.8-10.8)
[2023-07-25 06:56] LABS: Anion Gap 11.2 mEq/L (5-15); Blood Urea Nitrogen 36 mg/dl (9-20); Calcium 9.5 mg/dl (8.4-10.2); Carbon Dioxide 35 mmol/L (22.0-30.0); Chloride 96 mmol/L (98-107); Creatinine Clearance Estimated 100 mL/min (50-200); Estimated Glomerular Filt Rate 75 ml/min (>60); GFR (African American) 91 ML/MIN (>60); Glucose 148 mg/dl (74-100); Potassium 4.2 mmoL/L (3.5-5.1); Sodium 138 mmol/L (136-145)
--- NOTE | 2023-07-25 09:09 | PC.NURSE ---
pt is drowsy this am. He arouses but then falls back asleep. family is @ bedside. i have not given his meds yet. Will continue to monitor
--- NOTE | 2023-07-25 10:28 | PC.NURSE ---
pt is more alert @ this time and has ambulated in [place]. Gait was steady.
--- NOTE | 2023-07-25 11:22 | ECG_ITS ---
APPROVED REPORT Exam: Resting ECG HR:75 bpm ECG Measurements Heart Rate 75 AXES QRSd 106 QRS 31 QT 392 T 220 QTc 420 Conclusion Atrial fib/flutter LEFT VENTRICULAR HYPERTROPHY AND ST-T CHANGE [VOLTAGE CRITERIA PLUS ST/T ABNORMALITY] CRITICAL TEST RESULT UNCONFIRMED REPORT Electronically signed by : Yonas Barber MD 07/27/2023 17:14:46
--- NOTE | 2023-07-25 11:42 | EXP.DC.SUM ---
General Admission date:: 07/22/23 Discharge date: 07/25/23 HPI HPI HPI: This is a 63-year-old male with PMHx of HFrEF, COPD CAD, NSTEMI, hypertension, medical noncompliance, presented to the emergency department with concerns of shortness of breath. Patient reportedly is poorly compliant with his home oxygen and has not been using it. EMS was called and found patient in a tripod position with saturations in the 80s. They administered DuoNeb but patient did not improve so they placed him on CPAP for transport and his oxygen saturation improved to 95%. Patient states he has been having fevers and chills and his shortness of breath has been worsening over the last few days. Admitted for treatment. Hospital Course Hospital Course Hospital Course: Patient is a 63-year-old male with identified history of COPD, ongoing tobacco dependence, HFrEF, PAF/atrial flutter on chronic factor Xa inhibitor therapy, ANUPAM and coronary artery disease with previous stent and CABG. Medical noncompliance is noted in the record. He was assessed in the ED for dyspnea and oxygen requirements were noted. Problems addressed as follows: Acute on chronic respiratory failure with hypoxia and hypercapnia BMI 38/OHS/ANUPAM/COPD overlap Moderate pulmonary hypertension Tobacco dependence Pulse oximetry monitoring Oxygen therapy to maintain appropriate oxygen saturations Oxygenating appropriately on room air (baseline home oxygen 2 L) ABG reviewed with hypercapnia and hypoxia Right heart cath 07/23/2023 with elevated left-sided filling pressures and moderate pulmonary hypertension Thi/Rivera inhalation therapy ICS/LAMA/LABA inhalation therapy ED chest x-ray reviewed Tobacco cessation education Nicotine replacement therapy NIPPV therapy Pulmonology consult reviewed Acute on chronic HFrEF Coronary artery disease Ischemic cardiomyopathy Myocardial injury (type II) Left heart cath with stent deployment (05/18/2023) Left heart cath (07/23/2023) with with stent deployment Echocardiogram (April 2023) with EF 35% ED chest x-ray reviewed ED troponin noted P2Y12 inhibitor therapy Factor Xa inhibitor therapy Loop diuretic therapy Beta-lois therapy Long-acting nitrate therapy ARNI therapy SGLT2 inhibitor therapy Aldosterone antagonist therapy Atrial fibrillation with RVR Telemetry monitoring Cardiology following Beta-lois therapy Digoxin therapy Anticoagulation with factor Xa inhibitor Digoxin level evaluation Outpatient follow-up with cardiology this week to discuss & re-assess rhythm Medical noncompliance Patient education Routine nursing interaction Complicates all aspects of care The patient identified improvement and insisted on being discharged home. We discussed his rhythm disturbance, cardiology recommendations and ECG monitoring. He reports he will follow-up with cardiology this coming week as recommended. He understands the importance of medication compliance and complete tobacco cessation to improve his health. I spent 35 minutes in [id number] time with the patient, at bedside and nursing staff (Pricila LUCERO) concerning the discharge process. We discussed the admitting diagnoses and hospital course. We discussed identified improvement and the patient's desire to be discharged. We reviewed inpatient studies and imaging. 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 The patient plans to be compliant with the medication regimen prescribed and follow-up appointments. He understands that he can return to the emergency department with any sudden changes or concerns. Exam Data for Last 24 hours Vital signs and Labs for Last 24 Hours: Temp Pulse Resp BP Pulse Ox O2 Del Method O2 Flow Rate 98.5 F 91 H 18 121/85 96 Room Air 40 07/25/23 11:25 07/25/23 11:25 07/25/23 11:25 07/25/23 11:25 07/25/23 11:25 07/25/23 11:07/24/23 06:00 FiO2 100 07/24/23 06:00 Laborator
--- NOTE | 2023-07-25 13:10 | PC.NURSE ---
pt has been discahrged from the facility. i went over all discahrge education including after care and follow up appts. family @ bedside during education. saline lock removed.
--- NOTE | 2023-07-28 12:45 | CARE MANAGER ---
Attempted to contact patient x2 related to hospital discharge. Left voicemail message. NIC Marino
== END 2023-07-25 13:05 | disposition home or self-care (01) | DRG 280 ==
LOC: ER 01:48 → 2ND 02:11
PROVIDERS: Internal Medicine; Internal Medicine Pulmonary Disease; Nurse Practitioner Family; Admitting Provider Family Medicine; Emergency Provider Emergency Medicine; Visit Provider Family Medicine
PROC: 4A023N8 Measurement of Cardiac Sampling and Pressure, Bilateral, Percutaneous Approach (ICD-10-PCS; principal; 2023-07-23 14:30)
DX: I11.0 Hypertensive heart disease with heart failure (principal); I50.23 Acute on chronic systolic (congestive) heart failure; I21.A1 Myocardial infarction type 2; J96.21 Acute and chronic respiratory failure with hypoxia; J96.22 Acute and chronic respiratory failure with hypercapnia; I48.92 Unspecified atrial flutter; J44.1 Chronic obstructive pulmonary disease with (acute) exacerbation; J44.0 Chronic obstructive pulmonary disease with (acute) lower respiratory infection; I25.118 Atherosclerotic heart disease of native coronary artery with other forms of angina pectoris; Z79.01 Long term (current) use of anticoagulants; E78.2 Mixed hyperlipidemia; F17.210 Nicotine dependence, cigarettes, uncomplicated; I48.0 Paroxysmal atrial fibrillation; I27.20 Pulmonary hypertension, unspecified; I25.2 Old myocardial infarction; I25.5 Ischemic cardiomyopathy; Z91.199 Patient's noncompliance with other medical treatment and regimen due to unspecified reason; I34.0 Nonrheumatic mitral (valve) insufficiency
CPT/HCPCS: 36415; 71045; 80048; 80053; 80061; 80162; 80305; 82803; 82810; 83735; 83880; 84484; 85007; 85025; 85347; 87081; 87636; 93005; 93306; 93461; 94640; 94760; 94761; 99152; 99291; C1725; C1760; C1769; C1894; J0456; J0696; J1644; Q9967

== ENCOUNTER → 2023-08-21 10:14 | Outpatient (CLI) | payer MEDICAID, SELFPAY ==
[2023-08-21 10:55] VITALS: PULSE 55; PULSE 63
== END ==
LOC: RT 10:15
PROVIDERS: PCP Internal Medicine Pulmonary Disease; Visit Provider Internal Medicine Pulmonary Disease
DX: R06.09 Other forms of dyspnea (principal); F17.210 Nicotine dependence, cigarettes, uncomplicated
CPT/HCPCS: 94060; 94618; 94640; 94727; 94729

== ENCOUNTER 2023-10-15 14:24 | Inpatient (IN) | payer MEDICAID, SELFPAY ==
[2023-10-15] VITALS (19 sets, daily range): BP systolic 103–165; BP diastolic 76–128; PULSE 117–140; RESP 17–25; TEMP 36.8–37; O2SAT 92–98; BMI 30.9; BMI 30.7
--- NOTE | 2023-10-15 14:22 | ECG_ITS ---
APPROVED REPORT Exam: Resting ECG HR:133 bpm ECG Measurements Heart Rate 133 AXES QRSd 127 QRS 15 QT 243 T 163 QTc 321 Conclusion ATRIAL FLUTTER/TACHYCARDIA WITH RAPID VENTRICULAR RESPONSE LATERAL MYOCARDIAL INFARCTION , OF INDETERMINATE AGE [40+ ms Q WAVE AND/OR ST/T ABNORMALITY IN I/aVL/V5/V6] ABNORMAL ECG UNCONFIRMED REPORT Electronically signed by : Yonas Barber MD 10/15/2023 19:43:36
--- NOTE | 2023-10-15 14:33 | PC.NURSE ---
Dr. Marin at BS for pt eval
--- NOTE | 2023-10-15 14:44 | XR_ITS ---
FINAL REPORT CLINICAL HISTORY: dyspnea COMPARISON: 07/22/2023 FINDINGS: Mild cardiomegaly is present, stable. The patient has undergone prior midline sternotomy. There is peribronchial wall thickening and mild bilateral airspace opacities, suggestive of edema or pneumonia. These are new since the prior chest x-ray of June. No pleural effusions are identified. No significant bony abnormality or pneumothorax is seen. IMPRESSION: Peribronchial wall thickening and mild bilateral airspace opacities, suggestive of edema or pneumonia, new since June. Reviewed, Interpreted and Dictated by Gregory Guzman MD Transcribed by Altagracia Brito Authenticated and [facility]
--- NOTE | 2023-10-15 14:48 | ED_ITS ---
Discharge Plan Disposition Patient Disposition: Admitted Clinical Impressions Clinical Impression: Acute respiratory distress, Atrial flutter with rapid ventricular response Acute exacerbation of CHF (congestive heart failure) Qualifiers: Heart failure type: unspecified Qualified Code(s): I50.9 - Heart failure, uns pecified Pulmonary edema Qualifiers: Chronicity: acute Qualified Code(s): J81.0 - Acute pulmonary edema Discharge ED Provider: Marcella White HPI <J Nader Marin MD - Last Filed: 10/15/23 15:13> General Chief Complaint: Chest Pain Stated Complaint: chest pain Time Seen by Provider: 10/15/23 14:32 Mode of Arrival: Family Vehicle Source of Information: Patient and Significant Other Limitations: No Limitations Description of Symptoms (Recalled from ER Triage Doc. by RN): Pt c/o left sided chest pain with SOA, dyspnea, and productive cough for 3 days. Denies fever. Reports his sputum is tenacious and white in color. He also reports the pain increases when deep inspirations and movement. He has a hx of afib, CABG 4x vessle, and 4 cardiac stents. States most recent heart cath was June 2023. He also has a hx of CHF, recurrent PNA, COPD exacerbation. States he has had increasing nausea and vomiting. Denies any black or red stools. Denies any coffee ground emesis. History of Present Illness HPI narrative: Patient is a 63-year-old man with a known history of multivessel coronary artery disease whose had a CABG in the past also recently had NSTEMI with another heart cath which was the last time that he had a heart stent that was placed. Patient also has a known history of atrial fibrillation and is chronically anticoagulated on Xarelto and has been compliant with this medication. States that he has had shortness of breath over the last 3 days which has slowly worsened. No change in lower extremity edema patient does states that he has significant orthopnea associated with this. He has exertional symptoms. Of note he had on his last echo which was earlier this year [facility] and LVEF of 30 to 35% they are considering a LifeVest but the patient does not yet have any type of defibrillator on placement at the moment. She does state he has some mild chest discomfort primarily retrosternal on the left side nonradiating. Related Data Home Medications Medication Instructions Recorded Confirmed hydroxyzine HCl 50 mg tablet 50 mg PO DAILYP PRN Anxiety 01/09/20 10/15/23 atorvastatin 40 mg tablet 40 mg PO HS Cholesterol 04/11/20 10/15/23 sacubitril 97 mg-valsartan 103 mg 1 tab PO BID Heart Failure 05/13/23 10/15/23 tablet (Entresto) gabapentin 800 mg tablet 800 mg PO TID Pain 05/14/23 10/15/23 carvedilol 25 mg tablet 25 mg PO BID High Blood Pressure 07/06/23 10/15/23 isosorbide mononitrate 30 mg 30 mg PO DAILY High Blood Pressure 07/22/23 10/15/23 tablet,extended release 24 hr omeprazole 20 mg capsule,delayed 40 mg PO DAILY Acid Reflux 07/22/23 10/15/23 release alprazolam 1 mg tablet 1 mg PO QID 10/15/23 10/15/23 oxycodone-acetaminophen 5 mg-325 5 tab PO Q8 Pain 10/15/23 10/15/23 mg tablet (Percocet) Previous Rx's Medication Instructions Recorded digoxin 125 mcg (0.125 mg) tablet 125 mcg PO DAILY #30 tabs 07/25/23 (Digox) spironolactone 25 mg tablet 25 mg PO DAILY Fluid #90 tabs 07/25/23 albuterol sulfate 90 mcg/actuation 2 inh inhalation QID PRN shortness 08/25/23 aerosol inhaler of breath or wheezing 90 days #8.5 grams clopidogrel 75 mg tablet (Plavix) 75 mg PO DAILY Platelet Inhibitor 08/25/23 #30 tabs empagliflozin 10 mg tablet 10 mg PO DAILY #30 tabs 08/25/23 (Jardiance) ipratropium 0.5 mg-albuterol 3 mg 3 ml inhalation QID PRN shortness 08/25/23 (2.5 mg base)/3 mL nebulization of breath or wheezing 90 days #270 soln mL nitroglycerin 0.4 mg sublingual 0.4 mg sublingual Q5M PRN Chest 08/25/23 tablet (Nitrostat) Pain #30 tabs rivaroxaban 20 mg tablet (Xarelto) 20 mg PO QPMWITHMEAL blood 08/25/23 thinner/atrial fib #30 tabs tiotropium bromide 18 mcg capsule 1 cap inhalation DAILY 90 days #90 08/25/23 with inhalation device (Spiriva puffs with HandiHaler) furosemide 20 mg tablet 20 mg PO BIDP PRN Swelling #30 tabs 09/28/23 Allergies Allergy/AdvReac Type Severity Reaction Status Date / Time codeine [CODEINE] AdvReac Mild Headache Verified 08/25/23 13:49 morphine AdvReac Verified 10/15/23 20:50 PFSH <Abdirashid Marin MD - Last Filed: 10/15/23 15:13> PFSH Disclaimer: The information contained in this section may have been updated after the patient was seen, as this information can be updated by other users. Medical History Angina pectoris Anxiety Arrhythmia Atrial fibrillation with RVR Atypical angina Benzocaine adverse reaction Congestive heart failure COPD (chronic obstructive pulmonary disease) COPD mixed type Depression Diastolic dysfunction Dyspnea on exertion Edema Encounter for screening for malignant neoplasm of lung Hemorrhoid History of cardioversion History of gastroesophageal reflux (GERD) History of heart attack Injury of left foot Left foot pain Lumbar disc disease with radiculopathy Lumbar disc disease with radiculopathy Lumbar disc disease with radiculopathy Lung nodule Myocardial infarct Paroxysmal atrial fibrillation Pulmonary hypertension Sleep apnea Smoking greater than 30 pack years Vitamin D deficiency Surgical History History of quadruple bypass History of surgery HEART STENT X4 Hx of heart artery stent Family History Other Heart attack Heart disease Social History (Updated 10/15/23 @ 17:12 by Lucretia Chinchilla RN) Smoking Status: Current every day smoker tobacco type: cigarettes packs per day: 1 second hand exposure: No alcohol intake: never substance use type: marijuana, crack/cocaine, painkillers and prescription drug current occupational status: retired and disabled Travel in the last 8 weeks: None household members: spouse housing: house number of children: 7 current occupational exposures/hazards: No caffeine: Yes <Abdirashid Marin MD - Last Filed: 10/15/23 15:13> ROS Obtained: Yes All systems reviewed & no additional complaints except as documented Physical Exam <Abdirashid Marin MD - Last Filed: 10/15/23 15:13> General General appearance: alert Respiratory Respiratory exam: Present other (Respiratory distress breathing about 30 times a minute and shallow) Cardiovascular Cardiovascular exam: Present other (Heart rate 1 30-1 35 and regular good peripheral perfusion) Extremities Exam Extremities exam: Present other (Bilateral lower extremity pitting edema) Neurological Exam Neurological exam: Present alert and oriented X3 HEART Score <Abdirashid Marin MD - Last Filed: 10/15/23 15:13> HEART Score HEART Score assessment performed?: Yes History (anamnesis): Moderately suspicious ECG: Non-specific disturbance Age: 45-65 years Risk factors: Atherosclerosis history Troponin: </= normal limit (pending as pof 254 pm ) HEART Score: 5 <Marcella White DO - Last Filed: 10/16/23 00:39> HEART Score HEART Score: 5 Procedures <Abdirashid Marin MD - Last Filed: 10/15/23 15:13> Miscellaneous Procedure Procedure Performed: Limited cardiac ultrasound Indication: Dyspnea Identified structures: The heart was visualized in the parasternal long axis, parastenal short axis, apical four chamber and subxyphiod views. The IVC was visualized in the short axis and long axis at its entry into the right atrium. Findings: Globally depressed moderate to severe depression of LVEF without any pericardial effusion or focal abnormalities on the akinesis IVC is plethoric without respirophasic variation Impression: Globally depressed LVEF without pericardial effusion no evidence of any right heart strain Images were saved to permanent archive The study was technically adequate CPT: 23624-35 This study was performed by ia, and I personally interpreted all images/videos. Based on my clinical judgement, these images were adequate and did not necessitate further imaging. Limited lung ultrasound A focused ultrasound exam of the pleural spaces was performed to evaluate for pneumothorax, pulmonary edema, pleural effusion and/or consolidation. The ultrasound was performed with the following indications, as noted in the H&P: Dyspnea Identified structures: Right and left thoracic cavities were examined. Findings: Diffuse B-lines throughout all lung dupree no pleural effusions noted no obvious consolidation there is present lung sliding throughout Impression: Diffuse B-lines consistent with pulmonary edema throughout bilateral lungs without evidence of pleural effusions Images were saved to permanent archive The study was technically adequate CPT 74055-21 This study was performed by ia, and I personally interpreted all images/videos. Based on my clinical judgement, these images were adequate and did not necessitate further imaging. Critical Care <Abdirashid Marin MD - Last Filed: 10/15/23 15:13> Critical Care Time Critical Care Time: Yes Attestation: On 10/15/23, the high probability of a clinically significant, sudden or life threatening deterioration of the following system(s) required my full and direct attention, intervention and personal management. The time I documented below is in addition to time spent performing reported procedures but includes the following listed in this critical care notation. Total Time Total Critical Care Time: 35 Medical Decision Making <Abdirashid Marin MD - Last Filed: 10/15/23 15:13> Denys Inquiry Pt receiving controlled substance: No Vital Signs Vital Signs: 10/15/23 14:25 10/15/23 14:45 10/15/23 14:30 Temperature 98.2 F Temperature Source Oral Pulse Rate 132 H 134 H Pulse Rate [Right] 134 H Respiratory Rate 25 H Blood Pressure 145/113 H Blood Pressure [Right Arm] 145/100 H Blood Pressure Mean 119 Blood Pressure Mean [Right Arm] 115 Blood Pressure Source [Right Arm] Automatic Cuff 02 Sat by Pulse Oximetry 96 96 Oxygen Delivery Method Room Air Room Air 10/15/23 15:00 10/15/23 15:30 10/15/23 16:00 Temperature Temperature Source Pulse Rate 133 H 136 H 136 H Pulse Rate [Right] Respiratory Rate 24 22 Blood Pressure 165/124 H 163/128 H 139/102 H Blood Pressure [Right Arm] Blood Pressure Mean 135 137 114 Blood Pressure Mean [Right Arm] Blood Pressure Source [Right Arm] 02 Sat by Pulse Oximetry 96 98 97 Oxygen Delivery Method Room Air 10/15/23 16:31 10/15/23 17:00 10/15/23 17:10 Temperature Temperature Source Pulse Rate 118 H 136 H 134 H Pulse Rate [Right] Respiratory Rate 20 18 21 Blood Pressure 121/82 109/85 L 108/82 L Blood Pressure [Right Arm] Blood Pressure Mean 95 Blood Pressure Mean [Right Arm] Blood Pressure Source [Right Arm] 02 Sat by Pulse Oximetry 98 94 L 92 L Oxygen Delivery Method BiPAP BiPAP 10/15/23 17:20 10/15/23 17:30 10/15/23 17:40 Temperature Temperature Source Pulse Rate 133 H 132 H 133 H Pulse Rate [Right] Respiratory Rate 21 17 21 Blood Pressure 103/76 L 117/87 119/84 Blood Pressure [Right Arm] Blood Pressure Mean Blood Pressure Mean [Right Arm] Blood Pressure Source [Right Arm] 02 Sat by Pulse Oximetry 94 L 98 98 Oxygen Delivery Method BiPAP BiPAP 10/15/23 18:35 Temperature 98.2 F Temperature Source Pulse Rate 117 H Pulse Rate [Right] Respiratory Rate 19 Blood Pressure 120/85 Blood Pressure [Right Arm] Blood Pressure Mean Blood Pressure Mean [Right Arm] Blood Pressure Source [Right Arm] 02 Sat by Pulse Oximetry Oxygen Delivery Method BiPAP Lab Data Labs: Lab Results 10/15/23 14:26: WBC 11.0 H, RBC 5.16, Hgb 15.5, Hct 45.8, MCV 88.8, MCH 30.1, MCHC 33.9, RDW 14.3, Plt Count 158, MPV 10.0, Neut % (Auto) 82.8 H, Lymph % (Auto) 11.2, [place] % (Auto) 5.0, Eos % (Auto) 0.8, Baso % (Auto) 0.2, Neut # (Auto) 9.1 H, Lymph # (Auto) 1.2, [place] # (Auto) 0.6, Eos # (Auto) 0.1, Baso # (Auto) 0.0, PT 14.8 H, INR 1.40 H, APTT 38.1 H, D-Dimer 0.79 H, Sodium 138, Potassium 4.0, Chloride 102, Carbon Dioxide 28, Anion Gap 12.0, BUN 18, Creati nine 0.90, Estimated Creat Clear 105, Estimated GFR 85, Est GFR ( Amer) 103, Glucose 160 H, Calcium 8.8, Magnesium 2.0, Total Bilirubin 1.2, AST 42, ALT 31, Alkaline Phosphatase 70, Troponin I < 0.01, NT-Pro-B Natriuret Pep 5830 H, Total Protein 7.6, Albumin 4.7, Globulin 2.9, Albumin/Globulin Ratio 1.6, Digoxin < 0.40 10/15/23 17:23: Troponin I 0.01 10/15/23 14:26 10/15/23 14:26 Response Orders (Tests/Meds): ED MEDICATIONS Generic Name Dose Route Start Last Admin Trade Name Freq PRN Reason Stop Dose Admin Acetaminophen 650 mg 10/15/23 18:03 Acetaminophen 325mg Tab PO 11/14/23 18:02 Q4HP PRN Fever or Mild Pain (1-3) Albuterol Sulfate 2 puff 10/15/23 18:08 Albuterol-Hfa 90mcg/Puff Inhaler 8gm 11/14/23 18:07 QID PRN shortness of breath or wheezing Albuterol/Ipratropium 3 ml 10/15/23 18:08 Ipratropium/Albuterol 3 Ml Neb 11/14/23 18:07 QID PRN shortness of breath or wheezing Alprazolam 1 mg 10/15/23 21:00 10/15/23 21:01 Alprazolam 1mg Tablet PO 11/14/23 20:59 1 mg QID CHARLES Administration Atorvastatin Calcium 40 mg 10/15/23 21:00 10/15/23 20:58 Atorvastatin 40mg Tablet PO 11/14/23 20:59 40 mg HS CHARLES Administration Carvedilol 25 mg 10/15/23 21:00 10/15/23 21:00 Carvedilol 25mg Tablet PO 11/14/23 20:59 25 mg BID CHARLES Administration Clopidogrel Bisulfate 75 mg 10/15/23 18:15 10/15/23 18:48 Clopidogrel 75mg Tab PO 11/14/23 18:14 75 mg DAILY CHARLES Administration Digoxin 125 mcg 10/15/23 18:15 10/15/23 18:48 Digoxin 0.125mg Tablet PO 11/14/23 18:14 125 mcg DAILY CHARLES Administration Empagliflozin 10 mg 10/15/23 18:15 10/15/23 18:47 Empagliflozin 10mg Tablet PO 11/14/23 18:14 Not Given DAILY CHARLES Furosemide 40 mg 10/15/23 21:00 10/15/23 20:58 Furosemide 40mg/4ml Vial IV 11/14/23 20:59 40 mg TID CHARLES Administration Gabapentin 800 mg 10/15/23 21:00 10/15/23 20:58 Gabapentin 800mg Tablet PO 11/14/23 20:59 800 mg TID CHARLES Administration Nitroglycerin/Dextrose 250 mls @ 6 mls/hr 10/15/23 14:45 10/15/23 22:33 Nitroglycerin 50mg/250ml D5w IV 11/14/23 14:44 5 mcg/min .Q24H CHARLES 1.5 mls/hr Titration Protocol 20 MCG/MIN Ceftriaxone Sodium 1 gm/ 50 mls @ 100 mls/hr 10/15/23 23:00 10/15/23 23:06 Sodium Chloride IV 10/25/23 22:59 100 mls/hr Q12H CHARLES Administration Isosorbide Mononitrate 30 mg 10/15/23 18:15 10/15/23 18:48 Isosorbide [place] 30mg Tab.Er.24h PO 11/14/23 18:14 30 mg DAILY CHARLES Administration Miscellaneous 1 unit 10/15/23 18:08 10/15/23 22:30 Aerochamber/Optihaler MC 10/15/23 18:09 Not Given ONCE ONE Nicotine 21 mg 10/15/23 20:45 10/15/23 21:01 Nicotine 21mg/24hr Patch TD 11/14/23 20:44 21 mg DAILYP PRN Administration Nicotine Cravings Nitroglycerin 0.4 mg 10/15/23 18:08 Nitroglycerin 0.4mg Sl Tablet SL 11/14/23 18:07 Q5M PRN Chest Pain Non-Formulary Medication 40 mg 10/15/23 18:15 10/15/23 18:47 Omeprazole PO 11/14/23 18:14 Not Given DAILY CHARLES Non-Formulary Medication 50 mg 10/15/23 18:08 Hydroxyzine Hcl PO DAILYP PRN Anxiety Non-Formulary Medication 1 tab 10/15/23 21:00 10/15/23 20:59 Sacubitril-Valsartan [Entresto] PO 11/14/23 20:59 Not Given BID CHARLES Non-Formulary Medication 20 mg 10/16/23 17:30 Rivaroxaban [Xarelto] PO 11/15/23 17:29 QPMWITHMEAL CHARLES Ondansetron HCl 4 mg 10/15/23 18:03 Ondansetron 4mg/2ml Vial IV 11/14/23 18:02 Q8HP PRN Nausea Oxycodone/Acetaminophen 1 each 10/15/23 21:01 10/15/23 21:05 Oxycodone 5mg W/Apap 325mg Tablet PO 11/14/23 21:00 1 each Q6HP PRN Administration Severe Pain (7-10) Sodium Chloride 10 ml 10/15/23 16:51 Sodium Chloride 0.9% 10ml Flush Syringe IV 11/14/23 16:50 NEEDED PRN Maintain IV Site Spironolactone 25 mg 10/15/23 18:15 10/15/23 18:48 Spironolactone 25mg Tablet PO 11/14/23 18:14 25 mg DAILY CHARLES Administration Tiotropium [place] 1 cap 10/15/23 18:15 10/15/23 20:30 Tiotropium 18mcg/Puff Inhaler IH 11/14/23 18:14 1 cap DAILY CHARLES Administration Discontinued Medications Generic Name Dose Route Start Last Admin Trade Name Freq PRN Reason Stop Dose Admin Furosemide 80 mg 10/15/23 15:19 10/15/23 17:18 Furosemide 40mg/4ml Vial IV 10/15/23 15:20 80 mg ONCE ONE Administration Oxycodone/Acetaminophen 5 each 10/15/23 21:00 10/15/23 21:10 Oxycodone 5mg W/Apap 325mg Tablet PO 11/14/23 20:59 Not Given Q8 CHARLES ORDERS Category Date Time Status Consult to Cardiology [CONS] Routine Cons 10/15/23 18:08 Active Consult to Pulmonology [CONS] Routine Cons 10/15/23 18:03 Active CXR --portable [XR chest portable] Stat Exams 10/15/23 14:44 Completed BNP [Brain Natriuretic Peptide] Stat Lab 10/15/23 14:26 Completed Basic Metabolic Panel AMLAB Lab 10/16/23 06:00 Ordered Basic Metabolic Panel AMLAB Lab 10/17/23 06:00 Ordered Basic Metabolic Panel AMLAB Lab 10/18/23 06:00 Ordered CBC w/Auto Diff [Complete Blood Count Auto Diff] Stat Lab 10/15/23 14:26 Completed CMP [Comprehensive Metabolic Panel] Stat Lab 10/15/23 14:26 Completed Complete Blood Count Auto Diff AMLAB Lab 10/16/23 06:00 Ordered Complete Blood Count Auto Diff AMLAB Lab 10/17/23 06:00 Ordered Complete Blood Count Auto Diff AMLAB Lab 10/18/23 06:00 Ordered D-Dimer Stat Lab 10/15/23 14:26 Completed Digoxin Stat Lab 10/15/23 14:26 Completed Magnesium Stat Lab 10/15/23 14:26 Completed PT/PTT Stat Lab 10/15/23 14:26 Completed Trop I [Troponin I] Stat Lab 10/15/23 14:26 Completed Troponin I Q3H Lab 10/15/23 17:23 Completed Troponin I Q3H Lab 10/15/23 20:44 Completed Troponin I Q6H Lab 10/16/23 03:15 Ordered CA echo doppler complete Stat Y 10/15/23 15:57 Completed ECG initial [place] Routine Y 10/15/23 14:22 Completed MDM Narrative Medical Decision Narrative: Is an ill-appearing 63-year-old man presenting today with dyspnea tachypnea and tachycardia. EKG was performed which I personally interpreted which shows a ventricular rate of 133 does appear to have atrial flutter with rapid ventricular response no acute ischemic changes noted otherwise there is a positive flexion leads aVF and I with normal axis no other significant conduction abnormalities noted. I did a limited bedside ultrasound of the patient's heart and lung he has a moderate to severely depressed globally depres sed EF which appears to be worse than 30% on my evaluation but he is significantly tachycardic making this difficult to observe. No obvious pericardial effusion there is significant pulmonary edema throughout all lung dupree no obvious pleural effusions bilaterally. Patient is mildly hypertensive we will start the patient on BiPAP and nitroglycerin. Given his severely depressed EF will not start a calcium channel lois or beta-lois but will treat the underlying cause of the hypertensive emergency at this moment. Is possible he had another SC or demand ischemia. Troponins will be pending. This initial workup is being completed by myself but remainder of care including all diagnostic test and final disposition will be given over to Dr. Marcella White at 3 PM. <Marcella White, DO - Last Filed: 10/16/23 00:39> Vital Signs Vital Signs: 10/15/23 14:25 10/15/23 14:45 10/15/23 14:30 Temperature 98.2 F Temperature Source Oral Pulse Rate 132 H 134 H Pulse Rate [Right] 134 H Respiratory Rate 25 H Blood Pressure 145/113 H Blood Pressure [Right Arm] 145/100 H Blood Pressure Mean 119 Blood Pressure Mean [Right Arm] 115 Blood Pressure Source [Right Arm] Automatic Cuff 02 Sat by Pulse Oximetry 96 96 Oxygen Delivery Method Room Air Room Air 10/15/23 15:00 10/15/23 15:30 10/15/23 16:00 Temperature Temperature Source Pulse Rate 133 H 136 H 136 H Pulse Rate [Right] Respiratory Rate 24 22 Blood Pressure 165/124 H 163/128 H 139/102 H Blood Pressure [Right Arm] Blood Pressure Mean 135 137 114 Blood Pressure Mean [Right Arm] Blood Pressure Source [Right Arm] 02 Sat by Pulse Oximetry 96 98 97 Oxygen Delivery Method Room Air 10/15/23 16:31 10/15/23 17:00 10/15/23 17:10 Temperature Temperature Source Pulse Rate 118 H 136 H 134 H Pulse Rate [Right] Respiratory Rate 20 18 21 Blood Pressure 121/82 109/85 L 108/82 L Blood Pressure [Right Arm] Blood Pressure Mean 95 Blood Pressure Mean [Right Arm] Blood Pressure Source [Right Arm] 02 Sat by Pulse Oximetry 98 94 L 92 L Oxygen Delivery Method BiPAP BiPAP 10/15/23 17:20 10/15/23 17:30 10/15/23 17:40 Temperature Temperature Source Pulse Rate 133 H 132 H 133 H Pulse Rate [Right] Respiratory Rate 21 17 21 Blood Pressure 103/76 L 117/87 119/84 Blood Pressure [Right Arm] Blood Pressure Mean Blood Pressure Mean [Right Arm] Blood Pressure Source [Right Arm] 02 Sat by Pulse Oximetry 94 L 98 98 Oxygen Delivery Method BiPAP BiPAP 10/15/23 18:35 Temperature 98.2 F Temperature Source Pulse Rate 117 H Pulse Rate [Right] Respiratory Rate 19 Blood Pressure 120/85 Blood Pressure [Right Arm] Blood Pressure Mean Blood Pressure Mean [Right Arm] Blood Pressure Source [Right Arm] 02 Sat by Pulse Oximetry Oxygen Delivery Method BiPAP Lab Data Labs: Lab Results 10/15/23 14:26: WBC 11.0 H, RBC 5.16, Hgb 15.5, Hct 45.8, MCV 88.8, MCH 30.1, MCHC 33.9, RDW 14.3, Plt Count 158, MPV 10.0, Neut % (Auto) 82.8 H, Lymph % (Auto) 11.2, [place] % (Auto) 5.0, Eos % (Auto) 0.8, Baso % (Auto) 0.2, Neut # (Auto) 9.1 H, Lymph # (Auto) 1.2, [place] # (Auto) 0.6, Eos # (Auto) 0.1, Baso # (Auto) 0.0, PT 14.8 H, INR 1.40 H, APTT 38.1 H, D-Dimer 0.79 H, Sodium 138, Potassium 4.0, Chloride 102, Carbon Dioxide 28, Anion Gap 12.0, BUN 18, Creatinine 0.90, Estimated Creat Clear 105, Estimated GFR 85, Est GFR ( Amer) 103, Glucose 160 H, Calcium 8.8, Magnesium 2.0, Total Bilirubin 1.2, AST 42, ALT 31, Alkaline Phosphatase 70, Troponin I < 0.01, NT-Pro-B Natriuret Pep 5830 H, Total Protein 7.6, Albumin 4.7, Globulin 2.9, Albumin/Globulin Ratio 1.6, Digoxin < 0.40 10/15/23 17:23: Troponin I 0.01 Response Orders (Tests/Meds): ED MEDICATIONS Generic Name Dose Route Start Last Admin Trade Name Freq PRN Reason Stop Dose Admin Acetaminophen 650 mg 10/15/23 18:03 Acetaminophen 325mg Tab PO 11/14/23 18:02 Q4HP PRN Fever or Mild Pain (1-3) Albuterol Sulfate 2 puff 10/15/23 18:08 Albuterol-Hfa 90mcg/Puff Inhaler 8gm IH 11/14/23 18:07 QID PRN shortness of breath or wheezing Albuterol/Ipratropium 3 ml 10/15/23 18:08 Ipratropium/Albuterol 3 Ml Neb 11/14/23 18:07 QID PRN shortness of breath or wheezing Alprazolam 1 mg 10/15/23 21:00 10/15/23 21:01 Alprazolam 1mg Tablet PO 11/14/23 20:59 1 mg QID CHARLES Administration Atorvastatin Calcium 40 mg 10/15/23 21:00 10/15/23 20:58 Atorvastatin 40mg Tablet PO 11/14/23 20:59 40 mg HS CHARLES Administration Carvedilol 25 mg 10/15/23 21:00 10/15/23 21:00 Carvedilol 25mg Tablet PO 11/14/23 20:59 25 mg BID CHARLES Administration Clopidogrel Bisulfate 75 mg 10/15/23 18:15 10/15/23 18:48 Clopidogrel 75mg Tab PO 11/14/23 18:14 75 mg DAILY CHARLES Administration Digoxin 125 mcg 10/15/23 18:15 10/15/23 18:48 Digoxin 0.125mg Tablet PO 11/14/23 18:14 125 mcg DAILY CHARLES Administration Empagliflozin 10 mg 10/15/23 18:15 10/15/23 18:47 Empagliflozin 10mg Tablet PO 11/14/23 18:14 Not Given DAILY CHARLES Furosemide 40 mg 10/15/23 21:00 10/15/23 20:58 Furosemide 40mg/4ml Vial IV 11/14/23 20:59 40 mg TID CHARLES Administration Gabapentin 800 mg 10/15/23 21:00 10/15/23 20:58 Gabapentin 800mg Tablet PO 11/14/23 20:59 800 mg TID CHARLES Administration Nitroglycerin/Dextrose 250 mls @ 6 mls/hr 10/15/23 14:45 10/15/23 22:33 Nitroglycerin 50mg/250ml D5w IV 11/14/23 14:44 5 mcg/min .Q24H CHARLES 1.5 mls/hr Titration Protocol 20 MCG/MIN Ceftriaxone Sodium 1 gm/ 50 mls @ 100 mls/hr 10/15/23 23:00 10/15/23 23:06 Sodium Chloride IV 10/25/23 22:59 100 mls/hr Q12H CHARLES Administration Isosorbide Mononitrate 30 mg 10/15/23 18:15 10/15/23 18:48 Isosorbide [place] 30mg Tab.Er.24h PO 11/14/23 18:14 30 mg DAILY CHARLES Administration Miscellaneous 1 unit 10/15/23 18:08 10/15/23 22:30 Aerochamber/Optihaler MC 10/15/23 18:09 Not Given ONCE ONE Nicotine 21 mg 10/15/23 20:45 10/15/23 21:01 Nicotine 21mg/24hr Patch TD 11/14/23 20:44 21 mg DAILYP PRN Administration Nicotine Cravings Nitroglycerin 0.4 mg 10/15/23 18:08 Nitroglycerin 0.4mg Sl Tablet SL 11/14/23 18:07 Q5M PRN Chest Pain Non-Formulary Medication 40 mg 10/15/23 18:15 10/15/23 18:47 Omeprazole PO 11/14/23 18:14 Not Given DAILY CHARLES Non-Formulary Medication 50 mg 10/15/23 18:08 Hydroxyzine Hcl PO DAILYP PRN Anxiety Non-Formulary Medication 1 tab 10/15/23 21:00 10/15/23 20:59 Sacubitril-Valsartan [Entresto] PO 11/14/23 20:59 Not Given BID CHARLES Non-Formulary Medication 20 mg 10/16/23 17:30 Rivaroxaban [Xarelto] PO 11/15/23 17:29 QPMWITHMEAL CHARLES Ondansetron HCl 4 mg 10/15/23 18:03 Ondansetron 4mg/2ml Vial IV 11/14/23 18:02 Q8HP PRN Nausea Oxycodone/Acetaminophen 1 each 10/15/23 21:01 10/15/23 21:05 Oxycodone 5mg W/Apap 325mg Tablet PO 11/14/23 21:00 1 each Q6HP PRN Administration Severe Pain (7-10) Sodium Chloride 10 ml 10/15/23 16:51 Sodium Chloride 0.9% 10ml Flush Syringe IV 11/14/23 16:50 NEEDED PRN Maintain IV Site Spironolactone 25 mg 10/15/23 18:15 10/15/23 18:48 Spironolactone 25mg Tablet PO 11/14/23 18:14 25 mg DAILY CHARLES Administration Tiotropium [place] 1 cap 10/15/23 18:15 10/15/23 20:30 Tiotropium 18mcg/Puff Inhaler IH 11/14/23 18:14 1 cap DAILY CHARLES Administration Discontinued Medications Generic Name Dose Route Start Last Admin Trade Name Freq PRN Reason Stop Dose Admin Furosemide 80 mg 10/15/23 15:19 10/15/23 17:18 Furosemide 40mg/4ml Vial IV 10/15/23 15:20 80 mg ONCE ONE Administration Oxycodone/Acetaminophen 5 each 10/15/23 21:00 10/15/23 21:10 Oxycodone 5mg W/Apap 325mg Tablet PO 11/14/23 20:59 Not Given Q8 CHARLES ORDERS Category Date Time Status Consult to Cardiology [CONS] Routine Cons 10/15/23 18:08 Active Consult to Pulmonology [CONS] Routine Cons 10/15/23 18:03 Active CXR --portable [XR chest portable] Stat Exams 10/15/23 14:44 Completed BNP [Brain Natriuretic Peptide] Stat Lab 10/15/23 14:26 Completed Basic Metabolic Panel AMLAB Lab 10/16/23 06:00 Ordered Basic Metabolic Panel AMLAB Lab 10/17/23 06:00 Ordered Basic Metabolic Panel AMLAB Lab 10/18/23 06:00 Ordered CBC w/Auto Diff [Complete Blood Count Auto Diff] Stat Lab 10/15/23 14:26 Completed CMP [Comprehensive Metabolic Panel] Stat Lab 10/15/23 14:26 Completed Complete Blood Count Auto Diff AMLAB Lab 10/16/23 06:00 Ordered Complete Blood Count Auto Diff AMLAB Lab 10/17/23 06:00 Ordered Complete Blood Count Auto Diff AMLAB Lab 10/18/23 06:00 Ordered D-Dimer Stat Lab 10/15/23 14:26 Completed Digoxin Stat Lab 10/15/23 14:26 Completed Magnesium Stat Lab 10/15/23 14:26 Completed PT/PTT Stat Lab 10/15/23 14:26 Completed Trop I [Troponin I] Stat Lab 10/15/23 14:26 Completed Troponin I Q3H Lab 10/15/23 17:23 Completed Troponin I Q3H Lab 10/15/23 20:44 Completed Troponin I Q6H Lab 10/16/23 03:15 Ordered CA echo doppler complete Stat Y 10/15/23 15:57 Completed ECG initial [place] Routine Y 10/15/23 14:22 Completed MDM Narrative Medical Decision Narrative: Is an ill-appearing 63-year-old man presenting today with dyspnea tachypnea and tachycardia. EKG was performed which I personally interpreted which shows a ventricular rate of 133 does appear to have atrial flutter with rapid ventricular response no acute ischemic changes noted otherwise there is a positive flexion leads aVF and I with normal axis no other significant conduction abnormalities noted. I did a limited bedside ultrasound of the patient's heart and lung he has a moderate to severely depressed globally depressed EF which appears to be worse than 30% on my evaluation but he is significantly tachycardic making this difficult to observe. No obvious pericardial effusion there is significant pulmonary edema throughout all lung dupree no obvious pleural effusions bilaterally. Patient is mildly hypertensive we will start the patient on BiPAP and nitroglycerin. Given his severely depressed EF will not start a calcium channel lois or beta-lois but will treat the underlying cause of the hypertensive emergency at this moment. Is possible he had another SC or demand ischemia. Troponins will be pending. This initial workup is being completed by myself but remainder of care including all diagnostic test and final disposition will be given over to Dr. Marcella White at 3 PM. DO Christopher: On my assessment of the patient, he continues to be ill-appearing with atrial tachycardia. Patient had significant elevated BNP with negative initial troponin. Given acute exacerbation of CHF as well as respiratory failure, I feel that he would benefit from admission for further evaluation and management. Echocardiogram was ordered, patient was given IV Lasix, and I called and had an interactive discussion with cardiology who advised admission and continued monitoring. The patient was admitted in stable condition after interactive discussion with the hospitalist.
--- NOTE | 2023-10-15 14:52 | PC.NURSE ---
notified respiratory of bipap order. md would like to start on low o2 with 10/5.
[2023-10-15 14:55] LABS: Basophils % 0.2 % (0.1-2.0); Eosinophils # 0.1 K/mm3 (0.0-0.4); Eosinophils % 0.8 % (0.1-12.0); Hematocrit 45.8 % (42.0-52.0); Hemoglobin 15.5 g/dL (14.1-18.0); Lymphocytes # 1.2 K/mm3 (0.7-4.5); Lymphocytes % 11.2 % (10-50); Mean Corpuscular HGB Conc 33.9 g/dL (31.8-35.4); Mean Corpuscular Hemoglobin 30.1 pg (27.0-31.2); Mean Corpuscular Volume 88.8 fl (80-94); Monocytes # 0.6 K/mm3 (0.1-1.0); Neutrophils # 9.1 K/mm3 (1.8-7.8); Neutrophils % 82.8 % (37.0-80.0); Platelet Count 158 K/mm3 (142-424); Red Blood Count 5.16 M/mm3 (4.60-6.20); Red Cell Distribution Width 14.3 % (11.5-17.5)
[2023-10-15] MEDS: NITROGLYCERIN IN 5 % DEXTROSE 250 ML 6 MG IV (14:58)
[2023-10-15 15:03] LABS: Activated Partial Thrombo Time 38.1 seconds (22.8-30.6); Alanine Aminotransferase 31 U/L (12-78); Albumin Level 4.7 g/dl (3.5-5.0); Albumin/Globulin Ratio 1.6 (1.1-1.8); Alkaline Phosphatase 70 U/L (38-126); Aspartate Amino Transferase 42 U/L (17-59); Bilirubin,Total 1.2 mg/dl (0.2-1.3); Blood Urea Nitrogen 18 mg/dl (9-20); Calcium 8.8 mg/dl (8.4-10.2); Carbon Dioxide 28 mmol/L (22.0-30.0); Chloride 102 mmol/L (98-107); Creatinine Clearance Estimated 105 mL/min (50-200); Estimated Glomerular Filt Rate 85 ml/min (>60); GFR (African American) 103 ML/MIN (>60); Globulin 2.9 g/dL (1.3-3.2); Glucose 160 mg/dl (74-100); Prothrombin Time 14.8 seconds (10.1-12.5); Sodium 138 mmol/L (136-145); Total Protein,Serum 7.6 g/dl (6.3-8.2)
[2023-10-15 15:06] LABS: Digoxin < 0.40 ng/ml (0.2-2.00)
--- NOTE | 2023-10-15 15:12 | PC.NURSE ---
rad at bedside for portable cxr
[2023-10-15 15:14] LABS: NT Pro Brain Natriuretic Pep. 5830 pg/mL (0-125)
[2023-10-15 15:16] LABS: Troponin I < 0.01 ng/ml (0.00-0.034)
--- NOTE | 2023-10-15 15:57 | CA_ITS ---
APPROVED REPORT EXAM: Comprehensive 2D, Doppler, and color-flow Echocardiogram Ladle Liner: Mercy Quesada RT(R) Ht: 5 ft 10 in Wt: 216lbs BSA: 2.16 BP: 145/95 mmHg Indications: CP, COPD, SOB, CHF, CAD, AFIB with RVR, CM, on bipap 2D Dimensions LA Volume 83.30 mL LA Volume Index 38.56 mL/m2 (M/F) 16-34 EF AP4 21.10 % GL Strain -2.7 % M-Mode Dimensions RVDd 2.50 cm (0.9-2.6) LA Diam 4.98 cm (1.9-4.0) LVDd 6.55 cm (3.5-5.7) LVDs 6.11 cm (3.5-5.7) IVSd 1.07 cm (0.6-1.1) PWd 0.89 cm (0.6-1.1) EF (Teich) 14.60% FS 6.70% EDV (Teich) 219.80 mL ESV (Teich) 187.60 mL Left Ventricle The left ventricle is severely dilated ([id number] ml/m2). The left ventricular systolic function is severely reduced. There is increased LV wall thickness. There is severe global hypokinesis present. Diastolic function is indeterminate due to atrial fibrillatioin. LVEF is 25-30%. Right Ventricle The right ventricle is normal size. The right ventricular systolic function is normal. Atria Left atrium is moderately dilated. Right atrium is mildly dilated. Aortic Valve The aortic valve is mildly thickened. There is no aortic valvular stenosis. Trace aortic regurgitation. Mitral Valve The mitral valve leaflets are mildly thickened. The posterior MV leaflet appears tethered with restricted motion. No evidence of mitral valve stenosis. Severe mitral regurgitation. The MR jet is eccentric and is posteriorly directed. The mitral regurgitation etiology is degenerative (DMR), likely due to tethering of the posterior MV leaflet (Juwan IIIB). Tricuspid Valve The tricuspid valve leaflets are thin and pliable. Trace tricuspid regurgitation. There is insufficient TR jet to estimate RVSP. Pulmonic Valve The pulmonary valve is normal in structure. Trace pulmonic regurgitation. Great Vessels The aortic root is normal in size. The ascending aorta is normal in size. The IVC is not well visualized. Pericardium There is no pericardial effusion. Other Information Study Quality: Fair Conclusion Severe LV dilation with severe reduction in LV systolic function (LVEF 25-30%). Biatrial dilation. Severe MR due to tethering of psoterior MV leaflet (Juwan class IIIB). Compared to prior study from 07/23/2023, the LVEF is now further reduced. The MR progressed from moderate to severe. Electronically signed by : Nai Farah MD 10/16/2023 11:16:40
--- NOTE | 2023-10-15 16:15 | PC.NURSE ---
vascular at bedside for echo
--- NOTE | 2023-10-15 16:20 | PC.NURSE ---
SUPERVISOR PRE WAVE NOTIFIED OF ADMISSION
[2023-10-15 16:41] LABS: D-Dimer 0.79 ug/mL (0.0-0.5)
--- NOTE | 2023-10-15 16:42 | PC.NURSE ---
pillow and 2x blanket given to pt & his for comfort.
[2023-10-15] MEDS: FUROSEMIDE 40MG/4ML VIAL 80 MG IV (17:18)
--- NOTE | 2023-10-15 17:40 | PC.NURSE ---
Called report to Kelsey Chinchilla RN on Med/Surg
[2023-10-15 17:54] LABS: Troponin I 0.01 ng/ml (0.00-0.034)
--- NOTE | 2023-10-15 18:29 | PC.NURSE ---
arrived by stretcher from ED
--- NOTE | 2023-10-15 18:45 | PC.NURSE ---
Pt is unable to tell me what meds he takes
[2023-10-15] MEDS: DIGOXIN 0.125MG TABLET 125 MCG PO (18:48)
[2023-10-15] MEDS: SPIRONOLACTONE 25MG TABLET 25 MG PO (18:48)
[2023-10-15] MEDS: ISOSORBIDE MONO 30MG TAB.ER.24H 30 MG PO (18:48)
[2023-10-15] MEDS: CLOPIDOGREL 75MG TAB 75 MG PO (18:48)
--- NOTE | 2023-10-15 18:50 | PC.NURSE ---
PER DR REED, OK TO NOT GIVE JARDIANCE AND OMEPRAZOLE TONIGHT.
--- NOTE | 2023-10-15 19:46 | P.HP_ITS ---
History of Present Illness *Admission Date: 10/15/23 *Reason for visit:: SOB *History of present illness: This is a 63-year-old obese male with a extensive history of multivessel CAD s/p CABG, CHF, COPD, also recently NSTEMI, Afib, on Xarelto, coming to ER c/o shortness of breath over the last 3 days which has slowly worsened. No change in lower extremity edema patient does states that he has significant orthopnea associated with this. He has exertional symptoms. Per ER documentation he had on his last echo which was earlier this year [facility] and LVEF of 30 to 35% they are considering a LifeVest but the patient does not yet have any type of defibrillator on placement at the moment. She does state he has some mild chest discomfort primarily retrosternal on the left side nonradiating. Admitted for treatment and management [facility] Disclaimer: The information contained in this section may have been updated after the patient was seen, as this information can be updated by other users. Medical History (Updated 10/16/23 @ 12:31 by Lady Bosch MD) Angina pectoris Anxiety Arrhythmia Atrial fibrillation with RVR Atypical angina Benzocaine adverse reaction Congestive heart failure COPD (chronic obstructive pulmonary disease) COPD mixed type Depression Diastolic dysfunction Dyspnea on exertion Edema Encounter for screening for malignant neoplasm of lung Hemorrhoid HFrEF (heart failure with reduced ejection fraction) History of cardioversion History of gastroesophageal reflux (GERD) History of heart attack Injury of left foot Left foot pain Lumbar disc disease with radiculopathy Lumbar disc disease with radiculopathy Lumbar disc disease with radiculopathy Lung nodule Myocardial infarct Paroxysmal atrial fibrillation Pulmonary hypertension Sleep apnea Smoking greater than 30 pack years Vitamin D deficiency Surgical History History of quadruple bypass History of surgery Hx of heart artery stent Family History Other Heart attack Heart disease Social History (Updated 10/15/23 @ 17:12 by Lucretia Chinchilla, NIC) Smoking Status: Current every day smoker tobacco type: cigarettes packs per day: 1 second hand exposure: No alcohol intake: never substance use type: marijuana, crack/cocaine, painkillers and prescription drug current occupational status: retired and disabled Travel in the last 8 weeks: None household members: spouse housing: house number of children: 7 current occupational exposures/hazards: No caffeine: Yes Review of Systems Review of Systems Review of systems:: pertinent systems reviewed and negative unless documented below Meds Home Medications and Allergies Home Medications Medication Instructions Recorded Confirmed Type atorvastatin 40 mg tablet 40 mg PO HS Cholesterol 04/11/20 10/15/23 History sacubitril 97 mg-valsartan 103 mg 1 tab PO BID Heart Failure 05/13/23 10/15/23 History tablet (Entresto) gabapentin 800 mg tablet 800 mg PO TID Pain 05/14/23 10/15/23 History carvedilol 25 mg tablet 25 mg PO BID High Blood Pressure 07/06/23 10/15/23 History isosorbide mononitrate 30 mg 30 mg PO DAILY High Blood Pressure 07/22/23 10/15/23 History tablet,extended release 24 hr omeprazole 20 mg capsule,delayed 40 mg PO DAILY Acid Reflux 07/22/23 10/15/23 History release spironolactone 25 mg tablet 25 mg PO DAILY Fluid #90 tabs 07/25/23 10/15/23 Rx rivaroxaban 20 mg tablet (Xarelto) 20 mg PO QPMWITHMEAL blood 08/25/23 10/15/23 Rx thinner/atrial fib #30 tabs furosemide 20 mg tablet 20 mg PO BIDP PRN Swelling #30 tabs 09/28/23 10/15/23 Rx alprazolam 1 mg tablet 1 mg PO QIDP PRN Anxiety 10/15/23 10/16/23 History albuterol sulfate 90 mcg/actuation 2 inh inhalation QIDP PRN 10/16/23 10/16/23 History aerosol inhaler Shortness Of Breath Or Wheezing clopidogrel 75 mg tablet 75 mg PO DAILY Blood Thinner 10/16/23 10/16/23 History digoxin 125 mcg (0.125 mg) tablet 125 mcg PO DAILY Heart Rhythm 10/16/23 10/16/23 History empagliflozin 10 mg tablet 10 mg PO DAILY Heart Disease 10/16/23 10/16/23 History (Jardiance) hydroxyzine pamoate 50 mg capsule 50 mg PO DAILYP PRN Anxiety 10/16/23 10/16/23 History ipratropium 0.5 mg-albuterol 3 mg 3 ml inhalation QIDP PRN Shortness 10/16/23 10/16/23 History (2.5 mg base)/3 mL nebulization Of Breath Or Wheezing soln nitroglycerin 0.4 mg sublingual 0.4 mg sublingual Q5MINP PRN Chest 10/16/23 10/16/23 History tablet Pain tiotropium bromide 18 mcg capsule 1 cap inhalation DAILY Copd 10/16/23 10/16/23 History with inhalation device (Spiriva with HandiHaler) New Prescriptions to Start Prescriptions: Allergies Allergy/AdvReac Type Severity Reaction Status Date / Time codeine [CODEINE] AdvReac Mild Headache Verified 08/25/23 13:49 morphine AdvReac Verified 10/15/23 20:50 Exam Data for Last 24 hours Vital signs and Labs for Last 24 Hours: Temp Pulse Resp BP Pulse Ox O2 Del Method FiO2 98.2 F 137 H 20 120/90 95 Room Air 30 10/15/23 18:35 10/15/23 18:48 10/15/23 18:44 10/15/23 18:44 10/15/23 18:44 10/15/23 18:45 10/15/23 15:05 Laboratory Results - last 24 hr 10/15/23 14:26: WBC 11.0 H, RBC 5.16, Hgb 15.5, Hct 45.8, MCV 88.8, MCH 30.1, MCHC 33.9, RDW 14.3, Plt Count 158, MPV 10.0, Neut % (Auto) 82.8 H, Lymph % (Auto) 11.2, [place] % (Auto) 5.0, Eos % (Auto) 0.8, Baso % (Auto) 0.2, Neut # (Auto) 9.1 H, Lymph # (Auto) 1.2, [place] # (Auto) 0.6, Eos # (Auto) 0.1, Baso # (Auto) 0.0, PT 14.8 H, INR 1.40 H, APTT 38.1 H, D-Dimer 0.79 H, Sodium 138, Potassium 4.0, Chloride 102, Carbon Dioxide 28, Anion Gap 12.0, BUN 18, Creatinine 0.90, Estimated Creat Clear 105, Estimated GFR 85, Est GFR ( Amer) 103, Glucose 160 H, Calcium 8.8, Magnesium 2.0, Total Bilirubin 1.2, AST 42, ALT 31, Alkaline Phosphatase 70, Troponin I < 0.01, NT-Pro-B Natriuret Pep 5830 H, Total Protein 7.6, Albumin 4.7, Globulin 2.9, Albumin/Globulin Ratio 1.6, Digoxin < 0.40 10/15/23 17:23: Troponin I 0.01 I & O for Last 24 hours: Intake & Output 10/12/23 10/13/23 10/14/23 10/15/23 23:59 23:59 23:59 23:59 Intake Total 265.75 / 265.75 Output Total 600 / 600 Balance -334.25 / -334.25 Weight 97.267 kg Constitutional Constitutional: moderate distress, obese and cooperative *Routine HEENT Exam Head: Present normocephalic and atraumatic Eye: Present EOMI, PERRL and normal accommodation ENT: Present mucous membranes moist *Routine Neck Exam Neck: Present supple, full ROM and trachea midline *Routine Respiratory Exam Respiratory: Present decreased breath sounds, normal respiratory effort, able to speak in complete sentences and symmetric chest movement *Routine Cardiovascular Exam Cardiovascular: Present RRR, Normal S1, Normal S2 and tachycardia *Routine Abdominal Exam Abdominal: Present soft, normoactive bowel sounds and obese; Absent organomegaly *Routine Rectal Exam Rectal:: deferred *Routine Genitalia Exam Genitalia:: deferred *Routine Extremities Exam Extremities: Present edema, full ROM and pulses intact; Absent cyanosis or clubbing *Routine Skin Exam Skin: Present intact, dry and warm *Routine Neurological Exam Neurological: Present alert, oriented X3, normal reflexes, moving all extremities and normal speech Routine Psychiatric Exam Psychiatric: Present normal thought process, cooperative, good judgment and anxious H&P: Result Imaging and Cardiology EKG: Status: image reviewed by me and Preliminary report Chest x-ray: Status: image reviewed by me, Preliminary report and final report Assessment and Plan *Assessment and plan (1) Acute exacerbation of CHF (congestive heart failure): Status: Acute Qualifiers: Heart failure type: unspecified Qualified Code(s): I50.9 - Heart failure, unspecified Category: Medical Code(s): I50.9 - Heart failure, unspecified (2) Pulmonary edema: Status: Acute Qualifiers: Chronicity: acute Qualified Code(s): J81.0 - Acute pulmonary edema Category: Medical Code(s): J81.1 - Chronic pulmonary edema (3) COPD mixed type: Status: Acute Category: Medical Code(s): J44.9 - Chronic obstructive pulmonary disease, unspecified (4) Hypertension: Status: Chronic Qualifiers: Hypertension type: essential hypertension Qualified Code(s): I10 - Essential (primary) hypertension Category: Medical Code(s): I10 - Essential (primary) hypertension (5) Hyperlipidemia: Status: Chronic Qualifiers: Hyperlipidemia type: mixed hyperlipidemia Qualified Code(s): E78.2 - Mixed hyperlipidemia Category: Medical Code(s): E78.5 - Hyperlipidemia, unspecified (6) Smoking greater than 30 pack years: Status: Acute Category: Social Hx Code(s): F17.210 - Nicotine dependence, cigarettes, uncomplicated (7) Obesity (BMI 30-39.9): Status: Acute Category: Medical Code(s): E66.9 - Obesity, unspecified Plan 63-year-old obese male with a extensive history of multivessel CAD s/p CABG, also recently NSTEMI, Afib, on Xarelto, coming to ER c/o shortness of breath over the last 3 days which has slowly worsened. No change in lower extremity edema patient does states that he has significant orthopnea associated with this. ER work up included CXR that showed Peribronchial wall thickening and mild bilateral airspace opacities, suggestive of edema or pneumonia. WBC slightly elevated. discussed with ER. Admitted for treatment. Plan as follow: -Acute on Chronic CHF: admit patient. Dispo step-down start continuous monitoring. Including HR and VS lasix IV given Cardio and pulmo consult CXR reviewed monitor O2 sat. Oxygen PRN -pulmonary edema to rule out pneumonia started on ceft emoirically monitori for sepsis and SOB monitor CBC and CMP daily COPD, HTN ,HLD: reviewed. resume home meds on alprazolam for anxiety Smoker : nicotine patch Obesity: Encouraged to reduce weight/ PCP to f/u Lovenox for DVT ppx On protonix Full code Attending attestation Patient was seen and evaluated at the bedside myself, agree with USED EQUIPMENT SALES REPRESENTATIVE note.
[2023-10-15] MEDS: TIOTROPIUM 18MCG/PUFF INHALER 1 CAP IH (20:30)
[2023-10-15] MEDS: ATORVASTATIN 40MG TABLET 40 MG PO (20:58)
[2023-10-15] MEDS: FUROSEMIDE 40MG/4ML VIAL 40 MG IV (20:58)
[2023-10-15] MEDS: GABAPENTIN 800MG TABLET 800 MG PO (20:58)
[2023-10-15] MEDS: CARVEDILOL 25MG TABLET 25 MG PO (21:00)
[2023-10-15] MEDS: ALPRAZolam 1MG TABLET 1 MG PO (21:01)
[2023-10-15] MEDS: NICOTINE 21MG/24HR PATCH 21 MG TD (21:01)
[2023-10-15] MEDS: OXYCODONE 5MG W/APAP 325MG TABLET 1 EACH PO (21:05)
[2023-10-15 21:13] LABS: Troponin I < 0.01 ng/ml (0.00-0.034)
[2023-10-15] MEDS: CEFTRIAXONE 1 GM 1 GM in 0.9 % SODIUM CHLORIDE 50 ML IV (23:06)
[2023-10-16] VITALS (24 sets, daily range): BP systolic 70–109; BP diastolic 37–82; PULSE 71–144; RESP 14–24; TEMP 36.5–36.9; O2SAT 87–100; BMI 30.2
--- NOTE | 2023-10-16 01:11 | PC.NURSE ---
Pt awake, requesting BiPAP to be off. Pt educated for reason for BiPAP. Pt verbalized understanding, still requesting to take break. Encouraged pt to notify RN when ready to go back on BiPAP. Reinforced to pt benefits of prolonged BiPAP use. SpO2 99% on RA. at bedside, also verbalizes understanding. All needs addressed at this time
--- NOTE | 2023-10-16 03:22 | PC.NURSE ---
Pt rounding on pt. pt requesting Xanax. Pt and clarified he takes it Q6 hrs or four times a day not QID. Pt hypotensive on exam, 70-80/30-40's on BUE. Pt asymptomatic, tolerating BiPAP at 30% FiO2 well. Manual pressure of 88/48 taken in LUE. Notified HOOF AND SHOE INSPECTOR. Discussed possible dehydration and inability to give fluids and Xanax at this time. HOOF AND SHOE INSPECTOR stated to wait another hour to see if BP changes. Educated pt and , who verbalized understanding at this time.
--- NOTE | 2023-10-16 04:06 | PC.NURSE ---
Rounded on pt and reassessed BP. Pt on RA, took BiPAP off d/t anxiety. Pt SpO2 90-96% on RA. Pt increasingly becoming frustrated at current POC, including potential cardiac cath. Explained need for Dx and benefits of possible intervention. Pt states he does not want to undergo LHC. RN and pt's educated pt on potential benefits and necessity for Dx. Pt continued to state he was not sure if it is necessary and states that he does not know if it will help him. Based on pt's emotions and current statements, suggested pt begin to think about current health goals, including medical intervention vs. palliative care. Pt states he will discuss it, continues to deny wanting LHC at this time. Notified SRNA of pt's wishes. Notified FRANCO Greenfield in person of situation.
[2023-10-16 06:06] LABS: Chloride 100 mmol/L (98-107)
[2023-10-16 06:07] LABS: Potassium 3.3 mmoL/L (3.5-5.1); Sodium 138 mmol/L (136-145)
[2023-10-16 06:09] LABS: Blood Urea Nitrogen 17 mg/dl (9-20); Creatinine Clearance Estimated 102 mL/min (50-200); Estimated Glomerular Filt Rate 85 ml/min (>60); GFR (African American) 103 ML/MIN (>60)
[2023-10-16 06:10] LABS: Anion Gap 11.3 mEq/L (5-15); Basophils % 0.2 % (0.1-2.0); Calcium 8.6 mg/dl (8.4-10.2); Carbon Dioxide 30 mmol/L (22.0-30.0); Eosinophils # 0.1 K/mm3 (0.0-0.4); Eosinophils % 1.4 % (0.1-12.0); Glucose 151 mg/dl (74-100); Hematocrit 41.6 % (42.0-52.0); Lymphocytes # 1.9 K/mm3 (0.7-4.5); Lymphocytes % 26.2 % (10-50); Mean Corpuscular HGB Conc 33.7 g/dL (31.8-35.4); Mean Corpuscular Hemoglobin 29.6 pg (27.0-31.2); Mean Platelet Volume 10.9 fl (7.4-10.4); Monocytes # 0.5 K/mm3 (0.1-1.0); Monocytes % 7.6 % (1.7-9.3); Neutrophils # 4.6 K/mm3 (1.8-7.8); Neutrophils % 64.6 % (37.0-80.0); Platelet Count 153 K/mm3 (142-424); Red Blood Count 4.73 M/mm3 (4.60-6.20); Red Cell Distribution Width 14.5 % (11.5-17.5); White Blood Count 7.1 K/mm3 (4.8-10.8)
[2023-10-16] MEDS: TIOTROPIUM 18MCG/PUFF INHALER 1 CAP IH (06:17)
--- NOTE | 2023-10-16 06:31 | PC.NURSE ---
Spoke with sister Mikayla regarding pt condition per pt's approval. Answered all questions at this time.
--- NOTE | 2023-10-16 08:43 | PC.NURSE ---
Spoke to ALEK Antony about patient's blood pressures and heart rate. Instructed to still give coreg this am
--- NOTE | 2023-10-16 08:45 | PC.NURSE ---
Instructed by ALEK Antony not to give coreg this am
[2023-10-16] MEDS: PANTOPRAZOLE 40MG TABLET 40 MG PO (09:31)
[2023-10-16] MEDS: CLOPIDOGREL 75MG TAB 75 MG PO (09:31)
--- NOTE | 2023-10-16 10:05 | EXP.PULM.CON ---
History of Present Illness History of present illness: Mr. Hinojosa is a 63-year-old greater than 30 PPD, mild COPD on Spiriva inhaler, heart failure with reduced ejection fraction, CAD, A-fib on Xarelto presents with worsening worsening respiratory distress and was admitted for further evaluation and management. [facility] Disclaimer: The information contained in this section may have been updated after the patient was seen, as this information can be updated by other users. Medical History (Updated 10/16/23 @ 12:31 by Lady Bosch MD) Angina pectoris Anxiety Arrhythmia Atrial fibrillation with RVR Atypical angina Benzocaine adverse reaction Congestive heart failure COPD (chronic obstructive pulmonary disease) COPD mixed type Depression Diastolic dysfunction Dyspnea on exertion Edema Encounter for screening for malignant neoplasm of lung Hemorrhoid HFrEF (heart failure with reduced ejection fraction) History of cardioversion History of gastroesophageal reflux (GERD) History of heart attack Injury of left foot Left foot pain Lumbar disc disease with radiculopathy Lumbar disc disease with radiculopathy Lumbar disc disease with radiculopathy Lung nodule Myocardial infarct Paroxysmal atrial fibrillation Pulmonary hypertension Sleep apnea Smoking greater than 30 pack years Vitamin D deficiency Surgical History History of quadruple bypass History of surgery Hx of heart artery stent Family History Other Heart attack Heart disease Social History (Updated 10/15/23 @ 17:12 by Lucretia Chinchilla RN) Smoking Status: Current every day smoker tobacco type: cigarettes packs per day: 1 second hand exposure: No alcohol intake: never substance use type: marijuana, crack/cocaine, painkillers and prescription drug current occupational status: retired and disabled Travel in the last 8 weeks: None household members: spouse housing: house number of children: 7 current occupational exposures/hazards: No caffeine: Yes Review of Systems Constitutional Constitutional: Reports anorexia, Reports body ache(s) and Reports fatigue Eyes Eyes: Denies eye discharge, Denies dry eyes, Denies irritation and Denies itchy eyes ENT Ears, Nose, Mouth, and Throat: Denies epistaxis, Denies facial pain, Denies lip swelling and Denies throat swelling *Cardiovascular Cardiovascular: Reports dyspnea, Reports dyspnea on exertion and Reports orthopnea *Respiratory Respiratory: Reports chest congestion, Reports cough, Reports dyspnea, Reports dyspnea on exertion, Reports excessive phlegm production and Reports wheezing *Gastrointestinal Gastrointestinal: Denies abdominal pain, Denies belching and Denies cramping *Musculoskeletal Musculoskeletal: Reports back pain, Reports myalgias and Reports other (No small joint swelling or Pain) Psychiatric Psychiatric: Denies homicidal ideation and Denies suicidal ideation Endocrine Endocrine: Reports fatigue and Denies heat intolerance Hematologic/Lymphatic Hematologic/Lymphatic: Denies easy bleeding and Denies lymphadenopathy Allergic/Immunologic Allergic/Immunologic: Denies itchy eyes, Denies lip swelling, Denies throat swelling and Reports wheezing Pulmonology Exam Inpatient Vital signs and Labs for Last 24 Hours: Temp Pulse Resp BP Pulse Ox O2 Del Method O2 Flow Rate 98.4 F 136 H 22 101/37 L 91 L Nasal Cannula 2 10/16/23 08:00 10/16/23 09:33 10/16/23 09:33 10/16/23 09:33 10/16/23 09:33 10/16/23 09:33 10/16/23 09:33 FiO2 30 10/16/23 04:00 Laboratory Results - last 24 hr 10/15/23 14:26: WBC 11.0 H, RBC 5.16, Hgb 15.5, Hct 45.8, MCV 88.8, MCH 30.1, MCHC 33.9, RDW 14.3, Plt Count 158, MPV 10.0, Neut % (Auto) 82.8 H, Lymph % (Auto) 11.2, [place] % (Auto) 5.0, Eos % (Auto) 0.8, Baso % (Auto) 0.2, Neut # (Auto) 9.1 H, Lymph # (Auto) 1.2, [place] # (Auto) 0.6, Eos # (Auto) 0.1, Baso # (Auto) 0.0, PT 14.8 H, INR 1.40 H, APTT 38.1 H, D-Dimer 0.79 H, Sodium 138, Potassium 4.0, Chloride 102, Carbon Dioxide 28, Anion Gap 12.0, BUN 18, Creatinine 0.90, Estimated Creat Clear 105, Estimated GFR 85, Est GFR ( Amer) 103, Glucose 160 H, Calcium 8.8, Magnesium 2.0, Total Bilirubin 1.2, AST 42, ALT 31, Alkaline Phosphatase 70, Troponin I < 0.01, NT-Pro-B Natriuret Pep 5830 H, Total Protein 7.6, Albumin 4.7, Globulin 2.9, Albumin/Globulin Ratio 1.6, Digoxin < 0.40 10/15/23 17:23: Troponin I 0.01 10/15/23 20:44: Troponin I < 0.01 10/16/23 05:30: WBC 7.1 D, RBC 4.73, Hgb 14.0 L, Hct 41.6 L, MCV 88.0, MCH 29.6, MCHC 33.7, RDW 14.5, Plt Count 153, MPV 10.9 H, Neut % (Auto) 64.6, Lymph % (Auto) 26.2, [place] % (Auto) 7.6, Eos % (Auto) 1.4, Baso % (Auto) 0.2, Neut # (Auto) 4.6, Lymph # (Auto) 1.9, [place] # (Auto) 0.5, Eos # (Auto) 0.1, Baso # (Auto) 0.0, Sodium 138, Potassium 3.3 L, Chloride 100, Carbon Dioxide 30, Anion Gap 11.3, BUN 17, Creatinine 0.90, Estimated Creat Clear 102, Estimated GFR 85, Est GFR ( Amer) 103, Glucose 151 H, Calcium 8.6 I & O for Labs for Last 24 Hours: Intake & Output 10/13/23 10/14/23 10/15/23 10/16/23 23:59 23:59 23:59 23:59 Intake Total 287.55 / 317.55 395.6 / 395.6 Output Total 3200 / 3200 150 / 150 Balance -2912.45 / -2882.45 245.6 / 245.6 Weight 214 lb 7 oz 210 lb 11.2 oz Constitutional: Present moderate distress Head: Present normocephalic and atraumatic ENT: Present normal exam, normal oropharynx and mucous membranes moist Neck: Present normal inspection and full ROM Respiratory: Present respiratory distress and able to speak in complete sentences; Absent prolonged expiratory phase, wheezes or diminished air movement Cardiac: Present S1/S2, Tachycardia and radial pulses present GI: Present soft and distention; Absent tenderness or guarding Skin: Present intact; Absent cyanosis or jaundice Neuro: Present alert, awake and oriented x 3 Extremities: Present normal inspection; Absent clubbing or cyanosis Psychiatric: Present normal affect and cooperative Meds Home Medications and Allergies Home Medications Medication Instructions Recorded Confirmed Type atorvastatin 40 mg tablet 40 mg PO HS Cholesterol 04/11/20 10/15/23 History sacubitril 97 mg-valsartan 103 mg 1 tab PO BID Heart Failure 05/13/23 10/15/23 History tablet (Entresto) gabapentin 800 mg tablet 800 mg PO TID Pain 05/14/23 10/15/23 History carvedilol 25 mg tablet 25 mg PO BID High Blood Pressure 07/06/23 10/15/23 History isosorbide mononitrate 30 mg 30 mg PO DAILY High Blood Pressure 07/22/23 10/15/23 History tablet,extended release 24 hr omeprazole 20 mg capsule,delayed 40 mg PO DAILY Acid Reflux 07/22/23 10/15/23 History release spironolactone 25 mg tablet 25 mg PO DAILY Fluid #90 tabs 07/25/23 10/15/23 Rx rivaroxaban 20 mg tablet (Xarelto) 20 mg PO QPMWITHMEAL blood 08/25/23 10/15/23 Rx thinner/atrial fib #30 tabs furosemide 20 mg tablet 20 mg PO BIDP PRN Swelling #30 tabs 09/28/23 10/15/23 Rx alprazolam 1 mg tablet 1 mg PO QIDP PRN Anxiety 10/15/23 10/16/23 History albuterol sulfate 90 mcg/actuation 2 inh inhalation QIDP PRN 10/16/23 10/16/23 History aerosol inhaler Shortness Of Breath Or Wheezing clopidogrel 75 mg tablet 75 mg PO DAILY Blood Thinner 10/16/23 10/16/23 History digoxin 125 mcg (0.125 mg) tablet 125 mcg PO DAILY Heart Rhythm 10/16/23 10/16/23 History empagliflozin 10 mg tablet 10 mg PO DAILY Heart Disease 10/16/23 10/16/23 History (Jardiance) hydroxyzine pamoate 50 mg capsule 50 mg PO DAILYP PRN Anxiety 10/16/23 10/16/23 History ipratropium 0.5 mg-albuterol 3 mg 3 ml inhalation QIDP PRN Shortness 10/16/23 10/16/23 History (2.5 mg base)/3 mL nebulization Of Breath Or Wheezing soln nitroglycerin 0.4 mg sublingual 0.4 mg sublingual Q5MINP PRN Chest 10/16/23 10/16/23 History tablet Pain tiotropium bromide 18 mcg capsule 1 cap inhalation DAILY Copd 10/16/23 10/16/23 History with inhalation device (Spiriva with HandiHaler) New Prescriptions to Start Prescriptions: Allergies Allergy/AdvReac Type Severity Reaction Status Date / Time codeine [CODEINE] AdvReac Mild Headache Verified 08/25/23 13:49 morphine AdvReac Verified 10/15/23 20:50 Results Laboratory Findings 10/16/23 05:30 10/16/23 05:30 PT/INR, D-dimer PT 14.8 seconds (10.1-12.5) H 10/15/23 14:26 INR 1.40 (0.9-1.1) H 10/15/23 14:26 D-Dimer 0.79 ug/mL (0.0-0.5) H 10/15/23 14:26 Abnormal lab findings: Abnormal Labs 10/15/23 10/16/23 14:26 05:30 WBC 11.0 H Hgb 14.0 L Hct 41.6 L MPV 10.9 H Neut % (Auto) 82.8 H Neut # (Auto) 9.1 H PT 14.8 H INR 1.40 H APTT 38.1 H D-Dimer 0.79 H Potassium 3.3 L Glucose 160 H 151 H NT-Pro-B Natriuret Pep 5830 H Assessment and Plan *Assessment and plan (1) Acute respiratory failure with hypoxia: Status: Resolved Category: Medical Code(s): J96.01 - Acute respiratory failure with hypoxia (2) Pneumonia: Status: Resolved Qualifiers: Pneumonia type: due to unspecified organism Laterality: right Lung location: lower lobe of lung Qualified Code(s): J18.9 - Pneumonia, unspecified organism Category: Medical Code(s): J18.9 - Pneumonia, unspecified organism Plan Mr. Hinojosa is a 63-year-old greater than 30 PPD, mild COPD on Spiriva inhaler, heart failure with reduced ejection fraction, CAD, A-fib on Xarelto presents with worsening worsening respiratory distress and was admitted for further evaluation and management. Chest x-ray on admission concerning for bilateral lower lobe patchy airspace disease along with increased vascular congestion. Mild leukocytosis upon admission, improving. Patient was initiated on ceftriaxone upon admission. Auscultation no significant wheezing. On 2 L saturating 97%, weaned to room air. Plan: -Oxygen supplementation as needed to maintain O2 saturation goal of 90% and above -Continue ceftriaxone and azithromycin pending sputum cultures. -Continue home inhalers including Spiriva HandiHaler along with albuterol/DuoNebs every 6 hours on as-needed basis # Thank you for involving pulmonary in this patient care. Will continue to follow.
[2023-10-16] MEDS: EMPAGLIFLOZIN 10MG TABLET 10 MG PO (10:07)
[2023-10-16] MEDS: METOPROLOL SUCCINATE XL 25MG TABLET 25 MG PO (10:08)
[2023-10-16] MEDS: DIGOXIN 0.125MG TABLET 125 MCG PO (10:08)
[2023-10-16] MEDS: FUROSEMIDE 40MG/4ML VIAL 40 MG IV ×3 (10:09→20:05)
[2023-10-16] MEDS: GABAPENTIN 800MG TABLET 800 MG PO ×3 (10:09→20:05)
[2023-10-16] MEDS: OXYCODONE 5MG W/APAP 325MG TABLET 1 EACH PO ×3 (10:14→23:42)
--- NOTE | 2023-10-16 11:33 | EXP.CARD.CON ---
History of Present Illness History of Present Illness Consult date: 10/16/23 Requesting physician: Michelle Duffy Consult reason: shortness of breath Chief complaint: SOA History of present illness: This is a 63-year-old white gentleman with a past medical history of coronary artery disease status post CABG and stenting, non-STEMI, A-fib, HFrEF, COPD. He presented to the emergency department complaints of shortness of breath over the last 3 days that has progressively worsened. He states that he occasionally has some mild discomfort in his chest but reports that it is mostly in the lower left side of his back. He denies any worsening lower extremity edema. He denies any fever, chills, nausea, vomiting, diarrhea. His shortness of breath is associated with PND and orthopnea. Of note the patient does have a known history of coronary disease with recent coronary stenting. He did have HFrEF with an ejection fraction around 25 to 30% which recovered to approximately 35 to 40% so no LifeVest or AICD was indicated at that time. The patient has been having paroxysmal atrial fibrillation with RVR. He was set up for REECE and cardioversion but then converted to sinus rhythm before the procedure. He has been referred to Dr. Chaidez for consideration of atrial fibrillation ablation but the patient has not made the appointment to see Dr. Chaidez yet. [facility] Disclaimer: The information contained in this section may have been updated after the patient was seen, as this information can be updated by other users. Medical History (Updated 10/16/23 @ 11:41 by Irene Haas APRN) Angina pectoris Anxiety Arrhythmia Atrial fibrillation with RVR Atypical angina Benzocaine adverse reaction Congestive heart failure COPD (chronic obstructive pulmonary disease) COPD mixed type Depression Diastolic dysfunction Dyspnea on exertion Edema Encounter for screening for malignant neoplasm of lung Hemorrhoid HFrEF (heart failure with reduced ejection fraction) History of cardioversion History of gastroesophageal reflux (GERD) History of heart attack Injury of left foot Left foot pain Lumbar disc disease with radiculopathy Lumbar disc disease with radiculopathy Lumbar disc disease with radiculopathy Lung nodule Myocardial infarct Paroxysmal atrial fibrillation Pulmonary hypertension Sleep apnea Smoking greater than 30 pack years Vitamin D deficiency Surgical History History of quadruple bypass History of surgery Hx of heart artery stent Family History Other Heart attack Heart disease Social History (Updated 10/15/23 @ 17:12 by Lucretia Chinchilla RN) Smoking Status: Current every day smoker tobacco type: cigarettes packs per day: 1 second hand exposure: No alcohol intake: never substance use type: marijuana, crack/cocaine, painkillers and prescription drug current occupational status: retired and disabled Travel in the last 8 weeks: None household members: spouse housing: house number of children: 7 current occupational exposures/hazards: No caffeine: Yes Review of Systems Review of Systems Review of systems:: pertinent systems reviewed and negative unless documented below Constitutional Constitutional: Reports system reviewed and no additional complaints, except as documented, Reports fatigue and Reports lethargy Eyes Eyes: Reports system reviewed and no additional complaints, except as documented ENT Ears, Nose, Mouth, and Throat: Reports system reviewed and no additional complaints, except as documented *Cardiovascular Cardiovascular: Reports system reviewed and no additional complaints, except as documented, Reports dyspnea, Reports dyspnea on exertion, Denies leg edema, Reports orthopnea, Reports palpitations and Reports rapid heart rate *Respiratory Respiratory: Reports system reviewed and no additional complaints, except as documented, Reports dyspnea and Reports dyspnea on exertion *Gastrointestinal Gastrointestinal: Reports system reviewed and no additional complaints, except as documented *Genitourinary Genitourinary: Reports system reviewed and no additional complaints, except as documented *Musculoskeletal Musculoskeletal: Reports system reviewed and no additional complaints, except as documented and Reports back pain (Left lower back pain) Integumentary/Breasts Skin/Breast: Reports system reviewed and no additional complaints, except as documented *Neurologic Neurologic: Reports system reviewed and no additional complaints, except as documented Psychiatric Psychiatric: Reports system reviewed and no additional complaints, except as documented Endocrine Endocrine: Reports system reviewed and no additional complaints, except as documented, Reports fatigue and Reports palpitations Hematologic/Lymphatic Hematologic/Lymphatic: Reports system reviewed and no additional complaints, except as documented Allergic/Immunologic Allergic/Immunologic: Reports system reviewed and no additional complaints, except as documented Exam Data for Last 24 hours Vital signs and Labs for Last 24 Hours: Temp Pulse Resp BP Pulse Ox O2 Del Method O2 Flow Rate 97.8 F 81 20 87/37 L 90 L Nasal Cannula 2 10/16/23 11:27 10/16/23 11:00 10/16/23 11:00 10/16/23 11:00 10/16/23 11:00 10/16/23 11:00 10/16/23 11:00 FiO2 30 10/16/23 04:00 Laboratory Results - last 24 hr 10/15/23 14:26: WBC 11.0 H, RBC 5.16, Hgb 15.5, Hct 45.8, MCV 88.8, MCH 30.1, MCHC 33.9, RDW 14.3, Plt Count 158, MPV 10.0, Neut % (Auto) 82.8 H, Lymph % (Auto) 11.2, [place] % (Auto) 5.0, Eos % (Auto) 0.8, Baso % (Auto) 0.2, Neut # (Auto) 9.1 H, Lymph # (Auto) 1.2, [place] # (Auto) 0.6, Eos # (Auto) 0.1, Baso # (Auto) 0.0, PT 14.8 H, INR 1.40 H, APTT 38.1 H, D-Dimer 0.79 H, Sodium 138, Potassium 4.0, Chloride 102, Carbon Dioxide 28, Anion Gap 12.0, BUN 18, Creatinine 0.90, Estimated Creat Clear 105, Estimated GFR 85, Est GFR ( Amer) 103, Glucose 160 H, Calcium 8.8, Magnesium 2.0, Total Bilirubin 1.2, AST 42, ALT 31, Alkaline Phosphatase 70, Troponin I < 0.01, NT-Pro-B Natriuret Pep 5830 H, Total Protein 7.6, Albumin 4.7, Globulin 2.9, Albumin/Globulin Ratio 1.6, Digoxin < 0.40 10/15/23 17:23: Troponin I 0.01 10/15/23 20:44: Troponin I < 0.01 10/16/23 05:30: WBC 7.1 D, RBC 4.73, Hgb 14.0 L, Hct 41.6 L, MCV 88.0, MCH 29.6, MCHC 33.7, RDW 14.5, Plt Count 153, MPV 10.9 H, Neut % (Auto) 64.6, Lymph % (Auto) 26.2, [place] % (Auto) 7.6, Eos % (Auto) 1.4, Baso % (Auto) 0.2, Neut # (Auto) 4.6, Lymph # (Auto) 1.9, [place] # (Auto) 0.5, Eos # (Auto) 0.1, Baso # (Auto) 0.0, Sodium 138, Potassium 3.3 L, Chloride 100, Carbon Dioxide 30, Anion Gap 11.3, BUN 17, Creatinine 0.90, Estimated Creat Clear 102, Estimated GFR 85, Est GFR ( Amer) 103, Glucose 151 H, Calcium 8.6 I & O for Last 24 hours: Intake & Output 10/13/23 10/14/23 10/15/23 10/16/23 23:59 23:59 23:59 23:59 Intake Total 287.55 / 317.55 395.6 / 395.6 Output Total 3200 / 3200 400 / 400 Balance -2912.45 / -2882.45 -4.4 / -4.4 Weight 214 lb 7 oz 210 lb 11.2 oz Constitutional Constitutional: no acute distress and obese *Routine HEENT Exam Head: Present normocephalic and atraumatic ENT: Present mucous membranes moist *Routine Neck Exam Neck: Present supple, full ROM and normal carotid upstroke; Absent JVD, carotid bruit or lymphadenopathy *Routine Respiratory Exam Respiratory: Present CTA bilaterally, normal respiratory effort, able to speak in complete sentences and symmetric chest movement *Routine Cardiovascular Exam Cardiovascular: Present Normal S1, Normal S2, murmur, tachycardia and irregularly irregular; Absent gallop *Routine Abdominal Exam Abdominal: Present soft and normoactive bowel sounds; Absent tenderness, distended or organomegaly *Routine Extremities Exam Extremities: Present full ROM, pulses intact and normal capillary refill; Absent cyanosis, clubbing or edema *Routine Skin Exam Skin: Present intact and warm; Absent erythema *Routine Neurological Exam Neurological: Present alert, oriented X3 and CN II-XII intact; Absent sensory deficit or motor deficit Routine Psychiatric Exam Psychiatric: Present normal affect Meds Home Medications and Allergies Home Medications Medication Instructions Recorded Confirmed Type atorvastatin 40 mg tablet 40 mg PO HS Cholesterol 04/11/20 10/15/23 History sacubitril 97 mg-valsartan 103 mg 1 tab PO BID Heart Failure 05/13/23 10/15/23 History tablet (Entresto) gabapentin 800 mg tablet 800 mg PO TID Pain 05/14/23 10/15/23 History carvedilol 25 mg tablet 25 mg PO BID High Blood Pressure 07/06/23 10/15/23 History isosorbide mononitrate 30 mg 30 mg PO DAILY High Blood Pressure 07/22/23 10/15/23 History tablet,extended release 24 hr omeprazole 20 mg capsule,delayed 40 mg PO DAILY Acid Reflux 07/22/23 10/15/23 History release spironolactone 25 mg tablet 25 mg PO DAILY Fluid #90 tabs 07/25/23 10/15/23 Rx rivaroxaban 20 mg tablet (Xarelto) 20 mg PO QPMWITHMEAL blood 08/25/23 10/15/23 Rx thinner/atrial fib #30 tabs furosemide 20 mg tablet 20 mg PO BIDP PRN Swelling #30 tabs 09/28/23 10/15/23 Rx alprazolam 1 mg tablet 1 mg PO QIDP PRN Anxiety 10/15/23 10/16/23 History albuterol sulfate 90 mcg/actuation 2 inh inhalation QIDP PRN 10/16/23 10/16/23 History aerosol inhaler Shortness Of Breath Or Wheezing clopidogrel 75 mg tablet 75 mg PO DAILY Blood Thinner 10/16/23 10/16/23 History digoxin 125 mcg (0.125 mg) tablet 125 mcg PO DAILY Heart Rhythm 10/16/23 10/16/23 History empagliflozin 10 mg tablet 10 mg PO DAILY Heart Disease 10/16/23 10/16/23 History (Jardiance) hydroxyzine pamoate 50 mg capsule 50 mg PO DAILYP PRN Anxiety 10/16/23 10/16/23 History ipratropium 0.5 mg-albuterol 3 mg 3 ml inhalation QIDP PRN Shortness 10/16/23 10/16/23 History (2.5 mg base)/3 mL nebulization Of Breath Or Wheezing soln nitroglycerin 0.4 mg sublingual 0.4 mg sublingual Q5MINP PRN Chest 10/16/23 10/16/23 History tablet Pain tiotropium bromide 18 mcg capsule 1 cap inhalation DAILY Copd 10/16/23 10/16/23 History with inhalation device (Spiriva with HandiHaler) New Prescriptions to Start Prescriptions: Allergies Allergy/AdvReac Type Severity Reaction Status Date / Time codeine [CODEINE] AdvReac Mild Headache Verified 08/25/23 13:49 morphine AdvReac Verified 10/15/23 20:50 Assessment and Plan *Assessment and plan (1) HFrEF (heart failure with reduced ejection fraction): Status: Acute Category: Medical Code(s): I50.20 - Unspecified systolic (congestive) heart failure (2) Atrial flutter with rapid ventricular response: Status: Acute Category: Medical Code(s): I48.92 - Unspecified atrial flutter (3) Paroxysmal atrial fibrillation: Status: Acute Category: Medical Code(s): I48.0 - Paroxysmal atrial fibrillation (4) Pulmonary hypertension: Status: Acute Category: Medical Code(s): I27.20 - Pulmonary hypertension, unspecified (5) Chronic anticoagulation: Status: Acute Category: Medical Code(s): 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 (6) Coronary arteriosclerosis: Status: Chronic Category: Medical Code(s): I25.10 - Atherosclerotic heart disease of [place] coronary artery without angina pectoris (7) Hyperlipidemia: Status: Chronic Qualifiers: Hyperlipidemia type: mixed hyperlipidemia Qualified Code(s): E78.2 - Mixed hyperlipidemia Category: Medical Code(s): E78.5 - Hyperlipidemia, unspecified (8) Tobacco dependence syndrome: Status: Chronic Category: Medical Code(s): F17.200 - Nicotine dependence, unspecified, uncomplicated (9) Mitral regurgitation: Status: Chronic Qualifiers: Cardiac valve disease etiology: nonrheumatic Qualified Code(s): I34.0 - Nonrheumatic mitral (valve) insufficiency Category: Medical Code(s): I34.0 - Nonrheumatic mitral (valve) insufficiency (10) Hypertension: Status: Chronic Qualifiers: Hypertension type: essential hypertension Qualified Code(s): I10 - Essential (primary) hypertension Category: Medical Code(s): I10 - Essential (primary) hypertension (11) COPD (chronic obstructive pulmonary disease): Status: Chronic Qualifiers: COPD type: COPD with acute exacerbation Qualified Code(s): J44.1 - Chronic obstructive pulmonary disease with (acute) exacerbation Category: Medical Code(s): J44.9 - Chronic obstructive pulmonary disease, unspecified Plan Plan: 1. This is a 63-year-old white gentleman who presented to the emergency department with complaints of worsening shortness of breath. The patient was found to be in atrial fibrillation/flutter with RVR. His heart rate was in the 130s. This morning he remains in atrial fibrillation/flutter with a heart rate around 103. Will give him his morning dose of digoxin for rate control. Continue Xarelto for long-term anticoagulation secondary to paroxysmal atrial fibrillation. 2. The patient has been hypotensive overnight so we will stop his Coreg which has a bigger drop in his blood pressure and give him Toprol-XL 25 mg p.o. daily to see if this will help to improve his heart rate. 3. We will obtain an echocardiogram to evaluate his LV function. The patient has a known history of HFrEF. His BNP is elevated over 5000. The patient had severe LV dysfunction at 1 point and his EF did improve to approximately 35 to 40%. We do want to reevaluate his ejection fraction at this time. 4. The patient does have a history of atrial fibrillation/flutter and has been referred to a neck forming machine upkeep mechanic helper on an outpatient basis. The patient has not made this appointment. Will make sure that the patient is referred for consideration of ablation. 5. Coronary artery disease is present. He denies any chest pain or pressure. He is complaining of lower left back pain. He ruled out for an SC. No plans for invasive left cardiac catheterization at this time. Continue Plavix 75 mg daily for his coronary artery disease. 6. His blood pressure is low this morning. His systolics have been in the 70s and 80s. Will hold his Entresto, spironolactone and isosorbide at this time due to his hypotension. 7. His LDL goal is less than 55. His LDL is 83. On a statin. 8. Continue Jardiance for HFrEF. 9. Continue Lasix 40 mg IV 3 times daily for continued diuresis due to his HFrEF. The acute exacerbation of his heart failure may be what caused him to go back into atrial fibrillation/flutter with RVR. We are hopeful that with continued diuresis his heart rate will improve as well. 10. Further recommendations will be made pending the patient's response to treatment and the results of his echocardiogram today. Thank you for the opportunity to participate in the care of this patient. All recommendations and orders are per Dr. Farah. Addendum: Echocardiogram shows: Severe LV dilation with severe reduction in LV systolic function (LVEF 25-30%). Biatrial dilation. Severe MR due to tethering of psoterior MV leaflet ([place] class IIIB). Compared to prior study from 07/23/2023, the LVEF is now further reduced. The MR progressed from moderate to severe The patient has had an interval decrease in his LV function. His ejection fraction is down to 25 to 30%. His mitral regurgitation has also progressed and is now severe. Will obtain a stat lactic acid and liver panel. Will give the patient digoxin 250 mcg IV x 1 dose now to see if this will help to improve his heart rate. The patient will need a LifeVest in place due to his severe LV dysfunction. He is at increased risk of sudden cardiac due to his severe LV dysfunction. He will need a LifeVest in place prior to discharge home. Once the patient's blood pressure improves he will need to be restarted on Entresto and spironolactone. Further recommendations will be made pending his lab results and the additional IV dose of digoxin.
[2023-10-16] MEDS: AZITHROMYCIN 500 MG in 0.9 % SODIUM CHLORIDE 250 ML 250 MG IV (11:45)
[2023-10-16] MEDS: ALPRAZolam 1MG TABLET 1 MG PO ×3 (11:50→23:42)
[2023-10-16 12:31] LABS: Lactic Acid 1.6 mmol/L (0.7-2.1)
[2023-10-16 12:32] LABS: Alanine Aminotransferase 27 U/L (12-78); Albumin Level 4.1 g/dl (3.5-5.0); Alkaline Phosphatase 58 U/L (38-126); Aspartate Amino Transferase 29 U/L (17-59); Bilirubin,Indirect 1.1 mg/dL (0.0-0.9); Bilirubin,Total 1.1 mg/dl (0.2-1.3); Total Protein,Serum 6.7 g/dl (6.3-8.2)
[2023-10-16] MEDS: DIGOXIN 0.25MG/ML 2ML AMPUL 250 MCG IV (12:39)
[2023-10-16 15:24] LABS: Adenovirus,PCR Not Detected (NotDetected); Coronavirus 229E Not Detected (NotDetected); Coronavirus NL63 Not Detected (NotDetected); Coronavirus OC43 Not Detected (NotDetected); Coronovirus HKU1,PCR Not Detected (NotDetected); Human Metapneumovirus Not Detected (NotDetected); Influenza A, PCR Not Detected (NotDetected); Influenza AH1, 2009 Not Detected (NotDetected); Influenza AH1, PCR Not Detected (NotDetected); Influenza AH3,PCR Not Detected (NotDetected); Influenza B, PCR Not Detected (NotDetected); Parainfluenza 1, PCR Not Detected (NotDetected); Rhinovirus/Enterovirus Not Detected (NotDetected)
[2023-10-16 15:25] LABS: Coronavirus 19, PCR Not Detected (NotDetected); Parainfluenza 2, PCR Not Detected (NotDetected); Parainfluenza 3, PCR Not Detected (NotDetected); Parainfluenza 4, PCR Not Detected (NotDetected); Respiratory Syncytial Virus Not Detected (NotDetected)
--- NOTE | 2023-10-16 16:11 | PC.NURSE ---
VS stable, heart rate between 90-140's. Patient in between a fib and sinus tach rhythms. Patient felt short of breathe on room air trial, 3LNC applied. Pt alert and oriented times 4.
--- NOTE | 2023-10-16 17:03 | EXP.PN ---
Subjective *Date: 10/16/23 *Time: 17:03 Interval history: patient was seen and evaluated at the bedside. No reported acute events overnight, denies chest pain, shortness of breath, nausea, vomiting, abdominal pain. Exam Data for Last 24 hours Vital signs and Labs for Last 24 Hours: Temp Pulse Resp BP Pulse Ox O2 Del Method O2 Flow Rate 97.8 F 132 H 18 93/54 L 94 L Nasal Cannula 2 10/16/23 11:27 10/16/23 16:00 10/16/23 16:00 10/16/23 16:00 10/16/23 16:00 10/16/23 16:00 10/16/23 16:00 FiO2 30 10/16/23 04:00 Laboratory Results - last 24 hr 10/15/23 17:23: Troponin I 0.01 10/15/23 20:44: Troponin I < 0.01 10/16/23 05:30: WBC 7.1 D, RBC 4.73, Hgb 14.0 L, Hct 41.6 L, MCV 88.0, MCH 29.6, MCHC 33.7, RDW 14.5, Plt Count 153, MPV 10.9 H, Neut % (Auto) 64.6, Lymph % (Auto) 26.2, [place] % (Auto) 7.6, Eos % (Auto) 1.4, Baso % (Auto) 0.2, Neut # (Auto) 4.6, Lymph # (Auto) 1.9, [place] # (Auto) 0.5, Eos # (Auto) 0.1, Baso # (Auto) 0.0, Sodium 138, Potassium 3.3 L, Chloride 100, Carbon Dioxide 30, Anion Gap 11.3, BUN 17, Creatinine 0.90, Estimated Creat Clear 102, Estimated GFR 85, Est GFR ( Amer) 103, Glucose 151 H, Calcium 8.6 10/16/23 12:12: Lactate 1.6, Total Bilirubin 1.1, Direct Bilirubin 0.0, Conjugated Bilirubin 0.0, Indirect Bilirubin 1.1 H, Unconjugated Bilirubin 1.0, AST 29 D, ALT 27, Alkaline Phosphatase 58, Total Protein 6.7, Albumin 4.1 D I & O for Last 24 hours: Intake & Output 10/13/23 10/14/23 10/15/23 10/16/23 23:59 23:59 23:59 23:59 Intake Total 287.55 / 317.55 1245.6 / 1245.6 Output Total 3200 / 3200 1600 / 1600 Balance -2912.45 / -2882.45 -354.4 / -354.4 Weight 97.267 kg 95.572 kg Constitutional Constitutional: no acute distress *Routine HEENT Exam Head: Present normocephalic Eye: Present EOMI and PERRL ENT: Present mucous membranes moist *Routine Neck Exam Neck: Present supple; Absent lymphadenopathy *Routine Respiratory Exam Respiratory: Present CTA bilaterally *Routine Cardiovascular Exam Cardiovascular: Present RRR *Routine Abdominal Exam Abdominal: Present soft and normoactive bowel sounds; Absent tenderness *Routine Extremities Exam Extremities: Present edema; Absent cyanosis or clubbing *Routine Skin Exam Skin: Present warm; Absent rash *Routine Neurological Exam Neurological: Present alert and oriented X3 Assessment and Plan *Assessment and plan (1) Acute exacerbation of CHF (congestive heart failure): Status: Acute Qualifiers: Heart failure type: unspecified Qualified Code(s): I50.9 - Heart failure, unspecified Category: Medical Code(s): I50.9 - Heart failure, unspecified (2) Pulmonary edema: Status: Acute Qualifiers: Chronicity: acute Qualified Code(s): J81.0 - Acute pulmonary edema Category: Medical Code(s): J81.1 - Chronic pulmonary edema (3) COPD mixed type: Status: Acute Category: Medical Code(s): J44.9 - Chronic obstructive pulmonary disease, unspecified (4) Hypertension: Status: Chronic Qualifiers: Hypertension type: essential hypertension Qualified Code(s): I10 - Essential (primary) hypertension Category: Medical Code(s): I10 - Essential (primary) hypertension (5) Hyperlipidemia: Status: Chronic Qualifiers: Hyperlipidemia type: mixed hyperlipidemia Qualified Code(s): E78.2 - Mixed hyperlipidemia Category: Medical Code(s): E78.5 - Hyperlipidemia, unspecified (6) Smoking greater than 30 pack years: Status: Acute Category: Social Hx Code(s): F17.210 - Nicotine dependence, cigarettes, uncomplicated (7) Obesity (BMI 30-39.9): Status: Acute Category: Medical Code(s): E66.9 - Obesity, unspecified Plan 63-year-old obese male with a extensive history of multivessel CAD s/p CABG, also recently NSTEMI, Afib, on Xarelto, coming to ER c/o shortness of breath over the last 3 days which has slowly worsened. No change in lower extremity edema patient does states that he has significant orthopnea associated with this. ER work up included CXR that showed Peribronchial wall thickening and mild bilateral airspace opacities, suggestive of edema or pneumonia. WBC slightly elevated. discussed with ER. Admitted for treatment. Plan as follow: -Acute on Chronic CHF: admit patient. Dispo step-down start continuous monitoring. Including HR and VS continue IV diuresis may need cardiac cath per cardiology -pulmonary edema to rule out pneumonia started on ceft emoirically pulmonary added on azithromycin monitori for sepsis and SOB monitor CBC and CMP daily COPD, HTN ,HLD: reviewed. resume home meds on alprazolam for anxiety Smoker : nicotine patch Obesity: Encouraged to reduce weight/ PCP to f/u Lovenox for DVT ppx On protonix Full code
[2023-10-16] MEDS: RIVAROXABAN 10MG TABLET 20 MG PO (17:44)
[2023-10-16] MEDS: NICOTINE 21MG/24HR PATCH 21 MG TD (20:04)
[2023-10-16] MEDS: ATORVASTATIN 40MG TABLET 40 MG PO (20:05)
--- NOTE | 2023-10-16 20:10 | PC.NURSE ---
Asked pt if he wanted to go on BiPAP after med administration. Pt stated he wanted to go onto BiPAP after receiving PRN Xanax and oxy as he feels anxious on BiPAP. Updated pt on next available time, which is towards 0000. Pt educated on necessity and benefits of BiPAP. Pt states he will attempt BiPAP towards 0000. Pt tolerating 3 L NC at this time, denies SOB.
[2023-10-16] MEDS: CEFTRIAXONE 1 GM 1 GM in 0.9 % SODIUM CHLORIDE 50 ML IV (23:42)
--- NOTE | 2023-10-16 23:50 | PC.NURSE ---
Placed pt on BiPAP, FiO2 30%, tolerating well. SpO2 97%.
[2023-10-17] VITALS (21 sets, daily range): BP systolic 84–134; BP diastolic 45–79; PULSE 70–140; RESP 14–21; TEMP 36.4–37.1; O2SAT 91–97; BMI 28.5
--- NOTE | 2023-10-17 05:24 | PC.NURSE ---
Shift Summary: Pt AOx4, tolerating BiPAP at 30% FiO2 for half of shift. Pt's EKG currently demonstrating sinus rhythm with PACs, other VSS. Pt encouraged multiple times to keep BiPAP in place, requiring reinforced teaching with this topic. Pt able to tolerate BiPAP after PRN Xanax. No other events or issues. Fall precautions implemented, call light within reach, at bedside.
[2023-10-17] MEDS: OXYCODONE 5MG W/APAP 325MG TABLET 1 EACH PO ×3 (07:04→22:01)
[2023-10-17 07:42] LABS: Basophils % 0.3 % (0.1-2.0); Eosinophils # 0.1 K/mm3 (0.0-0.4); Eosinophils % 1.8 % (0.1-12.0); Hematocrit 43.5 % (42.0-52.0); Hemoglobin 14.8 g/dL (14.1-18.0); Lymphocytes # 2.2 K/mm3 (0.7-4.5); Lymphocytes % 28.6 % (10-50); Mean Corpuscular HGB Conc 33.9 g/dL (31.8-35.4); Mean Corpuscular Hemoglobin 29.7 pg (27.0-31.2); Mean Corpuscular Volume 87.5 fl (80-94); Mean Platelet Volume 10.2 fl (7.4-10.4); Monocytes # 0.6 K/mm3 (0.1-1.0); Monocytes % 7.1 % (1.7-9.3); Neutrophils # 4.8 K/mm3 (1.8-7.8); Neutrophils % 62.2 % (37.0-80.0); Platelet Count 144 K/mm3 (142-424); Red Blood Count 4.97 M/mm3 (4.60-6.20); Red Cell Distribution Width 14.5 % (11.5-17.5); White Blood Count 7.7 K/mm3 (4.8-10.8)
[2023-10-17 07:45] LABS: Chloride 99 mmol/L (98-107); Potassium 3.5 mmoL/L (3.5-5.1); Sodium 137 mmol/L (136-145)
[2023-10-17 07:48] LABS: Anion Gap 11.5 mEq/L (5-15); Blood Urea Nitrogen 20 mg/dl (9-20); Calcium 8.8 mg/dl (8.4-10.2); Carbon Dioxide 30 mmol/L (22.0-30.0); Creatinine Clearance Estimated 97 mL/min (50-200); Estimated Glomerular Filt Rate 85 ml/min (>60); GFR (African American) 103 ML/MIN (>60); Glucose 115 mg/dl (74-100)
[2023-10-17 08:18] LABS: Alanine Aminotransferase 22 U/L (12-78); Alkaline Phosphatase 66 U/L (38-126); Aspartate Amino Transferase 22 U/L (17-59); Bilirubin,Direct 0.1 mg/dl (0.0-0.4); Bilirubin,Indirect 0.8 mg/dL (0.0-0.9); Bilirubin,Total 0.9 mg/dl (0.2-1.3); Bilirubin,Unconjugated 0.8 mg/dL (0.0-1.1); Cholesterol 127 mg/dl (140-200); Triglycerides 86 mg/dl (30-150); VLDL Cholesterol 17 mg/dL (0-40)
[2023-10-17 08:19] LABS: Albumin Level 4.2 g/dl (3.5-5.0); Chol/HDL Ratio 3.6 (1-3.5); HDL Cholesterol 35 mg/dl (40-60); Total Protein,Serum 6.6 g/dl (6.3-8.2)
[2023-10-17] MEDS: DIGOXIN 0.125MG TABLET 125 MCG PO (08:26)
[2023-10-17] MEDS: FUROSEMIDE 40MG/4ML VIAL 40 MG IV ×3 (08:26→20:44)
[2023-10-17] MEDS: EMPAGLIFLOZIN 10MG TABLET 10 MG PO (08:27)
[2023-10-17] MEDS: GABAPENTIN 800MG TABLET 800 MG PO ×2 (08:27→20:44)
[2023-10-17] MEDS: PANTOPRAZOLE 40MG TABLET 40 MG PO (08:27)
[2023-10-17] MEDS: METOPROLOL SUCCINATE XL 25MG TABLET 25 MG PO (08:27)
[2023-10-17] MEDS: ISOSORBIDE MONO 30MG TAB.ER.24H 30 MG PO (08:27)
[2023-10-17] MEDS: SPIRONOLACTONE 25MG TABLET 25 MG PO (08:27)
[2023-10-17] MEDS: CLOPIDOGREL 75MG TAB 75 MG PO (08:27)
[2023-10-17 08:30] LABS: Direct LDL Cholesterol 75.97 mg/dL (100-129)
[2023-10-17] MEDS: ALPRAZolam 1MG TABLET 1 MG PO ×3 (08:35→23:04)
[2023-10-17] MEDS: TIOTROPIUM 18MCG/PUFF INHALER 1 CAP IH (09:17)
[2023-10-17] MEDS: AZITHROMYCIN 500 MG in 0.9 % SODIUM CHLORIDE 250 ML 250 MG IV (11:28)
--- NOTE | 2023-10-17 11:42 | PC.NURSE ---
Mikayla from [employer] (by [employer]) called and requested information be refaxed to [facility]
--- NOTE | 2023-10-17 14:37 | HMH.PTEV ---
Physical Therapy Evaluation Rehab PT IP Evaluation Start: 10/16/23 10:11 Freq: ONCE Status: Active Protocol: Document 10/17/23 14:23 HWADE (Rec: 10/17/23 14:36 HWADE [id number]) Subjective/History History History Pt is a 63 year old male that presented to [facility] ED on with increasing dyspnea over the previous 3 days that had progressively worsened. Pt was admitted for IP management and treatment. PMH: Angina pectoris Anxiety Arrhythmia Atrial fibrillation with RVR Atypical angina Benzocaine adverse reaction Congestive heart failure COPD (chronic obstructive pulmonary disease) COPD mixed type Depression Diastolic dysfunction Dyspnea on exertion Edema Encounter for screening for malignant neoplasm of lung Hemorrhoid HFrEF (heart failure with reduced ejection fraction) History of cardioversion History of gastroesophageal reflux (GERD) History of heart attack Injury of left foot Left foot pain Lumbar disc disease with radiculopathy Lumbar disc disease with radiculopathy Lumbar disc disease with radiculopathy Lung nodule Myocardial infarct Paroxysmal atrial fibrillation Pulmonary hypertension Sleep apnea Smoking greater than 30 pack years Vitamin D deficiency Subjective Subjective Pt presents sitting upright in bed with at side, pleasant and agreeable to PT initial evaluation. Pt reports 10/10 LBP at rest, states he has had pain medication. Pt denies reports of dizziness. Pt and report that prior to admission, pt was independent with all B/IADL's including driving and ambulating without AD. Pt reports that he would occasionally use a SPC if it was raining due to arthritis pain . Pt performed supine to sit on EOB with supervision A. Pt able to maintain static sitting on EOB with supervision A. Pt performed sit to stand with CGA for safety. Able to ambulate x6' with MEAT STOCKER and CGA for safety. Of note, pt's HR fluctuated from 70-140bpm during evaluation with RN aware, BP 97/60mmHg. Following evaluation, pt left seated upright in bed with call light and all need within reach. New diagnosis of cancer in past 12 No months? Rehab PT IP Eval Objective Appearance Patient Behavior Appropriate,Cooperative Patient Orientation Person,Place,Time,Situation Difficulty following instructions none Speech Pattern Clear,Appropriate Ambulation Patient Able to Ambulate Yes Ambulation Observation IP General Gait Pattern Observation Wide Based Gait Ambulation Distance (feet) 6 Ambulation Assistive Device None Ambulation Ability Contact Guard/Hand Hold Balance Ability to Arise Able, uses arms to help Sitting Balance Steady, safe Standing Balance Steady, wide stance Dynamic Sitting Balance Ability Good Dynamic Standing Balance Ability Fair Transfers Bed Transfer Ability Supervision/Stand by Sit to Stand Bed Transfer Ability Contact Guard/Hand Hold ROM All Extremities PT ROM Status WFL MMT RLE PT MMT ABN Abnormal MMT Grade RLE MMT at least 3+/5 based on functional mobility assessment performed LLE PT MMT ABN Abnormal MMT Grade LLE MMT at least 3+/5 based on functional mobility assessment performed Rehab PT IP prob,goals,plan Problems Date of Evaluation: 10/17/23 PT IP Problems Bed Mobility,Transfers,Gait, Balance,Self care,Safety Rehab Potential Rehab Potential Good Plan PT Intervention Plan Bed Mobility,Transfers,Gait, Balance,Self care,Safety, Therapeutic Exercise PT Plan Frequency Daily Duration LOS Discharge Goals Bed Transfer Ability Independent Sit to Stand Chair Transfer Ability Independent Ambulation Assistive Device Straight Cane Ambulation Distance (feet) 100 Discharge Plan PT Discharge Plan Once medically stable, recommend pt to d/c home with support from and HHPT to address remaining deficits. Recommend pt to use SPC at time of d/c. Pt and request tub transfer bench prior to d/c if possible d/t fear of falling in shower. Recommend skilled PT intervention during hospital admission to prevent functional decline, reduce risk of falls, improved functional mobility and allow pt ot return to [facility]. Eval Complexity Eval Charge Codes 86412 - Moderate Complexity PHYSICIAN CERTIFICATION: I certify the specified therapy services for [employer] are required, authorized, and reviewed every 30 days.
--- NOTE | 2023-10-17 16:34 | P.PN_ITS ---
Subjective *Date: 10/17/23 *Time: 16:34 Interval history: patient was seen and evaluated at the bedside. he is holding conversations, still has leg swellingNo reported acute events overnight, denies chest pain, shortness of breath, nausea, vomiting, abdominal pain. Exam Data for Last 24 hours Vital signs and Labs for Last 24 Hours: Temp Pulse Resp BP Pulse Ox O2 Del Method O2 Flow Rate 98.7 F 136 H 18 84/56 L 91 L Room Air 3 10/17/23 15:23 10/17/23 14:00 10/17/23 14:00 10/17/23 14:00 10/17/23 14:00 10/17/23 14:00 10/17/23 10:00 FiO2 30 10/17/23 06:00 Laboratory Results - last 24 hr 10/16/23 15:09: Chlamy pneumoniae PCR TNP, Adenovirus (PCR) Not detected, B. pertussis DNA (PCR) TNP, Coronavirus OC43 (PCR) Not detected, Coronavirus HKU1 (PCR) Not detected, Coronavirus 229E (PCR) Not detected, SARS-CoV-2 (PCR) Not detected, Coronavirus NL63 (PCR) Not detected, Human Metapneumovir PCR Not detected, Influenza A (H1) PCR Not detected, Influ A (H1N1/09) PCR Not detected, Influenza A (H3) PCR Not detected, Influenza Type A (PCR) Not detected, Influenza Type B (PCR) Not detected, M. pneumoniae (PCR) TNP, Parainfluenza 1 (PCR) Not detected, Parainfluenza 2 (PCR) Not detected, Parainfluenza 3 (PCR) Not detected, Parainfluenza 4 (PCR) Not detected, RSV (PCR) Not detected, Entero /Rhino (PCR) Not detected 10/17/23 07:00: WBC 7.7, RBC 4.97, Hgb 14.8, Hct 43.5, MCV 87.5, MCH 29.7, MCHC 33.9, RDW 14.5, Plt Count 144, MPV 10.2, Neut % (Auto) 62.2, Lymph % (Auto) 28.6, [place] % (Auto) 7.1, Eos % (Auto) 1.8, Baso % (Auto) 0.3, Neut # (Auto) 4.8, Lymph # (Auto) 2.2, [place] # (Auto) 0.6, Eos # (Auto) 0.1, Baso # (Auto) 0.0, Sodium 137, Potassium 3.5, Chloride 99, Carbon Dioxide 30, Anion Gap 11.5, BUN 20, Creatinine 0.90, Estimated Creat Clear 97, Estimated GFR 85, Est GFR ( Amer) 103, Glucose 115 H, Calcium 8.8, Total Bilirubin 0.9, Direct Bilirubin 0.1, Conjugated Bilirubin 0.0, Indirect Bilirubin 0.8, Unconjugated Bilirubin 0.8, AST 22, ALT 22, Alkaline Phosphatase 66, Total Protein 6.6, Albumin 4.2, Triglycerides 86, Cholesterol 127 L, LDL Cholesterol Direct 75.97 L , VLDL Cholesterol 17, HDL Cholesterol 35 L, Cholesterol/HDL Ratio 3.6 H I & O for Last 24 hours: Intake & Output 10/14/23 10/15/23 10/16/23 10/17/23 23:59 23:59 23:59 23:59 Intake Total 287.55 / 317.55 1845.6 / 2135.6 1230 / 1230 Output Total 3200 / 3200 2625 / 2625 950 / 950 Balance -2912.45 / -2882.45 -779.4 / -489.4 280 / 280 Weight 97.267 kg 95.572 kg 90.4 kg Constitutional Constitutional: no acute distress *Routine HEENT Exam Head: Present normocephalic Eye: Present EOMI and PERRL ENT: Present mucous membranes moist *Routine Neck Exam Neck: Present supple; Absent lymphadenopathy *Routine Respiratory Exam Respiratory: Present CTA bilaterally *Routine Cardiovascular Exam Cardiovascular: Present RRR *Routine Abdominal Exam Abdominal: Present soft and normoactive bowel sounds; Absent tenderness *Routine Extremities Exam Extremities: Present edema; Absent cyanosis or clubbing Comments: he has b/l leg edema *Routine Skin Exam Skin: Present warm; Absent rash *Routine Neurological Exam Neurological: Present alert and oriented X3 Assessment and Plan *Assessment and plan (1) Acute exacerbation of CHF (congestive heart failure): Status: Acute Qualifiers: Heart failure type: unspecified Qualified Code(s): I50.9 - Heart failure, unspecified Category: Medical Code(s): I50.9 - Heart failure, unspecified (2) Pulmonary edema: Status: Acute Qualifiers: Chronicity: acute Qualified Code(s): J81.0 - Acute pulmonary edema Category: Medical Code(s): J81.1 - Chronic pulmonary edema (3) COPD mixed type: Status: Acute Category: Medical Code(s): J44.9 - Chronic obstructive pulmonary disease, unspecified (4) Hypertension: Status: Chronic Qualifiers: Hypertension type: essential hypertension Qualified Code(s): I10 - Essential (primary) hypertension Category: Medical Code(s): I10 - Essential (primary) hypertension (5) Hyperlipidemia: Status: Chronic Qualifiers: Hyperlipidemia type: mixed hyperlipidemia Qualified Code(s): E78.2 - Mixed hyperlipidemia Category: Medical Code(s): E78.5 - Hyperlipidemia, unspecified (6) Smoking greater than 30 pack years: Status: Acute Category: Social Hx Code(s): F17.210 - Nicotine dependence, cigarettes, uncomplicated (7) Obesity (BMI 30-39.9): Status: Acute Category: Medical Code(s): E66.9 - Obesity, unspecified Plan 63-year-old obese male with a extensive history of multivessel CAD s/p CABG, also recently NSTEMI, Afib, on Xarelto, coming to ER c/o shortness of breath over the last 3 days which has slowly worsened. No change in lower extremity edema patient does states that he has significant orthopnea associated with this. ER work up included CXR that showed Peribronchial wall thickening and mild bilateral airspace opacities, suggestive of edema or pneumonia. WBC slightly elevated. discussed with ER. Admitted for treatment. Plan as follow: -Acute on Chronic CHF: admit patient. Dispo step-down start continuous monitoring. Including HR and VS continue IV diuresis may need cardiac cath per cardiology -pulmonary edema to rule out pneumonia started on ceft emoirically pulmonary added on azithromycin monitori for sepsis and SOB monitor CBC and CMP daily COPD, HTN ,HLD: reviewed. resume home meds on alprazolam for anxiety Smoker : nicotine patch Obesity: Encouraged to reduce weight/ PCP to f/u Lovenox for DVT ppx On protonix Full code
[2023-10-17] MEDS: RIVAROXABAN 10MG TABLET 20 MG PO (16:50)
[2023-10-17] MEDS: METOPROLOL TARTRATE 50MG TABLET 50 MG PO ×2 (16:54→20:50)
--- NOTE | 2023-10-17 19:31 | PC.NURSE ---
Pt and rounded on after bedside shift report. Pt reporting visual hallucinations that began last night. Educated pt on risk factors of hallucination, especially with combined PRN oxy and xanax use, which pt reports having taken concurrently at home. Pt verbalized understanding, but requiring RN to repeat statements. Pt reclined in bed, eyes closing repeatedly through conversation. Educated pt on PRN scheduling, clinical reasoning for spacing and holding, side effects of oxy and Xanax, pt verbalized understanding at this time. pt's at bedside, also verbalized understanding.
[2023-10-17] MEDS: NICOTINE 21MG/24HR PATCH 21 MG TD (20:44)
[2023-10-17] MEDS: ATORVASTATIN 40MG TABLET 40 MG PO (20:44)
--- NOTE | 2023-10-17 22:03 | PC.NURSE ---
Spoke with pt's sister Mikayla regading pt condition. Answered all questions at this time.
[2023-10-17] MEDS: CEFTRIAXONE 1 GM 1 GM in 0.9 % SODIUM CHLORIDE 50 ML IV (23:04)
[2023-10-18] VITALS (18 sets, daily range): BP systolic 86–144; BP diastolic 48–76; PULSE 68–137; RESP 16–20; TEMP 36.3–37; O2SAT 91–97; BMI 28.2
[2023-10-18] MEDS: METOPROLOL TARTRATE 50MG TABLET 50 MG PO ×3 (05:30→20:21)
[2023-10-18] MEDS: TIOTROPIUM 18MCG/PUFF INHALER 1 CAP IH (06:48)
[2023-10-18 07:27] LABS: Basophils % 0.3 % (0.1-2.0); Eosinophils # 0.2 K/mm3 (0.0-0.4); Hematocrit 43.9 % (42.0-52.0); Lymphocytes # 2.5 K/mm3 (0.7-4.5); Lymphocytes % 29.8 % (10-50); Mean Corpuscular HGB Conc 34.1 g/dL (31.8-35.4); Mean Corpuscular Hemoglobin 29.7 pg (27.0-31.2); Mean Corpuscular Volume 87.2 fl (80-94); Mean Platelet Volume 10.1 fl (7.4-10.4); Monocytes # 0.6 K/mm3 (0.1-1.0); Monocytes % 6.5 % (1.7-9.3); Neutrophils # 5.2 K/mm3 (1.8-7.8); Neutrophils % 61.4 % (37.0-80.0); Platelet Count 165 K/mm3 (142-424); Red Blood Count 5.03 M/mm3 (4.60-6.20); Red Cell Distribution Width 14.2 % (11.5-17.5); White Blood Count 8.5 K/mm3 (4.8-10.8)
[2023-10-18 07:53] LABS: Anion Gap 10.5 mEq/L (5-15); Blood Urea Nitrogen 22 mg/dl (9-20); Calcium 8.6 mg/dl (8.4-10.2); Carbon Dioxide 29 mmol/L (22.0-30.0); Chloride 97 mmol/L (98-107); Creatinine Clearance Estimated 96 mL/min (50-200); Estimated Glomerular Filt Rate 85 ml/min (>60); GFR (African American) 103 ML/MIN (>60); Glucose 115 mg/dl (74-100); Potassium 3.5 mmoL/L (3.5-5.1); Sodium 133 mmol/L (136-145)
[2023-10-18] MEDS: OXYCODONE 5MG W/APAP 325MG TABLET 1 EACH PO ×3 (07:58→22:14)
[2023-10-18] MEDS: ISOSORBIDE MONO 30MG TAB.ER.24H 30 MG PO (08:00)
[2023-10-18] MEDS: PANTOPRAZOLE 40MG TABLET 40 MG PO (08:00)
[2023-10-18] MEDS: CLOPIDOGREL 75MG TAB 75 MG PO (08:00)
[2023-10-18] MEDS: SPIRONOLACTONE 25MG TABLET 25 MG PO (08:00)
[2023-10-18] MEDS: DIGOXIN 0.125MG TABLET 125 MCG PO (08:00)
[2023-10-18] MEDS: EMPAGLIFLOZIN 10MG TABLET 10 MG PO (08:00)
[2023-10-18] MEDS: FUROSEMIDE 40MG/4ML VIAL 40 MG IV ×2 (08:00→15:56)
[2023-10-18] MEDS: GABAPENTIN 800MG TABLET 800 MG PO ×3 (08:01→20:21)
--- NOTE | 2023-10-18 10:59 | EXP.PN ---
Subjective *Date: 10/18/23 *Time: 10:59 Interval history: patient was seen and evaluated at the bedside. awake, alert, he is holding conversations in full sentences no SOB while speaking, still has leg swellingNo reported acute events overnight, denies chest pain, shortness of breath, nausea, vomiting, abdominal pain. Exam Data for Last 24 hours Vital signs and Labs for Last 24 Hours: Temp Pulse Resp BP Pulse Ox O2 Del Method O2 Flow Rate 98.5 F 68 18 101/71 L 91 L Room Air 3 10/18/23 07:47 10/18/23 10:00 10/18/23 10:00 10/18/23 10:00 10/18/23 10:00 10/18/23 10:00 10/17/23 10:00 FiO2 30 10/17/23 06:00 Laboratory Results - last 24 hr 10/18/23 07:11: WBC 8.5, RBC 5.03, Hgb 15.0, Hct 43.9, MCV 87.2, MCH 29.7, MCHC 34.1, RDW 14.2, Plt Count 165, MPV 10.1, Neut % (Auto) 61.4, Lymph % (Auto) 29.8, [place] % (Auto) 6.5, Eos % (Auto) 2.0, Baso % (Auto) 0.3, Neut # (Auto) 5.2, Lymph # (Auto) 2.5, [place] # (Auto) 0.6, Eos # (Auto) 0.2, Baso # (Auto) 0.0, Sodium 133 L, Potassium 3.5, Chloride 97 L, Carbon Dioxide 29, Anion Gap 10.5, BUN 22 H, Creatinine 0.90, Estimated Creat Clear 96, Estimated GFR 85, Est GFR ( Amer) 103, Glucose 115 H, Calcium 8.6 I & O for Last 24 hours: Intake & Output 10/15/23 10/16/23 10/17/23 10/18/23 23:59 23:59 23:59 23:59 Intake Total 287.55 / 317.55 1845.6 / 2135.6 1700 / 1970 740 / 740 Output Total 3200 / 3200 2625 / 2625 1300 / 1300 300 / 300 Balance -2912.45 / -2882.45 -779.4 / -489.4 400 / 670 440 / 440 Weight 97.267 kg 95.572 kg 90.4 kg 89.4 kg Constitutional Constitutional: no acute distress Comments: alert awake on room air *Routine HEENT Exam Head: Present normocephalic Eye: Present EOMI and PERRL ENT: Present mucous membranes moist *Routine Neck Exam Neck: Present supple; Absent lymphadenopathy *Routine Respiratory Exam Respiratory: Present CTA bilaterally *Routine Cardiovascular Exam Cardiovascular: Present RRR *Routine Abdominal Exam Abdominal: Present soft and normoactive bowel sounds; Absent tenderness *Routine Extremities Exam Extremities: Present edema; Absent cyanosis or clubbing Comments: he has b/l leg edema *Routine Skin Exam Skin: Present warm; Absent rash *Routine Neurological Exam Neurological: Present alert and oriented X3 Assessment and Plan *Assessment and plan (1) Acute exacerbation of CHF (congestive heart failure): Status: Acute Qualifiers: Heart failure type: unspecified Qualified Code(s): I50.9 - Heart failure, unspecified Category: Medical Code(s): I50.9 - Heart failure, unspecified (2) Pulmonary edema: Status: Acute Qualifiers: Chronicity: acute Qualified Code(s): J81.0 - Acute pulmonary edema Category: Medical Code(s): J81.1 - Chronic pulmonary edema (3) COPD mixed type: Status: Acute Category: Medical Code(s): J44.9 - Chronic obstructive pulmonary disease, unspecified (4) Hypertension: Status: Chronic Qualifiers: Hypertension type: essential hypertension Qualified Code(s): I10 - Essential (primary) hypertension Category: Medical Code(s): I10 - Essential (primary) hypertension (5) Hyperlipidemia: Status: Chronic Qualifiers: Hyperlipidemia type: mixed hyperlipidemia Qualified Code(s): E78.2 - Mixed hyperlipidemia Category: Medical Code(s): E78.5 - Hyperlipidemia, unspecified (6) Smoking greater than 30 pack years: Status: Acute Category: Social Hx Code(s): F17.210 - Nicotine dependence, cigarettes, uncomplicated (7) Obesity (BMI 30-39.9): Status: Acute Category: Medical Code(s): E66.9 - Obesity, unspecified Plan 63-year-old obese male with a extensive history of multivessel CAD s/p CABG, also recently NSTEMI, Afib, on Xarelto, coming to ER c/o shortness of breath over the last 3 days which has slowly worsened. No change in lower extremity edema patient does states that he has significant orthopnea associated with this. ER work up included CXR that showed Peribronchial wall thickening and mild bilateral airspace opacities, suggestive of edema or pneumonia. WBC slightly elevated. discussed with ER. Admitted for treatment. Plan as follow: -Acute on Chronic CHF: admit patient. Dispo step-down start continuous monitoring. Including HR and VS continue IV diuresis, decreasing lasix frequency from TID to BID need lifevest -pulmonary edema to rule out pneumonia started on ceft emoirically pulmonary added on azithromycin - continue COPD, HTN ,HLD: reviewed. resume home meds on alprazolam for anxiety Smoker : nicotine patch Obesity: Encouraged to reduce weight/ PCP to f/u Lovenox for DVT ppx On protonix Full code awaiting lifevest, switch Abx and lasix to PO at dc
[2023-10-18] MEDS: AZITHROMYCIN 500 MG in 0.9 % SODIUM CHLORIDE 250 ML 250 MG IV (11:05)
[2023-10-18] MEDS: ALPRAZolam 1MG TABLET 1 MG PO ×3 (11:06→23:02)
--- NOTE | 2023-10-18 11:16 | PC.NURSE ---
pt set up password at this time. Dian
[2023-10-18] MEDS: RIVAROXABAN 10MG TABLET 20 MG PO (17:06)
--- NOTE | 2023-10-18 18:09 | PC.NURSE ---
1740 LifeVest hvac sales representative at bedside fitting patient for device.
--- NOTE | 2023-10-18 18:10 | PC.NURSE ---
Pt has remained in bed this shift. He has voided per the urinal and has not ambulated as of this time. lungs are clear with faint crackles in [place] bases. bowel sounds are hypoactive in all quads. nad noted. pt s/o at bedside throughout shift.
[2023-10-18] MEDS: ATORVASTATIN 40MG TABLET 40 MG PO (20:21)
[2023-10-18] MEDS: NICOTINE 21MG/24HR PATCH 21 MG TD (20:21)
[2023-10-18] MEDS: CEFTRIAXONE 1 GM 1 GM in 0.9 % SODIUM CHLORIDE 50 ML IV (23:02)
[2023-10-19] VITALS (11 sets, daily range): BP systolic 100–119; BP diastolic 54–80; PULSE 65–123; RESP 16–22; TEMP 36.3–36.8; O2SAT 95–98; BMI 28.2
[2023-10-19] MEDS: OXYCODONE 5MG W/APAP 325MG TABLET 1 EACH PO ×3 (04:27→18:19)
[2023-10-19] MEDS: METOPROLOL TARTRATE 50MG TABLET 50 MG PO ×3 (05:11→18:20)
--- NOTE | 2023-10-19 05:23 | PC.NURSE ---
Shift summary: Pt AOx4, awake for most of shift. Reinforced PRN scheduling to pt, pt verbalized understanding and now calling out for RN for medicine. VSS on RA, LifeVest on pt, remains in aflutter (60-120). No acute events or issues overnight. Fall precautions implemented and call light within reach.
[2023-10-19] MEDS: TIOTROPIUM 18MCG/PUFF INHALER 1 CAP IH (06:38)
[2023-10-19] MEDS: ALPRAZolam 1MG TABLET 1 MG PO ×3 (06:42→19:48)
[2023-10-19] MEDS: FUROSEMIDE 40MG/4ML VIAL 40 MG IV ×2 (08:35→17:17)
[2023-10-19] MEDS: DIGOXIN 0.125MG TABLET 125 MCG PO (08:36)
[2023-10-19] MEDS: ISOSORBIDE MONO 30MG TAB.ER.24H 30 MG PO (08:36)
[2023-10-19] MEDS: SPIRONOLACTONE 25MG TABLET 25 MG PO (08:36)
[2023-10-19] MEDS: GABAPENTIN 800MG TABLET 800 MG PO ×3 (08:36→20:10)
[2023-10-19] MEDS: EMPAGLIFLOZIN 10MG TABLET 10 MG PO (08:36)
[2023-10-19] MEDS: PANTOPRAZOLE 40MG TABLET 40 MG PO (08:36)
[2023-10-19] MEDS: AZITHROMYCIN 250MG TABLET 500 MG PO (08:36)
[2023-10-19] MEDS: CLOPIDOGREL 75MG TAB 75 MG PO (08:36)
--- NOTE | 2023-10-19 08:44 | PC.NURSE ---
During am assessment and med pass, pt advised that he had requested a chocolate milkshake but never received it. called and spoke with Jessica, states that shake was brought to visitor but unable to bring one to pt r/t ordered fluid restriction. notified pt that if he were to get shake at this time, the amount of liquids provided during meals would have to be reduced. pt agreed and requested to get milkshake at this time.
--- NOTE | 2023-10-19 09:59 | P.PN_ITS ---
Subjective *Date: 10/19/23 *Time: 09:59 Medical Exam Vital signs and Labs for Last 24 Hours: Vital Signs Temp Pulse Pulse Resp BP Pulse Ox O2 Del Method 10/19/23 09:00 Room Air 10/19/23 08:00 90 10/19/23 08:50 98 Room Air 10/19/23 08:30 117 H 98 Room Air 10/19/23 08:36 117 H 10/19/23 08:00 98.3 F 67 18 104/69 L 98 Room Air 10/19/23 06:50 Room Air 10/19/23 04:00 65 10/19/23 05:00 Room Air 10/19/23 04:00 97.9 F 107 H 16 100/69 L 97 Room Air 10/19/23 03:00 Room Air 10/19/23 01:00 Room Air 10/19/23 00:00 115 H 10/18/23 23:57 97.4 F L 120 H 16 104/65 L 10/18/23 20:00 69 10/18/23 23:00 Room Air 10/18/23 21:00 Room Air 10/18/23 20:00 68 95 Room Air 10/18/23 19:43 97.4 F L 122 H 16 86/48 L 95 Room Air 10/18/23 18:35 Room Air 10/18/23 17:00 Room Air 10/18/23 18:00 120 H 18 106/66 L 10/18/23 16:00 73 18 106/62 L 96 Room Air 10/18/23 16:00 100 H 10/18/23 16:00 96 Room Air 10/18/23 15:24 98.2 F 10/18/23 15:00 Room Air 10/18/23 14:00 130 H 18 102/58 L 92 L Room Air 10/18/23 12:39 Room Air 10/18/23 12:00 130 H 10/18/23 12:00 137 H 18 122/52 L 93 L Room Air 10/18/23 11:15 Room Air 10/18/23 11:13 98.1 F 10/18/23 10:00 68 18 101/71 L 91 L Room Air Intake and Output 10/18/23 10/19/23 10/19/23 23:59 07:59 15:59 Intake Total 240 / 1750 50 / 320 270 / 320 Output Total 1150 / 2550 125 / 125 Balance -910 / -800 50 / 195 145 / 195 Intake: Intake, Oral Amount 240 / 1420 0 / 270 270 / 270 Intake, Total IV Amount 50 / 50 Ceftriaxone 1 gm 1 gm In 0.9 % 50 / 50 Sodium Chloride 50 ml @ 100 mls /hr IV Q12H [facility] Rx#:[id number] Output: Output, Urine Amount 1150 / 2550 125 / 125 Other: Weight 89.358 kg Patient Weight 10/19/23 23:59 Weight 89.358 kg I & O for Labs for Last 24 Hours: Intake & Output 10/16/23 10/17/23 10/18/23 10/19/23 23:59 23:59 23:59 23:59 Intake Total 1845.6 / 2135.6 1950 / 2220 1700 / 1750 320 / 320 Output Total 2625 / 2625 1300 / 1300 2550 / 2550 125 / 125 Balance -779.4 / -489.4 650 / 920 -850 / -800 195 / 195 Weight 95.572 kg 90.4 kg 89.4 kg 89.358 kg The patient's infection will respond to the chosen ABx?: Yes (NO SPECIMAN, SPUTUM UNCOLLECTED, AFEBRILE OVER 24 HRS.) Is the patient receiving the right drug, dose, and route?: Yes Could a more targeted ABx be ordered?: No
--- NOTE | 2023-10-19 11:49 | EXP.PN ---
Subjective *Date: 10/19/23 *Time: 11:49 Interval history: patient was seen and evaluated at the bedside. awake, alert, he has lifevest, no acute events overnight reported. he is holding conversations in full sentences no SOB while speaking, still has leg swelling denies chest pain, shortness of breath, nausea, vomiting, abdominal pain. Exam Data for Last 24 hours Vital signs and Labs for Last 24 Hours: Temp Pulse Resp BP Pulse Ox O2 Del Method O2 Flow Rate 98.3 F 117 H 18 104/69 L 98 Room Air 3 10/19/23 08:00 10/19/23 08:36 10/19/23 08:00 10/19/23 08:00 10/19/23 08:50 10/19/23 10:58 10/17/23 10:00 FiO2 30 10/17/23 06:00 I & O for Last 24 hours: Intake & Output 10/16/23 10/17/23 10/18/23 10/19/23 23:59 23:59 23:59 23:59 Intake Total 1845.6 / 2135.6 1950 / 2220 1700 / 1750 320 / 320 Output Total 2625 / 2625 1300 / 1300 2550 / 2550 125 / 125 Balance -779.4 / -489.4 650 / 920 -850 / -800 195 / 195 Weight 95.572 kg 90.4 kg 89.4 kg 89.358 kg Constitutional Constitutional: no acute distress Comments: alert awake on room air *Routine HEENT Exam Head: Present normocephalic Eye: Present EOMI and PERRL ENT: Present mucous membranes moist *Routine Neck Exam Neck: Present supple; Absent lymphadenopathy *Routine Respiratory Exam Respiratory: Present CTA bilaterally *Routine Cardiovascular Exam Cardiovascular: Present RRR *Routine Abdominal Exam Abdominal: Present soft and normoactive bowel sounds; Absent tenderness *Routine Extremities Exam Extremities: Present edema; Absent cyanosis or clubbing Comments: he has b/l leg edema *Routine Skin Exam Skin: Present warm; Absent rash *Routine Neurological Exam Neurological: Present alert and oriented X3 Assessment and Plan *Assessment and plan (1) Acute exacerbation of CHF (congestive heart failure): Status: Acute Qualifiers: Heart failure type: unspecified Qualified Code(s): I50.9 - Heart failure, unspecified Category: Medical Code(s): I50.9 - Heart failure, unspecified (2) Pulmonary edema: Status: Acute Qualifiers: Chronicity: acute Qualified Code(s): J81.0 - Acute pulmonary edema Category: Medical Code(s): J81.1 - Chronic pulmonary edema (3) COPD mixed type: Status: Acute Category: Medical Code(s): J44.9 - Chronic obstructive pulmonary disease, unspecified (4) Hypertension: Status: Chronic Qualifiers: Hypertension type: essential hypertension Qualified Code(s): I10 - Essential (primary) hypertension Category: Medical Code(s): I10 - Essential (primary) hypertension (5) Hyperlipidemia: Status: Chronic Qualifiers: Hyperlipidemia type: mixed hyperlipidemia Qualified Code(s): E78.2 - Mixed hyperlipidemia Category: Medical Code(s): E78.5 - Hyperlipidemia, unspecified (6) Smoking greater than 30 pack years: Status: Acute Category: Social Hx Code(s): F17.210 - Nicotine dependence, cigarettes, uncomplicated (7) Obesity (BMI 30-39.9): Status: Acute Category: Medical Code(s): E66.9 - Obesity, unspecified Plan 63-year-old obese male with a extensive history of multivessel CAD s/p CABG, also recently NSTEMI, Afib, on Xarelto, coming to ER c/o shortness of breath over the last 3 days which has slowly worsened. No change in lower extremity edema patient does states that he has significant orthopnea associated with this. ER work up included CXR that showed Peribronchial wall thickening and mild bilateral airspace opacities, suggestive of edema or pneumonia. WBC slightly elevated. discussed with ER. Admitted for treatment. Plan as follow: -Acute on Chronic CHF: admit patient. Dispo step-down start continuous monitoring. Including HR and VS continue IV diuresis, decreasing lasix frequency from TID to BID need lifevest -pulmonary edema to rule out pneumonia started on ceft emoirically pulmonary added on azithromycin - continue COPD, HTN ,HLD: reviewed. resume home meds on alprazolam for anxiety Smoker : nicotine patch Obesity: Encouraged to reduce weight/ PCP to f/u Lovenox for DVT ppx On protonix Full code Has recieved lifevest at bedside, cardiology would like to monitor inpatient due to atrial flutter, switch Abx and lasix to PO at dc
--- NOTE | 2023-10-19 11:54 | PC.NURSE ---
11[address] Called and spoke with Dr Leos. Dr Duffy states pt is ready for Dc from his standpoint. called to see if cardiology was ready for DC. pt hr noted to still be 110-120 in aflutter, even after med change on 10/18. Dr Leos gave telephone order to change metoprolol tartrate to 50mg po q6h and advises that the pt needs to remain in hospital until heart rate is able to be better controlled. med order faxed to pharmacy at this time. pt notified at 1154 that he was not cleared for dc from cardiology and it was advised that he remain an inpatient.
[2023-10-19] MEDS: RIVAROXABAN 10MG TABLET 20 MG PO (17:17)
--- NOTE | 2023-10-19 17:27 | PC.NURSE ---
Pt has rested in his room this shift, pt was noted to be very disappointed at not being able to be discharged this shift. lungs are clear but diminished in bases, bowel sounds are active in all quads. pt had family members come to visit and they had a small celebration in the room and opened gifts. nad noted. pt is a/o x4 and able to ambulate independently. life vest in place this shift.
--- NOTE | 2023-10-19 19:18 | PC.NURSE ---
Dr Leos called and advised that Dr Farah will cardiovert pt in am. pt to be NPO after midnight. oncoming RN advised, pt and s/o advised as well
[2023-10-19] MEDS: ATORVASTATIN 40MG TABLET 40 MG PO (20:10)
[2023-10-19] MEDS: CEFTRIAXONE 1 GM 1 GM in 0.9 % SODIUM CHLORIDE 50 ML IV (22:20)
[2023-10-20] VITALS (18 sets, daily range): BP systolic 102–145; BP diastolic 57–96; PULSE 60–111; RESP 14–17; TEMP 36.5–36.6; O2SAT 92–98; BMI 29.5
[2023-10-20] MEDS: METOPROLOL TARTRATE 50MG TABLET 50 MG PO ×2 (00:35→09:46)
[2023-10-20] MEDS: OXYCODONE 5MG W/APAP 325MG TABLET 1 EACH PO ×4 (02:09→22:22)
[2023-10-20] MEDS: ALPRAZolam 1MG TABLET 1 MG PO ×4 (02:57→20:25)
--- NOTE | 2023-10-20 04:22 | PC.NURSE ---
patient is non-complaint with NPO order and repeatedly takes wifes drinks - patient has been educated multiple times on NPO status and what NPO means and that he has a procedure this morning with cardiology.
--- NOTE | 2023-10-20 07:34 | PC.NURSE ---
held metoprolol 50mg po r/t sbp 90's and hr 60's
[2023-10-20 08:58] LABS: Basophils % 0.4 % (0.1-2.0); Eosinophils # 0.2 K/mm3 (0.0-0.4); Eosinophils % 2.7 % (0.1-12.0); Hematocrit 44.9 % (42.0-52.0); Hemoglobin 15.2 g/dL (14.1-18.0); Lymphocytes # 2.3 K/mm3 (0.7-4.5); Mean Corpuscular HGB Conc 33.8 g/dL (31.8-35.4); Mean Corpuscular Hemoglobin 29.5 pg (27.0-31.2); Mean Corpuscular Volume 87.4 fl (80-94); Mean Platelet Volume 9.8 fl (7.4-10.4); Monocytes # 0.5 K/mm3 (0.1-1.0); Monocytes % 6.9 % (1.7-9.3); Neutrophils # 4.1 K/mm3 (1.8-7.8); Platelet Count 165 K/mm3 (142-424); Red Blood Count 5.14 M/mm3 (4.60-6.20); Red Cell Distribution Width 14.3 % (11.5-17.5); White Blood Count 7.1 K/mm3 (4.8-10.8)
[2023-10-20 09:43] LABS: Chloride 98 mmol/L (98-107); Sodium 137 mmol/L (136-145)
[2023-10-20 09:44] LABS: Potassium 4.2 mmoL/L (3.5-5.1)
[2023-10-20 09:46] LABS: Alanine Aminotransferase 27 U/L (12-78); Albumin Level 4.3 g/dl (3.5-5.0); Albumin/Globulin Ratio 1.6 (1.1-1.8); Alkaline Phosphatase 59 U/L (38-126); Anion Gap 14.2 mEq/L (5-15); Aspartate Amino Transferase 32 U/L (17-59); Bilirubin,Total 0.6 mg/dl (0.2-1.3); Blood Urea Nitrogen 27 mg/dl (9-20); Carbon Dioxide 29 mmol/L (22.0-30.0); Creatinine Clearance Estimated 100 mL/min (50-200); Estimated Glomerular Filt Rate 85 ml/min (>60); GFR (African American) 103 ML/MIN (>60); Globulin 2.7 g/dL (1.3-3.2); Glucose 112 mg/dl (74-100)
[2023-10-20] MEDS: FUROSEMIDE 40MG/4ML VIAL 40 MG IV ×2 (09:46→15:58)
[2023-10-20] MEDS: AZITHROMYCIN 250MG TABLET 500 MG PO (09:46)
[2023-10-20] MEDS: SPIRONOLACTONE 25MG TABLET 25 MG PO (09:46)
[2023-10-20] MEDS: EMPAGLIFLOZIN 10MG TABLET 10 MG PO (09:46)
[2023-10-20] MEDS: PANTOPRAZOLE 40MG TABLET 40 MG PO (09:46)
[2023-10-20] MEDS: GABAPENTIN 800MG TABLET 800 MG PO ×3 (09:46→20:25)
[2023-10-20] MEDS: ISOSORBIDE MONO 30MG TAB.ER.24H 30 MG PO (09:46)
[2023-10-20] MEDS: DIGOXIN 0.125MG TABLET 125 MCG PO (09:46)
[2023-10-20] MEDS: CLOPIDOGREL 75MG TAB 75 MG PO (09:46)
--- NOTE | 2023-10-20 09:56 | HMH.OTEV ---
OT Inpatient Evaluation Rehab OT IP Evaluation Start: 10/16/23 10:11 Freq: ONCE Status: Active Protocol: Document 10/20/23 09:49 [facility] (Rec: 10/20/23 09:55 [facility] [id number]) Rehab OT IP Assessment Subjective History Pt oriented x 3 on arrival. Pt is a 63 year old male that presented to [facility] ED on with increasing dyspnea over the previous 3 days that had progressively worsened. Pt was admitted for IP management and treatment. PMH: Angina pectoris Anxiety Arrhythmia Atrial fibrillation with RVR Atypical angina Benzocaine adverse reaction Congestive heart failure COPD (chronic obstructive pulmonary disease) COPD mixed type Depression Diastolic dysfunction Dyspnea on exertion Edema Encounter for screening for malignant neoplasm of lung Hemorrhoid HFrEF (heart failure with reduced ejection fraction) History of cardioversion History of gastroesophageal reflux (GERD) History of heart attack Injury of left foot Left foot pain Lumbar disc disease with radiculopathy Lumbar disc disease with radiculopathy Lumbar disc disease with radiculopathy Lung nodule Myocardial infarct Paroxysmal atrial fibrillation Pulmonary hypertension Sleep apnea Smoking greater than 30 pack years Vitamin D deficiency Prior to being in the hospital , pt lived at home with his . Normally patient is independent with all ADLs and IADLs. Pt was also still driving. Pt did not require any type of AE during functional transfers or ADL tasks. Subjective I am just really tired. Objective Patient Orientation Person,Place,Birthday Right Upper Extremity Gross ROM WFL Left Upper Extremity Gross ROM WFL Bed Mobility bed mobility-scooting,bed mobility - supine/sit Assist Level Supervision/Stand by Transfer Training Sit/Stand Transfer Assist Level Contact Guard/Hand Hold Rehab OT IP prob,goals,plan Problems Date of Evaluation: 10/20/23 OT IP Problems Bed Mobility,Transfers,Balance ,Self care,Safety Rehab Potential Rehab Potential Good Equipment Needs Assistive Devices Rolling / Wheeled Walker Plan OT intervention Plan Bed Mobility,Transfers,Balance ,Self care,Safety,Therapeutic Exercise OT Plan Frequency BID Duration LOS Discharge Goals Bed Mobility Ability Standby Assistance Sit to Stand Chair Transfer Ability Supervision/Stand by Chair Transfer Ability Supervision/Stand by Chair Transfer Technique Sit to/from Ambulatory Chair Transfer Assistive Devices None Feeding Ability Assist with Tray Set Up Lower Body Dressing Ability Minimal Assistance Upper Body Dressing Ability Standby Assistance Bathing Ability Minimal Assistance Performing Toilet Hygiene Ability Standby Assistance Overall Commode/Toilet Transfer Ability Standby Assistance Commode/Toilet Transfer Technique Sit to/from Ambulatory Decrease in Endurance Yes Discharge Plan OT Discharge Plan Once medically stable, recommend pt to d/c home with support from and HHOT to address remaining deficits. Recommends OT intervention during hospital admission to prevent functional decline, reduce risk of falls, improved functional mobility and allow pt to return to PLOF. [ End ] Eval Complexity Eval Charge Codes 74496 - Moderate Complexity PHYSICIAN CERTIFICATION: I certify the specified therapy services for Onesimo Hinojosa are required, authorized, and reviewed every 30 days.
--- NOTE | 2023-10-20 10:18 | CA_ITS ---
APPROVED REPORT EXAM: Comprehensive 2D, Doppler, and color-flow Echocardiogram Endoscopy Technician: Destini CraftANTON Ht: 5 ft 10 in Wt: 206lbs BSA: 2.11 BP: 87/59 mmHg Indications: A FLUTTER,CM,SEVERE MR,CAD,CABG Procedure After obtaining informed consent, patient underwent transesophageal echo in the [facility]. Type of Sedation : MAC Sedation was administered by Luis Reynoso. Sedation start time: 12:05 Case end Time: 12:30 Sedation was achieved intravenously with: Transesophageal probe was inserted and advanced into esophagus without difficulty by Dr. Nai Farah. The REECE was performed without complications. Synchronized Cardioversion acheived with 150 Joules after 1 attempt(s). Rhythm following Synchronized Cardioversion: Normal Sinus Rhythm Throughout the procedure, the blood pressure, pulse oximetry, cardiac rhythm, and rate were monitored. The patient tolerated the procedure without adverse effects. Recovery from conscious sedation was uneventful and vital signs were stable. Left Ventricle Left ventricle is severely dilated. Left ventricular systolic function is severely decreased. There is increased LV wall thickness. There is severe global hypokinesis present. LVEF is 25%. Right Ventricle Right ventricle is mildly dilated. Right ventricle is moderately hypokinetic. Atria Left atrium is severely dilated. There is no thrombus suspected in the left atrium or the left atrial appendage. Right atrium is moderately dilated. Interatrial septum is intact without evidence of ASD or PFO. Aortic Valve The aortic valve is mildly thickened. There is no aortic valvular stenosis. No aortic regurgitation. Mitral Valve The mitral valve leaflets are mildly thickened. The posterior MV leaflet is tethered with restricted motion. No evidence of mitral valve stenosis. Severe mitral regurgitation. The MR is degenerative (DMR) due to tethering of ths posterior MV leaflet ([place] class IIIB). EROA is 0.50. MR volume is 74 mL. Regurgitant fraction is 68%. Quantitative analysis is consistent with severe MR. Tricuspid Valve The tricuspid valve leaflets are thin and pliable. Trace tricuspid regurgitation. There is insufficient TR jet to estimate RVSP. Pulmonic Valve The pulmonary valve is normal in structure. Trace pulmonic regurgitation. Great Vessels The aortic root is normal in size. The ascending aorta is normal in size. Pericardium There is no pericardial effusion. Other Information Study Quality: Fair Conclusion Severe LV dilation with severe reduction in LV systolic function (LVEF 25%). Mild RV dilation with moderate reduction in RV function. Severe MR due to tethered posterior MV leaflet ([place] Class IIIB). Following the REECE and once confirmed there is no thrombus in the LA or MAN, DCCV with 150J was achieved, after which the patient's heart rhythm converted from Aflutter (HR 80s) to NSR (HR 50s). After the procedure, his rate-controlling medications will be adjusted to reduce the risk of bradycardia in the setting of resolved arrhythmia. Electronically signed by : Nai Farah MD 10/20/2023 18:58:02
[2023-10-20 10:33] LABS: Blood Urea Nitrogen 26 mg/dl (9-20); Carbon Dioxide 33 mmol/L (22.0-30.0); Chloride 98 mmol/L (98-107); Creatinine Clearance Estimated 100 mL/min (50-200); Estimated Glomerular Filt Rate 75 ml/min (>60); GFR (African American) 91 ML/MIN (>60); Glucose 113 mg/dl (74-100)
[2023-10-20 10:34] LABS: Anion Gap 9.2 mEq/L (5-15); Calcium 9.1 mg/dl (8.4-10.2); INR 1.23 (0.9-1.1); Potassium 4.2 mmoL/L (3.5-5.1); Prothrombin Time 13.1 seconds (10.1-12.5); Sodium 136 mmol/L (136-145)
--- NOTE | 2023-10-20 10:38 | P.PNANES_ITS ---
[facility] Disclaimer: The information contained in this section may have been updated after the patient was seen, as this information can be updated by other users. Medical History (Updated 10/16/23 @ 12:31 by Lady Bosch MD) Angina pectoris Anxiety Arrhythmia Atrial fibrillation with RVR Atypical angina Benzocaine adverse reaction Congestive heart failure COPD (chronic obstructive pulmonary disease) COPD mixed type Depression Diastolic dysfunction Dyspnea on exertion Edema Encounter for screening for malignant neoplasm of lung Hemorrhoid HFrEF (heart failure with reduced ejection fraction) History of cardioversion History of gastroesophageal reflux (GERD) History of heart attack Injury of left foot Left foot pain Lumbar disc disease with radiculopathy Lumbar disc disease with radiculopathy Lumbar disc disease with radiculopathy Lung nodule Myocardial infarct Paroxysmal atrial fibrillation Pulmonary hypertension Sleep apnea Smoking greater than 30 pack years Vitamin D deficiency Surgical History History of quadruple bypass History of surgery Hx of heart artery stent Family History Other Heart attack Heart disease Social History (Updated 10/15/23 @ 17:12 by Lucretia Chinchilla RN) Smoking Status: Current every day smoker tobacco type: cigarettes packs per day: 1 second hand exposure: No alcohol intake: never substance use type: marijuana, crack/cocaine, painkillers and prescription drug current occupational status: retired and disabled Travel in the last 8 weeks: None household members: spouse housing: house number of children: 7 current occupational exposures/hazards: No caffeine: Yes [facility] Anesthesia Checklist Patient Identification Patient Identification: Arm Band Structural Data Admitted From: Home Planned Operative Procedure/s: REECE/Cardioversion Consent for Planned Operative Procedure(s) Verified: Yes Verified Documents: Surgical Consent and History and Physical NPO Status Verified Time NPO: 00:00 Additional verifications Anesthesia Reactions: No Hx Blood Transfusions: No Blood Transfusion Reaction: No Airway Assessment Mallampati Score:: Class II C-Spine Mobility Assessed: Yes TMJ Mobility Assessed: Yes Dentition: Poor Dentition Neurological Assessment Level of Consciousness: Awake and Drowsy Anesthesia Plan Anesthesia Risk discussed: Yes Anesthesia Plan: Verified ASA Class: IV Anesthesia Type: MAC
--- NOTE | 2023-10-20 12:29 | ECG_ITS ---
APPROVED REPORT Exam: Resting ECG HR:57 bpm ECG Measurements Heart Rate 57 AXES ND 199 P 66 QRSd 121 QRS 21 QT 426 T 95 QTc 421 Conclusion SINUS BRADYCARDIA WITH OCCASIONAL VENTRICULAR PREMATURE COMPLEXES POSSIBLE LEFT ATRIAL ENLARGEMENT [-0.1mV P-WAVE IN V1/V2] PROBABLE LATERAL MYOCARDIAL INFARCTION , OF INDETERMINATE AGE [35 ms Q WAVE IN I/aVL/V5/V6] MODERATE T-WAVE ABNORMALITY, CONSIDER ANTERIOR ISCHEMIA [-0.1+ mV T-WAVE IN V3/V4] ABNORMAL ECG UNCONFIRMED REPORT Electronically signed by : Yonas Barber MD 10/21/2023 09:01:41
--- NOTE | 2023-10-20 12:42 | SUR.PHASEII ---
report called to Carlos LUCERO on 2nd floor, passed in report MD asked for RN to stop Digoxin, and isosorbide and that Dr. Farah had questions regarding another medication. Carlos LUCERO stated he would call MD to verify orders. pt in stable condition.
[2023-10-20] MEDS: METOPROLOL SUCCINATE XL 100MG TABLET 100 MG PO (13:56)
[2023-10-20] MEDS: RIVAROXABAN 10MG TABLET 20 MG PO (17:07)
--- NOTE | 2023-10-20 18:25 | P.PN_ITS ---
Subjective *Date: 10/20/23 *Time: 18:25 Interval history: Patient going for REECE and cardioversion today. Has diuresed well, -5 L since admission. Stable on room air. No nausea or vomiting. No chest pain. Medical Exam Vital signs and Labs for Last 24 Hours: Vital Signs Temp Pulse Pulse Resp BP Pulse Ox O2 Del Method 10/20/23 17:00 Room Air 10/20/23 16:45 70 14 115/57 L 94 L 10/20/23 16:00 70 10/20/23 15:45 71 15 112/74 94 L 10/20/23 14:45 69 16 131/93 H 92 L 10/20/23 14:51 Room Air 10/20/23 14:15 15 135/96 H 93 L 10/20/23 13:45 77 14 135/82 93 L 10/20/23 13:30 16 126/91 H 96 10/20/23 13:15 16 145/96 H 94 L 10/20/23 13:00 14 111/83 98 10/20/23 13:00 Room Air 10/20/23 12:46 63 17 129/92 H 96 Room Air 10/20/23 12:35 97.8 F 61 17 102/74 L 95 Room Air 10/20/23 11:53 Nasal Cannula 10/20/23 08:00 97 Room Air 10/20/23 09:00 Room Air 10/20/23 09:46 65 10/20/23 08:00 60 10/20/23 08:00 97.9 F 63 16 109/71 L 96 Room Air 10/20/23 06:26 Room Air 10/20/23 04:00 80 10/20/23 04:00 97.7 F 88 16 107/64 L 96 10/20/23 04:47 Room Air 10/20/23 03:00 Room Air 10/20/23 00:00 110 H 10/20/23 01:00 Room Air 10/20/23 00:29 111 H 107/66 L 10/20/23 00:00 98 F 64 16 115/68 95 10/19/23 23:54 Room Air 10/19/23 23:00 Room Air 10/19/23 21:00 Room Air 10/19/23 20:00 97.7 F 119 H 22 102/54 L 96 10/19/23 20:00 100 H 10/19/23 19:58 120 H Room Air 10/19/23 18:51 Room Air O2 Flow Rate 10/20/23 17:00 10/20/23 16:45 10/20/23 16:00 10/20/23 15:45 10/20/23 14:45 10/20/23 14:51 10/20/23 14:15 10/20/23 13:45 10/20/23 13:30 10/20/23 13:15 10/20/23 13:00 10/20/23 13:00 10/20/23 12:46 10/20/23 12:35 10/20/23 11:53 5 10/20/23 08:00 10/20/23 09:00 10/20/23 09:46 10/20/23 08:00 10/20/23 08:00 10/20/23 06:26 10/20/23 04:00 10/20/23 04:00 10/20/23 04:47 10/20/23 03:00 10/20/23 00:00 10/20/23 01:00 10/20/23 00:29 10/20/23 00:00 10/19/23 23:54 10/19/23 23:00 10/19/23 21:00 10/19/23 20:00 10/19/23 20:00 10/19/23 19:58 10/19/23 18:51 Intake and Output 10/20/23 10/20/23 10/20/23 07:59 15:59 23:59 Intake Total 420 / 420 Output Total 850 / 850 0 / 850 Balance -850 / -430 420 / -430 Intake: Intake, Oral Amount 420 / 420 Output: Output, Urine Amount 850 / 850 0 / 850 Other: Number of Voids 0 0 Weight 93.712 kg Patient Weight 10/20/23 23:59 Weight 93.712 kg Laboratory Results - last 24 hr 10/20/23 08:45: WBC 7.1, RBC 5.14, Hgb 15.2, Hct 44.9, MCV 87.4, MCH 29.5, MCHC 33.8, RDW 14.3, Plt Count 165, MPV 9.8, Neut % (Auto) 58.0, Lymph % (Auto) 32.0, [place] % (Auto) 6.9, Eos % (Auto) 2.7, Baso % (Auto) 0.4, Neut # (Auto) 4.1, Lymph # (Auto) 2.3, [place] # (Auto) 0.5, Eos # (Auto) 0.2, Baso # (Auto) 0.0, Sodium 137, Potassium 4.2, Chloride 98, Carbon Dioxide 29, Anion Gap 14.2, BUN 27 H, Creatinine 0.90, Estimated Creat Clear 100, Estimated GFR 85, Est GFR ( Amer) 103, Glucose 112 H, Calcium 9.0, Total Bilirubin 0.6, AST 32, ALT 27, Alkaline Phosphatase 59, Total Protein 7.0, Albumin 4.3, Globulin 2.7, Albumin/Globulin Ratio 1.6 10/20/23 10:12: PT 13.1 H, INR 1.23 H, Sodium 136, Potassium 4.2, Chloride 98, Carbon Dioxide 33 H, Anion Gap 9.2, BUN 26 H, Creatinine 1.00, Estimated Creat Clear 100, Estimated GFR 75, Est GFR ( Amer) 91, Glucose 113 H, Calcium 9.1 I & O for Labs for Last 24 Hours: Intake & Output 10/17/23 10/18/23 10/19/23 10/20/23 23:59 23:59 23:59 23:59 Intake Total 1950 / 2220 1700 / 1750 1280 / 1280 420 / 420 Output Total 1300 / 1300 2550 / 2550 2625 / 2625 850 / 850 Balance 650 / 920 -850 / -800 -1345 / -1345 -430 / -430 Weight 90.4 kg 89.4 kg 89.358 kg 93.712 kg Constitutional: Present no acute distress and chronically ill appearing Respiratory: Present normal respiratory effort; Absent rhonchi, wheezes or crackles Cardiac: Present Reg Rate and Rhythm GI: Present soft and normal bowel sounds; Absent distention or tenderness Extremities: Present normal inspection and full ROM Skin: Present intact; Absent erythema Neuro: Present Grossly Intact, alert, awake, oriented x 3 and moves all extremities Assessment and Plan *Assessment and plan (1) Acute exacerbation of CHF (congestive heart failure): Status: Acute Qualifiers: Heart failure type: unspecified Qualified Code(s): I50.9 - Heart failure, unspecified Category: Medical Code(s): I50.9 - Heart failure, unspecified (2) HFrEF (heart failure with reduced ejection fraction): Status: Acute Category: Medical Code(s): I50.20 - Unspecified systolic (congestive) heart failure (3) Atrial flutter: Status: Acute Category: Medical Code(s): I48.92 - Unspecified atrial flutter (4) Pulmonary edema: Status: Acute Qualifiers: Chronicity: acute Qualified Code(s): J81.0 - Acute pulmonary edema Category: Medical Code(s): J81.1 - Chronic pulmonary edema (5) COPD mixed type: Status: Acute Category: Medical Code(s): J44.9 - Chronic obstructive pulmonary disease, unspecified (6) Hypertension: Status: Chronic Qualifiers: Hypertension type: essential hypertension Qualified Code(s): I10 - Essential (primary) hypertension Category: Medical Code(s): I10 - Essential (primary) hypertension (7) Hyperlipidemia: Status: Chronic Qualifiers: Hyperlipidemia type: mixed hyperlipidemia Qualified Code(s): E78.2 - Mixed hyperlipidemia Category: Medical Code(s): E78.5 - Hyperlipidemia, unspecified (8) Smoking greater than 30 pack years: Status: Acute Category: Social Hx Code(s): F17.210 - Nicotine dependence, cigarettes, uncomplicated (9) Obesity (BMI 30-39.9): Status: Acute Category: Medical Code(s): E66.9 - Obesity, unspecified Plan 63-year-old obese male with a extensive history of multivessel CAD s/p CABG, also recently NSTEMI, Afib, on Xarelto, coming to ER c/o shortness of breath over the last 3 days which has slowly worsened. No change in lower extremity edema patient does states that he has significant orthopnea associated with this. ER work up included CXR that showed Peribronchial wall thickening and mild bilateral airspace opacities, suggestive of edema or pneumonia. Patient is responded well to diuretics. Continues to require inpatient management. Problems addressed as follows: -Acute on Chronic heart failure with reduced ejection fraction -Atrial flutter -Hypertension Cardiology consulted, taking patient for REECE and cardioversion today admit patient. Dispo step-down Continue diuresis, responding well. -5 L since admission. Lasix 40 mg IV twice daily LifeVest placed, EF 25 to 30%. Labs reviewed, creatinine 0.9, BUN 27. Potassium 4.2. Repeat CMP, CBC, magnesium ordered for the morning -pulmonary edema vs pneumonia -COPD continue azithromycin and ceftriaxone Weaned to room air, goal sats greater than 90%. alprazolam for anxiety Smoker : nicotine patch Obesity: Complicates all aspects of his care Lovenox for DVT ppx On protonix Full code
[2023-10-20] MEDS: ATORVASTATIN 40MG TABLET 40 MG PO (20:25)
[2023-10-20] MEDS: CEFTRIAXONE 1 GM 1 GM in 0.9 % SODIUM CHLORIDE 50 ML IV (22:22)
[2023-10-20] MEDS: SODIUM CHLORIDE 0.9% 10ML FLUSH SYRINGE 10 ML IV (22:23)
[2023-10-21] VITALS: BP 100/72; PULSE 60; PULSE 72; PULSE 73; RESP 18; TEMP 36.2; O2SAT 96
[2023-10-21 04:00] VITALS: BP 120/73; PULSE 60; PULSE 61; RESP 20; TEMP 36.4; O2SAT 96; BMI 28.9
[2023-10-21] MEDS: TIOTROPIUM 18MCG/PUFF INHALER 1 CAP IH (05:54)
[2023-10-21 07:03] LABS: Basophils % 0.3 % (0.1-2.0); Eosinophils # 0.2 K/mm3 (0.0-0.4); Eosinophils % 2.6 % (0.1-12.0); Hematocrit 43.2 % (42.0-52.0); Hemoglobin 14.6 g/dL (14.1-18.0); Lymphocytes % 28.2 % (10-50); Mean Corpuscular HGB Conc 33.9 g/dL (31.8-35.4); Mean Corpuscular Hemoglobin 29.5 pg (27.0-31.2); Mean Corpuscular Volume 87.1 fl (80-94); Mean Platelet Volume 9.8 fl (7.4-10.4); Monocytes # 0.5 K/mm3 (0.1-1.0); Monocytes % 7.2 % (1.7-9.3); Neutrophils # 4.3 K/mm3 (1.8-7.8); Neutrophils % 61.7 % (37.0-80.0); Platelet Count 172 K/mm3 (142-424); Red Blood Count 4.95 M/mm3 (4.60-6.20); Red Cell Distribution Width 14.2 % (11.5-17.5)
[2023-10-21 07:26] LABS: Alanine Aminotransferase 29 U/L (12-78); Albumin Level 4.3 g/dl (3.5-5.0); Albumin/Globulin Ratio 1.6 (1.1-1.8); Alkaline Phosphatase 60 U/L (38-126); Anion Gap 10.3 mEq/L (5-15); Aspartate Amino Transferase 32 U/L (17-59); Bilirubin,Total 0.5 mg/dl (0.2-1.3); Blood Urea Nitrogen 30 mg/dl (9-20); Calcium 8.9 mg/dl (8.4-10.2); Carbon Dioxide 31 mmol/L (22.0-30.0); Chloride 96 mmol/L (98-107); Creatinine Clearance Estimated 89 mL/min (50-200); Estimated Glomerular Filt Rate 68 ml/min (>60); GFR (African American) 82 ML/MIN (>60); Globulin 2.7 g/dL (1.3-3.2); Glucose 128 mg/dl (74-100); Magnesium 2.4 mg/dl (1.6-2.3); Potassium 4.3 mmoL/L (3.5-5.1); Sodium 133 mmol/L (136-145)
--- NOTE | 2023-10-21 07:34 | EXP.DC.SUM ---
General Admission date:: 10/15/23 Discharge date: 10/21/23 HPI HPI HPI: This is a 63-year-old obese male with a extensive history of multivessel CAD s/p CABG, CHF, COPD, also recently NSTEMI, Afib, on Xarelto, coming to ER c/o shortness of breath over the last 3 days which has slowly worsened. No change in lower extremity edema patient does states that he has significant orthopnea associated with this. He has exertional symptoms. Per ER documentation he had on his last echo which was earlier this year [facility] and LVEF of 30 to 35% they are considering a LifeVest but the patient does not yet have any type of defibrillator on placement at the moment. She does state he has some mild chest discomfort primarily retrosternal on the left side nonradiating. Admitted for treatment and management Hospital Course Hospital Course Hospital Course: 63-year-old obese male with a extensive history of multivessel CAD s/p CABG, also recently NSTEMI, Afib, on Xarelto, coming to ER c/o shortness of breath over the last 3 days which has slowly worsened. No change in lower extremity edema patient does states that he has significant orthopnea associated with this. ER work up included CXR that showed Peribronchial wall thickening and mild bilateral airspace opacities, suggestive of edema or pneumonia. Patient gated on diuretics. Pulmonology and cardiology both consulted. Patient found to have significant heart failure. Responded well to medical management. On room air by day of discharge. Will stable for discharge home. Problems addressed as follows: -Acute on Chronic heart failure with reduced ejection fraction -Atrial flutter -Hypertension -Severe mitral regurgitation -CAD Patient admitted for medical management of his respiratory failure. Found to be in severe heart failure. Initiated on diuretics with good response to diuresis. He remained in A-fib RVR despite medication changes, underwent REECE cardioversion on 10/20/2023 with conversion to normal sinus rhythm. Rate controlled on Toprol 100 mg daily, anticoagulation with Xarelto 20 mg daily. Recommend close follow-up with cardiology in the outpatient setting. Echo obtained during admission showed ejection fraction of 25 to 30%. LifeVest was placed prior to discharge. Continue heart failure medications including Entresto 24/26 mg twice daily, Aldactone 25 mg daily, and Jardiance 10 mg daily. Will continue Lasix 40 mg daily for diuresis/volume control at discharge. Stable on room air. Will need repeat labs at follow-up to monitor electrolytes and kidney function. -In regard to his CAD, continuing Plavix and high intensity statin. -Stressed the importance of lifestyle modification. Patient currently smokes, and multiple conversations about the necessity of smoking cessation. Nicotine patches during admission. -pulmonary edema vs pneumonia -COPD Initiated on azithromycin and ceftriaxone. Finished course of antibiotics during admission. Weaned to room air. No indication for further treatment at discharge. Meds for discharge -Toprol 100 mg p.o. daily -Xarelto 20 mg p.o. daily -Entresto 24/26 mg p.o. twice daily -Aldactone 25 mg p.o. daily -Jardiance 10 mg p.o. daily -Lasix 40 mg p.o. daily -Plavix 75 mg p.o. daily -Atorvastatin 80 mg p.o. daily Exam Data for Last 24 hours Vital signs and Labs for Last 24 Hours: Temp Pulse Resp BP Pulse Ox O2 Del Method O2 Flow Rate 97.5 F L 61 20 120/73 96 Room Air 5 10/21/23 04:00 10/21/23 04:00 10/21/23 04:00 10/21/23 04:00 10/21/23 04:00 10/21/23 06:20 10/20/23 11:53 FiO2 30 10/17/23 06:00 Laboratory Results - last 24 hr 10/20/23 08:45: WBC 7.1, RBC 5.14, Hgb 15.2, Hct 44.9, MCV 87.4, MCH 29.5, MCHC 33.8, RDW 14.3, Plt Count 165, MPV 9.8, Neut % (Auto) 58.0, Lymph % (Auto) 32.0, [place] % (Auto) 6.9, Eos % (Auto) 2.7, Baso % (Auto) 0.4, Neut # (Auto) 4.1, Lymph # (Auto) 2.3, [place] # (Auto) 0.5, Eos # (Auto) 0.2, Baso # (Auto) 0.0, Sodium 137, Potassium 4.2, Chloride 98, Carbon Dioxide 29, Anion Gap 14.2, BUN 27 H, Creatinine 0.90, Estimated Creat Clear 100, Estimated GFR 85, Est GFR ( Amer) 103, Glucose 112 H, Calcium 9.0, Total Bilirubin 0.6, AST 32, ALT 27, Alkaline Phosphatase 59, Total Protein 7.0, Albumin 4.3, Globulin 2.7, Albumin/Globulin Ratio 1.6 10/20/23 10:12: PT 13.1 H, INR 1.23 H, Sodium 136, Potassium 4.2, Chloride 98, Carbon Dioxide 33 H, Anion Gap 9.2, BUN 26 H, Creatinine 1.00, Estimated Creat Clear 100, Estimated GFR 75, Est GFR ( Amer) 91, Glucose 113 H, Calcium 9.1 10/21/23 06:30: WBC 7.0, RBC 4.95, Hgb 14.6, Hct 43.2, MCV 87.1, MCH 29.5, MCHC 33.9, RDW 14.2, Plt Count 172, MPV 9.8, Neut % (Auto) 61.7, Lymph % (Auto) 28.2, [place] % (Auto) 7.2, Eos % (Auto) 2.6, Baso % (Auto) 0.3, Neut # (Auto) 4.3, Lymph # (Auto) 2.0, [place] # (Auto) 0.5, Eos # (Auto) 0.2, Baso # (Auto) 0.0, Sodium 133 L, Potassium 4.3, Chloride 96 L, Carbon Dioxide 31 H, Anion Gap 10.3, BUN 30 H, Creatinine 1.10, Estimated Creat Clear 89, Estimated GFR 68, Est GFR ( Amer) 82, Glucose 128 H, Calcium 8.9, Magnesium 2.4 H, Total Bilirubin 0.5, AST 32, ALT 29, Alkaline Phosphatase 60, Total Protein 7.0, Albumin 4.3, Globulin 2.7, Albumin/Globulin Ratio 1.6 I & O for Last 24 hours: Intake & Output 10/18/23 10/19/23 10/20/23 10/21/23 23:59 23:59 23:59 23:59 Intake Total 1700 / 1750 1280 / 1280 420 / 920 500 / 500 Output Total 2550 / 2550 2625 / 2625 1550 / 1850 600 / 600 Balance -850 / -800 -1345 / -1345 -1130 / -930 -100 / -100 Weight 89.4 kg 89.358 kg 93.712 kg 91.711 kg Results Data Completed and Pending Labs on day of discharge: Labs from last 24 hours 10/21/23 10/20/23 10/20/23 06:30 10:12 08:45 WBC 7.0 7.1 RBC 4.95 5.14 Hgb 14.6 15.2 Hct 43.2 44.9 MCV 87.1 87.4 MCH 29.5 29.5 MCHC 33.9 33.8 RDW 14.2 14.3 Plt Count 172 165 MPV 9.8 9.8 Neut % (Auto) 61.7 58.0 Lymph % (Auto) 28.2 32.0 [place] % (Auto) 7.2 6.9 Eos % (Auto) 2.6 2.7 Baso % (Auto) 0.3 0.4 Neut # (Auto) 4.3 4.1 Lymph # (Auto) 2.0 2.3 [place] # (Auto) 0.5 0.5 Eos # (Auto) 0.2 0.2 Baso # (Auto) 0.0 0.0 PT 13.1 H INR 1.23 H Sodium 133 L 136 137 Potassium 4.3 4.2 4.2 Chloride 96 L 98 98 Carbon Dioxide 31 H 33 H 29 Anion Gap 10.3 9.2 14.2 BUN 30 H 26 H 27 H Creatinine 1.10 1.00 0.90 Estimated Creat Clear 89 100 100 Estimated GFR 68 75 85 Est GFR ( Amer) 82 91 103 Glucose 128 H 113 H 112 H Calcium 8.9 9.1 9.0 Magnesium 2.4 H Total Bilirubin 0.5 0.6 AST 32 32 ALT 29 27 Alkaline Phosphatase 60 59 Total Protein 7.0 7.0 Albumin 4.3 4.3 Globulin 2.7 2.7 Albumin/Globulin Ratio 1.6 1.6 DS: Diagnosis Discharge Diagnosis (1) Acute exacerbation of CHF (congestive heart failure): Status: Acute Code(s): I50.9 - Heart failure, unspecified Qualifiers: Heart failure type: unspecified Qualified Code(s): I50.9 - Heart failure, unspecified (2) HFrEF (heart failure with reduced ejection fraction): Status: Acute Code(s): I50.20 - Unspecified systolic (congestive) heart failure (3) Atrial flutter: Status: Acute Code(s): I48.92 - Unspecified atrial flutter (4) Pulmonary edema: Status: Acute Code(s): J81.1 - Chronic pulmonary edema Qualifiers: Chronicity: acute Qualified Code(s): J81.0 - Acute pulmonary edema (5) COPD mixed type: Status: Acute Code(s): J44.9 - Chronic obstructive pulmonary disease, unspecified (6) Hypertension: Status: Chronic Code(s): I10 - Essential (primary) hypertension Qualifiers: Hypertension type: essential hypertension Qualified Code(s): I10 - Essential (primary) hypertension (7) Hyperlipidemia: Status: Chronic Code(s): E78.5 - Hyperlipidemia, unspecified Qualifiers: Hyperlipidemia type: mixed hyperlipidemia Qualified Code(s): E78.2 - Mixed hyperlipidemia (8) Smoking greater than 30 pack years: Status: Acute Code(s): F17.210 - Nicotine dependence, cigarettes, uncomplicated (9) Obesity (BMI 30-39.9): Status: Acute Code(s): E66.9 - Obesity, unspecified Meds Home Medications and Allergies Home Medications Medication Instructions Recorded Confirmed Type gabapentin 800 mg tablet 800 mg PO TID Pain 05/14/23 10/15/23 History omeprazole 20 mg capsule,delayed 40 mg PO DAILY Acid Reflux 07/22/23 10/15/23 History release spironolactone 25 mg tablet 25 mg PO DAILY Fluid #90 tabs 07/25/23 10/15/23 Rx rivaroxaban 20 mg tablet (Xarelto) 20 mg PO QPMWITHMEAL blood 08/25/23 10/15/23 Rx thinner/atrial fib #30 tabs alprazolam 1 mg tablet 1 mg PO QIDP PRN Anxiety 10/15/23 10/16/23 History albuterol sulfate 90 mcg/actuation 2 inh inhalation QIDP PRN 10/16/23 10/16/23 History aerosol inhaler Shortness Of Breath Or Wheezing clopidogrel 75 mg tablet 75 mg PO DAILY Blood Thinner 10/16/23 10/16/23 History empagliflozin 10 mg tablet 10 mg PO DAILY Heart Disease 10/16/23 10/16/23 History (Jardiance) hydroxyzine pamoate 50 mg capsule 50 mg PO DAILYP PRN Anxiety 10/16/23 10/16/23 History ipratropium 0.5 mg-albuterol 3 mg 3 ml inhalation QIDP PRN Shortness 10/16/23 10/16/23 History (2.5 mg base)/3 mL nebulization Of Breath Or Wheezing soln nitroglycerin 0.4 mg sublingual 0.4 mg sublingual Q5MINP PRN Chest 10/16/23 10/16/23 History tablet Pain tiotropium bromide 18 mcg capsule 1 cap inhalation DAILY Copd 10/16/23 10/16/23 History with inhalation device (Spiriva with HandiHaler) atorvastatin 40 mg tablet 80 mg PO HS Cholesterol 30 days 10/21/23 Rx #60 tabs furosemide 20 mg tablet 40 mg PO DAILY 30 days #30 tabs 10/21/23 Rx metoprolol succinate 100 mg 100 mg PO DAILY 30 days #30 tabs 10/21/23 Rx tablet,extended release 24 hr nicotine 21 mg/24 hr daily 21 mg transdermal DAILYP PRN 10/21/23 Rx transdermal patch Nicotine Cravings 30 days #30 ea sacubitril 24 mg-valsartan 26 mg 1 tab PO BID 30 days #60 tabs 10/21/23 Rx tablet (Entresto) New Prescriptions to Start Prescriptions: Vipul Terry furosemide Vipul Ledesma metoprolol succinate Vipul Ledesma nicotine Vipul Ledesma sacubitril-valsartan [Entresto] Vipul Ledesma Allergies Allergy/AdvReac Type Severity Reaction Status Date / Time codeine [CODEINE] AdvReac Mild Headache Verified 08/25/23 13:49 morphine AdvReac Verified 10/15/23 20:50 Discharge Plan Disposition Patient Disposition: Home, Self-Care Condition: Fair Discharge Order Discharge Orders: Discharge Order (Routine); Ordered 10/21/23 Ordered By: Vipul Ledesma Follow up Plan Follow up with: Jassi Leos MD [Staff Physician] - 10/29/23 2:15 pm Lady Bosch MD [Physician] - 11/05/23 11:30 am Prescriptions/Medication Reconciliation: New metoprolol succinate 100 mg Tablet Extended Release 24 Hr 100 mg PO DAILY 30 Days Qty: 30 0RF nicotine 21 mg/24 hr Patch 24 Hour 21 mg transdermal DAILYP PRN (Reason: Nicotine Cravings) 30 Days Qty: 30 0RF Entresto 24-26 mg Tablet 1 tab PO BID 30 Days Qty: 60 0RF Continued Xarelto 20 mg tablet 20 mg PO QPMWITHMEAL Qty: 30 11RF Rx Instructions: must administer with evening meal gabapentin 800 mg tablet 800 mg PO TID Patient Comments: TAKE ONE TABLET BY MOUTH THREE TIMES DAILY omeprazole 20 mg capsule,delayed release(DR/EC) 40 mg PO DAILY Patient Comments: take 2 capsules BY MOUTH ONCE daily spironolactone 25 mg tablet 25 mg PO DAILY Qty: 90 1RF alprazolam 1 mg tablet 1 mg PO QIDP PRN (Reason: Anxiety) Patient Comments: take 1 TABLET BY MOUTH FOUR TIMES DAILY NEEDED clopidogrel 75 mg tablet 75 mg PO DAILY albuterol sulfate 90 mcg/actuation Hfa Aerosol Inhaler 2 inh INHALATION QIDP PRN (Reason: Shortness Of Breath Or Wheezing) ipratropium-albuterol 0.5 mg-3 mg(2.5 mg base)/3 mL Solution For Nebulization 3 ml INHALATION QIDP PRN (Reason: Shortness Of Breath Or Wheezing) hydroxyzine pamoate 50 mg capsule 50 mg PO DAILYP PRN (Reason: Anxiety) Patient Comments: take 1 CAPSULE BY MOUTH ONCE a DAY NEEDED nitroglycerin 0.4 mg tablet, sublingual 0.4 mg sublingual Q5MINP PRN (Reason: Chest Pain) Patient Comments: PLACE 1 TABLET UNDER THE TONGUE NEEDED FOR CHEST PAIN UP TO 3 TIMES. IF PAIN PERSISTS AFTER THIRD TABLE GO TO EMERGENCY ROOM tiotropium bromide [Spiriva with HandiHaler] 18 mcg Capsule, W/Inhalation Device 1 cap INHALATION DAILY Jardiance 10 mg tablet 10 mg PO DAILY Changed furosemide 20 mg tablet 40 mg PO DAILY 30 Days Qty: 30 6RF atorvastatin 40 MG tablet 80 mg PO HS 30 Days Qty: 60 0RF Discontinued Entresto 97-103 mg tablet 1 tab PO BID isosorbide mononitrate 30 mg tablet extended release 24 hr 30 mg PO DAILY Patient Comments: TAKE 1 TABLET (30 MG TOTAL) BY MOUTH DAILY. carvedilol 25 mg tablet 25 mg PO BID Rx Instructions: must administer with a meal/food digoxin 125 mcg (0.125 mg) tablet 125 mcg PO DAILY Problem Reconciliation Problems Reviewed?: Yes Patient Discharge Instructions ACTIVITY: Continue current activity and Ambulate as tolerated DIET: continue same diet Patient Instructions: DI for Heart Failure, DI for Atrial Flutter Providers Primary Care Provider: Provider,Referral Admit Provider: Michelle Duffy Attending Provider: Michelle Duffy
[2023-10-21] MEDS: EMPAGLIFLOZIN 10MG TABLET 10 MG PO (07:59)
[2023-10-21] MEDS: CLOPIDOGREL 75MG TAB 75 MG PO (07:59)
[2023-10-21] MEDS: METOPROLOL SUCCINATE XL 100MG TABLET 100 MG PO (07:59)
[2023-10-21] MEDS: PANTOPRAZOLE 40MG TABLET 40 MG PO (07:59)
[2023-10-21] MEDS: FUROSEMIDE 40MG/4ML VIAL 40 MG IV (07:59)
[2023-10-21] MEDS: SPIRONOLACTONE 25MG TABLET 25 MG PO (07:59)
[2023-10-21] MEDS: GABAPENTIN 800MG TABLET 800 MG PO (07:59)
[2023-10-21] MEDS: ALPRAZolam 1MG TABLET 1 MG PO (07:59)
[2023-10-21 08:00] VITALS: BP 122/79; PULSE 60; PULSE 70; RESP 18; TEMP 36.3; O2SAT 98
[2023-10-21] MEDS: OXYCODONE 5MG W/APAP 325MG TABLET 1 EACH PO (08:00)
--- NOTE | 2023-10-21 10:53 | P.PN_ITS ---
Subjective Subjective Date: 10/21/23 Time: 08:30 Principal diagnosis: Shortness of breath Interval history: Patient doing well this morning status post REECE cardioversion yesterday. Sitting up in chair without chest pain or shortness of breath. Patient was able to ambulate hallways this morning without symptoms. Remains in normal sinus rhythm. See REECE cardioversion report below: REECE cardioversion 09/2023 Conclusion Severe LV dilation with severe reduction in LV systolic function (LVEF 25%). Mild RV dilation with moderate reduction in RV function. Severe MR due to tethered posterior MV leaflet ([place] Class IIIB). Following the REECE and once confirmed there is no thrombus in the LA or MAN, DCCV with 150J was achieved, after which the patient's heart rhythm converted from Aflutter (HR 80s) to NSR (HR 50s). After the procedure, his rate-controlling medications will be adjusted to reduce the risk of bradycardia in the setting of resolved arrhythmia. Exam Data for Last 24 hours Vital signs and Labs for Last 24 Hours: Temp Pulse Resp BP Pulse Ox O2 Del Method O2 Flow Rate 97.4 F L 70 18 122/79 98 Room Air 5 10/21/23 08:00 10/21/23 08:00 10/21/23 08:00 10/21/23 08:00 10/21/23 08:00 10/21/23 09:00 10/20/23 11:53 FiO2 30 10/17/23 06:00 Laboratory Results - last 24 hr 10/21/23 06:30: WBC 7.0, RBC 4.95, Hgb 14.6, Hct 43.2, MCV 87.1, MCH 29.5, MCHC 33.9, RDW 14.2, Plt Count 172, MPV 9.8, Neut % (Auto) 61.7, Lymph % (Auto) 28.2, [place] % (Auto) 7.2, Eos % (Auto) 2.6, Baso % (Auto) 0.3, Neut # (Auto) 4.3, Lymph # (Auto) 2.0, [place] # (Auto) 0.5, Eos # (Auto) 0.2, Baso # (Auto) 0.0, Sodium 133 L, Potassium 4.3, Chloride 96 L, Carbon Dioxide 31 H, Anion Gap 10.3, BUN 30 H, Creatinine 1.10, Estimated Creat Clear 89, Estimated GFR 68, Est GFR ( Amer) 82, Glucose 128 H, Calcium 8.9, Magnesium 2.4 H, Total Bilirubin 0.5, AST 32, ALT 29, Alkaline Phosphatase 60, Total Protein 7.0, Albumin 4.3, Globulin 2.7, Albumin/Globulin Ratio 1.6 I & O for Last 24 hours: Intake & Output 10/18/23 10/19/23 10/20/23 10/21/23 23:59 23:59 23:59 23:59 Intake Total 1700 / 1750 1280 / 1280 420 / 920 1280 / 1280 Output Total 2550 / 2550 2625 / 2625 1550 / 1850 2100 / 2100 Balance -850 / -800 -1345 / -1345 -1130 / -930 -820 / -820 Weight 197 lb 1.492 oz 197 lb 206 lb 9.6 oz 202 lb 3 oz Constitutional Constitutional: no acute distress *Routine Respiratory Exam Respiratory: Present CTA bilaterally and symmetric chest movement *Routine Cardiovascular Exam Cardiovascular: Present RRR, Normal S1 and Normal S2 *Routine Abdominal Exam Abdominal: Present soft and normoactive bowel sounds; Absent tenderness *Routine Extremities Exam Extremities: Present full ROM and normal capillary refill; Absent edema *Routine Skin Exam Skin: Present intact, dry and warm Detailed Neck Exam: Thyroids Thyroid: Absent bruit Progress Note: A&P Assessment and plan (1) Acute exacerbation of CHF (congestive heart failure): Status: Acute (2) HFrEF (heart failure with reduced ejection fraction): Status: Acute (3) Atrial flutter: Status: Acute (4) Pulmonary edema: Status: Acute (5) COPD mixed type: Status: Acute (6) Hypertension: Status: Chronic (7) Hyperlipidemia: Status: Chronic (8) Smoking greater than 30 pack years: Status: Acute (9) Obesity (BMI 30-39.9): Status: Acute Assessment and Plan Assessment and Plan for All Diagnoses:: This is a 63-year-old white male with past medical history of coronary artery disease, HFrEF, and PAF who presented to emergency department on 10/16/2023 with complaints of shortness of breath. Patient was found to be in atrial fibrillation/flutter with RVR and volume overload. Patient was admitted for rate control and diuresis. He remained in A-fib RVR despite medication changes and had to undergo REECE cardioversion on 10/20/2023 converting patient to normal sinus rhythm. See note above. Paroxysmal atrial fibrillation -Patient underwent REECE cardioversion 09/2023 returning to normal sinus rhythm -Currently maintaining normal sinus rhythm -Continue Toprol 100 mg p.o. daily -Continue Xarelto 20 mg p.o. daily Chronic HFrEF Severe mitral regurgitation -Ejection fraction 25 to 30% -Patient currently has LifeVest and needs to be discharged home with LifeVest in place -Continue Toprol 100 mg p.o. daily and add Entresto 24/26 mg p.o. twice daily. Continue Aldactone 25 mg p.o. daily and add Jardiance 10 mg p.o. daily. Continue Lasix 40 mg p.o. BID at discharge. History of coronary artery disease -Stable at this time. Please continue Plavix 75 mg p.o. daily and high-dose statin Patient is CV stable for discharge. Please have patient follow-up with cardiology clinic next week for reevaluation. Please continue below listed cardiac medications. DC home in lifevest. Meds for discharge Toprol 100 mg p.o. daily Xarelto 20 mg p.o. daily Entresto 24/26 mg p.o. twice daily Aldactone 25 mg p.o. daily Jardiance 10 mg p.o. daily Lasix 40 mg p.o. BID Plavix 75 mg p.o. daily Atorvastatin 80 mg p.o. daily
[2023-10-21] MEDS: PNEUMOVAX 25MCG/0.5ML VIAL 0.5 ML IM (12:19)
[2023-10-21] MEDS: FLU VACC QS2023-24(6MO+)/PF 60 MCG/0.5 ML SYRINGE IM (12:22)
--- NOTE | 2023-10-23 13:10 | CARE MANAGER ---
Contacted patient related to hospital discharge. He states he is doing well. He is wearing the LifeVest. He picked up his medications yesterday and is aware of follow up appointments. Denies questions or concerns. NIC Marino
== END 2023-10-21 12:34 | disposition home or self-care (01) | DRG 291 ==
LOC: ER 16:19 → 2ND 17:11
PROVIDERS: Internal Medicine; Internal Medicine Adolescent Medicine; Internal Medicine Pulmonary Disease; Nurse Practitioner Family; Student in an Organized Health Care Education/Training Program; Admitting Provider Internal Medicine; Emergency Provider Emergency Medicine; Visit Provider Internal Medicine
DX: I11.0 Hypertensive heart disease with heart failure (principal); I50.23 Acute on chronic systolic (congestive) heart failure; J44.1 Chronic obstructive pulmonary disease with (acute) exacerbation; E78.2 Mixed hyperlipidemia; F17.210 Nicotine dependence, cigarettes, uncomplicated; Z79.01 Long term (current) use of anticoagulants; E78.5 Hyperlipidemia, unspecified; E66.9 Obesity, unspecified; Z68.28 Body mass index [BMI] 28.0-28.9, adult; I48.0 Paroxysmal atrial fibrillation
CPT/HCPCS: 36415; 71045; 80048; 80053; 80061; 80076; 80162; 83605; 83735; 83880; 84484; 85025; 85378; 85610; 85730; 87632; 87635; 90732; 92960; 93005; 93270; 93306; 93312; 93319; 94640; 94660; 97162; 97166; 97530; 99291; J0456; J0696